=== PATIENT | female | born 1965 | race Caucasian/White ===

== ENCOUNTER 2017-12-15 11:14 | Emergency (ER) | payer OTHER ==
--- NOTE | 2017-12-15 11:56 | RAD REPORT ---
EXAM DESCRIPTION: RAD - Chest Single View - 12/15/2017 11:50 am CLINICAL HISTORY: Chest pain. COMPARISON: 06/29/2017 FINDINGS: Portable technique limits examination quality. The lungs are grossly clear. The heart is normal in size. No displaced fractures. IMPRESSION: No acute intrathoracic process suspected.
[2017-12-15] MEDS ORDERED: ONDANSETRON 4 MG/2 ML VIAL ONE (11:57)
[2017-12-15] MEDS ORDERED: MORPHINE 4 MG/ML SYR ONE (11:57)
[2017-12-15 12:09] LABS: Absolute Lymphocytes (CBC) 4.1 K/uL (0.7-4.9); Absolute Neutrophil 7.8 K/uL (1.8-8.0); Basophils % 0.8 % (0-1.3); Eosinophils % 1.1 % (0-4.4); Hematocrit 48.5 % (36.0-45.0); Lymphocytes % 31.3 % (15.3-44.8); MCH 30.3 pg (27.0-35.0); MCV 90.8 fL (80-100); MPV 10.8 fL (7.6-11.3); Monocytes % 7.9 % (3.3-12.3); RBC Red Blood Cell Count 5.34 M/uL (3.86-4.86)
[2017-12-15 12:10] LABS: Potassium 3.9 mEq/L (3.6-5.0)
[2017-12-15 12:11] LABS: Protime INR 1.02
[2017-12-15] MEDS ORDERED: MEPERIDINE HCL 50 MG/ML AMP ONE (12:15)
--- NOTE | 2017-12-15 13:13 | RAD REPORT ---
EXAM DESCRIPTION: CT - Thorax W/ Con CLINICAL HISTORY: History fall, right sided chest pain, history of trauma to right-sided chest. COMPARISON: 06/29/2017, 03/27/2017. FINDINGS: Mottled COPD is present. No focal mass or infiltrate detected. No pleural thickening or pl eural effusion. No pneumothorax. Mildly prominent hilar and mediastinal lymph nodes are present, without progression since the compara tive study. No concerning bony finding. No gross upper abdominal finding. All CT scans are performed using dose optimization technique as appropriate and may include automated exposure control or mA/KV adjustment according to patient size. IMPRESSION: No acute intrathoracic finding is seen.
--- NOTE | 2017-12-15 13:36 | ER ---
Nurse's Notes [facility] Name: Juan J Velez Age: 51 yrs Sex: Female : 1965 Arrival Date: 12/15/2017 Time: 11:18 Bed 5 Private MD: Diagnosis: Chest contusion;Rib Contusion Presentation: 12/15 11:19 Presenting complaint: EMS states: She fell 2 days ago and is c/o worsening pain in the jl7 right upper chest and right arm. Transition of care: patient was not received from another setting of care. Onset of symptoms was December 13, 2017. Initial Sepsis Screen: Does the patient meet any 2 criteria? No. Patient's initial sepsis screen is negative. Does the patient have a suspected source of infection? No. Patient's initial sepsis screen is negative. Care prior to arrival: None. 11:19 Method Of Arrival: EMS: [facility] 11:19 Acuity: KORINA 3 jl7 Triage Assessment: 11:22 General: Appears uncomfortable, obese, Behavior is anxious. Pain: Complains of pain in jl7 anterior aspect of right upper chest Pain radiates to right arm Pain currently is 10 out of 10 on a pain scale. Quality of pain is described as stabbing, numb, Pain began 2-3 days ago. Is continuous. EENT: No signs and/or symptoms were reported regarding the EENT system. Neuro: Level of Consciousness is awake, alert, obeys commands, Oriented to person, place, time, situation. Cardiovascular: Patient's skin is warm and dry. Respiratory: Airway is patent Respiratory effort is even, unlabored, Respiratory pattern is regular, symmetrical. Derm: Skin is pink, warm \\T\\ dry. 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 - Social history:: Smoking status: Patient uses tobacco products, smokes one-half pack cigarettes per day, Patient/guardian denies using alcohol, street drugs. - Family history:: not pertinent. - Hospitalizations: : No recent hospitalization is reported. Screenin:26 Abuse screen: Denies threats or abuse. Denies injuries from another. Nutritional jl7 screening: No deficits noted. Tuberculosis screening: No symptoms or risk factors identified. 11:30 Fall Risk IV access (20 points). jl7 Assessment: 11:26 General: See triage assessment. jl7 12:10 Reassessment: pt reports pain unchanged, provider notified, see [facility] for orders. jl7 12:25 Reassessment: pt reports decreased pain, states "I'm good right now but when it comes jl7 back it's a 10/10.". 13:30 Reassessment: Patient states feeling better. Patient states symptoms have improved. jl7 Vital Signs: 11:22 BP 124 / 69; Pulse 100; Resp 17 S; Temp 98.6(O); Pulse Ox 100% on R/A; Weight 113.4 kg jl7 (R); Height 5 ft. 4 in. (162.56 cm) (R); Pain 10/10; 12:31 BP 119 / 64; Pulse 94; Resp 20; Pulse Ox 100% ; jl7 13:30 BP 116 / 63; Pulse 90; Resp 16; Pulse Ox 100% ; jl7 11:22 Body Mass Index 42.91 (113.40 kg, 162.56 cm) jl7 ED Course: 11:18 Patient arrived in ED. rn 11:18 David Olson MD is Attending Physician. rn 11:19 Porfirio Hickman, JOSEFINA is Primary Nurse. jl7 11:21 Triage completed. jl7 11:22 Arm band placed on right wrist. jl7 11:26 Patient has correct armband on for positive identification. Placed in gown. Bed in low jl7 position. Call light in reach. Side rails up X2. child monitor on. Pulse ox on. NIBP on. 11:48 X-ray completed. Portable x-ray completed in exam room. Patient tolerated procedure la2 poorly. 11:49 XRAY Chest (1 view) In Process Unspecified. EDMS 11:51 Inserted saline lock: 18 gauge in left antecubital area, using aseptic technique. Blood la1 collected. 12:28 LAB Add On Sent. jl7 12:55 CT Chest W/ Con In Process Unspecified. EDMS 13:53 No provider procedures requiring assistance completed. IV discontinued, intact, jl7 bleeding controlled, No redness/swelling at site. Pressure dressing applied. Administered Medications: 12:00 Drug: Zofran 4 mg Route: IVP; Site: left antecubital; jl7 12:27 Follow up: Response: No adverse reaction jl7 12:03 Drug: morphine 4 mg Route: IVP; Site: left antecubital; jl7 12:10 Follow up: Response: No adverse reaction; Pain is unchanged, physician notified jl7 12:20 Drug: Demerol 50 mg Route: IVP; Site: left antecubital; jl7 12:27 Follow up: Response: No adverse reaction; Pain is decreased jl7 Outcome: 13:35 Discharge ordered by . rn 13:53 Discharged to home ambulatory. jl7 13:53 Condition: stable 13:53 Discharge instructions given to patient, family, Instructed on discharge instructions, follow up and referral plans. medication usage, Demonstrated understanding of instructions, follow-up care, medications, Prescriptions given X 1. 13:54 Patient left the ED. jl7 Signatures: Dispatcher [employer] EDMS David Olson MD MD rn Attema, Lee, RN RN la1 Porfirio Hickman RN RN jl7 Blank [place]2 Corrections: (The following items were deleted from the chart) 12:27 12:00 Demerol 50 mg IVP in left antecubital jl7 jl7
--- NOTE | 2017-12-15 13:36 | EDPHYS ---
Physician Documentation [facility] Name: Juan J Velez Age: 51 yrs Sex: Female : 1965 Arrival Date: 12/15/2017 Time: 11:18 Bed 5 Private MD: ED Physician David Olson HPI: 12/15 11:27 This 51 yrs old Female presents to ER via EMS with complaints of right sided rn rib pain. 11:27 The patient or guardian reports chest pain that is located primarily in the anterior rn chest wall. Onset: The symptoms/episode began/occurred 2 day(s) ago. The pain does not radiate. The chest pain is described as sharp, stabbing. Duration: The patient or guardian reports multiple episodes, that are intermittent. Severity of pain: At its worst the pain was moderate in the emergency department the pain is unchanged. The patient has experienced a previous episode. Reports traumatic chest pain, right sided, worse with palpation and inspiration, fell 2 days ago on porch, landed on stack of bricks. Pain worse today. . 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 - Social history:: Smoking status: Patient uses tobacco products, smokes one-half pack cigarettes per day, Patient/guardian denies using alcohol, street drugs. - Family history:: not pertinent. - Hospitalizations: : No recent hospitalization is reported. ROS: 11:27 Constitutional: Negative for fever, chills, and weight loss, Eyes: Negative for injury, rn pain, redness, and discharge, Neck: Negative for injury, pain, and swelling, Cardiovascular: + right sided rib pain Respiratory: Negative for wheezing Abdomen/GI: Negative for abdominal pain, nausea, vomiting, diarrhea, and constipation, Back: Negative for injury and pain, MS/Extremity: Negative for injury and deformity, Skin: Negative for injury, rash, and discoloration, Neuro: Negative for headache, weakness, numbness, tingling, and seizure. Exam: 11:27 Constitutional: This is a well developed, well nourished patient who is awake, alert, rn appears in pain, holding right side of chest wall Head/Face: Normocephalic, atraumatic. Eyes: Pupils equal round and reactive to light, extra-ocular motions intact. Lids and lashes normal. Conjunctiva and sclera are non-icteric and not injected. Cornea within normal limits. Periorbital areas with no swelling, redness, or edema. Chest/axilla: No ecchymosis/crepitus, + tender mid right chest wall, no mobile segments Cardiovascular: Regular rate and rhythm with a normal S1 and S2. No gallops, murmurs, or rubs. Normal PMI, no JVD. No pulse deficits. Respiratory: + mild tachypnea, no retractions, speaking normally Abdomen/GI: Soft, non-tender, with normal bowel sounds. No distension or tympany. No guarding or rebound. No evidence of tenderness throughout. MS/ Extremity: Pulses equal, no cyanosis. Neurovascular intact. Full, normal range of motion. Equal circumference. Neuro: Awake and alert, GCS 15, oriented to person, place, time, and situation. Cranial nerves II-XII grossly intact. Motor strength 5/5 in all extremities. Sensory grossly intact. Cerebellar exam normal. Normal gait. 12:49 ECG was reviewed by the Attending Physician. rn Vital Signs: 11:22 BP 124 / 69; Pulse 100; Resp 17 S; Temp 98.6(O); Pulse Ox 100% on R/A; Weight 113.4 kg jl7 (R); Height 5 ft. 4 in. (162.56 cm) (R); Pain 10/10; 12:31 BP 119 / 64; Pulse 94; Resp 20; Pulse Ox 100% ; jl7 13:30 BP 116 / 63; Pulse 90; Resp 16; Pulse Ox 100% ; jl7 11:22 Body Mass Index 42.91 (113.40 kg, 162.56 cm) jl7 MDM: 11:18 Patient medically screened. rn 13:33 Differential diagnosis: Blunt Chest Trauma Chest Wall Contusion Chest Wall Injury rn Pneumothorax Pulmonary Contusion Rib Fracture. Data reviewed: vital signs, nurses notes, lab test result(s), radiologic studies, CT scan, plain films, and as a result, I will discharge patient. Counseling: I had a detailed discussion with the patient and/or guardian regarding: the historical points, exam findings, and any diagnostic results supporting the discharge/admit diagnosis, lab results, radiology results, the need for outpatient follow up, to return to the emergency department if symptoms worsen or persist or if there are any questions or concerns that arise at home. Response to treatment: the patient's symptoms have mildly improved after treatment. Special discussion: I discussed with the patient/guardian in detail that at this point there is no indication for admission to the hospital. It is understood, however, that if the symptoms persist or worsen the patient needs to return immediately for re-evaluation. 12/15 11:22 Order name: CBC with Diff; Complete Time: 12:12 rn 12/15 11:22 Order name: Basic Metabolic Panel; Complete Time: 12:12 rn 12/15 11:22 Order name: Protime (+inr); Complete Time: 12:12 rn 12/15 11:22 Order name: Ptt, Activated; Complete Time: 12:12 rn 12/15 12:16 Order name: LAB Add On eb 12/15 12:18 Order name: Troponin (Emerg Dept Use Only); Complete Time: 12:49 EDMS 12/15 11:22 Order name: XRAY Chest (1 view); Complete Time: 12:12 rn 12/15 11:22 Order name: IV Start; Complete Time: 12:09 rn 12/15 11:26 Order name: CT Chest W/ Con; Complete Time: 13:33 rn 12/15 12:10 Order name: EKG - Nurse/Tech; Complete Time: 12:26 rn 12/15 12:10 Order name: EKG; Complete Time: 12:11 rn EC:49 Rate is 89 beats/min. Rhythm is regular. QRS Carey is Normal. IA interval is normal. QRS rn interval is normal. QT interval is normal. No Q waves. T waves are Normal. No ST changes noted. Clinical impression: Normal ECG. Interpreted by me. Administered Medications: 12:00 Drug: Zofran 4 mg Route: IVP; Site: left antecubital; jl7 12:27 Follow up: Response: No adverse reaction jl7 12:03 Drug: morphine 4 mg Route: IVP; Site: left antecubital; jl7 12:10 Follow up: Response: No adverse reaction; Pain is unchanged, physician notified jl7 12:20 Drug: Demerol 50 mg Route: IVP; Site: left antecubital; jl7 12:27 Follow up: Response: No adverse reaction; Pain is decreased jl7 Disposition: 12/15/17 13:35 Discharged to Home. Impression: Chest contusion, Rib Contusion. - Condition is Stable. - Discharge Instructions: Rib Contusion. - Prescriptions for Tylenol- Codeine #3 300-30 mg Oral Tablet - take 1 tablet by ORAL route every 6 hours As needed; 15 tablet. - Medication Reconciliation Form, Thank You Letter, Antibiotic Education, Prescription Opioid Use form. - Follow up: Private Physician; When: As needed; Reason: Recheck today's complaints, Re-evaluation by your physician. - Problem is new. - Symptoms have improved. Signatures: Dispatcher [employer] EDMS David Olson MD MD rn Leal, Jahala, RN RN jl7 Corrections: (The following items were deleted from the chart) 13:54 13:35 12/15/2017 13:35 Discharged to Home. Impression: Chest contusion; Rib Contusion. jl7 Condition is Stable. Forms are Medication Reconciliation Form, Thank You Letter, Antibiotic Education, Prescription Opioid Use. Follow up: Private Physician; When: As needed; Reason: Recheck today's complaints, Re-evaluation by your physician. Problem is new. Symptoms have improved. rn
[2017-12-15 13:58] VITALS: TEMP 98.6; O2SAT 100
[2017-12-15 14:00] VITALS: BP 116/63
--- NOTE | 2017-12-16 06:56 | EKG ---
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
== END 2017-12-15 13:54 | disposition home or self-care (01) ==
LOC: ER 11:14
DX: S20.219A Contusion of unspecified front wall of thorax, initial encounter (principal); W18.39XA Other fall on same level, initial encounter; Y93.9 Activity, unspecified; Y92.008 Other place in unspecified non-institutional (private) residence as the place of occurrence of the external cause; F41.9 Anxiety disorder, unspecified; F43.10 Post-traumatic stress disorder, unspecified; F17.210 Nicotine dependence, cigarettes, uncomplicated
CPT/HCPCS: 36415; 71045; 71260; 80048; 84484; 85025; 85610; 85730; 93005; J2175; J2405; Q9967; 96374; 96375; 99284

== ENCOUNTER 2018-01-22 17:43 | Observation (INO) | payer OTHER ==
[2018-01-22] MEDS ORDERED: ONDANSETRON 4 MG/2 ML VIAL ONE ×2 (20:07→23:26)
[2018-01-22] MEDS ORDERED: MORPHINE 4 MG/ML SYR ONE (20:07)
[2018-01-22 20:52] LABS: Urine Bacteria <20 /HPF (<20); Urine Culture Reflex Order NOT NEEDED
[2018-01-22 21:44] LABS: Potassium 3.7 mEq/L (3.6-5.0)
[2018-01-22 21:46] LABS: Absolute Lymphocytes (CBC) 4.8 K/uL (0.7-4.9); Absolute Monocytes 1.2 K/uL (0.1-1.3); Absolute Neutrophil 10.1 K/uL (1.8-8.0); Basophils % 0.7 % (0-1.3); Eosinophils % 1.9 % (0-4.4); Hematocrit 44.9 % (36.0-45.0); Lymphocytes % 29.1 % (15.3-44.8); MCH 30.5 pg (27.0-35.0); MPV 11.2 fL (7.6-11.3); Monocytes % 7.3 % (3.3-12.3)
[2018-01-22 21:50] LABS: Albumin 3.8 g/dL (3.2-5.5); Bilirubin Direct 0.1 mg/dL (0-0.2); Bilirubin Total 0.4 mg/dL (0.3-1.2); Protein, Total 7.1 g/dL (6.0-8.3)
[2018-01-22] MEDS ORDERED: NA CHLORIDE 0.9% 2,000 ML ONE (23:27)
[2018-01-22 23:35] LABS: Urine Blood 2+ (NEG); Urine Glucose NEGATIVE (NEG); Urine Protein NEGATIVE (NEG); Urine Specific Gravity 1.025 (1.005-1.030); Urine pH 5.5 (5.0-7.0)
--- NOTE | 2018-01-23 00:19 | ER ---
Nurse's Notes [facility] Name: Juan J Velez Age: 52 yrs Sex: Female : 1965 Arrival Date: 01/22/2018 Time: 17:45 Bed 25 Private MD: SALLIE CALDWELL Diagnosis: Lower abdominal pain, unspecified;Leukocytosis Presentation: 01/22 18:24 Presenting complaint: Patient states: Left back pain that radiates down left leg. aj Ambulated to triage with steady gait. Transition of care: patient was not received from another setting of care. Onset of symptoms was January 17, 2018. Risk Assessment: Do you want to hurt yourself or someone else? Patient reports no desire to harm self or others. Care prior to arrival: None. 18:24 Method Of Arrival: Ambulatory 18:24 Acuity: KORINA 4 21:24 Initial Sepsis Screen: Does the patient meet any 2 criteria? No. Patient's initial tl3 sepsis screen is negative. Does the patient have a suspected source of infection? No. Patient's initial sepsis screen is negative. Triage Assessment: 18:25 General: Appears in no apparent distress. comfortable, Behavior is calm, cooperative, aj appropriate for age. Pain: Complains of pain in coccyx, left lower back, left gluteus jessie and left gluteal fold. Neuro: Level of Consciousness is awake, alert, obeys commands, Oriented to person, place, time, situation, Appropriate for age. Respiratory: Airway is patent Respiratory effort is even, unlabored, Respiratory pattern is regular, symmetrical. GI: Abdomen is obese. Derm: Skin is intact, is healthy with good turgor, Skin is pink, warm \T\ dry. normal. Musculoskeletal: Circulation, motion, and sensation intact. Reports pain in lumbar area, left low back, coccyx, left lower back, left gluteus jessie and left gluteal fold. 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 - Social history:: Smoking status: Patient uses tobacco products, smokes one-half pack cigarettes per day. - Ebola Screening: : Patient negative for fever greater than or equal to 101.5 degrees Fahrenheit, and additional compatible Ebola Virus Disease symptoms Patient denies exposure to infectious person Patient denies travel to an Ebola-affected area in the 21 days before illness onset No symptoms or risks identified at this time. Screenin:45 Abuse screen: Denies threats or abuse. Nutritional screening: No deficits noted. tl3 Tuberculosis screening: No symptoms or risk factors identified. Fall Risk None identified. Assessment: 19:45 General: Appears uncomfortable, obese, well groomed, well developed, well nourished, tl3 Behavior is calm, cooperative, appropriate for age. Pain: Complains of pain in suprapubic area, right lower quadrant and left lower quadrant. Pain: Complains of pain in lower back, down right leg, lower abdomen. Neuro: Level of Consciousness is awake, alert, obeys commands, Oriented to person, place, time, situation, Appropriate for age. Cardiovascular: Heart tones S1 S2 present Patient's skin is warm and dry. Respiratory: Airway is patent Respiratory effort is even, unlabored, Respiratory pattern is regular, symmetrical, Breath sounds are clear bilaterally. GI: Bowel sounds present X 4 quads. Abd is soft. : No signs and/or symptoms were reported regarding the genitourinary system. Urine is clear. EENT: No deficits noted. No signs and/or symptoms were reported regarding the EENT system. Derm: No deficits noted. No signs and/or symptoms reported regarding the dermatologic system. Musculoskeletal: No deficits noted. No signs and/or symptoms reported regarding the musculoskeletal system. 20:50 Reassessment: Patient appears in no apparent distress at this time. No changes from tl3 previously documented assessment. Patient and/or family updated on plan of care and expected duration. Pain level reassessed. Patient is alert, oriented x 3, equal unlabored respirations, skin warm/dry/pink. pt completed contrast at 2014, Ct notified. 21:13 Reassessment: Dr Tovar at bedside for EJ placement. tl3 22:51 Reassessment: Patient appears in no apparent distress at this time. No changes from tl3 previously documented assessment. Patient and/or family updated on plan of care and expected duration. Pain level reassessed. Patient is alert, oriented x 3, equal unlabored respirations, skin warm/dry/pink. 22:56 Reassessment: CT called and informed that midline has been placed. tl3 01/23 00:57 Reassessment: Patient and/or family updated on plan of care and expected duration. Pain tl3 level reassessed. Patient is alert, oriented x 3, equal unlabored respirations, skin warm/dry/pink. pt c/o nausea and pain across lower abdomen, Provider notified and orders received. 02:00 Reassessment: Called report to receiving RN Lexy. rk2 Vital Signs: 01/22 18:27 BP 121 / 69; Pulse 109; Resp 20; Temp 97.1; Pulse Ox 97% on R/A; Weight 113.4 kg; aj Height 5 ft. 4 in. (162.56 cm); 19:45 BP 118 / 87; Pulse 80; Resp 18; Pulse Ox 99% ; tl3 20:50 BP 118 / 88; Pulse 73; Resp 18; Pulse Ox 98% ; tl3 22:51 BP 113 / 68; Pulse 85; Resp 18; Pulse Ox 97% ; tl3 01/23 00:57 BP 113 / 68; Pulse 84; Resp 16; Pulse Ox 99% ; tl3 01/22 18:27 Body Mass Index 42.91 (113.40 kg, 162.56 cm) ED Course: 01/22 17:45 Patient arrived in ED. mr 17:45 SALLIE CALDWELL is Private Physician. mr 18:25 Triage completed. aj 18:25 Arm band placed on right wrist. Patient placed in waiting room, Patient notified of wait time. 19:19 Kirill Joseph PA is PHCP. cp 19:19 Kirill Tovar MD is Attending Physician. cp 19:32 Maddie Mahoney, JOSEFINA is Primary Nurse. tl3 19:45 Patient has correct armband on for positive identification. Bed in low position. Call tl3 light in reach. Side rails up X 1. Pulse ox on. NIBP on. 19:45 No provider procedures requiring assistance completed. tl3 19:53 Oral contrast given. vr 20:51 Missed attempt(s): 20 gauge in right antecubital area. upper arm. tl3 21:18 Radiology exam delayed due to lab results not completed at this time. (BUN/Creatinine). vr 21:33 Radiology exam delayed due to lab results not completed at this time. (BUN/Creatinine). vr 22:17 Radiology exam delayed due to IV insertion attempt and/or patient not having vm2 appropriate IV at this time. 22:50 Inserted 18 gauge 10 cm midline to left upper basilic vein on first attempt. Line with fc good blood return and flushes well. 22:51 IV discontinued, intact, bleeding controlled, No redness/swelling at site. Pressure tl3 dressing applied, Right EJ. 22:[address] via wheelchair. vr 23:14 CT Abd/Pelvis - W/Contrast: may give oral contrast In Process Unspecified. EDMS 01/23 00:17 Enoch Adan MD is Hospitalizing Provider. cp 01:05 Report given to JOSEFINA Corona. tl3 Administered Medications: 01/22 21:23 Drug: morphine 2 mg {Note: Right EJ.} Route: IVP; Infused Over: 3 mins; Site: Other; tl3 23:22 Follow up: Response: No adverse reaction tl3 23:22 Follow up: Response: No adverse reaction; Pain is decreased tl3 21:23 Drug: Zofran 4 mg {Note: Right EJ.} Route: IVP; Infused Over: 3 mins; Site: Other; tl3 23:40 Follow up: Response: No adverse reaction; Nausea is decreased tl3 23:30 Drug: NS 0.9% 1000 ml Route: IV; Rate: 1 bolus; Site: left upper arm; Delivery: Primary tl3 tubing; 01/23 01:02 Follow up: IV Status: Completed infusion; IV Intake: 1000ml tl3 01/22 23:31 Drug: Zofran 4 mg Route: IVP; Infused Over: 2 mins; Site: left upper arm; tl3 23:40 Follow up: Response: No adverse reaction; Nausea is decreased tl3 01/23 00:57 Drug: morphine 4 mg Route: IVP; Site: left upper arm; tl3 01:03 Follow up: Response: No adverse reaction; Pain is decreased tl3 01:00 Drug: metroNIDAZOLE 500 mg Volume: 100 ml; Route: IVPB; Infused Over: 30 mins; Site: tl3 left upper arm; Delivery: Primary tubing; 01:01 Drug: Cipro 400 mg Volume: 200 ml; Route: IVPB; Infused Over: 60 mins; Site: left upper tl3 arm; Delivery: Primary tubing; 01:02 Drug: NS 0.9% 1000 ml Route: IV; Rate: 125 ml/hr; Site: left upper arm; Delivery: tl3 Primary tubing; 01:02 Follow up: IV Status: Infusion continued upon admission tl3 01:04 Drug: Zofran 4 mg Route: IVP; Infused Over: 2 mins; Site: left upper arm; tl3 01:05 Follow up: Response: Nausea is decreased tl3 Intake: 01:02 IV: 1000ml; Total: 1000ml. tl3 Outcome: 00:18 Decision to Hospitalize by Provider. cp 02:20 Admitted to Med/surg accompanied by tech, via wheelchair. rk2 02:20 Condition: good 02:20 Instructed on the need for admit. 02:21 Patient left the ED. rk2 Signatures: Dispatcher [employer] EDMS Edie Cheng, RN Kianna Cancino mr Beth De La Torre, RN Rupa Donovan Corey, PA PA cp McGuire, [facility] Chloe Duron RN RN rk2 Maddie Mahoney RN RN tl3
--- NOTE | 2018-01-23 00:19 | EDPHYS ---
Physician Documentation [facility] Name: Juan J Velez Age: 52 yrs Sex: Female : 1965 Arrival Date: 01/22/2018 Time: 17:45 Bed 25 Private MD: SALLIE CALDWELL ED Physician Kirill Tovar HPI: 01/22 19:45 This 52 yrs old Female presents to ER via Ambulatory with complaints of Back cp Pain. 19:45 The patient presents with abdominal pain in the lower abdomen, with left worse than cp right. Onset: The symptoms/episode began/occurred 1 week(s) ago. 19:45 The symptoms radiate to left back. Associated signs and symptoms: Pertinent positives: cp nausea, Pertinent negatives: blood in stools, chest pain, constipation, diarrhea, dysuria, fever, vomiting. The symptoms are described as waxing/waning. 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 - Social history:: Smoking status: Patient uses tobacco products, smokes one-half pack cigarettes per day. - Ebola Screening: : Patient negative for fever greater than or equal to 101.5 degrees Fahrenheit, and additional compatible Ebola Virus Disease symptoms Patient denies exposure to infectious person Patient denies travel to an Ebola-affected area in the 21 days before illness onset No symptoms or risks identified at this time. ROS: 19:50 Constitutional: Negative for body aches, chills, fever, poor PO intake. cp 19:50 Eyes: Negative for injury, pain, redness, and discharge. cp 19:50 ENT: Negative for drainage from ear(s), ear pain, sore throat, difficulty swallowing, difficulty handling secretions. 19:50 Neck: Negative for pain with movement, pain at rest, stiffness, bony tenderness. 19:50 Cardiovascular: Negative for chest pain, edema, palpitations. 19:50 Respiratory: Negative for cough, shortness of breath, wheezing. 19:50 Abdomen/GI: Positive for abdominal pain, nausea, Negative for vomiting, diarrhea, constipation, anorexia, black/tarry stool, rectal bleeding. 19:50 Back: Positive for radiated pain, of the left low back. 19:50 : Negative for urinary symptoms. 19:50 Skin: Negative for cellulitis, rash. 19:50 Neuro: Negative for altered mental status, dizziness, headache, weakness. 19:50 All other systems are negative. Exam: 20:00 Constitutional: The patient appears in no acute distress, alert, awake, cp non-diaphoretic, non-toxic, well developed, well nourished, obese, uncomfortable. 20:00 Head/Face: Normocephalic, atraumatic. Eyes: Pupils equal round and reactive to light, cp extra-ocular motions intact. Lids and lashes normal. Conjunctiva and sclera are non-icteric and not injected. Cornea within normal limits. Periorbital areas with no swelling, redness, or edema. ENT: Nares patent. No nasal discharge, no septal abnormalities noted. Tympanic membranes are normal and external auditory canals are clear. Oropharynx with no redness, swelling, or masses, exudates, or evidence of obstruction, uvula midline. Mucous membranes moist. Neck: Trachea midline, no thyromegaly or masses palpated, and no cervical lymphadenopathy. Supple, full range of motion without nuchal rigidity, or vertebral point tenderness. No Meningismus. 20:00 Chest/axilla: Inspection: normal, Palpation: is normal, no crepitus, no tenderness. 20:00 Cardiovascular: Rate: normal, Rhythm: regular, Pulses: Pulses are 2+ in right radial artery and left radial artery. 20:00 Respiratory: the patient does not display signs of respiratory distress, Respirations: normal, no use of accessory muscles, no retractions, no splinting, no tachypnea, labored breathing, is not present, Breath sounds: are clear throughout, no decreased breath sounds, no stridor, no wheezing. 20:00 Abdomen/GI: Inspection: obese Bowel sounds: active, all quadrants, Palpation: soft, in all quadrants, mild abdominal tenderness, in the right lower quadrant, moderate abdominal tenderness, in the left lower quadrant, rebound tenderness, is not appreciated, involuntary guarding, is elicited in the right lower quadrant and left lower quadrant. 20:00 Back: pain, that is moderate, of the left low back, CVA tenderness, is absent, vertebral tenderness, is not appreciated. 20:00 Skin: cellulitis, is not appreciated, no rash present. 20:00 Neuro: Orientation: to person, place \T\ time. Mentation: lucid, able to follow commands, Cerebellar function: is grossly normal, Motor: moves all fours, strength is normal, Sensation: no obvious gross deficits. Vital Signs: 18:27 BP 121 / 69; Pulse 109; Resp 20; Temp 97.1; Pulse Ox 97% on R/A; Weight 113.4 kg; aj Height 5 ft. 4 in. (162.56 cm); 19:45 BP 118 / 87; Pulse 80; Resp 18; Pulse Ox 99% ; tl3 20:50 BP 118 / 88; Pulse 73; Resp 18; Pulse Ox 98% ; tl3 22:51 BP 113 / 68; Pulse 85; Resp 18; Pulse Ox 97% ; tl3 01/23 00:57 BP 113 / 68; Pulse 84; Resp 16; Pulse Ox 99% ; tl3 01/22 18:27 Body Mass Index 42.91 (113.40 kg, 162.56 cm) MDM: 01/22 19:19 Patient medically screened. 01/23 00:00 Data reviewed: vital signs, nurses notes, lab test result(s), radiologic studies, CT cp scan, and as a result, I will admit patient. 00:00 Counseling: I had a detailed discussion with the patient and/or guardian regarding: the historical points, exam findings, and any diagnostic results supporting the discharge/admit diagnosis, lab results, radiology results. Response to treatment: the patient's symptoms have mildly improved after treatment, patient continues to have lower abdominal pain with LLQ worse. will admit for observation and give IV cipro and metronidazole. 01/22 19:42 Order name: Amylase, Serum; Complete Time: 22: 01/22 19:42 Order name: Basic Metabolic Panel; Complete Time: 22: 01/22 22:49 Interpretation: Normal except: CRE 1.19; GFR 48. 01/22 19:42 Order name: CBC with Diff; Complete Time: 22: 01/22 23:50 Interpretation: Normal except: WBC 16.6; RBC 5.00; HGB 15.2; PLT 139; NEUT A 10.1. cp 01/22 19:42 Order name: Creatinine for Radiology; Complete Time: 22:13 cp 01/22 23:50 Interpretation: Abnormal: CRE 1.11; GFR 52. cp 01/22 19:42 Order name: Hepatic Function; Complete Time: 22: cp 01/22 23:51 Interpretation: Reviewed. cp 01/22 19:42 Order name: Lipase; Complete Time: 22:13 cp 01/22 19:42 Order name: Urine Microscopic Only; Complete Time: 22:13 cp 01/22 20:40 Order name: Urine Dipstick--Ancillary (enter results); Complete Time: 23:45 rg2 01/22 23:46 Interpretation: Normal except: UKET 1+; UBLD 2+. cp 01/23 00:58 Order name: Basic Metabolic Panel EDMS 01/23 00:58 Order name: Basic Metabolic Panel EDMS 01/23 00:58 Order name: Basic Metabolic Panel EDMS 01/23 00:58 Order name: CBC with Automated Diff EDMS 01/23 00:58 Order name: CBC with Automated Diff EDMS 01/23 00:58 Order name: CBC with Automated Diff EDMS 01/22 19:42 Order name: CT Abd/Pelvis - W/Contrast: may give oral contrast cp 01/23 00:58 Order name: Lipase EDMS 01/23 00:58 Order name: Lipase EDMS 01/23 00:58 Order name: Lipase EDMS 01/23 00:58 Order name: Liver (Hepatic) Function EDMS 01/23 00:58 Order name: Liver (Hepatic) Function EDMS 01/23 00:58 Order name: Liver (Hepatic) Function EDMS 01/22 19:42 Order name: IV Saline Lock; Complete Time: 21:16 cp 01/22 19:42 Order name: Labs collected and sent; Complete Time: 21:16 cp 01/22 19:42 Order name: Urine Dipstick-Ancillary (obtain specimen); Complete Time: 21:16 cp 01/23 00:04 Order name: Diet Clear Liquid; Complete Time: 00:04 cp 01/23 00:58 Order name: Clear Liquid EDMS Administered Medications: 01/22 21:23 Drug: morphine 2 mg {Note: Right EJ.} Route: IVP; Infused Over: 3 mins; Site: Other; tl3 23:22 Follow up: Response: No adverse reaction tl3 23:22 Follow up: Response: No adverse reaction; Pain is decreased tl3 21:23 Drug: Zofran 4 mg {Note: Right EJ.} Route: IVP; Infused Over: 3 mins; Site: Other; tl3 23:40 Follow up: Response: No adverse reaction; Nausea is decreased tl3 23:30 Drug: NS 0.9% 1000 ml Route: IV; Rate: 1 bolus; Site: left upper arm; Delivery: Primary tl3 tubing; 01/23 01:02 Follow up: IV Status: Completed infusion; IV Intake: 1000ml tl3 01/22 23:31 Drug: Zofran 4 mg Route: IVP; Infused Over: 2 mins; Site: left upper arm; tl3 23:40 Follow up: Response: No adverse reaction; Nausea is decreased tl3 01/23 00:57 Drug: morphine 4 mg Route: IVP; Site: left upper arm; tl3 01:03 Follow up: Response: No adverse reaction; Pain is decreased tl3 01:00 Drug: metroNIDAZOLE 500 mg Volume: 100 ml; Route: IVPB; Infused Over: 30 mins; Site: tl3 left upper arm; Delivery: Primary tubing; 01:01 Drug: Cipro 400 mg Volume: 200 ml; Route: IVPB; Infused Over: 60 mins; Site: left upper tl3 arm; Delivery: Primary tubing; 01:02 Drug: NS 0.9% 1000 ml Route: IV; Rate: 125 ml/hr; Site: left upper arm; Delivery: tl3 Primary tubing; 01:02 Follow up: IV Status: Infusion continued upon admission tl3 01:04 Drug: Zofran 4 mg Route: IVP; Infused Over: 2 mins; Site: left upper arm; tl3 01:05 Follow up: Response: Nausea is decreased tl3 Disposition: 07:26 Co-signature as Attending Physician, Kirill Tovar MD I agree with the assessment and rose plan of care. Disposition: 01/23/18 00:18 Hospitalization ordered by Enoch Adan for Observation. Preliminary diagnosis are Lower abdominal pain, unspecified, Leukocytosis. - Bed requested for Telemetry/MedSurg (observation). - Status is Observation. rk2 - Condition is Stable. - Problem is new. - Symptoms have improved. UTI on Admission? No Signatures: Dispatcher [employer] EDMS Enedelia Anand RN RN Edie Palumbo RN Kirill Faustin MD MD cha Page, Corey, PA PA Chloe Vitale RN RN rk2 Maddie Mahoney, RN RN tl3 Corrections: (The following items were deleted from the chart) 01/22 21:24 19:42 Urine Test ordered. cp tl3 01/23 01:23 00:18 Hospitalization Ordered by Enoch Adan MD for Observation. Preliminary diagnosis kl is Lower abdominal pain, unspecified; Leukocytosis. Bed requested for Telemetry/MedSurg (observation). Status is Observation. Condition is Stable. Problem is new. Symptoms have improved. UTI on Admission? No. cp 02:21 01:23 01/23/2018 00:18 Hospitalization Ordered by Enoch Adan MD for Observation. rk2 Preliminary diagnosis is Lower abdominal pain, unspecified; Leukocytosis. Bed requested for Telemetry/MedSurg (observation). Status is Observation. Condition is Stable. Problem is new. Symptoms have improved. UTI on Admission? No. kl
[2018-01-23] MEDS ORDERED: METRONIDAZOLE 500mg IVPB 500 MG/100 ML BAG IV ONE (00:47)
[2018-01-23] MEDS ORDERED: CIPROFLOXACIN 400mg IV 400 MG/200 ML BAG IV ONE (00:47)
[2018-01-23] MEDS ORDERED: ONDANSETRON 4 MG/2 ML VIAL IV PRN (00:54)
[2018-01-23] MEDS ORDERED: MORPHINE 4 MG/ML SYR IV PRN (00:54)
[2018-01-23] MEDS ORDERED: ACETAMINOPHEN 500 MG TAB PO PRN (00:54)
[2018-01-23] MEDS ORDERED: MORPHINE 4 MG/ML SYR ONE (00:55)
[2018-01-23 02:27] VITALS: BMI 45.2
[2018-01-23] MEDS: NA CHLORIDE 0.9% 1,000 ML IV SCH ×2 (02:36→09:00)
[2018-01-23 03:03] VITALS: O2SAT 99
[2018-01-23 05:53] LABS: Absolute Lymphocytes (CBC) 3.4 K/uL (0.7-4.9); Absolute Monocytes 0.8 K/uL (0.1-1.3); Absolute Neutrophil 6.6 K/uL (1.8-8.0); Basophils % 0.8 % (0-1.3); Eosinophils % 2.4 % (0-4.4); Hematocrit 42.6 % (36.0-45.0); Lymphocytes % 30.5 % (15.3-44.8); MCH 31.1 pg (27.0-35.0); MCV 91.4 fL (80-100); MPV 10.7 fL (7.6-11.3); Monocytes % 7.5 % (3.3-12.3); RBC Red Blood Cell Count 4.67 M/uL (3.86-4.86)
[2018-01-23] MEDS: METRONIDAZOLE 500mg IVPB 500 MG/100 ML BAG IV SCH ×2 (06:11→11:20)
[2018-01-23 06:12] LABS: Albumin 3.1 g/dL (3.2-5.5); Bilirubin Direct 0.1 mg/dL (0-0.2); Bilirubin Total 0.7 mg/dL (0.3-1.2); Potassium 3.9 mEq/L (3.6-5.0); Protein, Total 5.9 g/dL (6.0-8.3)
--- NOTE | 2018-01-23 08:41 | RAD REPORT ---
EXAM DESCRIPTION: CTAbdomen Pelvis W Contrast - 01/23/2018 7:12 am CLINICAL HISTORY: Abdominal pain. lower abdomen pain with left worse than right COMPARISON: Abdomen Pelvis W Contrast dated 06/29/2017; CT ABD PELVIS W CONTRAST dated 02/22/2015 TECHNIQUE: Biphasic CT imaging of the abdomen and pelvis was performed with 100 ml non-ionic IV cont rast. All CT scans are performed using dose optimization technique as appropriate and may include automated exposure control or mA/KV adjustment according to patient size. FINDINGS: The lung bases are clear.Cholecystectomy. The liver, spleen, pancreas, left adrenal gland and kidneys are within normal limits. 16 mm right adr enal nodule, nonspecific but likely a benign adenoma and appearing unchanged. No bowel obstruction, free air, free fluid or abscess. The appendix is normal. No evidence of signi ficant lymphadenopathy. Lumbar degenerative changes are present. Tiny air bubble seen in urinary bladder. IMPRESSION: Tiny air bubble in the urinary bladder may indicate recent instrumentation or infection.
[2018-01-23] MEDS ORDERED: CIPROFLOXACIN 400mg IV 400 MG/200 ML BAG IV SCH (09:00)
--- NOTE | 2018-01-23 13:17 | P.SSS ---
Patient History Date of Service: 01/23/18 Primary Care Provider: Tiffanie Cervantes History of Present Illness: Patient is here with one week of lower abdominal pain. She had nausea. No diarrhea, no vomiting. Her son recently had rsv. [facility] Was given antibiotics for the infection. Otherwise no sick contacts. Allergies No Known Drug Allergies Allergy (Verified 01/23/18 01:50) Unknown Home Medications: Metronidazole [Flagyl] 500 mg PO TID 10 Days #30 capsule 01/23/18 - Past Medical/Surgical History Has patient received pneumonia vaccine in the past: No Diabetic: No -: Bipolar disorder -: COPD -: Obesity -: GERD -: Possible Obstructive sleep apnea -: Pulmonary nodules -: Tobacco abuse -: PTSD -: Cholecystectomy -: Bilateral tubal ligation -: section -: hernia repair -: appy Psychosocial/ Personal History: The patient is . She has 5 children. 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 - Family History Mother -: Lung disease - Social History Smoking Status: Current every day smoker Alcohol use: No CD- Drugs: No Caffeine use: Yes Place of Residence: Home Review of Systems 10-point ROS is otherwise unremarkable Gastrointestinal: Nausea, Abdominal Pain Physical Examination - Vital Signs Temperature: 97.7 F Blood Pressure: 95/49 Pulse: 70 Respirations: 18 Pulse Ox (%): 94 - Physical Exam General: Alert, In no apparent distress HEENT: Atraumatic, PERRLA, Mucous membr. moist/pink, EOMI, Sclerae nonicteric Neck: Supple, 2+ carotid pulse no bruit, No LAD, Without JVD or thyroid abnormality Respiratory: Clear to auscultation bilaterally, Normal air movement Cardiovascular: Regular rate/rhythm, Normal S1 S2 Gastrointestinal: Normal bowel sounds, No tenderness, Other (negative McBurney' s point) Musculoskeletal: No tenderness Integumentary: No rashes Neurological: Normal gait, Normal speech, Normal strength at 5/5 x4 extr, Normal tone, Normal affect Lymphatics: No axilla or inguinal lymphadenopathy - Studies Laboratory Data (last 24 hrs) 01/22/18 21:19: Creatinine 1.11 H 01/22/18 21:19: WBC 16.6 H, Hgb 15.2 H, Hct 44.9, Plt Count 139 L 01/22/18 21:19: Sodium 137, Potassium 3.7, BUN 16, Creatinine 1.19 H, Glucose 99 , Total Bilirubin 0.4, AST 18, ALT 19, Alkaline Phosphatase 102, Amylase 52, Lipase 28 - Diagnosis (Problem(s)) (1) Gastroenteritis Current Visit: Yes Status: Acute Plan: Patient is tolerating food. Will start her on oral flagyl. Check stool studies. Have the patient follow up with Inessa Stern. She was warned not to combine alcohol with the flagyl. (2) Acute kidney injury Current Visit: Yes Status: Acute Plan: Has improved her creatine from 1 to 0.77 with iv fluids. She is tolerating clear liquid diet. - Disposition Disposition: ROUTINE DISCHARGE Condition: GOOD Diet: Regular Activity: Ad patricia Physician Review: Patient Assessed, Agree with Above Assessment and Plan Critical Care: No Time Spent Managing Pts Care (In Minutes): 25
[2018-01-23 17:18] VITALS: BP 104/51; TEMP 97.8
== END 2018-01-23 17:26 | disposition home or self-care (01) ==
LOC: ER 17:43 → ERHOLD 01-23 01:00 → 2ND 01-23 01:27
PROVIDERS: ADMIT Internal Medicine; ATTEND Internal Medicine
DX: K52.9 Noninfective gastroenteritis and colitis, unspecified (principal); N17.9 Acute kidney failure, unspecified; J44.9 Chronic obstructive pulmonary disease, unspecified; F31.9 Bipolar disorder, unspecified; E66.9 Obesity, unspecified; Z68.42 Body mass index [BMI] 45.0-49.9, adult; F17.210 Nicotine dependence, cigarettes, uncomplicated
CPT/HCPCS: 36415; 74177; 80048 ×2; 80076 ×2; 82150; 83690 ×2; 85025 ×2; 99285; G0378 ×2; J0744 ×2; J2405 ×2; J7030 ×2; Q9967; 81003; 81015

== ENCOUNTER 2018-03-29 12:50 | Emergency (ER) | payer OTHER ==
[2018-03-29 14:09] LABS: Urine Blood TRACE (NEG); Urine Glucose NEGATIVE (NEG); Urine Protein NEGATIVE (NEG); Urine pH 5.5 (5.0-7.0)
[2018-03-29] MEDS ORDERED: HYDROCODONE/APAP 7.5/325 MG TAB ONE (14:14)
--- NOTE | 2018-03-29 14:45 | RAD REPORT ---
EXAM DESCRIPTION: [facility] [employer]03/29/2018 2:32 pm CLINICAL HISTORY: left leg pain . COMPARISON: None. FINDINGS: Left common femoral, superficial femoral, popliteal and posterior tibial veins are compre ssible and demonstrate augmentation. Doppler demonstrates good flow. IMPRESSION: No evidence of deep venous thrombosis involving the left lower extremity.
--- NOTE | 2018-03-29 15:28 | EDPHYS ---
Physician Documentation [facility] Name: Juan J Velez Age: 52 yrs Sex: Female : 1965 Arrival Date: 03/29/2018 Time: 12:53 Bed 5 Private MD: SALLIE CALDWELL ED Physician Sathya Hurt HPI: 03/29 14:23 This 52 yrs old Female presents to ER via Ambulatory with complaints of Leg kb Swelling. 14:23 The patient presents with pain, swelling, tenderness. The complaints affect the kb posterior aspect of left knee. Context: The problem was sustained at home, resulted from an unknown cause, the patient can fully bear weight, the patient is able to ambulate, without difficulty, Problem is a result from a previous injury: No. Onset: The symptoms/episode began/occurred yesterday. Modifying factors: The symptoms are alleviated by nothing. the symptoms are aggravated by pressure. Associated signs and symptoms: Pertinent positives: swelling, Pertinent negatives calf tenderness, fever, nausea, numbness, rash, tingling, vomiting, warmth, weakness. Treatment prior to arrival includes: no previous treatment. Severity of symptoms: At their worst the symptoms were moderate, in the emergency department the symptoms are unchanged. The patient has not experienced similar symptoms in the past. The patient has not recently seen a physician. Pt reports pain behind knee that started yesterday. Denies injury or trauma. States pain radiates down leg and her leg is swollen. . 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 - Social history:: Smoking status: Patient uses tobacco products, smokes one pack cigarettes per day. - Ebola Screening: : Patient negative for fever greater than or equal to 101.5 degrees Fahrenheit, and additional compatible Ebola Virus Disease symptoms Patient denies exposure to infectious person Patient denies travel to an Ebola-affected area in the 21 days before illness onset No symptoms or risks identified at this time. ROS: 14:21 Constitutional: Negative for fever, chills, and weight loss, Cardiovascular: Negative kb for chest pain, palpitations, and edema, Respiratory: Negative for shortness of breath, cough, wheezing, and pleuritic chest pain, Abdomen/GI: Negative for abdominal pain, nausea, vomiting, diarrhea, and constipation, Skin: Negative for injury, rash, and discoloration, Neuro: Negative for headache, weakness, numbness, tingling, and seizure. 14:21 MS/extremity: Positive for pain, swelling, tenderness, of the left leg. Exam: 14:21 Constitutional: This is a well developed, well nourished patient who is awake, alert, kb and in no acute distress. Head/Face: Normocephalic, atraumatic. Chest/axilla: Normal chest wall appearance and motion. Nontender with no deformity. No lesions are appreciated. Cardiovascular: Regular rate and rhythm with a normal S1 and S2. No gallops, murmurs, or rubs. Normal PMI, no JVD. No pulse deficits. Respiratory: Lungs have equal breath sounds bilaterally, clear to auscultation and percussion. No rales, rhonchi or wheezes noted. No increased work of breathing, no retractions or nasal flaring. Abdomen/GI: Soft, non-tender, with normal bowel sounds. No distension or tympany. No guarding or rebound. No evidence of tenderness throughout. Skin: Warm, dry with normal turgor. Normal color with no rashes, no lesions, and no evidence of cellulitis. Neuro: Awake and alert, GCS 15, oriented to person, place, time, and situation. Cranial nerves II-XII grossly intact. Motor strength 5/5 in all extremities. Sensory grossly intact. Cerebellar exam normal. Normal gait. 14:21 Musculoskeletal/extremity: Extremities: grossly normal except: noted in the posterior aspect of left knee: pain, tenderness, ROM: intact in all extremities, Circulation is intact in all extremities. Sensation intact. Weight bearing: able to fully bear weight. Vital Signs: 13:16 BP 115 / 70; Pulse 82; Resp 19; Temp 98.3; Pulse Ox 100% on R/A; Weight 113.4 kg; aj Height 5 ft. 4 in. (162.56 cm); 14:01 BP 114 / 67; Pulse 86; Resp 18; Pulse Ox 95% on R/A; Pain 7/10; jb4 15:15 BP 108 / 54; Pulse 78; Resp 18; Pulse Ox 95% on R/A; jb4 13:16 Body Mass Index 42.91 (113.40 kg, 162.56 cm) aj MDM: 13:19 Patient medically screened. kb 14:21 Data reviewed: vital signs, nurses notes. Data interpreted: Pulse oximetry: on room air kb is 95 %. Interpretation: normal. 15:23 Counseling: I had a detailed discussion with the patient and/or guardian regarding: the kb historical points, exam findings, and any diagnostic results supporting the discharge/admit diagnosis, radiology results, the need for outpatient follow up, a family practitioner, a orthopedic surgeon, to return to the emergency department if symptoms worsen or persist or if there are any questions or concerns that arise at home. 03/29 13:34 Order name: Urine Dipstick--Ancillary (enter results); Complete Time: 14:14 bd 03/29 13:44 Order name: US Extremity Venous Unilateral Ltd; Complete Time: 14:45 kb Administered Medications: 14:11 Drug: [place] (7.5 mg-325 mg) 1 tabs Route: PO; jb4 14:51 Follow up: Response: No adverse reaction; Pain is decreased oliver Disposition: 16:13 Co-signature as Attending Physician, Sathya Hurt MD. Disposition: 03/29/18 15:27 Discharged to Home. Impression: Pain in left knee. - Condition is Stable. - Discharge Instructions: Knee Pain, Fext-[id number]. - Prescriptions for Diclofenac Sodium 75 mg Oral Tablet, Delayed Release (E.C.) - take 1 tablet by ORAL route 2 times per day As needed; 30 tablet. - Medication Reconciliation Form, Thank You Letter, Antibiotic Education, Prescription Opioid Use form. - Follow up: Emergency Department; When: As needed; Reason: Worsening of condition. Follow up: SALLIE CALDWELL; When: 2 - 3 days; Reason: Recheck today's complaints, Continuance of care, Re-evaluation by your physician. Signatures: Dispatcher [employer] EDMS Aishwarya Rob, PARDEEPC KHANH-Edie Muñiz RN RN aj Bryson, James, RN RN jb4 Starr, Gregory, MD MD Perry Johnson RN Corrections: (The following items were deleted from the chart) 15:35 15:27 03/29/2018 15:27 Discharged to Home. Impression: Pain in left knee. Condition is jb4 Stable. Forms are Medication Reconciliation Form, Thank You Letter, Antibiotic Education, Prescription Opioid Use. Follow up: Emergency Department; When: As needed; Reason: Worsening of condition. Follow up: SALLIE CALDWELL; When: 2 - 3 days; Reason: Recheck today's complaints, Continuance of care, Re-evaluation by your physician. kb
--- NOTE | 2018-03-29 15:28 | ER ---
Nurse's Notes [facility] Name: Juan J Velez Age: 52 yrs Sex: Female : 1965 Arrival Date: 03/29/2018 Time: 12:53 Bed 5 Private MD: SALLIE CALDWELL Diagnosis: Pain in left knee Presentation: 03/29 13:14 Presenting complaint: Patient states: Pain to left knee that radiates down to foot. aj Patient reports pain is worse when knee is bent in sitting position. Reports swelling to left foot. Bilateral feet appear to be swollen equally. Transition of care: patient was not received from another setting of care. Onset of symptoms was March 28, 2018. Risk Assessment: Do you want to hurt yourself or someone else? Patient reports no desire to harm self or others. Initial Sepsis Screen: Does the patient meet any 2 criteria? No. Patient's initial sepsis screen is negative. Does the patient have a suspected source of infection? No. Patient's initial sepsis screen is negative. Care prior to arrival: None. 13:14 Method Of Arrival: Ambulatory 13:14 Acuity: KORINA 3 aj Triage Assessment: 13:16 General: Appears in no apparent distress. comfortable, Behavior is calm, cooperative, aj appropriate for age. Pain: Complains of pain in posterior aspect of left knee, left calf, left Achilles, left knee, left fields and anterior aspect of left ankle. Neuro: Level of Consciousness is awake, alert, obeys commands, Oriented to person, place, time, situation, Appropriate for age. Respiratory: Airway is patent Respiratory effort is even, unlabored, Respiratory pattern is regular, symmetrical, Denies shortness of breath. Derm: Skin is intact, is healthy with good turgor, Skin is pink, warm \T\ dry. normal. 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 - Social history:: Smoking status: Patient uses tobacco products, smokes one pack cigarettes per day. - Ebola Screening: : Patient negative for fever greater than or equal to 101.5 degrees Fahrenheit, and additional compatible Ebola Virus Disease symptoms Patient denies exposure to infectious person Patient denies travel to an Ebola-affected area in the 21 days before illness onset No symptoms or risks identified at this time. Screenin:15 Abuse screen: Denies threats or abuse. Nutritional screening: No deficits noted. jb4 Tuberculosis screening: No symptoms or risk factors identified. Fall Risk None identified. Assessment: 13:20 General: Appears in no apparent distress. distressed, Behavior is calm, cooperative, jb4 appropriate for age. Pain: Complains of pain in posterior aspect of left knee Pain radiates to left calf and left heel Pain currently is 7 out of 10 on a pain scale. at worst was 7 out of 10 on a pain scale. Quality of pain is described as aching, Pain began 1 day ago. Neuro: Level of Consciousness is awake, alert, obeys commands, Oriented to person, place, time, situation, Reports paresthesias in left foot since yesterday. Cardiovascular: Heart tones S1 S2 present Patient's skin is warm and dry. Respiratory: Airway is patent Respiratory effort is even, unlabored, Respiratory pattern is regular, symmetrical, Breath sounds are clear bilaterally. GI: No signs and/or symptoms were reported involving the gastrointestinal system. : No signs and/or symptoms were reported regarding the genitourinary system. EENT: No signs and/or symptoms were reported regarding the EENT system. Derm: Skin is intact, Skin is pink, warm \T\ dry. Musculoskeletal: Capillary refill < 3 seconds, in bilateral toes. 14:01 Reassessment: Patient appears in no apparent distress at this time. No changes from 4 previously documented assessment. Patient and/or family updated on plan of care and expected duration. Pain level reassessed. Patient is alert, oriented x 3, equal unlabored respirations, skin warm/dry/pink. 14:09 Reassessment: Pt reports headache at 9/10. leg pain /10. Provider notified. See [facility] jb4 for orders. 15:23 Reassessment: Patient appears in no apparent distress at this time. Patient and/or [facility] family updated on plan of care and expected duration. Pain level reassessed. Patient is alert, oriented x 3, equal unlabored respirations, skin warm/dry/pink. Vital Signs: 13:16 BP 115 / 70; Pulse 82; Resp 19; Temp 98.3; Pulse Ox 100% on R/A; Weight 113.4 kg; aj Height 5 ft. 4 in. (162.56 cm); 14:01 BP 114 / 67; Pulse 86; Resp 18; Pulse Ox 95% on R/A; Pain 7/10; jb4 15:15 BP 108 / 54; Pulse 78; Resp 18; Pulse Ox 95% on R/A; jb4 13:16 Body Mass Index 42.91 (113.40 kg, 162.56 cm) ED Course: 12:53 Patient arrived in ED. mr 12:53 WYATT CALDWELLA is Private Physician. mr 13:15 Patient has correct armband on for positive identification. Placed in gown. Bed in low jb4 position. Call light in reach. Side rails up X 1. housekeeping room attendant on. Pulse ox on. NIBP on. 13:16 Triage completed. aj 13:16 Arm band placed on left wrist. Patient placed in an exam room. aj 13:18 Aishwarya Rob FNP-C [facility] kb 13:18 Sathya Hurt MD is Attending Physician. kb 13:20 Perry Johnson, RN is Primary Nurse. hj 13:39 Landon Rasmussen, RN is Primary Nurse. jb4 14:31 Ultrasound completed. Patient tolerated well. sg3 14:32 US Extremity Venous Unilateral Ltd In Process Unspecified. EDMS 15:27 SALLIE CALDWELL is Referral Physician. kb 15:34 No provider procedures requiring assistance completed. Patient did not have IV access jb4 during this emergency room visit. Administered Medications: 14:11 Drug: [place] (7.5 mg-325 mg) 1 tabs Route: PO; jb4 14:51 Follow up: Response: No adverse reaction; Pain is decreased hj Outcome: 15:27 Discharge ordered by . kb 15:34 Discharged to home ambulatory. jb4 15:34 Condition: stable 15:34 Discharge instructions given to patient, family, Instructed on discharge instructions, follow up and referral plans. medication usage, Demonstrated understanding of instructions, follow-up care, medications, Prescriptions given X 1. 15:35 Patient left the ED. jb4 Signatures: Dispatcher [employer] EDNJ Aishwarya Rob FNP-C FNP-Ckb Myers, Edie, RN RN Kianna Garcia mr oJhnson Perry, RN Landon Perry, RN RN jb4 Alea Sandoval sg3 Corrections: (The following items were deleted from the chart) 45 13:15 General: Appears in no apparent distress. distressed, Behavior is calm, jb4 cooperative, appropriate for age, jb4 :45 13:15 Pain: Complains of pain in posterior aspect of left knee Pain radiates to left jb4 calf and left heel jb4 :45 13:15 Neuro: Level of Consciousness is awake, alert, obeys commands, Oriented to jb4 person, place, time, situation, Reports paresthesias in left foot since yesterday. jb4 :45 13:15 Cardiovascular: Heart tones S1 S2 present Patient's skin is warm and dry. jb4 jb4 :45 13:15 Respiratory: Airway is patent Respiratory effort is even, unlabored, Respiratory jb4 pattern is regular, symmetrical, Breath sounds are clear bilaterally. jb4 : 13:15 GI: No signs and/or symptoms were reported involving the gastrointestinal system. jb4 jb4 13:15 : No signs and/or symptoms were reported regarding the genitourinary system. jb4jb4 : 13:15 EENT: No signs and/or symptoms were reported regarding the EENT system. jb4 jb4 :45 13:15 Derm: Skin is intact, Skin is pink, warm \T\ dry. jb4 jb4 :45 13:15 Musculoskeletal: Capillary refill < 3 seconds, in bilateral toes. jb4 jb4 14:07 13:20 Pain: Complains of pain in posterior aspect of left knee Pain radiates to left jb4 calf and left heel jb4
[2018-03-29 15:48] VITALS: TEMP 98.3
[2018-03-29 15:49] VITALS: O2SAT 95
[2018-03-29 15:50] VITALS: BP 108/54
== END 2018-03-29 15:35 | disposition home or self-care (01) ==
LOC: ER 12:50
DX: M25.562 Pain in left knee (principal); F17.210 Nicotine dependence, cigarettes, uncomplicated; F41.9 Anxiety disorder, unspecified
CPT/HCPCS: 81003; 93971; 99284

== ENCOUNTER 2018-05-27 08:27 | Day surgery (SDC) | payer OTHER ==
[2018-05-27] MEDS ORDERED: Ringers Lactate 1,000 ML IV ONE (08:37)
--- OUTSIDE RECORDS SUMMARY | 2018-05-27 09:04 | XMS REPORT ---
:1965 Author Organization eClinicalWorks Care Team Providers Name Role Phone Tessy Sterny Provider Role Unavailable Allergies, Adverse Reactions, Alerts Substance Reaction Event Type Zoloft failed therapy Drug Allergy Prozac failed therapy Drug Allergy Paxil failed therapy Drug Allergy BusPIRone HCl failed therapy Drug Allergy Problems Problem Type Condition Code Onset Dates Condition Status Assessment Irritable bowel syndrome without K58.9 Active diarrhea Problem Post traumatic stress disorder F43.10 Active Assessment Right upper quadrant pain R10.11 Active Assessment Knee pain M25.569 Active Problem Knee pain M25.569 Active Problem Hyperlipemia E78.5 Active Problem Fatigue 780.79 Active Problem Irritable bowel syndrome without K58.9 Active diarrhea Problem Nicotine dependence F17.200 Active Problem Chronic pain syndrome G89.4 Active Problem Borderline personality disorder F60.3 Active Medications Medication Code Code Instructions Start End Status Dosage System Date Date Amoxicillin-Pot [facility] 28198661835 875-125 MG May 05, May 19, Active 1 tablet Clavulanate Orally every 12 2017 2018 hrs Ibuprofen ND 91460170593 800 MG Orally Active 1 tablet Three times a with food day or milk as needed BuSpar NDC 0 Active not defined Atorvastatin [facility] 59564085009 20 MG Orally Active 1 tablet Calcium Once a day Prilosec [facility] 46417219252 40 MG Orally Active 1 capsule Once a day Results No Known Results Summary Purpose eClinicalWorks Submission
[2018-05-27] MEDS ORDERED: LIDOCAINE 2% MPF 5 ML VIAL ONE (10:13)
[2018-05-27] MEDS ORDERED: PROPOFOL 200 MG/20 ML VIAL IV ONE ×3 (10:15→11:11)
--- NOTE | 2018-05-27 10:38 | ENDO RPT ---
[address], [address] EGD PROCEDURE REPORT EXAM DATE: 05/27/2018 PATIENT NAME: Juan J Velez MR#: [id number] BIRTHDATE: 1965 ATTENDING: Jake Galvan Dr STATUS: outpatient COMMUNITY RELATIONS REP: Anabel Schmidt RN and Justina Carpenter RN INDICATIONS: The patient is a 52 yr old Female here for an EGD due to mid epigastric abdominal pain, nausea, bloating, GERD, history of H pylori, and chronic unexplained diarrhea PROCEDURE PERFORMED: EGD with biopsy MEDICATIONS: Per Anesthesia. TOPICAL ANESTHETIC: none CONSENT: The patient understands the risks and benefits of the procedure and understands that these risks include, but are not limited to: sedation, allergic reaction, infection, perforation and/or bleeding. Alternative means of evaluation and treatment include, among others: physical exam, x-rays, and/or surgical intervention. The patient elects to proceed with this endoscopic procedure. DESCRIPTION OF PROCEDURE: During intra-op preparation period all mechanical medical equipment was checked for proper function. Hand hygiene and appropriate measures for infection prevention was taken. Procedure, possible complications, and alternatives including but not limited to the possibility of bleeding, perforation, tear, infection, sepsis, need for surgery, need for blood transfusion, and anesthesia related complications were explained to the patient. After the risks, benefits and alternatives of the procedure were thoroughly explained, Informed consent was verified, confirmed and timeout was successfully executed by the treatment team. The patient was placed in the left lateral position. The patient was anesthetized with topical anesthesia. Through the anesthetized oropharyngeal area, the scope was passed without any difficulty. The EG-[id number] ([id number]) endoscope was introduced through the mouth and advanced to the third portion of the duodenum. Retroflexed views revealed a small hiatal hernia. The gastroscope was then slowly withdrawn and removed. A small hiatal hernia was found Moderate gastritis was found in the body and the antrum of the stomach. hemorrhagic Multiple biopsies were obtained and sent to pathology. Duodenitis was found in the bulb of the duodenum. Small bowel biopsies obtained with history of chronic unexplained diarrhea. ADVERSE EVENTS: There were no complications. IMPRESSIONS: 1. A small hiatal hernia and the antrum of the stomach, s/p biopsies 3. Duodenitis in the bulb of the duodenum 4. Small bowel biopsies obtained with history of chronic unexplained diarrhea RECOMMENDATIONS: 1. await biopsy results 2. acid suppression therapy REPEAT EXAM: Jake Galvan Dr eSigned: Jake Galvan Dr 05/27/2018 10:38 AM cc: Estella Stern CPT CODES: ICD9 CODES: PATIENT NAME: Juan J Velez MR#: [id number]
--- NOTE | 2018-05-27 11:04 | ENDO RPT ---
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 ESTIMATED BLOOD LOSS: None CONSENT: The patient understands the risks and benefits of the procedure and understands that these risks include, but are not limited to: sedation, allergic reaction, infection, perforation and/or bleeding. Alternative means of evaluation and treatment include, among others: physical exam, x-rays, and/or surgical intervention. The patient elects to proceed with this endoscopic procedure. DESCRIPTION OF PROCEDURE: During intra-op preparation period all mechanical medical equipment was checked for proper function. Hand hygiene and appropriate measures for infection prevention was taken. Procedure, possible complications, alternatives including, but not limited to possibility of bleeding, perforation, tear, infection, sepsis, need for surgery, need for blood transfusion, were explained to the patient. After the risks, benefits and alternatives of the procedure were thoroughly explained, Informed consent was verified, confirmed and timeout was successfully executed by the treatment team. The patient was placed in the left lateral position. A digital rectal exam was performed and revealed no abnormalities of the rectum. After appropriate level of anesthesia, the scope was passed. The EG-2990i ([id number]) and EC-[id number] ([id number]) endoscope was introduced through the anus and advanced to the terminal ileum which was intubated for a short distance. The quality of the prep was good. The instrument was then slowly withdrawn as the colon was fully examined. Scope withdrawal time was 8 minutes. COLON FINDINGS: Two flat polyps measuring 3 mm in size were found in the rectum. A polypectomy was performed with cold forceps. Random biopsies of the terminal ileum / right colon / left colon / rectum obtained with history of chronic unexplained diarrhea. Moderate sized internal hemorrhoids were found. Retroflexed views revealed medium hemorrhoids. The scope was then completely withdrawn from the patient and the procedure terminated. ADVERSE EVENTS: There were no complications. IMPRESSIONS: 1. Two 3 mm flat polyps in the rectum; polypectomy was performed with cold forceps 2. Moderate sized internal hemorrhoids 3. Random biopsies of the terminal ileum / right colon / left colon / rectum obtained with history of chronic unexplained diarrhea 4. Intubation to terminal ileum RECOMMENDATIONS: 1. await biopsy results 2. avoid NSAIDS for 2 weeks RECALL: Return in 3 year(s) for Colonoscopy. Jake Galvan Dr eSigned: Jake Galvan Dr 05/27/2018 11:03 AM cc: Estella Stern CPT CODES: ICD9 CODES: PATIENT NAME: Juan J Velez MR#: [id number]
[2018-05-27 15:20] VITALS: BP 133/83; TEMP 97.7; O2SAT 99
== END 2018-05-27 11:36 | disposition home or self-care (01) ==
LOC: OR 08:27
PROVIDERS: ATTEND Internal Medicine Gastroenterology
PROC: 0DBF8ZX Excision of Right Large Intestine, Via Natural or Artificial Opening Endoscopic, Diagnostic (ICD-10-PCS; 2018-05-27)
PROC: 0DBG8ZX Excision of Left Large Intestine, Via Natural or Artificial Opening Endoscopic, Diagnostic (ICD-10-PCS; 2018-05-27)
PROC: 0DB68ZX Excision of Stomach, Via Natural or Artificial Opening Endoscopic, Diagnostic (ICD-10-PCS; 2018-05-27)
PROC: 0DB88ZX Excision of Small Intestine, Via Natural or Artificial Opening Endoscopic, Diagnostic (ICD-10-PCS; 2018-05-27)
PROC: 0DBB8ZX Excision of Ileum, Via Natural or Artificial Opening Endoscopic, Diagnostic (ICD-10-PCS; principal; 2018-05-27 11:00)
PROC: 0DBP8ZX Excision of Rectum, Via Natural or Artificial Opening Endoscopic, Diagnostic (ICD-10-PCS; 2018-05-27 11:00)
DX: K29.50 Unspecified chronic gastritis without bleeding (principal); K62.1 Rectal polyp; K29.80 Duodenitis without bleeding; K44.9 Diaphragmatic hernia without obstruction or gangrene; K21.9 Gastro-esophageal reflux disease without esophagitis; F17.200 Nicotine dependence, unspecified, uncomplicated; E66.01 Morbid (severe) obesity due to excess calories; Z83.71 Family history of colonic polyps
CPT/HCPCS: 88305; 88312

== ENCOUNTER 2018-07-27 13:05 | Emergency (ER) | payer OTHER ==
--- OUTSIDE RECORDS SUMMARY | 2018-07-27 13:07 | XMS REPORT ---
[...] End Status Dosage System Date Date Amoxicillin-Pot [facility] 98310748267 875-125 MG May 05, May 19, Active 1 tablet Clavulanate Orally every 12 2017 2018 hrs Ibuprofen ND 71611018616 800 MG Orally Active 1 tablet Three times a with food day or milk as needed BuSpar NDC 0 Active not defined Atorvastatin [facility] 38449682763 20 MG Orally Active 1 tablet Calcium Once a day Prilosec [facility] 06380594425 40 MG Orally Active 1 capsule Once a day Results No Known Results Summary Purpose eClinicalWorks Submission
[2018-07-27] MEDS ORDERED: IBUPROFEN 400 MG TAB ONE (14:09)
[2018-07-27] MEDS ORDERED: DEXAMETHASONE 10 MG/ML VIAL ONE (14:09)
--- NOTE | 2018-07-27 14:35 | RAD REPORT ---
EXAM DESCRIPTION: RAD - Chest Pa And Lat (2 Views) - 07/27/2018 2:19 pm CLINICAL HISTORY: Dyspnea, cough, fever COMPARISON: December 15, 2017 TECHNIQUE: PA and lateral views of the chest were obtained. FINDINGS: The lungs are clear of a focal infiltrate, mass or acute failure finding. Interstitial mar kings are prominent but not clearly different. Minimal interstitial edema or infiltrate could be mask ed by the chronic pattern. Trachea is midline. Heart size is normal and central vasculature is within normal limits. No pleural effusion or pneu mothorax seen. No acute bony finding noted. No aortic abnormality. IMPRESSION: No focal infiltrate, mass or significant failure finding. Baseline prominence of the interstitial markings noted. This could mask earliest stages of interstiti al edema or infiltrate.
--- NOTE | 2018-07-27 15:20 | ER ---
Nurse's Notes [facility] Name: Juan J Velez Age: 52 yrs Sex: Female : 1965 Arrival Date: 07/27/2018 Time: 13:12 Bed 23 Private MD: Diagnosis: Acute pharyngitis;Acute upper respiratory infection, unspecified Presentation: 07/27 13:12 Presenting complaint: Patient states: i cant breath, im congested and my thirst hurts, hj my ears hurting; reports fever; took Tylenol 12 hours ago;. Transition of care: patient was not received from another setting of care. Onset of symptoms was July 27, 2018. Risk Assessment: Do you want to hurt yourself or someone else? Patient reports no desire to harm self or others. Initial Sepsis Screen: Does the patient meet any 2 criteria? No. Patient's initial sepsis screen is negative. Does the patient have a suspected source of infection? No. Patient's initial sepsis screen is negative. Care prior to arrival: None. 13:12 Method Of Arrival: Ambulatory 13:12 Acuity: KORINA 4 hj Triage Assessment: 13:14 General: Appears in no apparent distress. uncomfortable, Behavior is calm, cooperative, hj appropriate for age. 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 - Social history:: Smoking status: Patient/guardian denies using tobacco, Patient/guardian denies using alcohol. - Ebola Screening: : Patient negative for fever greater than or equal to 101.5 degrees Fahrenheit, and additional compatible Ebola Virus Disease symptoms Patient denies exposure to infectious person Patient denies travel to an Ebola-affected area in the 21 days before illness onset. Screenin:14 Abuse screen: Denies threats or abuse. Denies injuries from another. Nutritional hj screening: No deficits noted. Tuberculosis screening: No symptoms or risk factors identified. Fall Risk None identified. Assessment: 13:36 General: Appears distressed, uncomfortable, well groomed, well developed, well tl3 nourished, Behavior is cooperative, appropriate for age, anxious. 13:53 Pain: Complains of pain in headache, sore throat Pain currently is 8 out of 10 on a tl3 pain scale. Neuro: No deficits noted. Level of Consciousness is awake, alert, obeys commands, Oriented to person, place, time, situation, Appropriate for age. Cardiovascular: Heart tones S1 S2 present Patient's skin is warm and dry. Respiratory: Airway is patent Respiratory effort is even, unlabored, Respiratory pattern is regular, symmetrical, moderate to severe upper airway congestion, bilateral nares red, copious amounts of clear nasal drainage noted Breath sounds are clear bilaterally. the patient has moderate shortness of breath Denies cough. GI: No deficits noted. No signs and/or symptoms were reported involving the gastrointestinal system. : No deficits noted. No signs and/or symptoms were reported regarding the genitourinary system. EENT: Nares are clear with drainage noted Oral mucosa is moist. Throat is reddened. Derm: No deficits noted. No signs and/or symptoms reported regarding the dermatologic system. Musculoskeletal: No deficits noted. No signs and/or symptoms reported regarding the musculoskeletal system. 15:30 Reassessment: Patient appears in no apparent distress at this time. No changes from tl3 previously documented assessment. Patient and/or family updated on plan of care and expected duration. Pain level reassessed. Patient is alert, oriented x 3, equal unlabored respirations, skin warm/dry/pink. Vital Signs: 13:15 BP 125 / 98; Pulse 117; Resp 18; Temp 99.4(TE); Pulse Ox 100% on R/A; Weight 113.4 kg; hj Height 5 ft. 4 in. (162.56 cm); Pain 7/10; 13:53 BP 127 / 80; Pulse 104; Resp 20; Pulse Ox 97% on R/A; tl3 15:30 BP 115 / 69; Pulse 96; Resp 18; Pulse Ox 98% on R/A; tl3 13:15 Body Mass Index 42.91 (113.40 kg, 162.56 cm) ED Course: 13:12 Patient arrived in ED. 13:13 Triage completed. 13:15 Arm band placed on right wrist. hj 13:15 Patient has correct armband on for positive identification. Bed in low position. Call hj light in reach. Side rails up X 1. 13:17 [facility] 13:17 Sathya Hurt MD is Attending Physician. [facility] 13:36 Maddie Mahoney, RN is Primary Nurse. tl3 13:53 Pulse ox on. NIBP on. Warm blanket given. tl3 13:53 No provider procedures requiring assistance completed. tl3 13:57 Strep Sent. tl3 13:57 Influenza Screen (a \T\ B) Sent. tl3 15:23 Chest Pa And Lat (2 Views) XRAY Sent. tl3 15:30 Patient did not have IV access during this emergency room visit. tl3 Administered Medications: 14:02 Drug: Dexamethasone 10 mg {Note: po.} Route: IM; Site: Other; tl3 15:23 Follow up: Response: No adverse reaction tl3 14:02 Drug: Motrin 400 mg Route: PO; tl3 15:23 Follow up: Response: No adverse reaction tl3 15:22 Drug: Tylenol #3 (300 mg-30 mg) 1 tablet Route: PO; tl3 15:22 Follow up: Response: Medication administered at discharge. tl3 Outcome: 15:19 Discharge ordered by . [facility] 15:30 Discharged to home ambulatory. tl3 15:30 Condition: stable 15:30 Discharge instructions given to patient, Instructed on discharge instructions, follow up and referral plans. medication usage, good handwashing, fluid intake and fever/pain control, f/u with PCP Demonstrated understanding of instructions, follow-up care, medications, Prescriptions given X 2. 15:32 Patient left the ED. tl3 Signatures: Ruben Eng PA PA Perry Vazquez RN RN Maddie Woodruff, RN RN tl3 Corrections: (The following items were deleted from the chart) 13:17 13:15 Pulse 117bpm; Resp 18bpm; Pulse Ox 100% RA; Temp 99.4F Temporal; 113.4 kg; Height hj 5 ft. 4 in.; BMI: 42.9; Pain 7/10; hj 13:55 13:36 General: Appears distressed, uncomfortable, well groomed, well developed, well tl3 nourished, Behavior is cooperative, appropriate for age, anxious, tl3 14:02 14:02 Dexamethasone 10 mg IM in Other tl3 tl3
--- NOTE | 2018-07-27 15:21 | EDPHYS ---
Physician Documentation [facility] Name: Juan J Velez Age: 52 yrs Sex: Female : 1965 Arrival Date: 07/27/2018 Time: 13:12 Bed 23 Private MD: ED Physician Sathya Hurt HPI: 07/27 13:40 This 52 yrs old Female presents to ER via Ambulatory with complaints of Flu jmm Symptoms. 13:40 The patient or guardian reports cough, described as mild. Onset: The symptoms/episode jmm began/occurred gradually, 2 day(s) ago. Associated signs and symptoms: Pertinent positives: fever, sore throat. This is a 52 year old female with a history of bipolar that presents to the ED with complaints of worsening sore throat, sinus pressure and congestion worsening last night. . 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 - Social history:: Smoking status: Patient/guardian denies using tobacco, Patient/guardian denies using alcohol. - Ebola Screening: : Patient negative for fever greater than or equal to 101.5 degrees Fahrenheit, and additional compatible Ebola Virus Disease symptoms Patient denies exposure to infectious person Patient denies travel to an Ebola-affected area in the 21 days before illness onset. ROS: 13:40 Constitutional: Positive for body aches, chills. jmm 13:40 ENT: Positive for ear pain, sinus congestion, sore throat. 13:40 Respiratory: Positive for cough. 13:40 All other systems are negative. Exam: 13:40 Constitutional: This is a well developed, well nourished patient who is awake, alert, jmm and in no acute distress. Head/Face: atraumatic. 13:40 ENT: TM's: are normal, Posterior pharynx: Tonsils: enlarged on the right, enlarged on the left, with erythema, erythema, that is moderate, peritonsillar mass, is not appreciated. 13:40 Cardiovascular: Rate: normal, Rhythm: regular. 13:40 Respiratory: the patient does not display signs of respiratory distress, Respirations: normal, Breath sounds: are clear throughout. 13:40 Abdomen/GI: Inspection: abdomen appears normal, Bowel sounds: normal, Palpation: abdomen is soft and non-tender. 13:40 Musculoskeletal/extremity: ROM: intact in all extremities. 13:40 Skin: Appearance: Color: normal in color. 13:40 Neuro: Orientation: is normal, Mentation: is normal, Memory: is normal. 13:40 Psych: Behavior/mood is pleasant, cooperative. Vital Signs: 13:15 BP 125 / 98; Pulse 117; Resp 18; Temp 99.4(TE); Pulse Ox 100% on R/A; Weight 113.4 kg; hj Height 5 ft. 4 in. (162.56 cm); Pain 7/10; 13:53 BP 127 / 80; Pulse 104; Resp 20; Pulse Ox 97% on R/A; tl3 15:30 BP 115 / 69; Pulse 96; Resp 18; Pulse Ox 98% on R/A; tl3 13:15 Body Mass Index 42.91 (113.40 kg, 162.56 cm) hj MDM: 13:24 Patient medically screened. [facility] 14:51 Data reviewed: vital signs, nurses notes. Counseling: I had a detailed discussion with [facility] the patient and/or guardian regarding: the historical points, exam findings, and any diagnostic results supporting the discharge/admit diagnosis, the need for outpatient follow up, to return to the emergency department if symptoms worsen or persist or if there are any questions or concerns that arise at home. 07/27 13:40 Order name: Influenza Screen (a \T\ B) [facility] 07/27 13:40 Order name: Strep [facility] 07/27 13:40 Order name: Chest Pa And Lat (2 Views) XRAY [facility] 07/27 14:10 Order name: Group A Streptococcus Rapid Sc; Complete Time: 14:18 EDMS 07/27 14:35 Order name: RAD; Complete Time: 14:38 EDMS Administered Medications: 14:02 Drug: Dexamethasone 10 mg {Note: po.} Route: IM; Site: Other; tl3 15:23 Follow up: Response: No adverse reaction tl3 14:02 Drug: Motrin 400 mg Route: PO; tl3 15:23 Follow up: Response: No adverse reaction tl3 15:22 Drug: Tylenol #3 (300 mg-30 mg) 1 tablet Route: PO; tl3 15:22 Follow up: Response: Medication administered at discharge. tl3 Disposition: 18:48 Co-signature as Attending Physician, Sathya Hurt MD. Disposition: 07/27/18 15:19 Discharged to Home. Impression: Acute pharyngitis, Acute upper respiratory infection, unspecified. - Condition is Stable. - Discharge Instructions: Pharyngitis, Upper Respiratory Infection, Adult. - Prescriptions for cefdinir 300 mg Oral capsule - take 1 capsule by ORAL route every 12 hours for 10 days; 20 capsule. Ultracet 37.5- 325 mg Oral Tablet - take 1 tablet by ORAL route every 6 hours - for up to 5 days; do not exceed 8 tablets per day.; 12 tablet. - Medication Reconciliation Form, Thank You Letter, Antibiotic Education, Prescription Opioid Use form. - Follow up: Private Physician; When: 2 - 3 days; Reason: Recheck today's complaints, Continuance of care, Re-evaluation by your physician. Signatures: Dispatcher [employer] EDMS Ruben Eng PA PA [facility] Perry Johnson RN RN Sathya Hurt MD MD Maddie Mahoney RN RN tl3 Corrections: (The following items were deleted from the chart) 15:32 15:19 07/27/2018 15:19 Discharged to Home. Impression: Acute pharyngitis; Acute upper tl3 respiratory infection, unspecified. Condition is Stable. Forms are Medication Reconciliation Form, Thank You Letter, Antibiotic Education, Prescription Opioid Use. Follow up: Private Physician; When: 2 - 3 days; Reason: Recheck today's complaints, Continuance of care, Re-evaluation by your physician. [email or web address]
[2018-07-27] MEDS ORDERED: CODEINE 30MG/APAP 300MG TAB ONE (15:31)
[2018-07-27 15:45] VITALS: TEMP 99.4
[2018-07-27 15:48] VITALS: BP 115/69; O2SAT 98
== END 2018-07-27 15:32 | disposition home or self-care (01) ==
LOC: ER 13:05
DX: J06.9 Acute upper respiratory infection, unspecified (principal); F31.9 Bipolar disorder, unspecified
CPT/HCPCS: 71046; 87070; 87081; 87804 ×2; 96372; 99284; J1100

== ENCOUNTER 2018-09-06 14:19 | Emergency (ER) | payer OTHER ==
--- OUTSIDE RECORDS SUMMARY | 2018-09-06 14:21 | XMS REPORT ---
[...] End Status Dosage System Date Date Amoxicillin-Pot [facility] 58656050069 875-125 MG May 05, May 19, Active 1 tablet Clavulanate Orally every 12 2017 2018 hrs Ibuprofen ND 40277376028 800 MG Orally Active 1 tablet Three times a with food day or milk as needed BuSpar NDC 0 Active not defined Atorvastatin [facility] 66969296911 20 MG Orally Active 1 tablet Calcium Once a day Prilosec [facility] 77931308311 40 MG Orally Active 1 capsule Once a day Results No Known Results Summary Purpose eClinicalWorks Submission
--- NOTE | 2018-09-06 15:28 | ER ---
Nurse's Notes [facility] Name: Juan J Velez Age: 52 yrs Sex: Female : 1965 Arrival Date: 09/06/2018 Time: 14:21 Bed 24 Private MD: Diagnosis: Pain in right knee Presentation: 09/06 14:29 Presenting complaint: Patient states: C/O right knee pain for several days now, denies sg any new trauma or injury at this time. Transition of care: patient was not received from another setting of care. Onset of symptoms was September 06, 2018. Risk Assessment: Do you want to hurt yourself or someone else? Patient reports no desire to harm self or others. Initial Sepsis Screen: Does the patient meet any 2 criteria? No. Patient's initial sepsis screen is negative. Does the patient have a suspected source of infection? No. Patient's initial sepsis screen is negative. Care prior to arrival: None. 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 - Social history:: Smoking status: Patient/guardian denies using tobacco. - Ebola Screening: : Patient negative for fever greater than or equal to 101.5 degrees Fahrenheit, and additional compatible Ebola Virus Disease symptoms Patient denies exposure to infectious person Patient denies travel to an Ebola-affected area in the 21 days before illness onset No symptoms or risks identified at this time. - Family history:: not pertinent. - Hospitalizations: : No recent hospitalization is reported. Screenin:35 Abuse screen: Denies threats or abuse. Nutritional screening: No deficits noted. la1 Tuberculosis screening: No symptoms or risk factors identified. Fall Risk None identified. Assessment: 15:36 General: Appears in no apparent distress. Behavior is calm, cooperative. Pain: la1 Complains of pain in right knee. Neuro: Level of Consciousness is awake, alert, obeys commands, Oriented to person, place, time, situation. Cardiovascular: Capillary refill < 3 seconds Patient's skin is warm and dry. Respiratory: Airway is patent Trachea midline Respiratory effort is even, unlabored. Musculoskeletal: Range of motion: limited in right knee Swelling present in right knee. Vital Signs: 14:31 BP 155 / 70; Pulse 77; Resp 16; Temp 98.7; Pulse Ox 99% on R/A; Weight 115.67 kg; sg Height 5 ft. 2 in. (157.48 cm); Pain 10/10; 14:31 Body Mass Index 46.64 (115.67 kg, 157.48 cm) sg ED Course: 14:21 Patient arrived in ED. as 14:30 Triage completed. sg 14:30 Arm band placed on. sg 15:10 Rambo Meade RN is Primary Nurse. la1 15:16 David Olson MD is Attending Physician. rn 15:27 Gonzalez Srinivasan MD is Referral Physician. rn 15:37 Call light in reach. la1 15:53 No provider procedures requiring assistance completed. Patient did not have IV access la1 during this emergency room visit. Administered Medications: No medications were administered Outcome: 15:28 Discharge ordered by . rn 15:54 Discharged to home ambulatory. la1 15:54 Condition: good 15:54 Discharge instructions given to patient, Instructed on follow up and referral plans. Demonstrated understanding of follow-up care. 15:54 Patient left the ED. la1 Signatures: Carmine Bergeron RN Yani Crespo Roman, MD MD rn Attema, Lee, RN RN laLeoncio
--- NOTE | 2018-09-06 15:28 | EDPHYS ---
Physician Documentation [facility] Name: Juan J Velez Age: 52 yrs Sex: Female : 1965 Arrival Date: 09/06/2018 Time: 14:21 Bed 24 Private MD: ED Physician David Olson HPI: 09/06 15:23 This 52 yrs old Female presents to ER via Ambulatory with complaints of Knee rn Pain. 15:23 The patient presents with pain, swelling. The complaints affect the right knee. Onset: rn The symptoms/episode began/occurred at an unknown time. Severity of symptoms: At their worst the symptoms were mild, in the emergency department the symptoms are unchanged. The patient has experienced similar episodes in the past. Reports surgery years ago on right knee, told was temporary, has been having mild swelling and aches for weeks, no new trauma other than mild twisting injury. No fever. NO drug use. 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 - Social history:: Smoking status: Patient/guardian denies using tobacco. - Ebola Screening: : Patient negative for fever greater than or equal to 101.5 degrees Fahrenheit, and additional compatible Ebola Virus Disease symptoms Patient denies exposure to infectious person Patient denies travel to an Ebola-affected area in the 21 days before illness onset No symptoms or risks identified at this time. - Family history:: not pertinent. - Hospitalizations: : No recent hospitalization is reported. ROS: 15:23 Constitutional: Negative for fever, chills, and weight loss, MS/Extremity: Negative for rn injury and deformity, Skin: Negative for injury, rash, and discoloration, Neuro: Negative for headache, weakness, numbness, tingling, and seizure. Exam: 15:23 Constitutional: This is a well developed, well nourished patient who is awake, alert, rn and in no acute distress. Skin: Warm, dry with normal turgor. Normal color with no rashes, no lesions, and no evidence of cellulitis. MS/ Extremity: Pulses equal, no cyanosis. Neurovascular intact. Ambulatory, no bony tenderness, no deformity Neuro: Awake and alert, GCS 15, oriented to person, place, time, and situation. Motor strength 5/5 in all extremities. Sensory grossly intact. Cerebellar exam normal. Vital Signs: 14:31 BP 155 / 70; Pulse 77; Resp 16; Temp 98.7; Pulse Ox 99% on R/A; Weight 115.67 kg; sg Height 5 ft. 2 in. (157.48 cm); Pain 10/10; 14:31 Body Mass Index 46.64 (115.67 kg, 157.48 cm) sg MDM: 15:16 Patient medically screened. rn 15:23 Differential diagnosis: tendonitis, arthritis, ligamentous injury, strain, sprain. Data rn reviewed: vital signs, nurses notes, and as a result, I will discharge patient. Counseling: I had a detailed discussion with the patient and/or guardian regarding: the historical points, exam findings, and any diagnostic results supporting the discharge/admit diagnosis, the need for outpatient follow up, to return to the emergency department if symptoms worsen or persist or if there are any questions or concerns that arise at home. ED course: After discussion with patient, she declines xray, plans to f/u with Dr. Srinivasan who did last surgery, walked out of ER. . Administered Medications: No medications were administered Disposition: 09/06/18 15:28 Discharged to Home. Impression: Pain in right knee. - Condition is Stable. - Discharge Instructions: Knee Pain. - Medication Reconciliation Form, Thank You Letter, Antibiotic Education, Prescription Opioid Use form. - Follow up: Gonzalez Srinivasan MD; When: As needed; Reason: Recheck today's complaints, Re-evaluation by your physician. - Problem is new. - Symptoms have improved. Signatures: Dispatcher [employer] EDDC Carmine Bergeron RN RN David Olson MD MD rn Attema, Lee, RN RN la1 Corrections: (The following items were deleted from the chart) 15:29 14:31 Knee Right 3 View+RAD.RAD.BRZ ordered. EDDC EDDC 15:54 15:28 09/06/2018 15:28 Discharged to Home. Impression: Pain in right knee. Condition is la1 Stable. Forms are Medication Reconciliation Form, Thank You Letter, Antibiotic Education, Prescription Opioid Use. Follow up: Gonzalez Srinivasan; When: As needed; Reason: Recheck today's complaints, Re-evaluation by your physician. Problem is new. Symptoms have improved. rn
[2018-09-06 16:51] VITALS: BP 155/70; TEMP 98.7; O2SAT 99
== END 2018-09-06 15:54 | disposition home or self-care (01) ==
LOC: ER 14:19
DX: M25.561 Pain in right knee (principal)
CPT/HCPCS: 99281

== ENCOUNTER 2018-09-16 09:25 | Emergency (ER) | payer OTHER ==
--- OUTSIDE RECORDS SUMMARY | 2018-09-16 09:30 | XMS REPORT ---
[...] End Status Dosage System Date Date Amoxicillin-Pot [facility] 76853809319 875-125 MG May 05, May 19, Active 1 tablet Clavulanate Orally every 12 2017 2018 hrs Ibuprofen ND 11756249432 800 MG Orally Active 1 tablet Three times a with food day or milk as needed BuSpar NDC 0 Active not defined Atorvastatin [facility] 64231012005 20 MG Orally Active 1 tablet Calcium Once a day Prilosec [facility] 24380542965 40 MG Orally Active 1 capsule Once a day Results No Known Results Summary Purpose eClinicalWorks Submission
[2018-09-16 10:21] LABS: Absolute Lymphocytes (CBC) 3.2 K/uL (0.7-4.9); Absolute Monocytes 0.7 K/uL (0.1-1.3); Basophils % 0.9 % (0-1.3); Eosinophils % 1.7 % (0-4.4); Hematocrit 48.2 % (36.0-45.0); Lymphocytes % 35.1 % (15.3-44.8); MPV 11.2 fL (7.6-11.3); Monocytes % 7.3 % (3.3-12.3); RBC Red Blood Cell Count 5.27 M/uL (3.86-4.86)
[2018-09-16] MEDS ORDERED: HYDROCODONE/APAP 10/325 TAB ONE (10:37)
[2018-09-16 10:42] LABS: BUN Blood Urea Nitrogen 9 mg/dL (7-18); Bicarbonate 25 mmol/L (21-32); Glucose Level 87 mg/dL (74-106); Potassium 5.3 mmol/L (3.5-5.1); Sodium Level 141 mmol/L (136-145); Troponin (Emerg Dept Use Only) < 0.02 ng/mL (0.0-0.045)
[2018-09-16 10:50] LABS: Blood Morphology Comment NOT SEEN (NOT SEEN); Platelet Estimate ADEQ; Urine White Blood Cell Casts OK
--- NOTE | 2018-09-16 11:16 | RAD REPORT ---
EXAM DESCRIPTION: RAD - Chest Single View - 09/16/2018 10:28 am CLINICAL HISTORY: CHEST PAIN Chest pain. COMPARISON: Chest Pa And Lat (2 Views) dated 07/27/2018; Chest Single View dated 12/15/2017; Chest Sin gle View dated 06/29/2017; Chest Single View dated 03/27/2017 FINDINGS: Portable technique limits examination quality. The lungs are grossly clear. The heart is normal in size. No displaced fractures. IMPRESSION: No acute intrathoracic process suspected.
--- NOTE | 2018-09-16 11:24 | ER ---
Nurse's Notes [facility] Name: Juan J Velez Age: 52 yrs Sex: Female : 1965 Arrival Date: 09/16/2018 Time: 09:26 Bed 13 Private MD: SALLEI CALDWELL Diagnosis: Chest pain, unspecified Presentation: 09/16 09:30 Presenting complaint: Patient states: Chest pain started yesterday, midsternal that rb1 radiates to the left chest. Pt. stated, "I have anxiety and sometimes it makes me feel like I'm having a heart attack.". Transition of care: patient was not received from another setting of care. Onset of symptoms was September 15, 2018. Risk Assessment: Do you want to hurt yourself or someone else? Patient reports no desire to harm self or others. Initial Sepsis Screen: Does the patient meet any 2 criteria? No. Patient's initial sepsis screen is negative. Does the patient have a suspected source of infection? No. Patient's initial sepsis screen is negative. Care prior to arrival: Medication(s) given: Buspar. :30 Method Of Arrival: Ambulatory rb1 09:30 Acuity: KORINA 3 rb1 Triage Assessment: :30 General: Appears in no apparent distress. comfortable, Behavior is calm, cooperative, rb1 Reports fatigue for 12-24 hours. Pain: Complains of pain in mid-sternal area Pain radiates to anterior aspect of left upper chest. Neuro: Level of Consciousness is awake, alert, obeys commands, Oriented to person, place, time, situation, Appropriate for age. Neuro: Reports weakness Feeling shaky. Cardiovascular: Capillary refill < 3 seconds is brisk in bilateral fingers. Respiratory: Airway is patent Respiratory effort is even, unlabored, Respiratory pattern is regular, symmetrical. GI: No signs and/or symptoms were reported involving the gastrointestinal system. : No signs and/or symptoms were reported regarding the genitourinary system. Derm: Skin is pink, warm \\T\\ dry. 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 - Social history:: Smoking status: Patient uses tobacco products, smokes one-half pack cigarettes per day. - Ebola Screening: : Patient negative for fever greater than or equal to 101.5 degrees Fahrenheit, and additional compatible Ebola Virus Disease symptoms. - Family history:: not pertinent. - Hospitalizations: : No recent hospitalization is reported. Screenin:30 Abuse screen: Denies threats or abuse. Nutritional screening: No deficits noted. rb1 Tuberculosis screening: No symptoms or risk factors identified. Fall Risk None identified. Assessment: 09:30 General: See triage assessment. rb1 09:30 Pain: Pain began 1 day ago. rb1 10:30 Reassessment: Patient appears in no apparent distress at this time. No changes from rb1 previously documented assessment. 11:10 Reassessment: Alyssia, Nurse outpatient case manager informed me that the pt. was complaining of sharp rb1 pain in the middle of her chest. Provider notified, received order to repeat the EKG. 11:14 Reassessment: Patient appears in no apparent distress at this time. Patient and/or rb1 family updated on plan of care and expected duration. Pain level reassessed. Patient is alert, oriented x 3, equal unlabored respirations, skin warm/dry/pink. Pain is a 10/10. Pt. stated, "I don't understand it comes and goes, then it hits me out of nowhere.". 12:00 Reassessment: Patient appears in no apparent distress at this time. No changes from rb1 previously documented assessment. Vital Signs: 09:30 BP 98 / 73; Pulse 71; Resp 16; Temp 98.6(O); Pulse Ox 97% on R/A; Weight 113.4 kg (R); rb1 Height 5 ft. 4 in. (162.56 cm) (R); 11:10 BP 113 / 68; Pulse 72; Resp 15; Pulse Ox 98% on R/A; Pain 10/10; rb1 12:00 BP 110 / 66; Pulse 64; Resp 19; Pulse Ox 99% on R/A; rb1 09:30 Body Mass Index 42.91 (113.40 kg, 162.56 cm) rb1 ED Course: 09:26 Patient arrived in ED. sb2 09:27 SALLIE CALDWELL is Private Physician. sb2 09:30 Patient maintains SpO2 saturation greater than 95% on room air. rb1 09:30 Patient has correct armband on for positive identification. Placed in gown. Bed in low rb1 position. Call light in reach. Side rails up X 1. laboratory monitor on. Pulse ox on. NIBP on. 09:30 Arm band placed on right wrist. rb1 09:37 Janell Gil RN is Primary Nurse. rb1 09:39 Triage completed. rb1 09:50 David Olson MD is Attending Physician. rn 09:54 Missed attempt(s): 22 gauge in right antecubital area. Bleeding controlled, band aid ms applied, catheter tip intact. Missed attempt(s): 22 gauge in left forearm. antecubital area. Bleeding controlled, band aid applied, catheter tip intact. 10:06 EKG done, by technical support specialist. reviewed by David Olson MD. at1 10:10 Initial lab(s) drawn, by pr, sent to lab. Inserted saline lock: 22 gauge in right sv forearm, using aseptic technique. ,using aseptic technique. diffusics Blood collected. Flushed right forearm with 5 ml normal saline. 10:18 X-ray completed. Portable x-ray completed in exam room. Patient tolerated procedure sw well. 10:28 XRAY Chest (1 view) In Process Unspecified. EDMS 15:09 No provider procedures requiring assistance completed. IV discontinued, intact, rb1 bleeding controlled, No redness/swelling at site. Pressure dressing applied. Administered Medications: 10:29 Drug: [place] 10 mg-325 mg 1 tabs Route: PO; rb1 11:00 Follow up: Response: No adverse reaction; Pain is decreased rb1 Outcome: 11:23 Discharge ordered by . rn 12:06 Patient left the ED. rb1 12:06 Discharged to home ambulatory. rb1 12:06 Condition: stable 12:06 Discharge instructions given to patient, Instructed on discharge instructions, follow rb1 up and referral plans. Demonstrated understanding of instructions, follow-up care, Prescriptions given X none Signatures: Dispatcher [employer] EDMS Katia Dumont RN Kianna Luna ms, Roman, MD MD rn Gonzales, Amanda, human machine interface engineer EKG Tat1 Marbella Kramer Janell Gil, RN RN rb1 Maria Fernanda Mata sb2 Corrections: (The following items were deleted from the chart) 15: 15: Discharged to home ambulatory, rb1 rb1 15: Condition: stable rb1 rb1 15: Discharge instructions given to patient, Instructed on discharge instructions, rb1 follow up and referral plans. Demonstrated understanding of instructions, follow-up care, Prescriptions given X none rb1
--- NOTE | 2018-09-16 11:25 | EDPHYS ---
Physician Documentation [facility] Name: Juan J Velez Age: 52 yrs Sex: Female : 1965 Arrival Date: 09/16/2018 Time: 09:26 Bed 13 Private MD: SALLIE CALDWELL ED Physician David Olson HPI: 09/16 10:08 This 52 yrs old Female presents to ER via Ambulatory with complaints of Chest rn Pain, Back Pain, Dizziness. 10:08 The patient or guardian reports chest pain that is located primarily in the anterior rn chest wall. 10:09 Onset: yesterday. The pain does not radiate. Associated signs and symptoms: Pertinent rn positives: dizziness, shortness of breath, Pertinent negatives: abdominal pain, cough, diaphoresis, near syncope, recent travel, syncope, vomiting. The chest pain is described as a heaviness. Duration: The patient or guardian reports multiple episodes, that are intermittent. Severity of pain: At its worst the pain was mild in the emergency department the pain has improved. The patient has experienced similar episodes in the past. Reports chest pain, pressure/heavy, began yesterday, similar to previous episodes of anxiety but today has been constant, so came in for eval. Denies fever/cough/sob/abd pain. Reports under a lot of stress lately. . 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 - Social history:: Smoking status: Patient uses tobacco products, smokes one-half pack cigarettes per day. - Ebola Screening: : Patient negative for fever greater than or equal to 101.5 degrees Fahrenheit, and additional compatible Ebola Virus Disease symptoms. - Family history:: not pertinent. - Hospitalizations: : No recent hospitalization is reported. ROS: 10:09 Constitutional: Negative for fever, chills, and weight loss, Eyes: Negative for injury, rn pain, redness, and discharge, Neck: Negative for injury, pain, and swelling, Cardiovascular: Negative for palpitations, and edema, Respiratory: Negative for wheezing, and pleuritic chest pain, Abdomen/GI: Negative for abdominal pain, nausea, vomiting, diarrhea, and constipation, MS/Extremity: Negative for injury and deformity, Skin: Negative for injury, rash, and discoloration, Neuro: Negative for headache, weakness, numbness, tingling, and seizure. Exam: 10:09 Constitutional: This is a well developed, well nourished patient who is awake, alert, rn and in no acute distress. Head/Face: Normocephalic, atraumatic. Eyes: Pupils equal round and reactive to light, extra-ocular motions intact. Lids and lashes normal. Conjunctiva and sclera are non-icteric and not injected. Cornea within normal limits. Periorbital areas with no swelling, redness, or edema. Cardiovascular: Regular rate and rhythm, No pulse deficits. Respiratory: Lungs have equal breath sounds bilaterally, clear to auscultation. No increased work of breathing, no retractions or nasal flaring. Abdomen/GI: soft, non-tender Skin: Warm, dry with normal turgor. Normal color with no rashes, no lesions, and no evidence of cellulitis. MS/ Extremity: Pulses equal, no cyanosis. Neurovascular intact. Full, normal range of motion. Equal circumference. Neuro: Awake and alert, GCS 15, oriented to person, place, time, and situation. Cranial nerves II-XII grossly intact. Motor strength 5/5 in all extremities. Sensory grossly intact. Vital Signs: 09:30 BP 98 / 73; Pulse 71; Resp 16; Temp 98.6(O); Pulse Ox 97% on R/A; Weight 113.4 kg (R); rb1 Height 5 ft. 4 in. (162.56 cm) (R); 11:10 BP 113 / 68; Pulse 72; Resp 15; Pulse Ox 98% on R/A; Pain 10/10; rb1 12:00 BP 110 / 66; Pulse 64; Resp 19; Pulse Ox 99% on R/A; rb1 09:30 Body Mass Index 42.91 (113.40 kg, 162.56 cm) rb1 MDM: 09:50 Patient medically screened. rn 11:23 Differential diagnosis: acute myocardial infarction, acute pericarditis, anxiety, rn coronary artery disease chest wall pain, costochondritis, esophagitis, gastritis, gastroesophageal reflux disease (GERD), pleurisy, pneumonia, pneumothorax. Data reviewed: vital signs, nurses notes, lab test result(s), EKG, radiologic studies, plain films, and as a result, I will discharge patient. Counseling: I had a detailed discussion with the patient and/or guardian regarding: the historical points, exam findings, and any diagnostic results supporting the discharge/admit diagnosis, lab results, radiology results, the need for outpatient follow up, to return to the emergency department if symptoms worsen or persist or if there are any questions or concerns that arise at home. Special discussion: I discussed with the patient/guardian in detail that at this point there is no indication for admission to the hospital. It is understood, however, that if the symptoms persist or worsen the patient needs to return immediately for re-evaluation. 11:24 Counseling: I had a detailed discussion with the patient and/or guardian regarding: rn smoking cessation. 09/16 09:58 Order name: CBC with Diff; Complete Time: 10:59 rn 09/16 09:58 Order name: Basic Metabolic Panel; Complete Time: 10:59 rn 09/16 09:58 Order name: Troponin (emerg Dept Use Only); Complete Time: 10:59 rn 09/16 09:58 Order name: XRAY Chest (1 view); Complete Time: 11:28 rn 09/16 10:24 Order name: CBC Smear Scan; Complete Time: 10:59 EDMS 09/16 09:58 Order name: IV Start; Complete Time: 10:13 rn 09/16 09:58 Order name: EKG; Complete Time: 10:00 rn 09/16 09:58 Order name: EKG - Nurse/Tech; Complete Time: 10:13 rn Administered Medications: 10:29 Drug: [place] 10 mg-325 mg 1 tabs Route: PO; rb1 11:00 Follow up: Response: No adverse reaction; Pain is decreased rb1 Disposition: 09/16/18 11:23 Discharged to Home. Impression: Chest pain, unspecified. - Condition is Stable. - Discharge Instructions: Nonspecific Chest Pain, Steps to Quit Smoking. - Medication Reconciliation Form, Thank You Letter, Antibiotic Education, Prescription Opioid Use form. - Follow up: Private Physician; When: As needed; Reason: Recheck today's complaints, Re-evaluation by your physician. - Problem is new. - Symptoms have improved. Signatures: Dispatcher [employer] EDDavid Mcmillan MD MD rn Barber, Rebecca, RN RN rb1 Corrections: (The following items were deleted from the chart) 12:06 11:23 09/16/2018 11:23 Discharged to Home. Impression: Chest pain, unspecified. rb1 Condition is Stable. Forms are Medication Reconciliation Form, Thank You Letter, Antibiotic Education, Prescription Opioid Use. Follow up: Private Physician; When: As needed; Reason: Recheck today's complaints, Re-evaluation by your physician. Problem is new. Symptoms have improved. rn
[2018-09-16 12:14] VITALS: TEMP 98.6
[2018-09-16 12:16] VITALS: BP 113/68; O2SAT 98
--- NOTE | 2018-09-16 16:57 | EKG ---
Test Date: 2018-08-16 Test Time: 10:03:34 Full Time Paramedic: CECILIA MEASUREMENT RESULTS: Intervals: Rate: 66 TX: 150 QRSD: 88 QT: 422 QTc: 442 [place]: P: 42 TX: 150 QRS: 10 T: 47 INTERPRETIVE STATEMENTS: Normal sinus rhythm Normal ECG Compared to ECG 12/15/2017 12:15:35 no significant change from previous ECG Electronically Signed On 09-16-18 16:56:25 BANKRUPTCY JUDGE by Jeremy Corral
== END 2018-09-16 12:06 | disposition home or self-care (01) ==
LOC: ER 09:25
DX: R07.9 Chest pain, unspecified (principal); R42 Dizziness and giddiness
CPT/HCPCS: 36415; 71045; 80048; 84484; 85025; 93005; 99285

== ENCOUNTER 2019-04-29 10:42 | Emergency (ER) | payer OTHER ==
--- OUTSIDE RECORDS SUMMARY | 2019-04-29 10:44 | XMS REPORT ---
[...] System Date Date Amoxicillin-Pot [facility] 44589049011 875-125 MG May 05, May 19, Active 1 tablet Clavulanate Orally every 12 2017 2018 hrs Ibuprofen ND 64277223878 800 MG Orally Active 1 tablet Three times a with food day or milk as needed BuSpar NDC 0 Active not defined Atorvastatin [facility] 73099298525 20 MG Orally Active 1 tablet Calcium Once a day Prilosec [facility] 59838657471 40 MG Orally Active 1 capsule Once a day Results No Known Results Summary Purpose eClinicalWorks Submission
--- OUTSIDE RECORDS SUMMARY | 2019-04-29 10:44 | XMS REPORT ---
:1965 Author Organization eClinicalWorks Care Team Providers Name Role Phone Gonzalez Srinivasan Provider Role Unavailable Allergies, Adverse Reactions, Alerts Substance Reaction Event Type Zoloft failed therapy Drug Allergy Prozac failed therapy Drug Allergy Paxil failed therapy Drug Allergy BusPIRone HCl failed therapy Drug Allergy Problems Problem Type Condition Code Onset Dates Condition Status Assessment Pain, joint, knee, right M25.561 Active Problem Post traumatic stress disorder F43.10 Active Assessment Sprain of unspecified site of S83.91XA Active right knee, initial encounter Problem Knee pain M25.569 Active Problem Hyperlipemia E78.5 Active Problem Fatigue 780.79 Active Problem Irritable bowel syndrome without K58.9 Active diarrhea Problem Nicotine dependence F17.200 Active Problem Chronic pain syndrome G89.4 Active Problem Borderline personality disorder F60.3 Active Medications Medication Code Code Instructions Start End Status Dosage System Date Date BuSpar NDC 0 Active not defined Prilosec ND 64814106869 40 MG Orally Active 1 capsule Once a day Ibuprofen ND 55315899467 800 MG Orally Active 1 tablet Three times a with food day or milk as needed Atorvastatin ND 25725812868 20 MG Orally Active 1 tablet Calcium Once a day Results No Known Results Summary Purpose eClinicalWorks Submission
--- OUTSIDE RECORDS SUMMARY | 2019-04-29 10:44 | XMS REPORT ---
:1965 Author Organization eClinicalWorks Care Team Providers Name Role Phone Rafaela Stern Provider Role Unavailable Allergies No Known Allergies Problems Problem Type Condition Code Onset Dates Condition Status Problem Post traumatic stress disorder F43.10 Active Problem Knee pain M25.569 Active Problem Hyperlipemia E78.5 Active Problem Fatigue 780.79 Active Problem Irritable bowel syndrome without K58.9 Active diarrhea Problem Nicotine dependence F17.200 Active Problem Chronic pain syndrome G89.4 Active Problem Borderline personality disorder F60.3 Active Medications No Known Medications Results No Known Results Summary Purpose eClinicalWorks Submission
--- OUTSIDE RECORDS SUMMARY | 2019-04-29 10:45 | XMS REPORT ---
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 18680764784 40 MG Orally Active 1 capsule Once a day Ibuprofen ND 65077624030 800 MG Orally Active 1 tablet Three times a with food day or milk as needed Atorvastatin ND 72370610232 20 MG Orally Active 1 tablet Calcium Once a day BuSpar ND 0 Active not defined Results No Known Results Summary Purpose eClinicalWorks Submission
[2019-04-29] MEDS ORDERED: IPRATROPIUM BROM 0.5MG/2.5ML ONE (11:24)
[2019-04-29] MEDS ORDERED: ALBUTEROL 2.5 MG/3 ML NEB SOL ONE (11:24)
[2019-04-29] MEDS ORDERED: ASPIRIN 81 MG CHEWABLE TABLET ONE (11:24)
[2019-04-29 11:34] LABS: Absolute Lymphocytes (CBC) 3.7 K/uL (0.7-4.9); Basophils % 0.6 % (0-1.3); Hematocrit 45.1 % (36.0-45.0); Lymphocytes % 27.7 % (15.3-44.8); MPV 10.8 fL (7.6-11.3); RBC Red Blood Cell Count 4.93 M/uL (3.86-4.86)
--- NOTE | 2019-04-29 11:34 | RAD REPORT ---
EXAM DESCRIPTION: RAD - Chest Single View - 04/29/2019 11:25 am CLINICAL HISTORY: Chest pain, shortness of breath COMPARISON: September 2018 TECHNIQUE: AP portable chest image was obtained 1117 hours . FINDINGS: No focal lung parenchymal process. Lung volumes are reduced compared to the prior study wh ich accentuates the interstitial pattern. This could potentially mask an early interstitial edema or infiltrate. Heart and vasculature are normal. No measurable pleural effusion and no pneumothorax. No acute bony abnormality seen. No acute aortic findings suspected. IMPRESSION: No mass or focal consolidation. No significant failure or volume overload. Patient has a baseline interstitial pattern that is accentuated by a slightly shallow inspiration. Th is could mask early interstitial edema or infiltrate.
[2019-04-29 11:35] LABS: Protime INR 1.01
[2019-04-29 11:48] LABS: ALT/SGPT 32 U/L (12-78); AST/SGOT 18 U/L (15-37); Albumin 3.9 g/dL (3.4-5.0); Alkaline Phosphatase 147 U/L (45-117); BUN Blood Urea Nitrogen 13 mg/dL (7-18); Bicarbonate 26 mmol/L (21-32); Bilirubin Direct 0.1 mg/dL (0-0.2); Bilirubin Total 0.4 mg/dL (0.2-1.0); Glucose Level 88 mg/dL (74-106); Lipase 113 U/L (73-393); NT PRO-BNP 40 pg/mL (<125); Potassium 3.8 mmol/L (3.5-5.1); Protein, Total 7.9 g/dL (6.4-8.2); Sodium Level 141 mmol/L (136-145); Troponin (Emerg Dept Use Only) < 0.02 ng/mL (0.0-0.045)
[2019-04-29] MEDS ORDERED: KETOROLAC 30 MG/ML INJ ONE (12:02)
[2019-04-29 12:43] LABS: Urine Bacteria <20 /HPF (<20); Urine Culture Reflex Order NOT NEEDED; Urine RBC <5 /HPF (NONE SEEN)
--- NOTE | 2019-04-29 13:15 | RAD REPORT ---
EXAM DESCRIPTION: CT - Abdomen Pelvis W Contrast - 04/29/2019 12:51 pm CLINICAL HISTORY: Abdominal pain COMPARISON: 2015 TECHNIQUE: Computed axial tomography of the abdomen pelvis was obtained. 100 cc Isovue-300 was admin istered intravenously. Oral contrast was not requested which limits evaluation of bowel. All CT scans are performed using dose optimization technique as appropriate and may include automated exposure control or mA/KV adjustment according to patient size. FINDINGS: A subcentimeter nodular opacity right lower lobe unchanged likely benign Cholecystectomy. The liver, spleen, pancreas, left adrenal and kidneys appear unremarkable 20 millimeter right adrenal lesion unchanged from 2015 likely adenoma And kidneys appear unremarkable. There is no evidence of diverticulitis. IMPRESSION: No acute abnormality is displayed.
--- NOTE | 2019-04-29 13:24 | ER ---
Nurse's Notes [facility] Name: Juan J Velez Age: 53 yrs Sex: Female : 1965 Arrival Date: 04/29/2019 Time: 10:46 Bed 5 Private MD: SALLIE CALDWELL Diagnosis: Chest pain, unspecified;Lower abdominal pain, unspecified;Shortness of breath Presentation: 04/29 10:59 Presenting complaint: Patient states: Chest pain that radiates to the upper back and aj1 shortness of breath for the past 3 days. Reports she has a history of anxiety, but usually her anxiety attacks don't last this long. Patient also reports that she has been having pelvic pain for the past 2 weeks. 10:59 Method Of Arrival: Ambulatory aj1 10:59 Transition of care: patient was not received from another setting of care. Onset of aj1 symptoms was 2019. Risk Assessment: Do you want to hurt yourself or someone else? Patient reports no desire to harm self or others. Initial Sepsis Screen: Does the patient meet any 2 criteria? No. Patient's initial sepsis screen is negative. Does the patient have a suspected source of infection? No. Patient's initial sepsis screen is negative. Care prior to arrival: None. 10:59 Acuity: KORINA 3 aj1 Triage Assessment: 10:59 General: Appears in no apparent distress. comfortable, Behavior is calm, cooperative, aj1 appropriate for age. Pain: Complains of pain in thoracic area, mid-sternal area, suprapubic area, right inguinal area and left inguinal area. Cardiovascular: Reports chest pain. 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 - Social history:: Smoking status: Patient uses tobacco products, smokes one pack cigarettes per day. - Ebola Screening: : Patient denies travel to an Ebola-affected area in the 21 days before illness onset. Screenin:59 Abuse screen: Denies threats or abuse. Denies injuries from another. Nutritional aj1 screening: No deficits noted. Tuberculosis screening: No symptoms or risk factors identified. 13:43 Fall Risk IV access (20 points). Total Good Fall Scale indicates No Risk (0-24 pts). jl7 Assessment: 10:59 General: Appears in no apparent distress. comfortable, Behavior is calm, cooperative, aj1 appropriate for age. Pain: Complains of pain in left inguinal area and right inguinal area and suprapubic area and mid-sternal area and thoracic area Pain currently is 8 out of 10 on a pain scale. Pain began 2-3 days ago. Pain: Quality of pain is described as aching, Pain began Is continuous. Neuro: Level of Consciousness is awake, alert, obeys commands, Oriented to person, place, time, situation. Cardiovascular: Reports chest pain, shortness of breath, Heart tones S1 S2 present Patient's skin is warm and dry. Rhythm is sinus rhythm. Respiratory: Reports shortness of breath Airway is patent Respiratory effort is even, unlabored, Respiratory pattern is regular, symmetrical, Breath sounds are clear bilaterally. Denies cough. GI: No signs and/or symptoms were reported involving the gastrointestinal system. : Reports discharge, clear and "mucus-like" that the patient states is not typical for her pelvic pain. EENT: No signs and/or symptoms were reported regarding the EENT system. Derm: No signs and/or symptoms reported regarding the dermatologic system. Skin is pink, warm \\T\\ dry. normal. Musculoskeletal: No signs and/or symptoms reported regarding the musculoskeletal system. Circulation, motion, and sensation intact. 12:05 Reassessment: Patient appears in no apparent distress at this time. Patient and/or aj1 family updated on plan of care and expected duration. Pain level reassessed. Patient is alert, oriented x 3, equal unlabored respirations, skin warm/dry/pink. Patient reports that she is still having pain and would like some pain medication. Notified SHARRI Garcia. Order received. Vital Signs: 10:59 BP 107 / 60; Pulse 72; Resp 14; Temp 98.2; Pulse Ox 97% on R/A; Weight 90.72 kg (R); aj1 Height 5 ft. 4 in. (162.56 cm) (R); Pain 8/10; 12:06 BP 120 / 60; Pulse 80; Resp 18; Pulse Ox 98% on R/A; aj1 13:40 BP 116 / 62; Pulse 74; Resp 16 S; Pulse Ox 99% on R/A; jl7 10:59 Body Mass Index 34.33 (90.72 kg, 162.56 cm) aj1 ED Course: 10:46 Patient arrived in ED. mr 10:46 SALLIE CALDWELL is Private Physician. mr 10:53 Kirill Joseph PA is PHCP. cp 10:53 Alonzo Sales MD is Attending Physician. cp 10:58 Loretta Clayton, JOSEFINA is Primary Nurse. aj1 10:59 No provider procedures requiring assistance completed. Patient maintains SpO2 aj1 saturation greater than 95% on room air. 10:59 Arm band placed on. aj1 10:59 Patient has correct armband on for positive identification. fiberglass finisher on. Pulse aj1 ox on. NIBP on. 11:00 EKG done, by community development technician. reviewed by Kirill HARRELL. at1 11:12 Initial lab(s) drawn, by mn, sent to lab. Inserted saline lock: 22 gauge in left dh3 antecubital area, using aseptic technique. Blood collected. 11:26 XRAY Chest (1 view) In Process Unspecified. EDMS 11:32 Triage completed. aj1 12:21 Urine collected: clean catch specimen, clear. dh3 12:50 CT completed. Patient tolerated procedure well. Patient moved to CT via wheelchair. jg6 Patient moved back from CT. 12:57 CT Abd/Pelvis - IV Contrast Only In Process Unspecified. EDMS 13:21 SALLIE CALDWELL is Referral Physician. cp 13:43 IV discontinued, intact, bleeding controlled, No redness/swelling at site. Pressure jl7 dressing applied. Administered Medications: 11:26 Drug: Albuterol 2.5 mg Route: Inhalation; jl7 12:15 Follow up: Response: No adverse reaction aj1 11:26 Drug: AtroVENT Aerosol 0.5 mg Route: Inhalation; jl7 12:15 Follow up: Response: No adverse reaction aj1 11:26 Drug: Aspirin Chewable Tablet 324 mg Route: PO; jl7 12:15 Follow up: Response: No adverse reaction aj1 12:14 Drug: TORadol 30 mg Route: IVP; Site: left antecubital; aj1 Outcome: 13:22 Discharge ordered by . cp 13:43 Discharged to home ambulatory. jl7 13:43 Condition: stable 13:43 Discharge instructions given to patient, Instructed on discharge instructions, follow up and referral plans. medication usage, Demonstrated understanding of instructions, follow-up care, medications, Prescriptions given X 2. 13:43 Patient left the ED. jl7 Signatures: Dispatcher [employer] EDMS Loretta Clayton, RN RN aj1 Parra, Sonya mr John, Edie, transition program manager EKG Tat1 Kirill Joseph PA PA cp Leal, Jahala, RN RN jl7 Fariha Tamez [facility] Giuliana John j6
--- NOTE | 2019-04-29 13:25 | EDPHYS ---
Physician Documentation [facility] Name: Juan J Velez Age: 53 yrs Sex: Female : 1965 Arrival Date: 04/29/2019 Time: 10:46 Bed 5 Private MD: SALLIE CALDWELL ED Physician Alonzo Sales HPI: 04/29 11:01 This 53 yrs old Female presents to ER via Unassigned with complaints of Chest cp Pain, Shortness Of Breath, Abdominal Pain. 11:01 The patient or guardian reports chest pain that is located primarily in the anterior cp chest wall. Onset: 3 day(s) ago. 11:01 The pain radiates to Associated signs and symptoms: Pertinent positives: shortness of cp breath, Pertinent negatives: fever, cough. 11:01 The symptoms are described as achy. cp 11:03 The patient presents with abdominal pain in the lower abdomen. cp 11:03 Onset: The symptoms/episode began/occurred 2 week(s) ago. Associated signs and cp symptoms: Pertinent positives: vaginal discharge, Pertinent negatives: vaginal bleeding, diarrhea, vomiting. 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 - Social history:: Smoking status: Patient uses tobacco products, smokes one pack cigarettes per day. - Ebola Screening: : Patient denies travel to an Ebola-affected area in the 21 days before illness onset. ROS: 11:07 Constitutional: Negative for body aches, chills, fever, poor PO intake. cp 11:07 Eyes: Negative for injury, pain, redness, and discharge. cp 11:07 ENT: Negative for drainage from ear(s), ear pain, sore throat, difficulty swallowing, difficulty handling secretions. 11:07 Cardiovascular: Positive for chest pain, Negative for edema, palpitations. 11:07 Respiratory: Positive for shortness of breath, Negative for cough, wheezing. 11:07 Abdomen/GI: Positive for abdominal pain, Negative for nausea, vomiting, and diarrhea, anorexia, black/tarry stool, rectal bleeding. 11:07 Back: Negative for radiated pain. 11:07 : Positive for vaginal discharge, Negative for urinary symptoms, vaginal bleeding. 11:07 Skin: Negative for rash. 11:07 Neuro: Negative for altered mental status, headache, syncope, weakness. 11:07 All other systems are negative. Exam: 11:05 ECG was reviewed by the Attending Physician. cp 11:10 Constitutional: The patient appears in no acute distress, alert, awake, cp non-diaphoretic, non-toxic, well developed, well nourished. 11:10 Head/Face: Normocephalic, atraumatic. cp 11:10 Eyes: Periorbital structures: appear normal, Conjunctiva: normal, no exudate, no injection, Sclera: no appreciated abnormality, Lids and lashes: appear normal, bilaterally. 11:10 ENT: External ear(s): are unremarkable, Nose: is normal, Mouth: Lips: moist, Oral mucosa: pink and intact, moist, Posterior pharynx: is normal, airway is patent, no erythema, no exudate. 11:10 Neck: ROM/movement: is normal, is supple, without pain, no range of motions limitations, no nuchal rigidity. 11:10 Chest/axilla: Inspection: normal, Palpation: is normal, no crepitus, no tenderness. 11:10 Cardiovascular: Rate: normal, Rhythm: regular, Edema: is not appreciated, JVD: is not appreciated. 11:10 Respiratory: the patient does not display signs of respiratory distress, Respirations: normal, no use of accessory muscles, no retractions, no splinting, no tachypnea, labored breathing, is not present, Breath sounds: are clear throughout, no decreased breath sounds, no stridor, no wheezing. 11:10 Abdomen/GI: Inspection: abdomen appears normal, Bowel sounds: active, all quadrants, Palpation: soft, in all quadrants, mild abdominal tenderness, in the right lower quadrant and left lower quadrant, rebound tenderness, is not appreciated, involuntary guarding, is not appreciated. 11:10 Back: pain, is absent, ROM is normal. 11:10 Skin: no rash present. 11:10 Neuro: Orientation: to person, place \T\ time. Mentation: is normal, Cerebellar function: is grossly normal, Motor: moves all fours, strength is normal, Sensation: no obvious gross deficits. 13:21 : Pelvic Exam: The exam is refused by the patient/guardian. The risks and cp consequences are understood by the patient. Vital Signs: 10:59 BP 107 / 60; Pulse 72; Resp 14; Temp 98.2; Pulse Ox 97% on R/A; Weight 90.72 kg (R); aj1 Height 5 ft. 4 in. (162.56 cm) (R); Pain 8/10; 12:06 BP 120 / 60; Pulse 80; Resp 18; Pulse Ox 98% on R/A; aj1 13:40 BP 116 / 62; Pulse 74; Resp 16 S; Pulse Ox 99% on R/A; jl7 10:59 Body Mass Index 34.33 (90.72 kg, 162.56 cm) aj1 MDM: 10:57 Patient medically screened. cp 13:21 The patient was given aspirin in the Emergency Department. cp 13:21 Differential diagnosis: abnormal EKG, acute myocardial infarction, acute pericarditis, cp chest wall pain, cholecystitis, Cholelithiasis gastritis, pneumonia, stable angina, unstable angina. Data reviewed: vital signs, nurses notes, lab test result(s), EKG, radiologic studies, CT scan, plain films. Test interpretation: by ED physician or midlevel provider: ECG, plain radiologic studies. Counseling: I had a detailed discussion with the patient and/or guardian regarding: the historical points, exam findings, and any diagnostic results supporting the discharge/admit diagnosis, lab results, radiology results, to return to the emergency department if symptoms worsen or persist or if there are any questions or concerns that arise at home. Response to treatment: the patient's symptoms have markedly improved after treatment, and as a result, I will discharge patient. ED course: VSS. EKG and troponin negative. CT abdomen/pelvis negative for acute findings. Pain improved. Will discharge to home for continued monitoring. 04/29 10:59 Order name: Basic Metabolic Panel; Complete Time: 12:06 cp 04/29 12:06 Interpretation: Normal except: CL 108; GFR 82. cp 04/29 10:59 Order name: CBC with Diff; Complete Time: 11:40 cp 04/29 11:40 Interpretation: Normal except: WBC 13.3; RBC 4.93; HGB 15.6; HCT 45.1; NEUT A 8.6. cp 10:59 Order name: LFT's; Complete Time: 12:06 cp 18 12:06 Interpretation: Normal except: ALK 147; GLOB 4.0; A/G 1.0. cp /18 10:59 Order name: Magnesium; Complete Time: 12:06 cp 04/29 10:59 Order name: NT PRO-BNP; Complete Time: 12:06 cp 04/29 10:59 Order name: PT-INR; Complete Time: 11:40 cp 04/29 10:59 Order name: Troponin (emerg Dept Use Only); Complete Time: 12:06 cp 04/29 10:59 Order name: XRAY Chest (1 view); Complete Time: 12:06 cp 04/29 10:59 Order name: Urine Microscopic Only; Complete Time: 12:57 cp 04/29 12:57 Interpretation: Normal except: SQEPI 5-10. cp 04/29 10:59 Order name: Lipase; Complete Time: 12:06 cp 04/29 11:14 Order name: D-Dimer; Complete Time: 12:40 cp 04/29 12:40 Interpretation: Reviewed. cp 04/29 12:26 Order name: Urine Dipstick--Ancillary (enter results) bd 04/29 12:40 Order name: CT Abd/Pelvis - IV Contrast Only; Complete Time: 13:19 cp 04/29 10:59 Order name: EKG; Complete Time: 11:01 cp 04/29 10:59 Order name: Cardiac monitoring; Complete Time: 11:18 cp 04/29 10:59 Order name: EKG - Nurse/Tech; Complete Time: 11:18 cp 04/29 10:59 Order name: IV Saline Lock; Complete Time: 11:18 cp 04/29 10:59 Order name: Labs collected and sent; Complete Time: 11:18 cp 04/29 10:59 Order name: O2 Per Protocol; Complete Time: 11:18 cp 04/29 10:59 Order name: O2 Sat Monitoring; Complete Time: 11:19 cp 04/29 10:59 Order name: Urine Dipstick-Ancillary (obtain specimen); Complete Time: 12:22 cp EC:05 Rate is 74 beats/min. Rhythm is regular. AK interval is normal. QRS interval is normal. cp QT interval is normal. T waves are Flattened in lead aVL. Interpreted by me. Reviewed by me. Administered Medications: 11:26 Drug: Albuterol 2.5 mg Route: Inhalation; jl7 12:15 Follow up: Response: No adverse reaction aj1 11:26 Drug: AtroVENT Aerosol 0.5 mg Route: Inhalation; jl7 12:15 Follow up: Response: No adverse reaction aj1 11:26 Drug: Aspirin Chewable Tablet 324 mg Route: PO; jl7 12:15 Follow up: Response: No adverse reaction aj1 12:14 Drug: TORadol 30 mg Route: IVP; Site: left antecubital; aj1 Disposition: 04/30 06:58 Co-signature as Attending Physician, Alonzo Sales MD I agree with the assessment and kdr plan of care. Disposition: 04/29/19 13:22 Discharged to Home. Impression: Chest pain, unspecified, Lower abdominal pain, unspecified, Shortness of breath. - Condition is Stable. - Discharge Instructions: Abdominal Pain, Adult, Nonspecific Chest Pain, Shortness of Breath, Aspirin and Your Heart. - Prescriptions for Ibuprofen 800 mg Oral Tablet - take 1 tablet by ORAL route every 8 hours As needed take with food; 30 tablet. Albuterol Sulfate 90 mcg/actuation - inhale 1-2 puff by INHALATION route every 4-6 hours; 1 Inhaler. - Medication Reconciliation Form, Thank You Letter, Antibiotic Education, Prescription Opioid Use form. - Follow up: SALLIE CALDWELL; When: 1 - 2 days; Reason: Recheck today's complaints. - Problem is new. - Symptoms have improved. Signatures: Dispatcher [employer] EDRI Loretta Clayton RN RN aj1 Alonzo Sales MD MD kdr Kirill Joseph PA PA cp Porfirio Hickman RN RN jl7 Corrections: (The following items were deleted from the chart) 04/29 13:43 13:22 04/29/2019 13:22 Discharged to Home. Impression: Chest pain, unspecified; Lower jl7 abdominal pain, unspecified; Shortness of breath. Condition is Stable. Forms are Medication Reconciliation Form, Thank You Letter, Antibiotic Education, Prescription Opioid Use. Follow up: SALLIE CALDWELL; When: 1 - 2 days; Reason: Recheck today's complaints. Problem is new. Symptoms have improved. cp
[2019-04-29 13:49] VITALS: TEMP 98.2
[2019-04-29 13:51] VITALS: BP 120/60; O2SAT 98
[2019-04-29 14:52] LABS: Urine Blood TRACE (NEG); Urine Glucose NEGATIVE (NEG); Urine Protein NEGATIVE (NEG)
--- NOTE | 2019-04-29 16:57 | EKG ---
Test Date: 2019-04-29 Test Time: 10:58:09 Information And Data Architect Analyst: CECILIA MEASUREMENT RESULTS: Intervals: Rate: 74 WI: 140 QRSD: 88 QT: 400 QTc: 444 [place]: P: 60 WI: 140 QRS: 56 T: 59 INTERPRETIVE STATEMENTS: Normal sinus rhythm with sinus arrhythmia Normal ECG Compared to ECG 09/16/2018 10:03:34 No significant changes Electronically Signed On 04-29-19 16:56:43 CDT by Glen Mejia
== END 2019-04-29 13:43 | disposition home or self-care (01) ==
LOC: ER 10:42
DX: R07.9 Chest pain, unspecified (principal); R10.30 Lower abdominal pain, unspecified; F17.210 Nicotine dependence, cigarettes, uncomplicated
CPT/HCPCS: 93005; 85025; 80048; 36415; 83735; 85610; 85379; 80076; 84484; 83690; 83880; 74177; 71045; Q9967; 81003; 81015; 96374; 99285

== ENCOUNTER 2019-05-07 19:20 | Emergency (ER) | payer OTHER ==
[2019-05-07 22:08] LABS: Urine Glucose NEGATIVE (NEG)
[2019-05-07 22:09] LABS: Urine Blood TRACE (NEG); Urine Protein NEGATIVE (NEG); Urine pH 5.5 (5.0-7.0)
--- NOTE | 2019-05-07 23:19 | ER ---
Nurse's Notes [facility] Name: Juan J Velez Age: 53 yrs Sex: Female : 1965 Arrival Date: 05/07/2019 Time: 19:23 Bed 18 Private MD: Diagnosis: Abdominal tenderness;Pelvic and perineal pain;Bipolar disorder Presentation: 05/07 19:50 Presenting complaint: Patient states: "I came in here last week cause my stomach down aj1 in my ovaries, I didn't have them do the examination here because I have a primary care doctor, so they did a PAP smear at my doctor and said my bladder was falling out and I don't know if that's what the problem is but my left side is really hurting, like a constant stabbing pain" Denies fever. Reports nausea, headache. Denies V/D. Patient reports burning with urination that started today. Transition of care: patient was not received from another setting of care. Onset of symptoms was April 2019. Risk Assessment: Do you want to hurt yourself or someone else? Patient reports desire/thoughts of hurting themselves or someone else. Provider notified. Initial Sepsis Screen: Does the patient meet any 2 criteria? No. Patient's initial sepsis screen is negative. Does the patient have a suspected source of infection? Yes: Acute abdominal pain. Care prior to arrival: None. 19:50 Method Of Arrival: Ambulatory [facility] 19:50 Acuity: KORINA 3 aj1 Triage Assessment: 19:53 General: Appears in no apparent distress. uncomfortable, Behavior is calm, cooperative, aj1 appropriate for age. Pain: Complains of pain in left inguinal area and left iliac crest Pain does not radiate. Pain currently is 8 out of 10 on a pain scale. Neuro: Level of Consciousness is awake, alert, obeys commands, Oriented to person, place, time, situation. Cardiovascular: Patient's skin is warm and dry. Respiratory: Airway is patent Respiratory effort is even, unlabored, Respiratory pattern is regular, symmetrical. : Reports burning with urination. 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 - Social history:: Smoking status: Patient uses tobacco products, smokes one pack cigarettes per day. - Ebola Screening: : Patient denies travel to an Ebola-affected area in the 21 days before illness onset. - Family history:: not pertinent. Screenin:09 Abuse screen: Denies threats or abuse. Nutritional screening: No deficits noted. ea Tuberculosis screening: No symptoms or risk factors identified. Fall Risk None identified. Assessment: 21:30 General: Appears in no apparent distress. Behavior is calm, cooperative, appropriate ea for age. Pain: Complains of pain in left lower quadrant. Neuro: Level of Consciousness is awake, alert, obeys commands, Oriented to person, place, time. Cardiovascular: Patient's skin is warm and dry. Respiratory: Airway is patent Respiratory effort is even, unlabored, Respiratory pattern is regular, symmetrical. GI: Abdomen is non-distended. Derm: Skin is pink, warm \\T\\ dry. 23:30 Reassessment: Patient and/or family updated on plan of care and expected duration. Pain ea level reassessed. Patient is alert, oriented x 3, equal unlabored respirations, skin warm/dry/pink. Discharge instruction given to patient, verbalized the understanding of instruction. Pt left ED ambulatory tolerating well. Vital Signs: 19:53 BP 115 / 86; Pulse 75; Resp 18; Temp 97.6; Pulse Ox 97% on R/A; Weight 90.72 kg (R); aj1 Height 5 ft. 4 in. (162.56 cm) (R); Pain 8/10; 22:00 BP 102 / 70; Pulse 61; Resp 18; Pulse Ox 98% ; Pain 9/10; ea 23:15 BP 113 / 76; Pulse 60; Resp 18; Temp 97.8; Pulse Ox 98% on R/A; ea 19:53 Body Mass Index 34.33 (90.72 kg, 162.56 cm) aj1 ED Course: 19:23 Patient arrived in ED. cl3 19:52 Triage completed. aj1 19:53 Arm band placed on Patient placed in waiting room, Patient notified of wait time. aj1 21:14 Posada, Angela, RN is Primary Nurse. ea 22:18 Kirill Tovar MD is Attending Physician. rose 23:09 Patient has correct armband on for positive identification. Bed in low position. Call ea light in reach. Side rails up X2. 23:17 Carlos Eduardo Agudelo MD is Referral Physician. rose 23:31 No provider procedures requiring assistance completed. Patient did not have IV access ea during this emergency room visit. Administered Medications: 23:24 Drug: Motrin 600 mg Route: PO; ea 23:24 Drug: Bentyl 20 mg Route: PO; ea Outcome: 23:17 Discharge ordered by . rose 23:31 Discharged to home ambulatory. ea 23:31 Condition: stable 23:31 Discharge instructions given to patient, Instructed on discharge instructions, follow up and referral plans. medication usage, Demonstrated understanding of instructions, follow-up care, medications, Prescriptions given X 2. 23:33 Patient left the ED. ea Signatures: Loretta Clayton RN RN aj1 Kirill Tvoar MD MD cha Antunez, Elena, RN RN ea Lewis, Charde cl3
--- NOTE | 2019-05-07 23:19 | EDPHYS ---
Physician Documentation [facility] Name: Juan J Velez Age: 53 yrs Sex: Female : 1965 Arrival Date: 05/07/2019 Time: 19:23 Bed 18 Private MD: ED Physician Kirill Tovar HPI: 05/07 23:13 This 53 yrs old Female presents to ER via Ambulatory with complaints of pain rose in ovaries. 23:13 The patient presents with abdominal pain in the left lower quadrant, abdominal rose distention in the upper abdomen, in the lower abdomen. Onset: The symptoms/episode began/occurred 3 day(s) ago. The symptoms do not radiate. Associated signs and symptoms: none. The symptoms are described as crampy. Modifying factors: The symptoms are alleviated by. Severity of pain: At its worst the pain was mild in the emergency department the pain is unchanged. The patient has not experienced similar symptoms in the past. 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 - Social history:: Smoking status: Patient uses tobacco products, smokes one pack cigarettes per day. - Ebola Screening: : Patient denies travel to an Ebola-affected area in the 21 days before illness onset. - Family history:: not pertinent. ROS: 23:13 Constitutional: Negative for fever, chills, and weight loss, Eyes: Negative for injury, rose pain, redness, and discharge, ENT: Negative for injury, pain, and discharge, Neck: Negative for injury, pain, and swelling, Cardiovascular: Negative for chest pain, palpitations, and edema, Respiratory: Negative for shortness of breath, cough, wheezing, and pleuritic chest pain, Back: Negative for injury and pain, : Negative for injury, bleeding, discharge, and swelling, MS/Extremity: Negative for injury and deformity, Skin: Negative for injury, rash, and discoloration, Neuro: Negative for headache, weakness, numbness, tingling, and seizure, Psych: Negative for depression, anxiety, suicide ideation, homicidal ideation, and hallucinations, Allergy/Immunology: Negative for hives, rash, and allergies, Endocrine: Negative for neck swelling, polydipsia, polyuria, polyphagia, and marked weight changes, Hematologic/Lymphatic: Negative for swollen nodes, abnormal bleeding, and unusual bruising. 23:13 Abdomen/GI: Positive for abdominal pain, of the left lower quadrant. Exam: 23:13 Constitutional: This is a well developed, well nourished patient who is awake, alert, rose and in no acute distress. Head/Face: Normocephalic, atraumatic. Eyes: Pupils equal round and reactive to light, extra-ocular motions intact. Lids and lashes normal. Conjunctiva and sclera are non-icteric and not injected. Cornea within normal limits. Periorbital areas with no swelling, redness, or edema. ENT: Nares patent. No nasal discharge, no septal abnormalities noted. Tympanic membranes are normal and external auditory canals are clear. Oropharynx with no redness, swelling, or masses, exudates, or evidence of obstruction, uvula midline. Mucous membranes moist. Neck: Trachea midline, no thyromegaly or masses palpated, and no cervical lymphadenopathy. Supple, full range of motion without nuchal rigidity, or vertebral point tenderness. No Meningismus. Chest/axilla: Normal chest wall appearance and motion. Nontender with no deformity. No lesions are appreciated. Cardiovascular: Regular rate and rhythm with a normal S1 and S2. No gallops, murmurs, or rubs. Normal PMI, no JVD. No pulse deficits. Respiratory: Lungs have equal breath sounds bilaterally, clear to auscultation and percussion. No rales, rhonchi or wheezes noted. No increased work of breathing, no retractions or nasal flaring. Back: No spinal tenderness. No costovertebral tenderness. Full range of motion. Skin: Warm, dry with normal turgor. Normal color with no rashes, no lesions, and no evidence of cellulitis. MS/ Extremity: Pulses equal, no cyanosis. Neurovascular intact. Full, normal range of motion. Neuro: Awake and alert, GCS 15, oriented to person, place, time, and situation. Cranial nerves II-XII grossly intact. Motor strength 5/5 in all extremities. Sensory grossly intact. Cerebellar exam normal. Normal gait. Psych: Awake, alert, with orientation to person, place and time. Behavior, mood, and affect are within normal limits. 23:13 Abdomen/GI: Inspection: distension, Bowel sounds: normal, Palpation: mild abdominal tenderness, in the left lower quadrant, Liver: no appreciated palpable abnormalities, Hernia: not appreciated. Vital Signs: 19:53 BP 115 / 86; Pulse 75; Resp 18; Temp 97.6; Pulse Ox 97% on R/A; Weight 90.72 kg (R); aj1 Height 5 ft. 4 in. (162.56 cm) (R); Pain 8/10; 22:00 BP 102 / 70; Pulse 61; Resp 18; Pulse Ox 98% ; Pain 9/10; ea 23:15 BP 113 / 76; Pulse 60; Resp 18; Temp 97.8; Pulse Ox 98% on R/A; ea 19:53 Body Mass Index 34.33 (90.72 kg, 162.56 cm) aj1 MDM: 22:18 Patient medically screened. [facility] 23:16 Data reviewed: vital signs, nurses notes, lab test result(s), radiologic studies, CT rose scan, plain films. 05/07 21:53 Order name: Urine Dipstick--Ancillary (enter results); Complete Time: 23:13 ar5 Administered Medications: 23:24 Drug: Motrin 600 mg Route: PO; ea 23:24 Drug: Bentyl 20 mg Route: PO; ea Disposition: 05/07/19 23:17 Discharged to Home. Impression: Abdominal tenderness, Pelvic and perineal pain, Bipolar disorder. - Condition is Stable. - Discharge Instructions: Abdominal Pain, Adult, Bipolar Disorder, Abdominal Pain, Adult, [id number]. - Prescriptions for Bentyl 20 mg Oral Tablet - take 1 tablet by ORAL route every 6 hours As needed; 20 tablet. Cipro 500 mg Oral Tablet - take 1 tablet by ORAL route every 12 hours for 7 days; 14 tablet. - Medication Reconciliation Form, Thank You Letter, Antibiotic Education, Prescription Opioid Use form. - Follow up: Private Physician; When: 2 - 3 days; Reason: Recheck today's complaints, Continuance of care, Re-evaluation by your physician. Follow up: Carlos Eduardo Agudelo MD; When: 2 - 3 days; Reason: Recheck today's complaints, Continuance of care, Re-evaluation by your physician. - Problem is new. - Symptoms have improved. Signatures: Dispatcher [employer] EDLoretta Bell RN RN aj1 Kirill Tovar MD MD cha Antunez, Elena, RN RN ea Corrections: (The following items were deleted from the chart) 23:19 23:17 05/07/2019 23:17 Discharged to Home. Impression: Abdominal tenderness; Pelvic and rose perineal pain. Condition is Stable. Forms are Medication Reconciliation Form, Thank You Letter, Antibiotic Education, Prescription Opioid Use. Follow up: Private Physician; When: 2 - 3 days; Reason: Recheck today's complaints, Continuance of care, Re-evaluation by your physician. Follow up: Carlos Eduardo Agudelo; When: 2 - 3 days; Reason: Recheck today's complaints, Continuance of care, Re-evaluation by your physician. Problem is new. Symptoms have improved. [facility] 23:33 23:19 05/07/2019 23:17 Discharged to Home. Impression: Abdominal tenderness; Pelvic and ea perineal pain; Bipolar disorder. Condition is Stable. Discharge Instructions: Abdominal Pain, Adult, Abdominal Pain, Adult, [id number]. Prescriptions for Bentyl 20 mg Oral Tablet - take 1 tablet by ORAL route every 6 hours As needed; 20 tablet, Cipro 500 mg Oral Tablet - take 1 tablet by ORAL route every 12 hours for 7 days; 14 tablet. and Forms are Medication Reconciliation Form, Thank You Letter, Antibiotic Education, Prescription Opioid Use. Follow up: Private Physician; When: 2 - 3 days; Reason: Recheck today's complaints, Continuance of care, Re-evaluation by your physician. Follow up: Carlos Eduardo Agudelo; When: 2 - 3 days; Reason: Recheck today's complaints, Continuance of care, Re-evaluation by your physician. Problem is new. Symptoms have improved. rose
[2019-05-07] MEDS ORDERED: DICYCLOMINE HCL 10 MG CAP ONE (23:20)
[2019-05-07] MEDS ORDERED: IBUPROFEN 200 MG TAB PO ONE (23:20)
[2019-05-07] MEDS ORDERED: IBUPROFEN 400 MG TAB ONE (23:20)
[2019-05-08 01:44] VITALS: O2SAT 98
[2019-05-08 01:45] VITALS: BP 113/76; TEMP 97.8
== END 2019-05-07 23:33 | disposition home or self-care (01) ==
LOC: ER 19:20
DX: R10.2 Pelvic and perineal pain (principal); R10.819 Abdominal tenderness, unspecified site; F31.9 Bipolar disorder, unspecified; F17.210 Nicotine dependence, cigarettes, uncomplicated
CPT/HCPCS: 81003; 99283

== ENCOUNTER 2019-05-24 09:59 | Emergency (ER) | payer OTHER ==
[2019-05-24] MEDS ORDERED: FENTANYL CITR 100 MCG/2 ML ONE (10:23)
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
--- NOTE | 2019-05-24 10:54 | ER ---
Nurse's Notes [facility] Name: Juan J Velez Age: 53 yrs Sex: Female : 1965 Arrival Date: 05/24/2019 Time: 10:01 Bed 5 Private MD: SALLIE CALDWELL Diagnosis: Contusion of left front wall of thorax;Other chest pain Presentation: 05/24 10:08 Presenting complaint: Patient states: LEFT RIB PAIN x3 DAYS. Transition of care: bp patient was not received from another setting of care. Onset of symptoms is unknown. Risk Assessment: Do you want to hurt yourself or someone else? Patient reports no desire to harm self or others. Initial Sepsis Screen: Does the patient meet any 2 criteria? No. Patient's initial sepsis screen is negative. Does the patient have a suspected source of infection? No. Patient's initial sepsis screen is negative. Care prior to arrival: None. 10:08 Method Of Arrival: Ambulatory bp 10:08 Acuity: KORINA 4 bp Triage Assessment: 10:09 General: Appears in no apparent distress. comfortable, obese, Behavior is cooperative, bp appropriate for age, anxious. Pain: Complains of pain in left lateral anterior chest. EENT: No deficits noted. Neuro: No deficits noted. Cardiovascular: No deficits noted. Respiratory: No deficits noted. GI: No signs and/or symptoms were reported involving the gastrointestinal system. : No signs and/or symptoms were reported regarding the genitourinary system. Derm: No deficits noted. Musculoskeletal: No deficits noted. 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 - Social history:: Smoking status: Patient uses tobacco products, smokes one pack cigarettes per day. - Ebola Screening: : No symptoms or risks identified at this time. Screenin:11 Abuse screen: Denies threats or abuse. Denies injuries from another. Nutritional bp screening: No deficits noted. Tuberculosis screening: No symptoms or risk factors identified. Fall Risk None identified. Assessment: 10:11 General: SEE TRIAGE NOTE. bp 11:04 Reassessment: PT D/C HOME AMBULATORY, DX WITH RIB PAIN. bp Vital Signs: 10:09 BP 102 / 46; Pulse 80; Resp 18; Temp 97.5; Pulse Ox 97% ; Weight 90.72 kg; Height 5 ft. bp 4 in. (162.56 cm); 11:05 BP 112 / 83; Pulse 66; Resp 17; Pulse Ox 97% ; bp 10:09 Body Mass Index 34.33 (90.72 kg, 162.56 cm) bp ED Course: 10:01 Patient arrived in ED. mr 10:01 SALLIE CALDWELL is Private Physician. mr 10:04 Moncho Rogel, RN is Primary Nurse. bp 10:04 Marib[facility] Arau[facility]-C [facility]. snw 10:04 Alonzo Sales MD is Attending Physician. snw 10:09 Triage completed. bp 10:09 Arm band placed on. bp 10:11 Patient has correct armband on for positive identification. Bed in low position. Call bp light in reach. Side rails up X2. 10:29 EKG done, by ED staff, reviewed by Maribeth PANDYA. kj1 10:51 Chest Single View XRAY In Process Unspecified. EDMS 10:51 Ribs Left XRAY In Process Unspecified. EDMS 10:53 SALLIE CALDWELL is Referral Physician. snw 11:05 No provider procedures requiring assistance completed. Patient did not have IV access bp during this emergency room visit. Administered Medications: 10:30 Drug: fentaNYL (PF) 75 mcg Route: IM; Site: right deltoid; ph 11:06 Follow up: Response: Pain is decreased bp Outcome: 10:53 Discharge ordered by . snw 11:05 Discharged to home ambulatory. bp 11:05 Condition: stable 11:05 Discharge instructions given to patient, Instructed on discharge instructions, follow up and referral plans. medication usage, Demonstrated understanding of instructions, follow-up care, medications, Prescriptions given X 1. 11:06 Patient left the ED. bp Signatures: Dispatcher [employer] EDMS Maribeth Araujo FNP-C FNP-Brockw Sonya Parra mr Mali Camacho RN RN ph Moncho Rogel, JOSEFINA RN bp Yumiko Rob kj1
[2019-05-24 11:20] VITALS: TEMP 97.5; O2SAT 97
[2019-05-24 11:22] VITALS: BP 112/83
--- NOTE | 2019-05-24 11:53 | RAD REPORT ---
EXAM DESCRIPTION: RAD - Chest Single View - 05/24/2019 10:52 am CLINICAL HISTORY: Left-sided chest pain, left-sided rib pain COMPARISON: April 29 TECHNIQUE: AP portable chest image was obtained 1045 hours . FINDINGS: No focal mass or consolidation. Interstitial pattern is not clearly different from compari son. Heart and vasculature are normal. No measurable pleural effusion and no pneumothorax. No acute b beto abnormality seen. No acute aortic findings suspected. IMPRESSION: No acute cardiopulmonary process.
--- NOTE | 2019-05-24 11:56 | RAD REPORT ---
EXAM DESCRIPTION: RAD - Ribs Left - 05/24/2019 10:52 am CLINICAL HISTORY: Left-sided chest pain, left-sided rib pain COMPARISON: None. FINDINGS: No displaced rib fracture is seen and no non-displaced rib fractures suspected. No aggress dick rib lesion. No underlying pneumothorax, effusion, infiltrate or pulmonary contusion. IMPRESSION: Negative left rib series. If the patient has continued, unexplained left rib pain, bone scan imaging could be performed to eval uate for any abnormal activity. CT imaging of the chest is alternative means to evaluate the ribcage and chest wall.
--- NOTE | 2019-05-25 10:04 | EKG ---
Test Date: 2019-05-24 Test Time: 10:24:03 Receiving Coordinator: MIKAYLA MEASUREMENT RESULTS: Intervals: Rate: 67 DC: 146 QRSD: 88 QT: 408 QTc: 431 [place]: P: 68 DC: 146 QRS: 67 T: 69 INTERPRETIVE STATEMENTS: Normal sinus rhythm Normal ECG Compared to ECG 04/29/2019 10:58:09 Sinus arrhythmia no longer present Electronically Signed On 05-25-19 10:02:48 CDT by Jeremy Corral
== END 2019-05-24 11:06 | disposition home or self-care (01) ==
LOC: ER 09:59
DX: S20.212A Contusion of left front wall of thorax, initial encounter (principal); X58.XXXA Exposure to other specified factors, initial encounter; Y93.9 Activity, unspecified; Y92.9 Unspecified place or not applicable; F17.210 Nicotine dependence, cigarettes, uncomplicated
CPT/HCPCS: 93005; 71045; 71100; 96372; 99284; J3010

== ENCOUNTER 2019-06-15 10:45 | Emergency (ER) | payer OTHER ==
--- NOTE | 2019-06-15 13:07 | RAD REPORT ---
EXAM DESCRIPTION: RAD - Chest Pa And Lat (2 Views) - 06/15/2019 1:02 pm CLINICAL HISTORY: COUGH Chest pain. COMPARISON: Chest Single View dated 05/24/2019; Chest Single View dated 04/29/2019; Chest Single View dated 09/16/2018; Chest Pa And Lat (2 Views) dated 07/27/2018 FINDINGS: The lungs are clear. The heart is normal in size. No displaced fractures. IMPRESSION: No acute or concerning finding suspected.
--- NOTE | 2019-06-15 13:09 | ER ---
Nurse's Notes [facility] Name: Juan J Velez Age: 53 yrs Sex: Female : 1965 Arrival Date: 06/15/2019 Time: 10:51 Bed 30 Private MD: SALLIE CALDWELL Diagnosis: Acute pharyngitis Presentation: 06/15 11:14 Presenting complaint: Patient states: sore throat, runny nose, headache and ss intermittent fever x 3 days. Transition of care: patient was not received from another setting of care. Onset of symptoms was June 12, 2019. Risk Assessment: Do you want to hurt yourself or someone else? Patient reports no desire to harm self or others. Initial Sepsis Screen: Does the patient meet any 2 criteria? No. Patient's initial sepsis screen is negative. Does the patient have a suspected source of infection? No. Patient's initial sepsis screen is negative. Care prior to arrival: None. 11:14 Method Of Arrival: Ambulatory ss 11:14 Acuity: KORINA 4 ss Historical: - Allergies: 11:15 NKDA; ss - PMHx: 11:15 Anxiety; Bipolar disorder; Depression; PTSD; ss - Immunization history:: Adult Immunizations up to date. - Social history:: Smoking status: Patient uses tobacco products, smokes one pack cigarettes per day. - Ebola Screening: : Patient denies exposure to infectious person Patient denies travel to an Ebola-affected area in the 21 days before illness onset. Screenin:22 Abuse screen: Denies threats or abuse. Nutritional screening: No deficits noted. tr5 Tuberculosis screening: No symptoms or risk factors identified. Fall Risk None identified. Assessment: 12:22 General: Appears in no apparent distress. Behavior is calm, cooperative, appropriate tr5 for age. Pain: Complains of pain in Head and throat. Neuro: Level of Consciousness is awake, alert, obeys commands, Oriented to person, place, time, Rf Engineer are equal bilaterally Moves all extremities. Gait is steady. Cardiovascular: Heart tones present Capillary refill < 3 seconds. Respiratory: Airway is patent Respiratory effort is even, unlabored, Respiratory pattern is regular, symmetrical, Breath sounds are clear bilaterally. GI: No signs and/or symptoms were reported involving the gastrointestinal system. : No signs and/or symptoms were reported regarding the genitourinary system. EENT: Throat is reddened Reports difficulty swallowing since 2-3 days nasal congestion. Derm: No signs and/or symptoms reported regarding the dermatologic system. Musculoskeletal: No signs and/or symptoms reported regarding the musculoskeletal system. Vital Signs: 11:15 BP 116 / 98; Pulse 94; Resp 17; Temp 98.2(O); Pulse Ox 97% on R/A; Weight 90.72 kg; ss Height 5 ft. 4 in. (162.56 cm); Pain 6/10; 11:15 Body Mass Index 34.33 (90.72 kg, 162.56 cm) ED Course: 10:51 Patient arrived in ED. mr 10:51 SALLIE CALDWELL is Private Physician. mr 11:15 Triage completed. ss 11:15 Arm band placed on right wrist. ss 11:26 Vitaliy Buckner NP is PHCP. pm1 11:26 Kirill Tovar MD is Attending Physician. pm1 12:00 Flu and/or RSV swab sent to lab. Strep swab sent to lab. lt1 12:00 Strep Sent. lt1 12:00 Flu Sent. lt1 12:01 Wes Pat, JOSEFINA is Primary Nurse. tr5 12:22 Bed in low position. Call light in reach. Side rails up X 1. tr5 13:06 Chest Pa And Lat (2 Views) XRAY In Process Unspecified. EDMS 13:37 No provider procedures requiring assistance completed. Patient did not have IV access tr5 during this emergency room visit. Administered Medications: No medications were administered Outcome: 13:09 Discharge ordered by . pm1 13:37 Discharged to home ambulatory. tr5 13:37 Condition: stable 13:37 Discharge instructions given to patient, family, Instructed on discharge instructions, follow up and referral plans. medication usage, Demonstrated understanding of instructions, follow-up care, medications, Prescriptions given X 1. 13:39 Patient left the ED. tr5 Signatures: Dispatcher [employer] ELVININ Sonya Parra Shelby, RN RN Vitaliy Buckner, JESSIE SIDE SAWYER pm1 Radha Alejandre lt1 Wes Pat RN RN tr5
--- NOTE | 2019-06-15 13:09 | EDPHYS ---
Physician Documentation [facility] Name: Juan J Velez Age: 53 yrs Sex: Female : 1965 Arrival Date: 06/15/2019 Time: 10:51 Bed 30 Private MD: SALLIE CALDWELL ED Physician Kirill Tovar HPI: 06/15 11:42 This 53 yrs old Female presents to ER via Ambulatory with complaints of Sore pm1 Throat, Fever, Cough, Back Pain. 11:42 The patient or guardian reports cough, with no sputum. pm1 11:42 Onset: The symptoms/episode began/occurred 3 day(s) ago. Severity of symptoms: in the pm1 emergency department the symptoms are actually worse. Modifying factors: The symptoms are alleviated by nothing, the symptoms are aggravated by coughing. Associated signs and symptoms: Pertinent positives: sore throat, subjective fever, Pertinent negatives: chest pain, diarrhea, ear ache, vomiting. Patient presenting to the ER with grandsons and who have the same complaints of sore throat and fever. Historical: - Allergies: 11:15 NKDA; ss - PMHx: 11:15 Anxiety; Bipolar disorder; Depression; PTSD; ss - Immunization history:: Adult Immunizations up to date. - Social history:: Smoking status: Patient uses tobacco products, smokes one pack cigarettes per day. - Ebola Screening: : Patient denies exposure to infectious person Patient denies travel to an Ebola-affected area in the 21 days before illness onset. ROS: 11:42 Eyes: Negative for injury, pain, redness, and discharge. pm1 11:42 Neck: Negative for injury, pain, and swelling, Cardiovascular: Negative for chest pain, palpitations, and edema. 11:42 Abdomen/GI: Negative for abdominal pain, nausea, vomiting, diarrhea, and constipation. 11:42 : Negative for injury, bleeding, discharge, and swelling, MS/Extremity: Negative for injury and deformity, Skin: Negative for injury, rash, and discoloration, Neuro: Negative for headache, weakness, numbness, tingling, and seizure. 11:42 Constitutional: Positive for fever, Negative for poor PO intake. 11:42 ENT: Positive for sore throat, Negative for ear pain, difficulty swallowing, difficulty handling secretions, hoarseness. 11:42 Respiratory: Positive for cough, Negative for sputum production, wheezing. 11:42 Back: Positive for pain. Exam: 11:42 Constitutional: This is a well developed, well nourished patient who is awake, alert, pm1 and in no acute distress. Head/Face: Normocephalic, atraumatic. Eyes: Pupils equal round and reactive to light, extra-ocular motions intact. Lids and lashes normal. Conjunctiva and sclera are non-icteric and not injected. Cornea within normal limits. Periorbital areas with no swelling, redness, or edema. ENT: Nares patent. No nasal discharge, no septal abnormalities noted. Tympanic membranes are normal and external auditory canals are clear. Oropharynx with no redness, swelling, or masses, exudates, or evidence of obstruction, uvula midline. Mucous membranes moist. Neck: Trachea midline, no thyromegaly or masses palpated, and no cervical lymphadenopathy. Supple, full range of motion without nuchal rigidity, or vertebral point tenderness. No Meningismus. Chest/axilla: Normal chest wall appearance and motion. Nontender with no deformity. No lesions are appreciated. Cardiovascular: Regular rate and rhythm with a normal S1 and S2. No gallops, murmurs, or rubs. Normal PMI, no JVD. No pulse deficits. Respiratory: Lungs have equal breath sounds bilaterally, clear to auscultation and percussion. No rales, rhonchi or wheezes noted. No increased work of breathing, no retractions or nasal flaring. Abdomen/GI: Soft, non-tender, with normal bowel sounds. No distension or tympany. No guarding or rebound. No evidence of tenderness throughout. Back: No spinal tenderness. No costovertebral tenderness. Full range of motion. Skin: Warm, dry with normal turgor. Normal color with no rashes, no lesions, and no evidence of cellulitis. MS/ Extremity: Pulses equal, no cyanosis. Neurovascular intact. Full, normal range of motion. 11:42 Neuro: Orientation: is normal, Motor: is normal, moves all fours. Vital Signs: 11:15 BP 116 / 98; Pulse 94; Resp 17; Temp 98.2(O); Pulse Ox 97% on R/A; Weight 90.72 kg; ss Height 5 ft. 4 in. (162.56 cm); Pain 6/10; 11:15 Body Mass Index 34.33 (90.72 kg, 162.56 cm) MDM: 11:26 Patient medically screened. pm1 13:04 Data reviewed: vital signs. Data interpreted: Pulse oximetry: on room air is 97 %. pm1 Interpretation: normal. Counseling: I had a detailed discussion with the patient and/or guardian regarding: the historical points, exam findings, and any diagnostic results supporting the discharge/admit diagnosis, lab results, radiology results, the need for outpatient follow up, to return to the emergency department if symptoms worsen or persist or if there are any questions or concerns that arise at home. 13:15 ED course: both grandsons present in the ER diagnosed with strep throat, will cover pm1 with antibiotics. 06/15 11:41 Order name: Flu; Complete Time: 13:01 pm1 06/15 11:41 Order name: Strep; Complete Time: 13:01 pm1 06/15 11:41 Order name: Chest Pa And Lat (2 Views) XRAY; Complete Time: 13:15 pm1 06/15 12:49 Order name: Throat Culture EDMS Administered Medications: No medications were administered Disposition: 16:51 Co-signature as Attending Physician, Kirill Tovar MD I agree with the assessment and rose plan of care. Disposition: 06/15/19 13:09 Discharged to Home. Impression: Acute pharyngitis. - Condition is Stable. - Discharge Instructions: Pharyngitis. - Prescriptions for Zithromax Z- Ernie 250 mg Oral Tablet - take 1 tablet by ORAL route as directed for 5 days Day 1 - take two (2) tablets one time. Day 2, 3, 4 , 5 take one (1) tablet once daily.; 6 tablet. - Medication Reconciliation Form, Thank You Letter, Antibiotic Education, Prescription Opioid Use form. - Follow up: Emergency Department; When: As needed; Reason: Worsening of condition. Follow up: Private Physician; When: 2 - 3 days; Reason: Recheck today's complaints, Continuance of care, Re-evaluation by your physician. - Problem is new. - Symptoms have improved. Signatures: Dispatcher [employer] EDMS Kirill Tovar MD MD cha Smirch, Shelby, RN RN ss Vitaliy Buckner, MATERIALS BUYER MATERIALS BUYER pm1 Bi, Wes, RN RN tr5 Corrections: (The following items were deleted from the chart) 13:39 13:09 06/15/2019 13:09 Discharged to Home. Impression: Acute pharyngitis. Condition is tr5 Stable. Forms are Medication Reconciliation Form, Thank You Letter, Antibiotic Education, Prescription Opioid Use. Follow up: Emergency Department; When: As needed; Reason: Worsening of condition. Follow up: Private Physician; When: 2 - 3 days; Reason: Recheck today's complaints, Continuance of care, Re-evaluation by your physician. Problem is new. Symptoms have improved. pm1
[2019-06-15 13:58] VITALS: BP 116/98; TEMP 98.2; O2SAT 97
--- OUTSIDE RECORDS SUMMARY | 2019-06-21 21:17 | XMS REPORT ---
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
--- OUTSIDE RECORDS SUMMARY | 2019-06-21 21:17 | XMS REPORT ---
:1965 [facility] Address [address] [place] [address] Dr. Hansen [address] [place] [id number] Care Team Providers Name Role Phone Unavailable Unavailable Unavailable Problems This patient has no known problems. Allergies, Adverse Reactions, Alerts This patient has no known allergies or adverse reactions. Medications This patient has no known medications.
== END 2019-06-15 13:39 | disposition home or self-care (01) ==
LOC: ER 10:45
DX: J02.9 Acute pharyngitis, unspecified (principal); F17.210 Nicotine dependence, cigarettes, uncomplicated
CPT/HCPCS: 71046; 87070; 87081; 87804; 99283

== ENCOUNTER 2019-07-11 09:26 | Emergency (ER) | payer OTHER ==
--- OUTSIDE RECORDS SUMMARY | 2019-07-11 09:27 | XMS REPORT ---
:1965 [facility] Address [address] [place] [address] Dr. Hansen [address] [place] [id number] Care Team Providers Name Role Phone Unavailable Unavailable Unavailable Problems This patient has no known problems. Allergies, Adverse Reactions, Alerts This patient has no known allergies or adverse reactions. Medications This patient has no known medications.
--- OUTSIDE RECORDS SUMMARY | 2019-07-11 09:28 | XMS REPORT ---
[...] Medications Results No Known Results Summary Purpose [employer] Submission
--- NOTE | 2019-07-11 10:41 | RAD REPORT ---
EXAM DESCRIPTION: CT - Head Brain Wo Cont - 07/11/2019 10:32 am CLINICAL HISTORY: Headache COMPARISON: 2016 TECHNIQUE: Computed axial tomography of the head was obtained. IV contrast was not requested. All CT scans are performed using dose optimization technique as appropriate and may include automated exposure control or mA/KV adjustment according to patient size. FINDINGS: An intracranial bleed is not seen . The ventricles are normal in caliber. No extra-axial fluid collection is noted. The left mastoids are hazy IMPRESSION: No acute intracranial abnormality is seen. If patient's symptoms persist MRI of the bra in would be recommended. Left mastoids are hazy which may indicate mastoiditis
[2019-07-11 11:30] LABS: Absolute Lymphocytes (CBC) 2.9 K/uL (0.7-4.9); Basophils % 0.6 % (0-1.3); Hematocrit 46.2 % (36.0-45.0); Lymphocytes % 29.1 % (15.3-44.8); RBC Red Blood Cell Count 5.06 M/uL (3.86-4.86)
[2019-07-11 11:45] LABS: Potassium 3.9 mmol/L (3.5-5.1)
--- NOTE | 2019-07-11 12:06 | EDPHYS ---
Physician Documentation [facility] Name: Juan J Velez Age: 53 yrs Sex: Female : 1965 Arrival Date: 07/11/2019 Time: 09:27 Bed 15 Private MD: ED Physician David Olson HPI: 07/11 10:34 This 53 yrs old Female presents to ER via Ambulatory with complaints of pm1 Numbness Of Face, Weakness. 10:34 The patient presents to the emergency department with Tingling to her whole face for pm1 the past 2 days and generalized weakness. Onset: The symptoms/episode began/occurred 2 day(s) ago. Associated signs and symptoms: Pertinent positives: Cough, headache, sinus pressure, Pertinent negatives: fever, chest pain, shortness of breath. Severity of symptoms:. Current symptoms: headache, No paralysis, visual disturbances, dysphasia, confusion. 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 - Social history:: Smoking status: Patient uses tobacco products, denies chronic smoking, but will smoke occasionally. - Ebola Screening: : Patient negative for fever greater than or equal to 101.5 degrees Fahrenheit, and additional compatible Ebola Virus Disease symptoms Patient denies exposure to infectious person. ROS: 10:34 Constitutional: Negative for fever, chills, and weight loss, Eyes: Negative for injury, pm1 pain, redness, and discharge. 10:34 Neck: Negative for injury, pain, and swelling, Cardiovascular: Negative for chest pain, palpitations, and edema. 10:34 Abdomen/GI: Negative for abdominal pain, nausea, vomiting, diarrhea, and constipation, Back: Negative for injury and pain, : Negative for injury, bleeding, discharge, and swelling, MS/Extremity: Negative for injury and deformity, Skin: Negative for injury, rash, and discoloration. 10:34 ENT: Positive for sinus congestion, sinus pain, Negative for ear pain, sore throat, difficulty swallowing, difficulty handling secretions, hoarseness. 10:34 Respiratory: Positive for cough, Negative for shortness of breath, wheezing. 10:34 Neuro: Positive for numbness, of the whole face, headache, Negative for altered mental status, hearing loss. Exam: 10:34 Constitutional: This is a well developed, well nourished patient who is awake, alert, pm1 and in no acute distress. 10:34 Eyes: Pupils equal round and reactive to light, extra-ocular motions intact. Lids and lashes normal. Conjunctiva and sclera are non-icteric and not injected. Cornea within normal limits. Periorbital areas with no swelling, redness, or edema. ENT: Nares patent. No nasal discharge, no septal abnormalities noted. Tympanic membranes are normal and external auditory canals are clear. Oropharynx with no redness, swelling, or masses, exudates, or evidence of obstruction, uvula midline. Mucous membranes moist. Neck: Trachea midline, no thyromegaly or masses palpated, and no cervical lymphadenopathy. Supple, full range of motion without nuchal rigidity, or vertebral point tenderness. No Meningismus. Chest/axilla: Normal chest wall appearance and motion. Nontender with no deformity. No lesions are appreciated. Cardiovascular: Regular rate and rhythm with a normal S1 and S2. No gallops, murmurs, or rubs. Normal PMI, no JVD. No pulse deficits. Respiratory: Lungs have equal breath sounds bilaterally, clear to auscultation and percussion. No rales, rhonchi or wheezes noted. No increased work of breathing, no retractions or nasal flaring. Abdomen/GI: Soft, non-tender, with normal bowel sounds. No distension or tympany. No guarding or rebound. No evidence of tenderness throughout. Back: No spinal tenderness. No costovertebral tenderness. Full range of motion. Skin: Warm, dry with normal turgor. Normal color with no rashes, no lesions, and no evidence of cellulitis. MS/ Extremity: Pulses equal, no cyanosis. Neurovascular intact. Full, normal range of motion. 10:34 Head/face: Sinus tenderness, that is mild, is located over the right frontal sinus and left frontal sinus. 10:34 Neuro: Orientation: is normal, Mentation: is normal, Motor: is normal, moves all fours, Sensation: is normal, no obvious gross deficits. Vital Signs: 10:19 BP 112 / 98; Pulse 71; Resp 18; Temp 98.1; Pulse Ox 98% on R/A; Weight 90.72 kg; Height wh 5 ft. 4 in. (162.56 cm); 12:01 BP 103 / 55; Pulse 67; Resp 18; Pulse Ox 98% on R/A; wh 10:19 Body Mass Index 34.33 (90.72 kg, 162.56 cm) NIH Stroke Scale Scores: 10:20 NIHSS Score: 0 MDM: 10:08 Patient medically screened. pm1 12:04 Data reviewed: vital signs. Data interpreted: Pulse oximetry: on room air is 98 %. pm1 Interpretation: normal. Counseling: I had a detailed discussion with the patient and/or guardian regarding: the historical points, exam findings, and any diagnostic results supporting the discharge/admit diagnosis, lab results, radiology results, the need for outpatient follow up, to return to the emergency department if symptoms worsen or persist or if there are any questions or concerns that arise at home. 12:04 ED course: Patient reported that she is under significant amount of stress taking care pm1 of her grandchildren because her children are not fit parents. She has custody of her grandchildren due to CPS . 07/11 10:16 Order name: CBC with Diff; Complete Time: 11:52 pm1 07/11 10:16 Order name: BMP; Complete Time: 11:52 pm1 07/11 10:15 Order name: CT Head Brain wo Cont; Complete Time: 10:44 pm1 07/11 10:16 Order name: EKG - Nurse/Tech; Complete Time: 11:18 pm1 07/11 12:02 Order name: Urine Dipstick--Ancillary (enter results) eb 07/11 10:16 Order name: Urine Dipstick-Ancillary (obtain specimen); Complete Time: 12:00 pm1 07/11 10:16 Order name: Urine Test (obtain specimen); Complete Time: 12:00 pm1 07/11 10:16 Order name: IV Saline Lock; Complete Time: 11:18 pm1 Administered Medications: No medications were administered Disposition: 13:35 Co-signature as Attending Physician, David Olson MD. rn Disposition: 07/11/19 12:06 Discharged to Home. Impression: Headache, Paresthesia of skin, Acute stress reaction. - Condition is Stable. - Discharge Instructions: General Headache Without Cause, Paresthesia, Sinus Headache, Stress and Stress Management. - Prescriptions for Augmentin 875- 125 mg Oral Tablet - take 1 tablet by ORAL route every 12 hours for 10 days; 20 tablet. - Medication Reconciliation Form, Thank You Letter, Antibiotic Education, Prescription Opioid Use form. - Follow up: Emergency Department; When: As needed; Reason: Worsening of condition. Follow up: Private Physician; When: 2 - 3 days; Reason: Recheck today's complaints, Continuance of care, Re-evaluation by your physician. - Problem is new. - Symptoms have improved. NIH Stroke Scale - NIH Stroke Score Date: 07/11/2019 Time: 10:20 Total Score = 0 1a. Level of Consciousness (LOC) - 0(Alert) 1b. Level of Consciousness (LOC) (Year \T\ Age) - 0(Both) 1c. LOC Commands (Open \T\ Closes Eyes/Athlete Marketing Agent) - 0(Both) 2. Best Gaze (Lateral Gaze Paresis) - 0(Normal) 3. Visual Field Loss - 0(No visual loss) 4. Facial Palsy - 0(Normal) 5a. Left Arm: Motor (10-second hold) - 0(No drift) 5b. Right Arm: Motor (10-second hold) - 0(No drift) 6a. Left Leg: Motor (5-second hold - always test supine) - 0(No drift) 6b. Right Leg: Motor (5-second hold - always test supine) - 0(No drift) 7. Limb Ataxia (finger/nose \T\ heel/fields - test with eyes open) - 0(Absent) 8. Sensory Loss (pinprick arms/legs/face) - 0(Normal) 9. Best Language: Aphasia (description/naming/reading) - 0(No aphasia) 10. Dysarthria (speech clarity - read or repeat words) - 0(Normal) 11. Extinction and Inattention (visual/tactile/auditory/spatial/personal) - 0(No abnormality) Initials: joseph Signatures: Dispatcher [employer] EDDavid Mcmillan MD MD rn Marinas, Patrick, JESSIE MASTER RIGGER pm1 Jenni Jay Corrections: (The following items were deleted from the chart) 12:29 12:06 07/11/2019 12:06 Discharged to Home. Impression: Headache; Paresthesia of pm1 skin. Condition is Stable. Forms are Medication Reconciliation Form, Thank You Letter, Antibiotic Education, Prescription Opioid Use. Follow up: Emergency Department; When: As needed; Reason: Worsening of condition. Follow up: Private Physician; When: 2 - 3 days; Reason: Recheck today's complaints, Continuance of care, Re-evaluation by your physician. Problem is new. Symptoms have improved. pm1 12:38 12:29 07/11/2019 12:06 Discharged to Home. Impression: Headache; Paresthesia of wh skin; Acute stress reaction. Condition is Stable. Discharge Instructions: General Headache Without Cause, Paresthesia, Sinus Headache. Prescriptions for Augmentin 875-125 mg Oral Tablet - take 1 tablet by ORAL route every 12 hours for 10 days; 20 tablet. and Forms are Medication Reconciliation Form, Thank You Letter, Antibiotic Education, Prescription Opioid Use. Follow up: Emergency Department; When: As needed; Reason: Worsening of condition. Follow up: Private Physician; When: 2 - 3 days; Reason: Recheck today's complaints, Continuance of care, Re-evaluation by your physician. Problem is new. Symptoms have improved. pm1
--- NOTE | 2019-07-11 12:06 | ER ---
Nurse's Notes [facility] Name: Juan J Velez Age: 53 yrs Sex: Female : 1965 Arrival Date: 07/11/2019 Time: 09:27 Bed 15 Private MD: Diagnosis: Headache;Paresthesia of skin;Acute stress reaction Presentation: 07/11 10:17 Presenting complaint: Patient states: Face and tingling sensation on face for 2 days. wh Pt also C/O feels like her tongue is swelling. Transition of care: patient was not received from another setting of care. No acute neurological deficit is noted. Onset of symptoms was July 09, 2019. Risk Assessment: Do you want to hurt yourself or someone else? Patient reports no desire to harm self or others. Initial Sepsis Screen: Does the patient meet any 2 criteria? No. Patient's initial sepsis screen is negative. Does the patient have a suspected source of infection? No. Patient's initial sepsis screen is negative. Care prior to arrival: None. 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 - Social history:: Smoking status: Patient uses tobacco products, denies chronic smoking, but will smoke occasionally. - Ebola Screening: : Patient negative for fever greater than or equal to 101.5 degrees Fahrenheit, and additional compatible Ebola Virus Disease symptoms Patient denies exposure to infectious person. Screenin:20 Abuse screen: Denies threats or abuse. Denies injuries from another. Nutritional screening: No deficits noted. Tuberculosis screening: No symptoms or risk factors identified. Fall Risk None identified. Assessment: 10:20 VAN Scoring: Arm Drift: Patients demonstrates NO arm weakness. Patient is VAN Negative. Visual Disturbance: No visual disturbance noted. Aphasia: No aphasia noted. Neglect: No neglect noted. The patient has not been NPO before screening. The patient is alert, and able to follow commands. The patient does not exhibit slurred or garbled speech. The patient is not exhibiting difficulty speaking. The patient does not exhibit difficulty understanding words. The patient is able to swallow own secretions with no drooling or need for suction. Pain: Denies pain. Neuro: Level of Consciousness is awake, alert, obeys commands, Oriented to person, place, time, situation, Appropriate for age. 10:22 General: Appears in no apparent distress. Behavior is calm, cooperative, appropriate wh for age. Cardiovascular: Heart tones S1 S2. Respiratory: Airway is patent Respiratory effort is even, unlabored, Respiratory pattern is regular, symmetrical, Breath sounds are clear bilaterally. GI: Abdomen is flat, non-distended. : No signs and/or symptoms were reported regarding the genitourinary system. EENT: No signs and/or symptoms were reported regarding the EENT system. Derm: Skin is intact, is healthy with good turgor, Skin is pink, warm \T\ dry. normal. Musculoskeletal: Circulation, motion, and sensation intact. 12:01 Reassessment: Patient appears in no apparent distress at this time. No changes from previously documented assessment. Patient and/or family updated on plan of care and expected duration. Pain level reassessed. Patient is alert, oriented x 3, equal unlabored respirations, skin warm/dry/pink. Vital Signs: 10:19 BP 112 / 98; Pulse 71; Resp 18; Temp 98.1; Pulse Ox 98% on R/A; Weight 90.72 kg; Height wh 5 ft. 4 in. (162.56 cm); 12:01 BP 103 / 55; Pulse 67; Resp 18; Pulse Ox 98% on R/A; wh 10:19 Body Mass Index 34.33 (90.72 kg, 162.56 cm) NIH Stroke Scale Scores: 10:20 NIHSS Score: 0 ED Course: 09:27 Patient arrived in ED. as 10:06 Vitaliy Buckner NP is PHCP. pm1 10:06 David Olson MD is Attending Physician. pm1 10:16 Jenni Jay is Primary Nurse. wh 10:19 Triage completed. wh 10:26 Arm band placed on right wrist. wh 10:26 Patient has correct armband on for positive identification. Placed in gown. Bed in low wh position. Call light in reach. Side rails up X 1. Pulse ox on. NIBP on. 10:35 CT Head Brain wo Cont In Process Unspecified. EDMS 11:00 Inserted saline lock: 22 gauge in left antecubital area, using aseptic technique. Blood wh collected. 12:37 No provider procedures requiring assistance completed. IV discontinued, intact, wh bleeding controlled, No redness/swelling at site. Administered Medications: No medications were administered Outcome: 12:06 Discharge ordered by . pm1 12:37 Discharged to home ambulatory. 12:37 Condition: stable 12:37 Discharge instructions given to patient, Instructed on discharge instructions, follow up and referral plans. medication usage, POC Sinusitis, Paresthesia, Headache and Stress Demonstrated understanding of instructions, follow-up care, medications, POC Prescriptions given X 1. 12:38 Patient left the ED. NIH Stroke Scale - NIH Stroke Score Date: 07/11/2019 Time: 10:20 Total Score = 0 1a. Level of Consciousness (LOC) - 0(Alert) 1b. Level of Consciousness (LOC) (Year \T\ Age) - 0(Both) 1c. LOC Commands (Open \T\ Closes Eyes/Well Service Floorperson) - 0(Both) 2. Best Gaze (Lateral Gaze Paresis) - 0(Normal) 3. Visual Field Loss - 0(No visual loss) 4. Facial Palsy - 0(Normal) 5a. Left Arm: Motor (10-second hold) - 0(No drift) 5b. Right Arm: Motor (10-second hold) - 0(No drift) 6a. Left Leg: Motor (5-second hold - always test supine) - 0(No drift) 6b. Right Leg: Motor (5-second hold - always test supine) - 0(No drift) 7. Limb Ataxia (finger/nose \T\ heel/fields - test with eyes open) - 0(Absent) 8. Sensory Loss (pinprick arms/legs/face) - 0(Normal) 9. Best Language: Aphasia (description/naming/reading) - 0(No aphasia) 10. Dysarthria (speech clarity - read or repeat words) - 0(Normal) 11. Extinction and Inattention (visual/tactile/auditory/spatial/personal) - 0(No abnormality) Initials: Signatures: Dispatcher [employer] Yani Wolf Patrick, GROUNDSKEEPING MAINTENANCE WORKER GROUNDSKEEPING MAINTENANCE WORKER pm1 Habalo, Winsy wh
[2019-07-11 13:31] LABS: Urine Blood NEGATIVE (NEG); Urine Glucose NEGATIVE (NEG); Urine Protein NEGATIVE (NEG); Urine Specific Gravity 1.005 (1.005-1.030)
[2019-07-11 14:49] VITALS: TEMP 98.1; O2SAT 98
[2019-07-11 14:50] VITALS: BP 103/55
== END 2019-07-11 12:38 | disposition home or self-care (01) ==
LOC: ER 09:26
DX: F43.0 Acute stress reaction (principal); R51 Headache; Z72.0 Tobacco use
CPT/HCPCS: 36415; 70450; 80048; 81003; 85025; 99284

== ENCOUNTER 2020-02-25 12:51 | Emergency (ER) | payer OTHER ==
--- OUTSIDE RECORDS SUMMARY | 2020-02-25 13:29 | XMS REPORT | Continuity of Care Document ---
:1965 Author Organization [facility] t Address [address] [place] [address] Dr. Hansen [address] [place] [address] Care Team Providers Name Role Phone Unavailable Unavailable Unavailable Problems Condition Condition Condition Status Onset Resolution Last Treating Co mments Source Name Details Category Date Date Treatment Clinician Date Irritable Irritable Problem Active [facility] bowel bowel [facility] - syndrome syndrome Memori a without without l diarrhea diarrhea Outpat i ent Clinics Post Post Problem Active [facility] traumatic traumatic Luke s - stress stress Memoria disorder disorder l Outpati ent Clinics Knee pain Knee pain Problem Active [facility] Hyperlipem Hyperlipem Problem Active [facility] Fatigue Fatigue Problem Active [facility] Nicotine Nicotine Problem [facility] dependence Kaylene kes - [facility] Chronic Chronic Problem Active [facility] pain pain [facility] - syndrome syndrome Memori a l Outpati ent Clinics Borderline Borderline Problem Active [facility] personalit personalit Kaylene kes - y disorder y disorder Me moria l Outpati ent Clinics Chondromal Chondromal Problem Active [facility] [place] of [facility] - right right Memoria patellofem patellofem l oral joint oral joint Ou tpati ent Clinics Right Right Problem Active [facility] sided sided [facility] - sciatica sciatica Memori a l Outpati ent Clinics Screening Screening Problem Active [facility] for colon for colon Luke s - cancer cancer Memoria l Outpati ent Clinics Cystocele Cystocele Problem Active [facility] and and [facility] - rectocele rectocele Moe nata with with l incomplete incomplete Ou tpati uterovagin uterovagin en t al al Clinics prolapse prolapse Encounter Encounter Problem Active [facility] for for [facility] - general general Memoria adult adult l medical medical Outpati examinatio examinatio en t n without n without Clin ics abnormal abnormal findings findings Screening Screening Problem Active [facility] breast breast [facility] - examinatio examinatio Me moria n n l [facility] Encounter Encounter Problem Active [facility] for for [facility] - gynecologi gynecologi Me moria juan juan l examinatio examinatio Ou tpati n without n without ent abnormal abnormal Clinic s finding finding Allergies, Adverse Reactions, Alerts Allergy Allergy Status Severity Reaction(s) Onset Inactive Treating Comm ents Source Name Type Date Date Clinician João Adverse Active failed [facility] Reaction therapy [facility]ics Prozac Adverse Active failed [facility] Reaction therapy [facility] Paxil Adverse Active failed [facility] Reaction therapy [facility] BusPIRon Adverse Active failed [facility] e HCl Reaction therapy [facility] Medications Ordered Filled Start Stop Current Ordering Indication Dosage Frequency Signature Comments Components Source Medication Medication Date Date Medication? Clinician (SIG) Name Name Ibuprofen Ibuprofen Yes Inessa [address] [facility] [place] with food Lukes - or milk as Memoria needed l [facility] ent Clinics BuSpar BuSpar Yes Inessa [address] [facility] [place] [facility] Atorvastati Atorvastati Yes Inessa [address] [facility] n Calcium n Calcium [place] Luke s - Memoria l [facility] Clinics Prilosec Prilosec Yes Inessa [address] [place] [facility] Clin[facility] Procedures This patient has no known procedures. Encounters Start End Encounter Admission Attending Care Care Encounter Source Date/Time Date/Time Type Type Clinicians Facility Department ID 2020-02-03 2020-02-03 Outpatient Virginia Mcgraw [id number] [facility] 13:45:00 13:45:00 [facility] Medicine [facility] 2019-05-07 2019-05-07 Outpatient Virginia Colemant [id number] [facility] 16:52:00 16:52:00 [facility] 2019-05-07 2019-05-07 Outpatient Virginia Mcgraw [id number] [facility] 13:20:00 13:20:00 [facility] ent Clinics 2018-10-27 2018-10-27 Outpatient Virginia Mcgraw [id number] [facility] 14:00:00 14:00:00 [facility] - [facility] 2018-09-24 2018-09-24 Outpatient Virginia Mcgraw [id number] [facility] 08:30:00 08:30:00 [facility] ent Clinics 2018-09-08 2018-09-08 Outpatient Virginia Mcgraw [id number] [facility] 09:32:00 09:32:00 [facility] ent [facility] 2018-05-05 2018-05-05 Outpatient Virginia Mcgraw [id number] 09:45:00 09:45:00 [facility] ent Clinics Results This patient has no known results.
--- OUTSIDE RECORDS SUMMARY | 2020-02-25 13:29 | XMS REPORT ---
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
[2020-02-25 13:45] LABS: Urine Blood TRACE (NEG); Urine Glucose NEGATIVE (NEG); Urine Protein NEGATIVE (NEG); Urine Specific Gravity 1.005 (1.005-1.030); Urine pH 5.5 (5.0-7.0)
[2020-02-25 14:26] LABS: Absolute Lymphocytes (CBC) 3.4 K/uL (0.7-4.9); Basophils % 0.8 % (0-1.3); Hematocrit 45.2 % (36.0-45.0); Lymphocytes % 30.8 % (15.3-44.8); MPV 11.2 fL (7.6-11.3); RBC Red Blood Cell Count 4.87 M/uL (3.86-4.86)
[2020-02-25 14:27] LABS: Protime INR 0.99
[2020-02-25 14:38] LABS: ALT/SGPT 19 U/L (12-78); AST/SGOT 13 U/L (15-37); Albumin 3.6 g/dL (3.4-5.0); Alkaline Phosphatase 118 U/L (45-117); BUN Blood Urea Nitrogen 8 mg/dL (7-18); Bicarbonate 26 mmol/L (21-32); Bilirubin Direct < 0.1 mg/dL (0-0.2); Bilirubin Total 0.3 mg/dL (0.2-1.0); Glucose Level 85 mg/dL (74-106); Lipase 444 U/L (73-393); Magnesium 2.2 mg/dL (1.8-2.4); NT PRO-BNP 48 pg/mL (<125); Potassium 3.7 mmol/L (3.5-5.1); Protein, Total 7.2 g/dL (6.4-8.2); Sodium Level 143 mmol/L (136-145); Troponin (Emerg Dept Use Only) < 0.02 ng/mL (0.0-0.045)
--- NOTE | 2020-02-25 15:05 | RAD REPORT ---
EXAM DESCRIPTION: Rosy Single View02/25/2020 2:36 pm CLINICAL HISTORY: Chest pain COMPARISON: 2018 FINDINGS: The lungs appear clear of acute infiltrate. The heart is normal size IMPRESSION: No acute abnormalities displayed
[2020-02-25] MEDS ORDERED: MORPHINE 4 MG/ML SYR ONE (15:16)
[2020-02-25] MEDS ORDERED: ONDANSETRON 4 MG/2 ML VIAL ONE (15:16)
--- NOTE | 2020-02-25 15:21 | RAD REPORT ---
EXAM DESCRIPTION: CT - Chest Abdomen Pelvis W Cont - 02/25/2020 3:00 pm CLINICAL HISTORY: Chest and abdominal COMPARISON: [address] abdomen TECHNIQUE: Computed axial tomography of the chest, abdomen and pelvis was obtained. Oral oral contra st not requested. 100 cc Isovue-[address] scans are performed using dose optimization technique as appropriate and may include automated exposure control or mA/KV adjustment according to patient size. FINDINGS: The evaluation of bowel is limited secondary to the lack of IV contrast administration Small bilateral pulmonary nodules unchanged likely benign. Mild chronic appearing interstitial opacit ies are unchanged. Mild mediastinal and hilar lymphadenopathy unchanged likely benign A pleural effusion is not present. A pericardial effusion is not seen. A lung consolidation is not present. The lungs are essentially clear. The liver, spleen, pancreas, left adrenal and kidneys appear unremarkable Small right adrenal adenoma unchanged. Loop of small bowel is mildly dilated. Several loops of small bowel have a mildly thickened wall There is no evidence of diverticulitis. Cholecystectomy A small ventral hernia IMPRESSION: Loop of small bowel is mildly dilated. Several loops of small bowel have a mildly thicke abner wall . This may indicate an enteritis
--- NOTE | 2020-02-25 15:32 | EDPHYS ---
Physician Documentation [facility] Name: Juan J Velez Age: 54 yrs Sex: Female : 1965 Arrival Date: 02/25/2020 Time: 12:54 Bed 19 Private MD: ED Physician David Olson HPI: 02/24 13:34 This 54 yrs old Female presents to ER via Ambulatory with complaints of Chest jmm Pain, Abdominal Pain, Headache. 13:34 The patient presents with abdominal pain. Onset: The symptoms/episode began/occurred jmm gradually, 1 day(s) ago. The symptoms radiate to The symptoms are described as achy, intermittent. Modifying factors: The symptoms are alleviated by nothing, the symptoms are aggravated by nothing. The patient has experienced similar episodes in the past, but today's symptoms are worse. This is a 54 year old female with a history of anxiety, depression, that presents to the ED with complaints of epigastric abdominal pain radiating into her back. Denies vomiting, diarrhea. Patient has a headache as well. Denies fever. . 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 - Social history:: Smoking status: Patient reports the use of cigarette tobacco products, smokes one-half pack cigarettes per day, Patient uses. ROS: 13:34 Constitutional: Negative for fever, chills, and weight loss. jmm 13:34 Respiratory: Negative for shortness of breath, cough, wheezing, and pleuritic chest pain. 13:34 Cardiovascular: Positive for chest pain. 13:34 Abdomen/GI: Positive for abdominal pain. 13:34 Back: Positive for radiated pain. 13:34 All other systems are negative. Exam: 13:34 Constitutional: This is a well developed, well nourished patient who is awake, alert, jmm and in no acute distress. Head/Face: atraumatic. Eyes: EOMI, no conjunctival erythema appreciated ENT: Moist Mucus Membranes Neck: Trachea midline, Supple Chest/axilla: Normal chest wall appearance and motion. Cardiovascular: Regular rate and rhythm. No edema appreciated Respiratory: Normal respirations, no respiratory distress appreciated Abdomen/GI: Non distended, soft Back: Normal ROM Skin: General appearance color normal MS/ Extremity: Moves all extremities, no obvious deformities appreciated, no edema noted to the lower extremities Neuro: Awake and alert, normal gait Psych: Behavior is normal, Mood is normal, Patient is cooperative and pleasant Vital Signs: 12:59 BP 101 / 71; Pulse 84; Resp 18 S; Temp 97.6(TE); Pulse Ox 100% ; Weight 90.72 kg (R); ca1 Height 5 ft. 4 in. (162.56 cm) (R); Pain 8/10; 15:00 BP 94 / 59; Pulse 66; Resp 16; Pulse Ox 99% on R/A; Pain 8/10; em 15:45 BP 155 / 67; Pulse 61; Resp 18; Pulse Ox 99% on R/A; em 12:59 Body Mass Index 34.33 (90.72 kg, 162.56 cm) ca1 MDM: 13:40 Patient medically screened. [facility] 15:30 Data reviewed: vital signs, nurses notes. Counseling: I had a detailed discussion with matthew the patient and/or guardian regarding: the historical points, exam findings, and any diagnostic results supporting the discharge/admit diagnosis, lab results, the need for outpatient follow up, to return to the emergency department if symptoms worsen or persist or if there are any questions or concerns that arise at home. ED course: Patient is alert and non toxic in appearance. Patient is advised to follow up with gi for reevaluation. patient understood and agrees with the plan of care. Patient understood and agrees with the plan of care. . 02/24 13:33 Order name: Urine Dipstick--Ancillary (enter results); Complete Time: 13:59 eb 02/24 13:41 Order name: Basic Metabolic Panel; Complete Time: 14:40 [facility] 02/24 13:41 Order name: CBC with Diff; Complete Time: 14:40 [facility] 02/24 13:41 Order name: LFT's; Complete Time: 14:40 [facility] 02/24 13:41 Order name: Magnesium; Complete Time: 14:40 [facility] 02/24 13:41 Order name: NT PRO-BNP; Complete Time: 14:40 [facility] 02/24 13:41 Order name: PT-INR; Complete Time: 14:40 [facility] 02/24 13:41 Order name: Troponin (emerg Dept Use Only); Complete Time: 14:40 02/24 13:41 Order name: XRAY Chest (1 view); Complete Time: 15:09 02/24 13:41 Order name: EKG; Complete Time: 13:42 02/24 13:41 Order name: Lipase; Complete Time: 14:40 [facility] 02/24 14:41 Order name: CT Chest, Abdomen, Pelvis - W/Contrast; Complete Time: 15:23 02/24 13:34 Order name: Urine Dipstick-Ancillary (obtain specimen); Complete Time: 13:59 02/24 13:41 Order name: Cardiac monitoring; Complete Time: 13:53 [facility] 02/24 13:41 Order name: EKG - Nurse/Tech; Complete Time: 13:53 [facility] 02/24 13:41 Order name: IV Saline Lock; Complete Time: 15:43 [facility] 02/24 13:41 Order name: Labs collected and sent; Complete Time: 15:43 [facility] 02/24 13:41 Order name: O2 Per Protocol; Complete Time: 13:53 [facility] 02/24 13:41 Order name: O2 Sat Monitoring; Complete Time: 13:53 jmm Administered Medications: 11:52 Drug: fentaNYL (PF) 25 mcg Route: IVP; Site: left antecubital; em 15:58 Follow up: Response: Medication administered at discharge. em 15:50 Drug: Zofran (Ondansetron) 4 mg Route: IVP; Site: left antecubital; em 15:58 Follow up: Response: Medication administered at discharge. em Disposition: 17:16 Co-signature as Attending Physician, David Olson MD. rn Disposition: 02/25/20 15:32 Discharged to Home. Impression: Generalized abdominal pain. - Condition is Stable. - Discharge Instructions: Abdominal Pain, Adult. - Prescriptions for Bentyl 20 mg Oral Tablet - take 1 tablet by ORAL route every 6 hours As needed; 20 tablet. Pepcid 20 mg Oral Tablet - take 1 tablet by ORAL route once daily; 20 tablet. - Medication Reconciliation Form, Thank You Letter, Antibiotic Education, Prescription Opioid Use form. - Follow up: Private Physician; When: 2 - 3 days; Reason: Recheck today's complaints, Continuance of care, Re-evaluation by your physician. Signatures: Dispatcher [employer] Ruben Solomon PA PA jmm Munoz, Edgar, RN RN David Gaytan MD MD rn Acob, JOSEFINA Parker RN ca1 Corrections: (The following items were deleted from the chart) 15:59 15:32 02/25/2020 15:32 Discharged to Home. Impression: Generalized abdominal pain. em Condition is Stable. Forms are Medication Reconciliation Form, Thank You Letter, Antibiotic Education, Prescription Opioid Use. Follow up: Private Physician; When: 2 - 3 days; Reason: Recheck today's complaints, Continuance of care, Re-evaluation by your physician. matthew
--- NOTE | 2020-02-25 15:32 | ER ---
Nurse's Notes [facility] Name: Juan J Velez Age: 54 yrs Sex: Female : 1965 Arrival Date: 02/25/2020 Time: 12:54 Bed 19 Private MD: Diagnosis: Generalized abdominal pain Presentation: 02/24 12:59 Chief complaint: Patient states: Epigastric, chest and back pain. Back is the worst. ca1 Chest feels tight. All started lasted. Reports nausea, sweats and lightheadedness with CP. Coronavirus screen: Proceed with normal triage. Patient denies a cough. Patient denies shortness of breath or difficulty breathing. Patient denies measured and/or subjective temperature greater than 100.4F prior to today's visit. Patient denies travel on a cruise ship or to a country the [facility] currently lists as an affected area. Patient denies contact with known and/or suspected case of COVID-19. Ebola Screen: Patient negative for fever greater than or equal to 101.5 degrees Fahrenheit, and additional compatible Ebola Virus Disease symptoms Patient denies exposure to infectious person. Patient denies travel to an Ebola-affected area in the 21 days before illness onset. No symptoms or risks identified at this time. Initial Sepsis Screen: Does the patient meet any 2 criteria? No. Patient's initial sepsis screen is negative. Does the patient have a suspected source of infection? No. Patient's initial sepsis screen is negative. Risk Assessment: Do you want to hurt yourself or someone else? Patient reports no desire to harm self or others. Onset of symptoms was February 25, 2020. 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 - Social history:: Smoking status: Patient reports the use of cigarette tobacco products, smokes one-half pack cigarettes per day, Patient uses. Screenin:16 Abuse screen: Denies threats or abuse. Nutritional screening: No deficits noted. em Tuberculosis screening: No symptoms or risk factors identified. Fall Risk None identified. Assessment: 14:00 General: Appears in no apparent distress. uncomfortable, Behavior is calm, cooperative, em appropriate for age. Pain: Complains of pain in chest Pain does not radiate. Pain began 1 day ago. Neuro: Level of Consciousness is awake, alert, obeys commands, Oriented to person, place, time, situation, Appropriate for age. Cardiovascular: Capillary refill < 3 seconds Patient's skin is warm and dry. Respiratory: Airway is patent Respiratory effort is even, unlabored, Respiratory pattern is regular, symmetrical. GI: Abdomen is flat, Reports nausea, vomiting. Derm: Skin is intact, is healthy with good turgor, Skin is pink, warm \T\ dry. Musculoskeletal: Capillary refill < 3 seconds, Range of motion: intact in all extremities. 15:04 Reassessment: request something for pain, rates pain 8/10, provider notified, received em verbal order for 4 mg morphine and 4 mg Zofran IV x 1, BP 94/59, HR 66 will hold medication. 15:45 Reassessment: Patient appears in no apparent distress at this time. Patient and/or em family updated on plan of care and expected duration. Pain level reassessed. Patient is alert, oriented x 3, equal unlabored respirations, skin warm/dry/pink. Vital Signs: 12:59 BP 101 / 71; Pulse 84; Resp 18 S; Temp 97.6(TE); Pulse Ox 100% ; Weight 90.72 kg (R); ca1 Height 5 ft. 4 in. (162.56 cm) (R); Pain 8/10; 15:00 BP 94 / 59; Pulse 66; Resp 16; Pulse Ox 99% on R/A; Pain 8/10; em 15:45 BP 155 / 67; Pulse 61; Resp 18; Pulse Ox 99% on R/A; em 12:59 Body Mass Index 34.33 (90.72 kg, 162.56 cm) ca1 ED Course: 12:54 Patient arrived in ED. bp1 13:02 Triage completed. ca1 13:02 Arm band placed on right wrist. EKG completed in triage. Results shown to MD. ca1 13:09 Ruben Eng PA is PHCP. [facility] 13:09 David Olson MD is Attending Physician. [facility] 13:13 Chadwick Hardin, RN is Primary Nurse. em 13:54 Patient has correct armband on for positive identification. manager monitoring on. Pulse em ox on. NIBP on. 14:00 Patient maintains SpO2 saturation greater than 95% on room air. em 14:09 Inserted saline lock: 20 gauge in left antecubital area, using aseptic technique. [facility] 14:36 XRAY Chest (1 view) In Process Unspecified. EDMS 15:00 CT Chest, Abdomen, Pelvis - W/Contrast In Process Unspecified. EDMS 15:57 No provider procedures requiring assistance completed. IV discontinued, intact, em bleeding controlled, No redness/swelling at site. Pressure dressing applied. Administered Medications: 11:52 Drug: fentaNYL (PF) 25 mcg Route: IVP; Site: left antecubital; em 15:58 Follow up: Response: Medication administered at discharge. em 15:50 Drug: Zofran (Ondansetron) 4 mg Route: IVP; Site: left antecubital; em 15:58 Follow up: Response: Medication administered at discharge. em Outcome: 15:32 Discharge ordered by . [facility] 15:57 Discharged to home ambulatory. em 15:57 Condition: good 15:57 Discharge instructions given to patient, Instructed on discharge instructions, follow up and referral plans. medication usage, Demonstrated understanding of instructions, follow-up care, medications, Prescriptions given X 2. 15:59 Patient left the ED. em Signatures: Dispatcher [employer] EDUT Ruben Eng PA PA jmm Munoz, Edgar, JOSEFINA RN Elena West RN RN [facility] Vinny Bermudez [facility] Natalie Courtney [facility]
[2020-02-25] MEDS ORDERED: FENTANYL CITR 100 MCG/2 ML ONE (15:58)
[2020-02-25 18:25] VITALS: TEMP 97.6
[2020-02-25 18:27] VITALS: O2SAT 99
[2020-02-25 18:28] VITALS: BP 155/67
--- NOTE | 2020-02-26 15:04 | EKG ---
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
== END 2020-02-25 15:59 | disposition home or self-care (01) ==
LOC: ER 12:51
DX: R10.84 Generalized abdominal pain (principal); F17.210 Nicotine dependence, cigarettes, uncomplicated
CPT/HCPCS: 93005; 85025; 80048; 36415; 83735; 85610; 80076; 81003; 84484; 83690; 83880; 71260; 74177; 71045; 96375; 96374; 99285; Q9967; J3010; J2405

== ENCOUNTER 2021-01-19 08:31 | Emergency (ER) | payer OTHER ==
--- OUTSIDE RECORDS SUMMARY | 2021-01-19 08:34 | XMS REPORT | Continuity of Care Document ---
:1965 Author Organization [facility] t Address [facility] [place] [address] Care Team Providers Name Role Phone Unavailable [...] examinatio examinatio Me moria n n l [facility] Encounter Encounter Problem Active [facility] gy[facility]ologi gynecologi Me moria juan juan l examinatio examinatio Ou tpati n without n without ent abnormal abnormal Clinic s finding finding Allergies, Adverse Reactions, Alerts Allergy Allergy Status Severity Reaction(s) Onset Inactive Treating Comm ents Source Name Type Date Date Clinician Prozac Adverse Active failed [facility] Clin[facility] Paxil Adverse Active failed [facility] Reaction therapy [facility] Clinics BusPIRon Adverse Active failed [facility] HCl Reaction therapy [facility]ics Zoloft Adverse Active failed [facility] Reaction [facility] Clinics Medications Ordered Filled Start Stop Current Ordering Indication Dosage Frequency Signature Comments Components Source Medication Medication Date Date Medication? Clinician (SIG) Name Name Ibuprofen Ibuprofen Yes Inessa [address] [facility] [place] with food [facility] - or milk as Memoria needed l [facility] ent Clinics BuSpar BuSpar Yes Inessa [address] [facility] [place] [facility]ics Atorvastati Atorvastati Yes Inessa [address] [facility] Calcium n Calcium [place] [facility] Clinics Prilosec Prilosec Yes Inessa [address] [place] [facility] Clinics Procedures This patient has no known procedures. Encounters Start End Encounter Admission Attending Care Care Encounter Source Date/Time Date/Time Type Type Clinicians Facility Department ID 2020-02-03 2020-02-03 Outpatient Virginia Colemant [id number] [facility] 13:45[facility]00 13:45[facility]00 [facility] 2019-05-07 2019-05-07 Outpatient Virginia Colemant [id number] [facility] 16:52[facility]00 16:52:00 [facility] 2019-05-07 2019-05-07 Outpatient Virginia Colemant [id number] [facility] 13:20:00 13:20:00 [facility] 2018-10-27 2018-10-27 Outpatient Virginia Mcgraw [id number] [facility] 14:00[facility] 14[facility] 2018-09-24 2018-09-24 Outpatient Virginia Mcgraw [id number] [facility] 08:30:00 08:30:00 [facility] ent Clinics 2018-09-08 2018-09-08 Outpatient Virginia Mcgraw [id number] [facility] [address] 09:32:00 09:32:[address] [facility] ent [facility] 2018-05-05 2018-05-05 Outpatient Virginia Mcgraw [id number] [facility] 09:45:00 09:45:[address] [facility] ent Clinics Results This patient has no known results.
[2021-01-19 08:58] LABS: Urine Blood Trace-intact (Negative); Urine Glucose Negative (Negative); Urine Protein Negative (Negative); Urine Specific Gravity <=1.005 (1.005-1.030); Urine pH 5.5 (5.0-7.0)
[2021-01-19 09:26] LABS: Absolute Lymphocytes (CBC) 3.1 K/uL (0.7-4.9); Basophils % 0.8 % (0-1.3); Hematocrit 45.4 % (36.0-45.0); Lymphocytes % 28.3 % (15.3-44.8); MPV 10.8 fL (7.6-11.3); RBC Red Blood Cell Count 4.94 M/uL (3.86-4.86)
[2021-01-19 09:30] LABS: ALT/SGPT 22 U/L (12-78); AST/SGOT 10 U/L (15-37); Albumin 3.7 g/dL (3.4-5.0); Alkaline Phosphatase 105 U/L (45-117); BUN Blood Urea Nitrogen 10 mg/dL (7-18); Bicarbonate 26 mmol/L (21-32); Bilirubin Direct < 0.1 mg/dL (0-0.2); Bilirubin Total 0.4 mg/dL (0.2-1.0); Glucose Level 92 mg/dL (74-106); Lipase 377 U/L (73-393); Potassium 3.9 mmol/L (3.5-5.1); Protein, Total 7.4 g/dL (6.4-8.2); Sodium Level 143 mmol/L (136-145)
[2021-01-19] MEDS ORDERED: ONDANSETRON 4 MG/2 ML VIAL ONE (09:35)
[2021-01-19] MEDS ORDERED: NA CHLORIDE 0.9% 500 ML ONE (09:35)
[2021-01-19] MEDS ORDERED: MORPHINE 4 MG/ML SYR ONE (09:35)
--- NOTE | 2021-01-19 10:28 | RAD REPORT ---
EXAM DESCRIPTION: CTAbdomen Pelvis W Contrast - 01/19/2021 10:15 am CLINICAL HISTORY: Abdominal pain. ABD PAIN COMPARISON: Abdomen Pelvis W Contrast dated 04/29/2019; Abdomen Pelvis W Contrast dated 01/22/2018 ; Abdomen Pelvis W Contrast dated 06/29/2017; CT ABD PELVIS W CONTRAST dated 02/22/2015; Chest Abdom en Pelvis W Cont dated 02/25/2020 TECHNIQUE: Biphasic CT imaging of the abdomen and pelvis was performed with 100 ml non-ionic IV cont rast. All CT scans are performed using dose optimization technique as appropriate and may include automated exposure control or mA/KV adjustment according to patient size. FINDINGS: Small 8 mm nodule is seen in the posterior right lower lobe. This nodule has been present or the prior exams and is likely benign. The liver, spleen, pancreas, left adrenal gland and kidneys are within normal limits. 22 mm right adr enal mass is present, demonstrating long-term stability likely benign adenoma. No bowel obstruction, free air, free fluid or abscess. Several mildly prominent fluid-filled small daniel wel loops are present in the mid and right abdomen. Appendectomy. Sigmoid diverticulosis coli is pres ent without diverticulitis. No evidence of significant lymphadenopathy. Mild lumbosacral degenerative changes. IMPRESSION: Multiple mildly prominent fluid filled small bowel loops are present which may indicate enteritis.
--- NOTE | 2021-01-19 11:05 | EDPHYS ---
Physician Documentation [facility] Name: Juan J Velez Age: 55 yrs Sex: Female : 1965 Arrival Date: 01/19/2021 Time: 08:37 Bed 13 Private MD: SALLIE CALDWELL ED Physician Alonzo Sales HPI: 01/19 11:13 This 55 yrs old Female presents to ER via Ambulatory with complaints of kdr Abdominal Pain. 11:13 The patient presents with abdominal pain in the lower abdomen. kdr 11:13 Onset: The symptoms/episode began/occurred gradually, 3 day(s) ago. The symptoms do not kdr radiate. Associated signs and symptoms: Pertinent positives: nausea, Pertinent negatives: chest pain, constipation, vaginal discharge, vomiting, vomiting blood. The symptoms are described as achy, crampy, dull, steady, vague, waxing/waning. Modifying factors: The symptoms are alleviated by nothing, the symptoms are aggravated by breathing deeply, movement, pressure, touching the area. Severity of pain: At its worst the pain was moderate severe just prior to arrival, in the emergency department the pain has improved mildly. The patient has not experienced similar symptoms in the past. The patient has not recently seen a physician. Historical: - Allergies: 08:47 NKDA; tw2 - Home Meds: 08:47 None [Active]; tw2 - PMHx: 08:47 Depression; Bipolar disorder; Anxiety; PTSD; tw2 - PSHx: 08:47 Appendectomy; Cholecystectomy; tw2 08:47 ; tw2 - Immunization history:: Client reports receiving the 2nd dose of the Covid vaccine. - Social history:: Smoking status: Patient reports the use of cigarette tobacco products, smokes one-half pack cigarettes per day, Patient uses "former addict" . ROS: 11:13 Constitutional: Negative for fever, chills, and weight loss, Eyes: Negative for injury, kdr pain, redness, and discharge, ENT: Negative for injury, pain, and discharge, Neck: Negative for injury, pain, and swelling, Cardiovascular: Negative for chest pain, palpitations, and edema, Respiratory: Negative for shortness of breath, cough, wheezing, and pleuritic chest pain, Back: Negative for injury and pain, : Negative for injury, bleeding, discharge, and swelling, MS/Extremity: Negative for injury and deformity, Skin: Negative for injury, rash, and discoloration, Neuro: Negative for headache, weakness, numbness, tingling, and seizure activity. Psych: Negative for depression, anxiety, suicide ideation, homicidal ideation, and hallucinations, Allergy/Immunology: Negative for hives, rash, and allergies, Endocrine: Negative for neck swelling, polydipsia, polyuria, polyphagia, and marked weight changes, Hematologic/Lymphatic: Negative for swollen nodes, abnormal bleeding, and unusual bruising. 11:13 Abdomen/GI: Positive for abdominal pain, nausea, Negative for vomiting, diarrhea, constipation, abdominal cramps, abdominal distension, anorexia, dysphagia, black/tarry stool, rectal pain, rectal bleeding, bowel incontinence. Exam: 11:13 Constitutional: This is a well developed, well nourished patient who is awake, alert, kdr and in no acute distress. Head/Face: Normocephalic, atraumatic. Eyes: Pupils equal round and reactive to light, extra-ocular motions intact. Lids and lashes normal. Conjunctiva and sclera are non-icteric and not injected. Cornea within normal limits. Periorbital areas with no swelling, redness, or edema. Neck: Trachea midline, no thyromegaly or masses palpated, and no cervical lymphadenopathy. Supple, full range of motion without nuchal rigidity, or vertebral point tenderness. No Meningismus. Chest/axilla: Normal chest wall appearance and motion. Nontender with no deformity. No lesions are appreciated. Cardiovascular: Regular rate and rhythm with a normal S1 and S2. No gallops, murmurs, or rubs. Normal PMI, no JVD. No pulse deficits. Respiratory: Lungs have equal breath sounds bilaterally, clear to auscultation and percussion. No rales, rhonchi or wheezes noted. No increased work of breathing, no retractions or nasal flaring. Back: No spinal tenderness. No costovertebral tenderness. Full range of motion. Skin: Warm, dry with normal turgor. Normal color with no rashes, no lesions, and no evidence of cellulitis. MS/ Extremity: Pulses equal, no cyanosis. Neurovascular intact. Full, normal range of motion. Neuro: Awake and alert, GCS 15, oriented to person, place, time, and situation. Cranial nerves II-XII grossly intact. Motor strength 5/5 in all extremities. Sensory grossly intact. Cerebellar exam normal. Normal gait. Psych: Awake, alert, with orientation to person, place and time. Behavior, mood, and affect are within normal limits. 11:13 Abdomen/GI: Inspection: obese Bowel sounds: diminished, in all quadrants, Palpation: soft, mild abdominal tenderness, in the suprapubic area, right lower quadrant and left lower quadrant. Vital Signs: 08:44 BP 119 / 69; Pulse 77; Resp 18; Temp 98.1(O); Pulse Ox 99% on R/A; Weight 90.72 kg; tw2 Height 5 ft. 4 in. (162.56 cm); Pain 7/10; 09:15 BP 97 / 65; Pulse 67; Resp 18; Pulse Ox 96% on R/A; tr6 08:44 Body Mass Index 34.33 (90.72 kg, 162.56 cm) tw2 MDM: 11:04 Patient medically screened. kdr 11:16 Data reviewed: vital signs, nurses notes, lab test result(s), radiologic studies. kdr Counseling: I had a detailed discussion with the patient and/or guardian regarding: the historical points, exam findings, and any diagnostic results supporting the discharge/admit diagnosis, lab results, radiology results, the need for outpatient follow up. Response to treatment: the patient's symptoms have mildly improved after treatment, patient is well hydrated. Special discussion: Based on the patient's Hx, exam, and Dx evaluation, there is no indication for emergent surgery or inpatient Tx. It is understood by the patient/guardian that if the Sx's persist or worsen they need to return immediately for re-evaluation. 01/19 08:52 Order name: Basic Metabolic Panel; Complete Time: 10:33 kdr 01/19 08:52 Order name: CBC with Diff; Complete Time: 10:33 kdr 01/19 08:52 Order name: Hepatic Function; Complete Time: 10:33 kdr 01/19 08:52 Order name: Lipase; Complete Time: 10:33 kdr 01/19 08:58 Order name: Urine Dipstick-Ancillary; Complete Time: 10:33 EDMS 01/19 09:19 Order name: Beta hcg; Complete Time: 10:33 tr6 01/19 08:52 Order name: IV Saline Lock; Complete Time: 09:08 kdr 01/19 09:03 Order name: CT Abd/Pelvis - IV Contrast Only; Complete Time: 10:33 kdr 01/19 08:52 Order name: Labs collected and sent; Complete Time: 09:08 kdr Administered Medications: 09:17 Drug: NS 0.9% 500 ml Route: IV; Rate: bolus; Site: left antecubital; tr6 11:09 Follow up: Response: No adverse reaction; IV Intake: 500ml tr6 10:02 Drug: morphine 4 mg Route: IVP; Site: left antecubital; tr6 11:08 Follow up: Response: No adverse reaction tr6 10:02 Drug: Zofran (Ondansetron) 4 mg Route: IVP; Site: left antecubital; tr6 11:08 Follow up: Response: No adverse reaction tr6 11:08 Drug: Flagyl (metroNIDAZOLE) 500 mg Route: PO; tr6 11:09 Follow up: Response: No adverse reaction tr6 11:08 Drug: Cipro (ciprofloxacin) 500 mg Route: PO; tr6 11:09 Follow up: Response: No adverse reaction tr6 11:46 Drug: Demerol (meperidine) 25 mg Route: IVP; Site: left antecubital; tr6 Disposition: 01/19/21 11:04 Discharged to Home. Impression: Enteritis, Abdominal and pelvic pain. - Condition is Stable. - Discharge Instructions: Abdominal Pain, Adult, [id number]. - Prescriptions for Bentyl 20 mg Oral Tablet - take 1 tablet by ORAL route every 6 hours As needed; 20 tablet. Cipro 500 mg Oral Tablet - take 1 tablet by ORAL route every 12 hours for 10 days; 20 tablet. Flagyl 500 mg Oral Tablet - take 1 tablet by ORAL route every 6 hours for 10 days; 40 tablet. Tramadol 50 mg Oral Tablet - take 1 tablet by ORAL route every 8 hours as needed; 12 tablet. - Medication Reconciliation Form, Thank You Letter, Antibiotic Education, Prescription Opioid Use form. - Follow up: SALLIE CALDWELL; When: 2 - 3 days; Reason: If symptoms return, Further diagnostic work-up, Recheck today's complaints, Continuance of care, Re-evaluation by your physician. - Problem is new. - Symptoms have improved. Signatures: Dispatcher [employer] EDMS Alozno Sales MD MD kdr Annie Teran RN RN tw2 Mela Dupont, JOSEFINA RN tr6 Corrections: (The following items were deleted from the chart) 11:49 11:04 01/19/2021 11:04 Discharged to Home. Impression: Enteritis; Abdominal and pelvic tr6 pain. Condition is Stable. Forms are Medication Reconciliation Form, Thank You Letter, Antibiotic Education, Prescription Opioid Use. Follow up: SALLIE CALDWELL; When: 2 - 3 days; Reason: If symptoms return, Further diagnostic work-up, Recheck today's complaints, Continuance of care, Re-evaluation by your physician. Problem is new. Symptoms have improved. kdr
--- NOTE | 2021-01-19 11:05 | ER ---
Nurse's Notes [facility] Name: Juan J Velez Age: 55 yrs Sex: Female : 1965 Arrival Date: 01/19/2021 Time: 08:37 Bed 13 Private MD: SALLIE CALDWELL Diagnosis: Enteritis;Abdominal and pelvic pain Presentation: 01/19 08:44 Chief complaint: Patient states: the only way i can explain it is that i am having a 20 tw2 pound baby, it all hurts down there, i feel like everything is trying to come out. it looked like a mucous plug yesterday that came out. then this morning i had some jelly like discharge with a long thin stream that was black. my ovaries have been hurting and i have been having cramping as well. Coronavirus screen: At this time, the client does not indicate any symptoms associated with coronavirus-19. Ebola Screen: Patient denies travel to an Ebola-affected area in the 21 days before illness onset. Initial Sepsis Screen: Does the patient meet any 2 criteria? No. Patient's initial sepsis screen is negative. Does the patient have a suspected source of infection? No. Patient's initial sepsis screen is negative. Risk Assessment: Do you want to hurt yourself or someone else? Patient reports no desire to harm self or others. Onset of symptoms was January 19, 2021. 08:44 Method Of Arrival: Ambulatory tw2 08:44 Acuity: KORINA 3 tw2 Triage Assessment: 08:47 General: Appears in no apparent distress. Behavior is calm, cooperative, appropriate tw2 for age. Pain: Complains of pain in buttocks and pelvis. GI: Reports lower abdominal pain, cramping. Historical: - Allergies: 08:47 NKDA; tw2 - Home Meds: 08:47 None [Active]; tw2 - PMHx: 08:47 Depression; Bipolar disorder; Anxiety; PTSD; tw2 - PSHx: 08:47 Appendectomy; Cholecystectomy; tw2 08:47 ; tw2 - Immunization history:: Client reports receiving the 2nd dose of the Covid vaccine. - Social history:: Smoking status: Patient reports the use of cigarette tobacco products, smokes one-half pack cigarettes per day, Patient uses "former addict" . Screenin:20 Abuse screen: Denies threats or abuse. Denies injuries from another. Nutritional tr6 screening: No deficits noted. Tuberculosis screening: No symptoms or risk factors identified. Fall Risk None identified. Assessment: 09:00 General: Appears in no apparent distress. Behavior is calm, cooperative, appropriate tr6 for age. Pain: Complains of pain in lower abdomen and rectum. Neuro: No deficits noted. Cardiovascular: No deficits noted. Respiratory: No deficits noted. GI: Bowel sounds present X 4 quads. Abd is soft and non tender Reports lower abdominal pain. : No deficits noted. EENT: No deficits noted. Derm: No deficits noted. Musculoskeletal: No deficits noted. 10:05 Reassessment: pt transferred to CT via stretcher. tr6 Vital Signs: 08:44 BP 119 / 69; Pulse 77; Resp 18; Temp 98.1(O); Pulse Ox 99% on R/A; Weight 90.72 kg; tw2 Height 5 ft. 4 in. (162.56 cm); Pain 7/10; 09:15 BP 97 / 65; Pulse 67; Resp 18; Pulse Ox 96% on R/A; tr6 08:44 Body Mass Index 34.33 (90.72 kg, 162.56 cm) tw2 ED Course: 08:37 Patient arrived in ED. mr 08:37 SALLIE CALDWELL is Private Physician. mr 08:46 Triage completed. tw2 08:47 Arm band placed on. tw2 08:51 Alonzo Sales MD is Attending Physician. kdr 08:53 Mela Dupont RN is Primary Nurse. tr6 08:58 Urine collected: clean catch specimen, clear. mh5 08:59 Patient has correct armband on for positive identification. Bed in low position. Call mh5 light in reach. Side rails up X 1. Warm blanket given. Pulse ox on. NIBP on. 09:20 Resting quietly. tr6 09:20 Pulse ox on. NIBP on. Door closed. Noise minimized. Visitors limited. Lights dimmed. tr6 Warm blanket given. 09:20 No provider procedures requiring assistance completed. Inserted saline lock: 20 gauge tr6 in left antecubital area, using aseptic technique. Blood collected. 10:15 CT Abd/Pelvis - IV Contrast Only In Process Unspecified. EDMS 11:03 SALLIE CALDWELL is Referral Physician. kdr 11:49 IV discontinued, intact, bleeding controlled, No redness/swelling at site. Pressure tr6 dressing applied. Administered Medications: 09:17 Drug: NS 0.9% 500 ml Route: IV; Rate: bolus; Site: left antecubital; tr6 11:09 Follow up: Response: No adverse reaction; IV Intake: 500ml tr6 10:02 Drug: morphine 4 mg Route: IVP; Site: left antecubital; tr6 11:08 Follow up: Response: No adverse reaction tr6 10:02 Drug: Zofran (Ondansetron) 4 mg Route: IVP; Site: left antecubital; tr6 11:08 Follow up: Response: No adverse reaction tr6 11:08 Drug: Flagyl (metroNIDAZOLE) 500 mg Route: PO; tr6 11:09 Follow up: Response: No adverse reaction tr6 11:08 Drug: Cipro (ciprofloxacin) 500 mg Route: PO; tr6 11:09 Follow up: Response: No adverse reaction tr6 11:46 Drug: Demerol (meperidine) 25 mg Route: IVP; Site: left antecubital; tr6 Intake: 11:09 IV: 500ml; Total: 500ml. tr6 Outcome: 11:04 Discharge ordered by . kdr 11:48 Discharged to home ambulatory, with family, daughter outside to drive pt home tr6 11:48 Condition: good 11:48 Discharge instructions given to patient, Instructed on discharge instructions, follow up and referral plans. no drinking with medication, medication usage, safety practices, Demonstrated understanding of instructions, follow-up care, medications, Prescriptions given X 4. 11:49 Patient left the ED. tr6 Signatures: Dispatcher [employer] EDMS Alonzo Sales MD MD kdr Rivera, Sonya mr Annie Teran RN RN 2 Kianna Gutierres [facility] Mela Dupont RN RN tr6
[2021-01-19] MEDS ORDERED: metroNIDAZOLE 500 MG TABLET ONE (11:22)
[2021-01-19] MEDS ORDERED: CIPROFLOXACIN HCL 500 MG TAB ONE (11:22)
[2021-01-19] MEDS ORDERED: MEPERIDINE HCL 25 MG/ML SYR ONE (11:56)
[2021-01-19 12:02] VITALS: TEMP 98.1
[2021-01-19 12:04] VITALS: BP 97/65; O2SAT 96
== END 2021-01-19 11:49 | disposition home or self-care (01) ==
LOC: ER 08:31
DX: K52.9 Noninfective gastroenteritis and colitis, unspecified (principal); F17.210 Nicotine dependence, cigarettes, uncomplicated
CPT/HCPCS: 85025; 80048; 36415; 80076; 84702; 81003; 83690; 74177; 96375; 96374; 99284; Q9967; J2175; J7040; J2405

== ENCOUNTER 2021-02-01 09:03 | Emergency (ER) | payer OTHER ==
--- OUTSIDE RECORDS SUMMARY | 2021-02-01 09:07 | XMS REPORT | Continuity of Care Document ---
:1965 Author Organization [facility] t Address [address] [place] [address] [address] [place] [address] Care Team Providers Name Role Phone Unavailable [...] examinatio examinatio [facility] Encounter Encounter Problem Active [...] St Reaction therapy [facility] Paxil Adverse Active failed [facility] Reaction [facility] BusPIRon Adverse Active failed [facility] HCl Reaction [facility] Zoloft Adverse Active failed [facility] Reaction [facility] Medications Ordered Filled Start Stop Current Ordering Indication Dosage Frequency Signature Comments Components Source Medication Medication Date Date Medication? Clinician (SIG) Name Name Ibuprofen Ibuprofen Yes Inessa [address] [facility] with food [facility] - or milk as [facility] needed l [facility] BuSpar BuSpar Yes Inessa [address] [facility] Atorvastati Atorvastati Yes Inessa [address] [facility] n Calcium n Calcium [place] Prilosec Prilosec Yes Inessa [address] [facility] Procedures This patient has no known procedures. Encounters Start End Encounter Admission Attending Care Care Encounter Source Date/Time Date/Time Type Type Clinicians Facility Department ID 2020-02-03 2020-02-03 Outpatient Virginia Mcgraw [id number] [facility] 13:45:00 13:45:00 [facility] 2019-05-07 2019-05-07 Outpatient Virginia Colemant [id number] [facility] 16[facility]52:00 16:52:00 [facility] 2019-05-07 2019-05-07 Outpatient Virginia Mcgraw [id number] [facility] 13:20:00 13:20:00 [facility] ent Clinics 2018-10-27 2018-10-27 Outpatient Virginia Mcgraw [id number] [facility] 14:00:00 14:00:00 [facility] ent [facility] 2018-09-24 2018-09-24 Outpatient Virginia Mcgraw [id number] [facility] 08:30:00 08:30:00 [facility] ent Clinics 2018-09-08 2018-09-08 Outpatient Virginia Mcgraw [id number] [facility] 09:32:00 09:32:00 [facility] ent [facility] 2018-05-05 2018-05-05 Outpatient Virginia Mcgraw [id number] [facility] 09:45:00 09:45:00 [facility] ent Clinics Results This patient has no known results.
[2021-02-01] MEDS ORDERED: HYDROCODONE/APAP 7.5/325 MG TAB ONE (09:58)
--- NOTE | 2021-02-01 10:48 | RAD REPORT ---
EXAM DESCRIPTION: RAD - Ribs Left - 02/01/2021 10:40 am CLINICAL HISTORY: PAIN Left-sided rib pain COMPARISON: Chest Single View dated 02/25/2020 FINDINGS: Left lateral seventh and eighth ribs demonstrate minimally displaced fractures. No pneumot horax is evident.
--- NOTE | 2021-02-01 10:59 | ER ---
Nurse's Notes [facility] Name: Juan J Velez Age: 55 yrs Sex: Female : 1965 Arrival Date: 02/01/2021 Time: 09:07 Bed 8 Private MD: Diagnosis: Multiple fractures of ribs, left side-nondisplaced fractures of 7th and 8th ribs Presentation: 02/01 09:10 Chief complaint: Patient states: my dog jumped on me \T\ he was about 80 pounds, i heard tw2 a pop Saturday when i went up against a dock, but then my dog jumped on me on the LEFT side and it hurts. Coronavirus screen: At this time, the client does not indicate any symptoms associated with coronavirus-19. Ebola Screen: Patient denies travel to an Ebola-affected area in the 21 days before illness onset. Initial Sepsis Screen: Does the patient meet any 2 criteria? No. Patient's initial sepsis screen is negative. Does the patient have a suspected source of infection? No. Patient's initial sepsis screen is negative. Risk Assessment: Do you want to hurt yourself or someone else? Patient reports no desire to harm self or others. Onset of symptoms was February 01, 2021. 09:10 Method Of Arrival: Ambulatory tw2 09:10 Acuity: KORINA 3 tw2 Triage Assessment: 09:12 General: Appears in no apparent distress. uncomfortable, Behavior is calm, cooperative, tw2 appropriate for age. Pain: Complains of pain in LEFT ribcage. Historical: - Allergies: 09:11 NKDA; tw2 - Home Meds: 09:11 None [Active]; tw2 - PMHx: 09:11 PTSD; Depression; Bipolar disorder; Anxiety; tw2 - PSHx: 09:11 Appendectomy; Cholecystectomy; ; tw2 - Immunization history:: Adult Immunizations. - Social history:: Smoking status: Smoking status: Patient reports the use of cigarette tobacco products, smokes one pack cigarettes per day. Screenin:35 Abuse screen: Denies threats or abuse. Denies injuries from another. Nutritional hb screening: No deficits noted. Tuberculosis screening: No symptoms or risk factors identified. Fall Risk None identified. Assessment: 09:35 General: Appears in no apparent distress. uncomfortable, Behavior is calm, cooperative. hb Pain: Pain currently is 8 out of 10 on a pain scale. Neuro: Level of Consciousness is awake, alert, obeys commands, Oriented to person, place, time, situation. Cardiovascular: Patient's skin is warm and dry. Respiratory: Respiratory effort is even, unlabored, Respiratory pattern is regular, symmetrical. GI: No signs and/or symptoms were reported involving the gastrointestinal system. : No signs and/or symptoms were reported regarding the genitourinary system. EENT: No signs and/or symptoms were reported regarding the EENT system. Derm: Skin is pink, warm \T\ dry. Musculoskeletal: Reports left sided chest wall. Vital Signs: 09:10 BP 103 / 89; Pulse 89; Resp 18; Temp 97.9; Pulse Ox 100% on R/A; Weight 90.72 kg (R); tw2 Height 5 ft. 4 in. (162.56 cm); Pain 8/10; 09:10 Body Mass Index 34.33 (90.72 kg, 162.56 cm) tw2 ED Course: 09:07 Patient arrived in ED. mr 09:11 Triage completed. tw2 09:12 Arm band placed on. tw2 09:14 Luna Ibrahim RN is Primary Nurse. hb 09:15 Kirill Joseph PA is PHCP. cp 09:15 David Olson MD is Attending Physician. cp 09:35 Patient has correct armband on for positive identification. Bed in low position. Call hb light in reach. 11:11 No provider procedures requiring assistance completed. Patient did not have IV access sv during this emergency room visit. Administered Medications: 09:41 Drug: Hydrocodone-Acetaminophen (7.5 mg-325 mg) 1 tabs Route: PO; hb Outcome: 10:58 Discharge ordered by . cp 11:11 Discharged to home ambulatory. sv 11:11 Condition: stable 11:11 Discharge instructions given to patient, Instructed on discharge instructions, follow up and referral plans. no drinking with medication, no driving heavy equipment, medication usage, Demonstrated understanding of instructions, follow-up care, medications, Prescriptions given X 2. 11:11 Patient left the ED. sv Signatures: Katia Dumont RN RN ParraSonya dean mr Kirill Joseph PA PA cp Luna Ibrahim RN RN hb Teran, Annie, RN RN tw2
--- NOTE | 2021-02-01 10:59 | EDPHYS ---
Physician Documentation [facility] Name: Juan J Velez Age: 55 yrs Sex: Female : 1965 Arrival Date: 02/01/2021 Time: 09:07 Bed 8 Private MD: ED Physician David Olson HPI: 02/01 09:35 This 55 yrs old Female presents to ER via Ambulatory with complaints of Rib cp Pain. 09:35 The patient or guardian reports chest pain that is located primarily in the anterior cp chest wall, left chest area lateral and below left breast. 09:35 Onset: 4 day(s) ago. cp 09:35 The pain does not radiate. Associated signs and symptoms: Pertinent negatives: cp abdominal pain, cough, diaphoresis, lower extremity pain, lower extremity swelling, shortness of breath. Pain started after striking area against dock and became worse when dog jumped on top of her. Historical: - Allergies: 09:11 NKDA; tw2 - Home Meds: 09:11 None [Active]; tw2 - PMHx: 09:11 PTSD; Depression; Bipolar disorder; Anxiety; tw2 - PSHx: 09:11 Appendectomy; Cholecystectomy; ; tw2 - Immunization history:: Adult Immunizations. - Social history:: Smoking status: Smoking status: Patient reports the use of cigarette tobacco products, smokes one pack cigarettes per day. ROS: 09:40 MS/extremity: Positive for left side rib pain. cp 09:40 Eyes: Negative for injury, pain, redness, and discharge. cp 09:40 Constitutional: Negative for body aches, chills, fever, poor PO intake. 09:40 ENT: Negative for ear pain, sore throat, difficulty swallowing, difficulty handling secretions. 09:40 Neck: Negative for pain with movement, pain at rest, stiffness. 09:40 Respiratory: Negative for cough, shortness of breath, wheezing. 09:40 Abdomen/GI: Negative for abdominal pain, nausea, vomiting, and diarrhea. 09:40 Back: Negative for pain at rest, pain with movement. 09:40 Neuro: Negative for altered mental status, headache, weakness. 09:40 All other systems are negative. Exam: 09:45 Constitutional: The patient appears in no acute distress, alert, awake, cp non-diaphoretic, non-toxic, well developed, well nourished. 09:45 Head/Face: Normocephalic, atraumatic. cp 09:45 Neck: C-spine: vertebral tenderness, is not appreciated, crepitus, is not appreciated, ROM/movement: is normal, is supple, without pain, no range of motions limitations. 09:45 Chest/axilla: Inspection: normal, Palpation: crepitus, is not appreciated, tenderness, that is moderate, of the left chest wall lateral and below breast. 09:45 Cardiovascular: Rate: normal, Rhythm: regular, Edema: is not appreciated, JVD: is not appreciated. 09:45 Respiratory: the patient does not display signs of respiratory distress, Respirations: normal, no use of accessory muscles, no retractions, labored breathing, is not present, Breath sounds: are clear throughout, no decreased breath sounds, no stridor, no wheezing. 09:45 Abdomen/GI: Inspection: abdomen appears normal, Palpation: abdomen is soft and non-tender, in all quadrants. 09:45 Back: vertebral tenderness, is not appreciated. 09:45 Skin: cellulitis, is not appreciated, no rash present. 10:52 ECG was reviewed by the Attending Physician. cp Vital Signs: 09:10 BP 103 / 89; Pulse 89; Resp 18; Temp 97.9; Pulse Ox 100% on R/A; Weight 90.72 kg (R); tw2 Height 5 ft. 4 in. (162.56 cm); Pain 8/10; 09:10 Body Mass Index 34.33 (90.72 kg, 162.56 cm) tw2 MDM: 09:24 Patient medically screened. cp 09:40 Differential diagnosis: pleurisy, pneumonia, pneumothorax, rib fracture, intercostal cp strain, chest wall contusion. 10:55 Data reviewed: vital signs, nurses notes, radiologic studies, plain films. cp 10:55 Counseling: I had a detailed discussion with the patient and/or guardian regarding: the cp historical points, exam findings, and any diagnostic results supporting the discharge/admit diagnosis, radiology results, to return to the emergency department if symptoms worsen or persist or if there are any questions or concerns that arise at home. ED course: VSS. Pain improved with meds. Patient does not display signs of respiratory distress. Will discharge to home for continued monitoring. 02/01 09:31 Order name: XRAY Ribs LEFT cp 02/01 10:49 Order name: RAD; Complete Time: 10:51 EDMS 02/01 10:51 Order name: INCENTIVE SPIROMETRY cp EC:52 Rate is 59 beats/min. Rhythm is regular. SC interval is normal. QRS interval is normal. cp QT interval is normal. T waves are Inverted in lead aVR. Interpreted by me. Reviewed by me. Administered Medications: 09:41 Drug: Hydrocodone-Acetaminophen (7.5 mg-325 mg) 1 tabs Route: PO; hb Disposition: 15:21 Co-signature as Attending Physician, David Olson MD. rn Disposition: 02/01/21 10:58 Discharged to Home. Impression: Multiple fractures of ribs, left side - nondisplaced fractures of 7th and 8th ribs. - Condition is Stable. - Discharge Instructions: Rib Fracture. - Prescriptions for Ibuprofen 800 mg Oral Tablet - take 1 tablet by ORAL route every 8 hours As needed take with food; 30 tablet. Tylenol- Codeine #3 300-30 mg Oral Tablet - take 2 tablets by ORAL route every 8-10 hours As needed; 20 tablet. - Medication Reconciliation Form, Thank You Letter, Antibiotic Education, Prescription Opioid Use, Work release form form. - Follow up: Private Physician; When: 2 - 3 days; Reason: Recheck today's complaints. - Problem is new. - Symptoms have improved. Signatures: Dispatcher [employer] [facility] Katia Dumont RN RN sv Nieto, Roman, MD MD rn Page, Corey, PA PA Luna Ibrahim RN RN Annie Teran RN RN tw2 Corrections: (The following items were deleted from the chart) 11:11 10:58 02/01/2021 10:58 Discharged to Home. Impression: Multiple fractures of ribs, left sv side - nondisplaced fractures of 7th and 8th ribs. Condition is Stable. Forms are Medication Reconciliation Form, Thank You Letter, Antibiotic Education, Prescription Opioid Use. Follow up: Private Physician; When: 2 - 3 days; Reason: Recheck today's complaints. Problem is new. Symptoms have improved. cp
[2021-02-01 11:18] VITALS: BP 103/89; TEMP 97.9; O2SAT 100
== END 2021-02-01 11:11 | disposition home or self-care (01) ==
LOC: ER 09:03
DX: S22.42XA Multiple fractures of ribs, left side, initial encounter for closed fracture (principal); W22.8XXA Striking against or struck by other objects, initial encounter; F17.210 Nicotine dependence, cigarettes, uncomplicated
CPT/HCPCS: 99283

== ENCOUNTER 2023-06-06 06:15 | Emergency (ER) | payer OTHER ==
--- OUTSIDE RECORDS SUMMARY | 2023-06-06 06:19 | XMS REPORT | Continuity of Care Document ---
:1965 Author Organization [facility] t Address [address] [place] [address] Care Team Providers Name Role Phone Emanuel Nash Attending Clinician Unavailable Inessa Stern Attending Clinician Unavailable WYATT ABDALLA Attending Clinician Unavailable Payers Payer Name Policy Type Policy Number Effective Date Expiration Date S paulo HUMANA MEDICARE C1 [id number] Common Sp palak [facility] [id number] Common Spirit [facility] HUMANA MEDICARE C1 [id number] Common Sp palak [facility] [id number] [facility] MEDICARE PART A [id number] 2006 \T\ B 00:00:00 MEDICAID [id number] 2017 [place] 00:00:00 Problems Condition Condition Condition Status Onset Resolution Last Treating Co mments Source Name Details Category Date Date Treatment Clinician Date 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 - [facility] 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 - [facility] without [facility] Chronic Chronic Problem Common pain pain Spirit syndrome syndrome - [facility] Nicotine Nicotine Problem Commo n dependence dependence Sp palak [facility] Knee pain Knee pain Problem Com mon Spirit - [facility] Hyperlipid Hyperlipem Problem C ommon aemia ia Spirit [facility] [id number] 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 - [facility] patellofem oral [facility] [id number] Right Problem Common sided Spirit sciatica - [facility] Screening Screening Problem Com mon for colon for colon Spir it cancer cancer - [facility] [id number] Bipolar Problem Commo n affective Spirit disorder, - [facility] current [facility] depressed, Medica l current Center episode severity unspecifie d Fatigue Chronic Problem Common fatigue [facility] [id number] Depression Problem Co mmon with Spirit anxiety - [facility] Posttrauma Post Problem Commo n tic stress traumatic Spi rit disorder stress - [facility] disorder [facility] Examinatio Screening Problem Co mmon n of breast Spirit breast examinatio - [facility] (procedure n [facility] [id number] Encounter Problem Com mon for Spirit [facility]necologi [facility] finding [id number] Cystocele Problem Com mon and Spirit rectocele - [facility] with [facility] uterovagin [facility] prolapse Peripheral PAD Problem Commo n vascular (periphera Spir it disease l artery - CHI disease) [facility] [id number] Body mass Problem Com mon index [facility] [BMI] - [facility] 31.0-31.9, [facility] [id number] Other Problem Common obesity Spirit due to - [facility] excess [facility] Allergies, Adverse Reactions, Alerts Allergy Allergy Status Severity Reaction(s) Onset Inactive Treating Comm ents Source Name Type Date Date Clinician NO KNOWN Drug Active Univers ALLERGIE Class ity of S [facility] buspiron buspiron Active failed Common e e therapy [facility] sertrali sertrali Active failed Common ne ne therapy [facility] fluoxeti fluoxeti Active failed Common ne ne therapy [facility] paroxeti paroxeti Active failed Common ne ne therapy [facility] Social History Social Habit Start Date Stop Date Quantity Comments Source History of Tobacco Current Smoker Co mmon Spirit - [facility] Use [facility] Sex Assigned At Com mon Spirit - [facility] Smoking Status Start Date Stop Date Source Current Smoker 2023-03-12 00:00:00 Common Spiri t - [facility] Medications Ordered Filled Start Stop Current Ordering Indication Dosage Frequency Signature Comments Components Source Medication Medication Date Date Medication? Clinician (SIG) Name Name Varenicline Varenicline 2021- No BID Vareniclin Tartrate Tartrate 04-09 e Tartrate 0.5 MG X 11 0.5 MG X 11 00:00: 00:00 0.5 MG X & 1 MG X 42 & 1 MG X 42 00 :00 11 & 1 MG X 42 Nicotine 21 Nicotine 21 2021- No 1{patch QD Nicotine MG/24HR MG/24HR 03-12 _to_ski 21 MG/24HR 00:00: 00:00 n} 00 :00 Nicotine 21 Nicotine 21 2021- No 1{patch QD Nicotine MG/24HR MG/24HR 03-12 _to_ski 21 MG/24HR 00:00: 00:00 n} 00 :00 Nicotine 21 Nicotine 21 2021- No 1{patch QD Nicotine MG/24HR MG/24HR 03-12 _to_ski 21 MG/24HR 00:00: 00:00 n} 00 :00 Bupivicaine Bupivicaine 2018-0 No 2.5mg Common [place]- Spirit 00:00: - [facility] Depo Medrol Depo Medrol 2019-0 No 40mg Common (40mg) (40mg) 09-24 Spirit 00:00: - [facility] Bupivicaine Bupivicaine 2019-0 No 2.5mg Common [place]- Spirit 00:00: - [facility] Depo Medrol Depo Medrol 2019-0 No 40mg Common (40mg) (40mg) 09-24 Spirit 00:00: - [facility] Bupivicaine Bupivicaine 2019-0 No 2.5mg Common [place] 2-13 Spirit 00:00: - [facility] Depo Medrol Depo Medrol 2019-0 No 40mg Common (40mg) (40mg) 2 Spirit 00:00: - [facility] Bupivicaine Bupivicaine 2019-0 No 2.5mg Common [place] 2-13 Spirit 00:00: - [facility] 00 [facility] Depo Medrol Depo Medrol 0 No 40mg Common (40mg) (40mg) 09-24 Spirit 00:00: - [facility] Bupivicaine Bupivicaine 2018-0 No 2.5mg Common [place] 2 Spirit 00:00: - [facility] Depo Medrol Depo Medrol 0 No 40mg Common (40mg) (40mg) 09-24 Spirit 00:00: - [facility] Bupivicaine Bupivicaine 2018-0 No 2.5mg Common [place] 09-24 Spirit 00:00: - [facility] Depo Medrol Depo Medrol No 40mg Common (40mg) (40mg) 09-24 Spirit 00:00: - [facility] Bupivicaine Bupivicaine 0 No 2.5mg Common [place] 2 Spirit 00:00: - [facility] Depo Medrol Depo Medrol No 40mg Common (40mg) (40mg) 09-24 Spirit 00:00: - [facility] Ibuprofen Ibuprofen Yes Inessa 1 tablet Common [place] with food Spirit or milk as - [facility]I needed [facility] BuSpar BuSpar Yes Inessa 1 tablet Common [place] [facility] Atorvastati Atorvastati Yes Inessa 1 tablet Common n Calcium n Calcium [place] Spir it - [facility] Prilosec Prilosec Yes Inessa 1 capsule C ommon [place] [facility] busPIRone busPIRone No 1{table BID busPIRone HCl 10 MG HCl 10 MG t} HCl 10 MG Ibuprofen Ibuprofen No TID Ibuprofen 800 MG 800 MG 800 MG busPIRone busPIRone No 1{table BID busPIRone HCl 10 MG HCl 10 MG t} HCl 10 MG Ibuprofen Ibuprofen No TID Ibuprofen 800 MG 800 MG 800 MG busPIRone busPIRone No 1{table BID busPIRone HCl 10 MG HCl 10 MG t} HCl 10 MG Ibuprofen Ibuprofen No TID Ibuprofen 800 MG 800 MG 800 MG busPIRone busPIRone No 1{table BID busPIRone HCl 10 MG HCl 10 MG t} HCl 10 MG Ibuprofen Ibuprofen No TID Ibuprofen 800 MG 800 MG 800 MG Wellbutrin Wellbutrin No Wellbutrin busPIRone busPIRone No 1{table BID busPIRone HCl 10 MG HCl 10 MG t} HCl 10 MG Ibuprofen Ibuprofen No TID Ibuprofen 800 MG 800 MG 800 MG Wellbutrin Wellbutrin No Wellbutrin Wellbutrin Wellbutrin No Wellbutrin Ibuprofen Ibuprofen No TID Ibuprofen 800 MG 800 MG 800 MG busPIRone busPIRone No 1{table BID busPIRone HCl 10 MG HCl 10 MG t} HCl 10 MG Atorvastati Atorvastati No 1{table QD Atorvastat n Calcium n Calcium t} in Calcium 20 MG 20 MG 20 MG busPIRone busPIRone No 1{table BID busPIRone HCl 10 MG HCl 10 MG t} HCl 10 MG buPROPion buPROPion No 1{table QD buPROPion HCl ER (SR) HCl ER (SR) t_in_th HCl ER 150 MG 150 MG e_morni (SR) 150 ng} MG PriLOSEC 40 PriLOSEC 40 No 1{capsu QD PriLOSEC MG MG le} 40 MG BuSpar 5 MG BuSpar 5 MG No 1{table BID BuSpar 5 t} MG Ibuprofen Ibuprofen No TID Ibuprofen 800 MG 800 MG 800 MG Atorvastati Atorvastati No 1{table QD Atorvastat n Calcium n Calcium t} in Calcium 20 MG 20 MG 20 MG busPIRone busPIRone No 1{table BID busPIRone HCl 10 MG HCl 10 MG t} HCl 10 MG buPROPion buPROPion No 1{table QD buPROPion HCl ER (SR) HCl ER (SR) t_in_th HCl ER 150 MG 150 MG e_morni (SR) 150 ng} MG PriLOSEC 40 PriLOSEC 40 No 1{capsu QD PriLOSEC MG MG le} 40 MG BuSpar 5 MG BuSpar 5 MG No 1{table BID BuSpar 5 t} MG Ibuprofen Ibuprofen No TID Ibuprofen 800 MG 800 MG 800 MG busPIRone busPIRone No 1{table BID busPIRone HCl 10 MG HCl 10 MG t} HCl 10 MG Ibuprofen Ibuprofen No TID Ibuprofen 800 MG 800 MG 800 MG Vital Signs Vital Name Observation Time Observation Value Comments Source height 2022-09-05 10:50:00 64.5 [in_i] [facility] 2022-09-05 10:50:00 187.9 [lb_av] [facility] temperature 2022-09-05 10:50:00 97.3 [degF] Common S [facility] bmi 2022-09-05 10:50:00 31.75 kg/m2 Common S pirit [facility] oximetry 2022-09-05 10:50:00 98 % Common S [facility] respiratory rate 2022-09-05 10:50:00 18 /min Comm on [facility] blood pressure 2022-09-05 10:50:00 123 mm[Hg] Common [facility] - systolic [facility] blood pressure 2022-09-05 10:50:00 71 mm[Hg] Common [facility] - diastolic [facility] height 2022-04-09 09:40:00 64.5 [in_i] Common S [facility] weight 2022-04-09 09:40:00 188.4 [lb_av] [facility] temperature 2022-04-09 09:40:00 97.6 [degF] Common S [facility] bmi 2022-04-09 09:40:00 31.84 kg/m2 [facility] S [facility] oximetry 2022-04-09 09:40:00 97 % Common S [facility] respiratory rate 2022-04-09 09:40:00 17 /min Comm on [facility] blood pressure 2022-04-09 09:40:00 121 mm[Hg] Common Spirit - systolic [facility] blood pressure 2022-04-09 09:40:00 79 mm[Hg] Common Spirit - diastolic [facility] blood pressure 2022-03-12 09:00:00 109 mm[Hg] Common Spirit - systolic [facility] blood pressure 2022-03-12 09:00:00 59 mm[Hg] Common Spirit - diastolic [facility] height 2022-03-12 09:00:00 64.5 [in_i] Common [facility] weight 2022-03-12 09:00:00 186 [lb_av] Common [facility] temperature 2022-03-12 09:00:00 97.6 [degF] Common S [facility] bmi 2022-03-12 09:00:00 31.43 kg/m2 Common S [facility] oximetry 2022-03-12 09:00:00 96 % [facility] respiratory rate 2022-03-12 09:00:00 16 /min Comm on [facility] height 2022-03-12 09:20:00 64.5 [in_i] Common [facility] weight 2022-03-12 09:20:00 186 [lb_av] [facility] temperature 2022-03-12 09:20:00 97.6 [degF] [facility] bmi 2022-03-12 09:20:00 31.43 kg/m2 [facility] oximetry 2022-03-12 09:20:00 96 % [facility] respiratory rate 2022-03-12 09:20:00 16 /min Comm on [facility] blood pressure 2022-03-12 09:20:00 109 mm[Hg] Common [facility] - systolic [facility] blood pressure 2022-03-12 09:20:00 59 mm[Hg] Common [facility] diastolic [facility] height 2021-04-11 13:00:00 64.5 [in_i] Common [facility] weight 2021-04-11 13:00:00 198 [lb_av] [facility] temperature 2021-04-11 13:00:00 98 [degF] Common [facility] bmi 2021-04-11 13:00:00 33.46 kg/m2 [facility] pressure 2021-04-11 13:00:00 121 mm[Hg] Common Spirit - systolic [facility] blood pressure 2021-04-11 13:00:00 76 mm[Hg] Common [facility] - diastolic [facility] height 2021-02-06 10:40:00 64.5 [in_i] Common S [facility] weight 2021-02-06 10:40:00 214.7 [lb_av] [facility] temperature 2021-02-06 10:40:00 97.4 [degF] [facility] bmi 2021-02-06 10:40:00 36.28 kg/m2 [facility] oximetry 2021-02-06 10:40:00 95 % [facility] respiratory rate 2021-02-06 10:40:00 18 /min Comm on [facility] blood pressure 2021-02-06 10:40:00 105 mm[Hg] Common [facility] - systolic [facility] blood pressure 2021-02-06 10:40:00 59 mm[Hg] [facility] diastolic [facility] Procedures This patient has no known procedures. Encounters Start End Encounter Admission Attending Care Care Encounter Source Date/Time Date/Time Type Type Clinicians Facility Department ID 2022-12-04 Outpatient Nash, STLMLC STLC [id number] Common 08:25:00 Emanuel [id number] [facility] 2021-09-06 Outpatient Nash, STLMLC STLMLC [id number] Common 14:16:46 Emanuel 20300 [facility] 2021-09-06 Outpatient Nash, STLMLC STLMLC [id number] Common 13:44:28 Emanule [id number] [facility] 2021-09-06 Outpatient Nash, STLMLC STLMLC [id number] Common 13:27:59 Emanuel 14039 [facility] 2021-09-06 Outpatient Nash, STLMLC STLMLC [id number] Common 13:19:36 Emanuel [id number] [facility] 2021-09-06 Outpatient STLMLC STLMLC [id number] Common 13:19:19 [id number] [facility] 2021-09-06 Outpatient STLMLC STLMLC [id number] Common 13:17:47 [id number] [facility] 2021-09-06 Outpatient [place], STLMLC STLMLC [id number] Common 13:14:04 Inessa [id number] [facility] 2022-10-09 2022-10-09 (TEL) STLMLC STLMLC [id number] Co mmon 00:00:00 00:00:00 [facility] 2022-09-05 2022-09-05 OFFICE STLMLC STLMLC [id number] Co mmon 00:00:00 00:00:00 VISIT EST Spir it PT LEVEL 3 - [facility] 2022-04-09 2022-04-09 OFFICE STLMLC STLMLC [id number] Co mmon 00:00:00 00:00:00 VISIT Spirit ESTAB PT - CHI LEVEL 4 [facility] 2022-03-12 2022-03-12 OFFICE STLMLC STLMLC [id number] Co mmon 00:00:00 00:00:00 VISIT Spirit ESTAB PT - CHI LEVEL 4 [facility] 2022-03-12 2022-03-12 SUB ANNUAL STLMLC STLMLC [id number] Common 00:00:00 00:00:00 MCR [facility] WELLNESS - CHI VISIT [facility] 2022-03-12 2022-03-12 (TEL) STLMLC STLMLC [id number] Co mmon 00:00:00 00:00:00 [facility] 2021-06-30 2021-06-30 (TEL) STLMLC STLMLC [id number] Co mmon 00:00:00 00:00:00 [facility] 2021-04-11 2021-04-11 OFFICE STLMLC STLMLC [id number] Co mmon 00:00:00 00:00:00 VISIT Spirit ESTAB PT - CHI LEVEL 4 [facility] 2021-03-08 2021-03-08 Outpatient STLMLC STLMLC [id number] Common 00:00:00 00:00:00 Spirit - [facility] 2021-02-06 2021-02-06 OFFICE STLMLC STLMLC [id number] Co mmon 00:00:00 00:00:00 VISIT Spirit ESTAB PT - CHI LEVEL 4 [facility] 2020-11-26 2020-11-26 Outpatient Medina ABDALLA [facility] [id number] [facility] 10:05:00 10:05:00 WYATT ity [facility] 2020-02-03 2020-02-03 [facility] [id number] Common 13:45:00 13:45:00 [facility] [address] Road [facility] 2019-05-07 2019-05-07 Out[facility] [id number] Common 16:52:00 16:52:00 [facility] Spir it Road [facility] 2019-05-07 2019-05-07 [facility] [id number] Common 13:20:00 13:20:00 t [facility] Spir it Road [facility] 2018-10-27 2018-10-27 Outpatient [facility] [id number] Common 14:00:00 14:00:00 [facility] 2018-09-24 2018-09-24 [facility] [id number] Common 08:30:00 08:30:00 t [facility] Joint - [facility] 2018-09-08 2018-09-08 [facility] [id number] Common 09:32:00 09:32:00 t [facility] Spir it Road [facility] 2018-05-05 2018-05-05 [facility] [id number] Common 09:45:00 09:45:00 t [facility] Spir it Road [facility] Results This patient has no known results.
[2023-06-06 06:49] LABS: Absolute Lymphocytes (CBC) 0.3 K/uL (0.7-4.9); Hematocrit 44.8 % (36.0-45.0); Lymphocytes % 5.3 % (15.3-44.8); MCV 94.1 fL (80-100); MPV 9.9 fL (7.6-11.3); Platelets 171 thou/uL (152-406); RBC Red Blood Cell Count 4.76 M/uL (3.86-4.86)
[2023-06-06] MEDS ORDERED: HYDROCODONE/APAP 10/325 TAB ONE (06:50)
[2023-06-06] MEDS ORDERED: CYCLOBENZAPRINE 10 MG TAB ONE (06:50)
[2023-06-06] MEDS ORDERED: KETOROLAC 30 MG/ML INJ ONE (06:51)
[2023-06-06] MEDS ORDERED: ONDANSETRON 4 MG/2 ML VIAL ONE (06:51)
[2023-06-06 06:52] LABS: Specific Gravity 1.014 (1.005-1.030); Urine Bacteria None Seen /HPF (<20); Urine Bilirubin NEGATIVE (Negative); Urine Blood 2+ (Negative); Urine Clarity Clear (Clear); Urine Color Light-Yellow (Yellow); Urine Glucose NEGATIVE (Negative); Urine Mucus Slight /HPF (None Seen); Urine Protein NEGATIVE (Negative); Urine RBC <5 /HPF (None Seen); Urine Urobilinogen Normal (Normal); Urine pH 5.5 (5.0-7.0)
[2023-06-06 07:08] LABS: Albumin 3.6 g/dL (3.4-5.0); Bilirubin Total 0.5 mg/dL (0.2-1.0); Potassium 3.7 mEq/L (3.5-5.1); Protein, Total 7.2 g/dL (6.4-8.2)
--- NOTE | 2023-06-06 08:10 | RAD REPORT ---
EXAM DESCRIPTION: CT - Stone Protocol - 06/06/2023 6:54 am CLINICAL HISTORY: Flank pain. acute back pain COMPARISON: Abdomen Pelvis W Contrast dated 01/19/2021; Lung Cancer Screening CT W/O dated 3 TECHNIQUE: Axial images were obtained without oral or IV contrast. Lack of contrast limits solid org an and vascular assessment. The [id number] spans the entirety of the system partially obscuring uppermost abdomen and lung bases. Coronal reformatted images were obtained and reviewed. All CT scans are performed using dose optimization technique as appropriate and may include automated exposure control or mA/KV adjustment according to patient size. FINDINGS: Small pulmonary nodules seen in lung bases. Cholecystectomy clips. Imaged portions of the liver and spleen show no suspicious findings on non-contrast imaging. The panc reas and adrenal glands are normal. No pathologic lymphadenopathy in the abdomen or pelvis. No urinary tract stones or obstructive uropathy. No bowel obstruction, free air, free fluid or abscess. Normal appendix noted.Mild sigmoid diverticulo sis coli without diverticulitis. Moderate L5-S1 degenerative spondylosis IMPRESSION: No urinary tract stones or obstructive uropathy.
--- NOTE | 2023-06-06 08:39 | EDPHYS ---
Physician Documentation [facility] Name: Juan J Velez Age: 57 yrs Sex: Female : 1965 Arrival Date: 06/06/2023 Time: 06:15 Bed 6 Private MD: ED Physician Tanmay Nash HPI: 06/06 06:21 This 57 yrs old Female presents to ER via Unassigned with complaints of Low sp4 Back Pain, Urinary Incontinence, Headache. 06:21 PMH - Allergies: NKDA; Home Meds: None; PMHx: PTSD; Depression; Bipolar disorder; sp4 Anxiety PSHx: Appendectomy; Cholecystectomy; ;. 06:54 56-year-old female presents with lower back pain starting 2 weeks ago associated with sp4 some urinary incontinence . Patient states her urine is simply gushes out periodically she denied any pain or burning with urination denies cloudy or bloody urine. Denied fever. Patient also reports concurrent headache. Historical: - Allergies: 06:46 NKDA; jw7 - Home Meds: 06:46 None [Active]; jw7 - PMHx: 06:46 Anxiety; Bipolar disorder; Depression; PTSD; jw7 - PSHx: 06:46 None; jw7 - Immunization history:: Adult Immunizations up to date, Client reports receiving the 2nd dose of the Covid vaccine, Flu vaccine is not up to date. It has been more than one year since last vaccine. - Social history:: Smoking status: Patient reports the use of cigarette tobacco products, smokes one-half pack cigarettes per day. - Family history:: not pertinent. ROS: 06:54 Constitutional: Negative for fever, chills, and weight loss, positive lower back pain, sp4 positive urinary incontinence, positive headache 06:54 All other systems are negative, Exam: 06:54 Constitutional: This is a well developed, well nourished patient who is awake, alert, sp4 and in no acute distress. Head/Face: Normocephalic, atraumatic. Eyes: Pupils equal round and reactive to light, extra-ocular motions intact. Lids and lashes normal. Conjunctiva and sclera are not injected. Cornea within normal limits. Periorbital areas with no swelling, redness, or edema. ENT: Nares patent. No nasal discharge, no septal abnormalities noted. Tympanic membranes are normal and external auditory canals are clear. Oropharynx with no redness, swelling, or masses, exudates, or evidence of obstruction, uvula midline. Mucous membranes moist. Neck: Trachea midline, no thyromegaly or masses palpated, and no cervical lymphadenopathy. Supple, full range of motion without nuchal rigidity, or vertebral point tenderness. Chest/axilla: Normal chest wall appearance and motion. Nontender with no deformity. No lesions are appreciated. Cardiovascular: Regular rate and rhythm with a normal S1 and S2. No gallops, murmurs, or rubs. Normal PMI, no JVD. No pulse deficits. Respiratory: Lungs have equal breath sounds bilaterally, clear to auscultation and percussion. No rales, rhonchi or wheezes noted. No increased work of breathing, no retractions or nasal flaring. Abdomen/GI: Soft, non-tender, with normal bowel sounds. No distension or tympany. No guarding or rebound. No evidence of tenderness throughout. Back: No spinal tenderness. No costovertebral tenderness. Skin: Warm, dry with normal turgor. Normal color with no rashes, no lesions, and no evidence of cellulitis. MS/ Extremity: Pulses equal, no cyanosis. Neurovascular intact. Full, normal range of motion. Neuro: Awake and alert, GCS 15, oriented to person, place, time, and situation. Cranial nerves II-XII grossly intact. Motor strength 5/5 in all extremities. Sensory grossly intact. Psych: Awake, alert, with orientation to person, place and time. Behavior, mood, and affect are within normal limits Vital Signs: 06:39 BP 109 / 68; Pulse 110 MON; Resp 20 S; Temp 99.7(O); Pulse Ox 96% on R/A; Weight 86.18 jw7 kg; Height 5 ft. 4 in. ; Pain 7/10; 08:32 BP 96 / 50; Pulse 93; Resp 16 S; Pulse Ox 100% on R/A; kc6 06:39 Body Mass Index 32.61 (86.18 kg, 162.56 cm) [facility] 06:39 Pain Scale: Adult 7 MDM: 06:40 Patient medically screened. sp4 06:55 Differential diagnosis: strain, fracture, contusion, Herniated disc UTI. Data reviewed: sp4 vital signs, nurses notes, old medical records, lab test result(s), radiologic studies, CT scan. Consideration of Admission/Observation Escalation of care including admission/observation considered. 06:55 Transition of care: After a detail discussion of the patient's case, care is sp4 transferred to Tanmay Nash MD. 08:38 ED course: CT demonstrates no significant abnormality. We will safely discharge her sp3 home at this time.. 06/06 06:27 Order name: CBC with Diff; Complete Time: 06:56 sp4 06/06 06:27 Order name: CMP; Complete Time: 07:34 sp4 06/06 06:27 Order name: Lipase; Complete Time: 07:34 sp4 06/06 06:27 Order name: Urinalysis w/ reflexes; Complete Time: 06:56 sp4 06/06 06:33 Order name: Stone Protocol; Complete Time: 08:26 EDMS 06/06 06:27 Order name: IV Saline Lock; Complete Time: 06:43 sp4 06/06 06:27 Order name: Labs collected and sent; Complete Time: 06:43 sp4 Administered Medications: 06:40 Drug: Ondansetron IVP 4 mg IVP once; over 2 minutes Route: IVP; Site: left antecubital; ha1 08:35 Follow up: Response: No adverse reaction; Nausea is decreased kc6 06:42 Drug: Beebe PO 10 mg-325 mg 1 tabs PO once Route: PO; ha1 08:35 Follow up: Response: No adverse reaction; Pain is decreased; RASS: Alert and Calm (0) kc6 06:43 Drug: TORadol - Ketorolac IVP 30 mg IVP once Route: IVP; Site: left antecubital; ha1 08:35 Follow up: Response: No adverse reaction; Pain is decreased kc6 06:43 Drug: Cyclobenzaprine PO 10 mg PO once Route: PO; ha1 08:35 Follow up: Response: No adverse reaction; Pain is decreased kc6 Disposition Summary: 06/06/23 08:39 Discharge Ordered Notes: Location: Home sp3 Condition: Stable sp3 Diagnosis - Abdominal pain, Generalized sp3 Followup: sp3 - With: Private Physician - When: Upon discharge from the Emergency Department - Reason: Continuance of care Discharge Instructions: - Discharge Summary Sheet sp3 - Abdominal Pain, Adult sp3 Forms: - Medication Reconciliation Form sp3 - Thank You Letter sp3 - Antibiotic Education sp3 - Prescription Opioid Use sp3 - Patient Portal Instructions sp3 - Leadership Thank You Letter sp3 Signatures: Dispatcher [employer] EDMS Tanmay Nash MD MD sp3 Kathryn Boggs RN RN jw7 Deepa Powers RN RN ha1 Ankur Kim MD MD sp4 Mari Lee RN kc6 Corrections: (The following items were deleted from the chart) 06:33 06:28 Abdomen Pelvis Wo Con+CT.RAD.BRZ ordered. EDMS EDMS
--- NOTE | 2023-06-06 08:39 | ER ---
Nurse's Notes [facility] Name: Juan J Velez Age: 57 yrs Sex: Female : 1965 Arrival Date: 06/06/2023 Time: 06:15 Bed 6 Private MD: Diagnosis: Abdominal pain, Generalized Presentation: 06/06 06:39 Chief complaint: Patient states: I've had lower back pain for a couple weeks, just jw7 started getting real severe last night, with urinary incontinence, and a headache that started this morning. Coronavirus screen: At this time, the client does not indicate any symptoms associated with coronavirus-19. Ebola Screen: No symptoms or risks identified at this time. Initial Sepsis Screen: Does the patient meet any 2 criteria? No. Patient's initial sepsis screen is negative. Does the patient have a suspected source of infection? No. Patient's initial sepsis screen is negative. Risk Assessment: Do you want to hurt yourself or someone else? Patient reports no desire to harm self or others. Onset of symptoms was June 05, 2023. 06:39 Acuity: KORINA 3 jw7 06:39 Method Of Arrival: Ambulatory [facility] Triage Assessment: 06:41 Headache History: The patient has had previous headaches and this one is different than [facility] previous episodes. General: Appears in no apparent distress. uncomfortable, Behavior is calm, cooperative. Pain: Complains of pain in head Pain does not radiate. Pain currently is 7 out of 10 on a pain scale. Quality of pain is described as sharp, piercing, Pain began 1 day ago. Is intermittent, Also complains of nausea. EENT: No deficits noted. No signs and/or symptoms were reported regarding the EENT system. Neuro: Power Agitation-Sedation Scale (RASS): 0 - Alert and Calm Level of Consciousness is awake, alert, Oriented to person, time. Cardiovascular: No deficits noted. Respiratory: No deficits noted. GI: No deficits noted. : Reports incontinence, since last night, started with the severe pain to lower back. Derm: No signs and/or symptoms reported regarding the dermatologic system. Skin is intact, is healthy with good turgor, Skin is dry, Skin is normal, Skin temperature is warm. Musculoskeletal: No deficits noted. No signs and/or symptoms reported regarding the musculoskeletal system. Historical: - Allergies: 06:46 NKDA; jw7 - Home Meds: 06:46 None [Active]; jw7 - PMHx: 06:46 Anxiety; Bipolar disorder; Depression; PTSD; jw7 - PSHx: 06:46 None; jw7 - Immunization history:: Adult Immunizations up to date, Client reports receiving the 2nd dose of the Covid vaccine, Flu vaccine is not up to date. It has been more than one year since last vaccine. - Social history:: Smoking status: Patient reports the use of cigarette tobacco products, smokes one-half pack cigarettes per day. - Family history:: not pertinent. Screenin:38 [facility] ED Fall Risk Assessment (Adult) History of falling in the last 3 months, jw7 including since admission No falls in past 3 months (0 pts) Score/Fall Risk Level 0 - 2 = Low Risk Oriented to surroundings, Maintained a safe environment. Abuse screen: Denies threats or abuse. Denies injuries from another. Nutritional screening: No deficits noted. Tuberculosis screening: No symptoms or risk factors identified. Assessment: 06:47 General: see triage assessment. jw7 07:00 Reassessment: Patient appears in no apparent distress at this time. No changes from [facility] previously documented assessment. Patient and/or family updated on plan of care and expected duration. Pain level reassessed. Patient is alert, oriented x 3, equal unlabored respirations, skin warm/dry/pink. 08:00 Reassessment: Patient appears in no apparent distress at this time. No changes from 6 previously documented assessment. Patient and/or family updated on plan of care and expected duration. Pain level reassessed. Patient is alert, oriented x 3, equal unlabored respirations, skin warm/dry/pink. Vital Signs: 06:39 BP 109 / 68; Pulse 110 MON; Resp 20 S; Temp 99.7(O); Pulse Ox 96% on R/A; Weight 86.18 jw7 kg; Height 5 ft. 4 in. ; Pain 7/10; 08:32 BP 96 / 50; Pulse 93; Resp 16 S; Pulse Ox 100% on R/A; kc6 06:39 Body Mass Index 32.61 (86.18 kg, 162.56 cm) 7 06:39 Pain Scale: Adult [facility] ED Course: 06:18 Patient arrived in ED. jj6 06:21 Ankur Kim MD is Attending Physician. sp4 06:38 Patient has correct armband on for positive identification. Bed in low position. Call jw7 light in reach. Side rails up X2. 06:38 Urine collected: clean catch specimen, clear. jw7 06:41 Triage completed. jw7 06:41 Arm band placed on. jw7 06:56 Stone Protocol In Process Unspecified. EDMS 07:00 Report received from JOSEFINA Valles \T\ Deepa Powers RN. kc6 07:08 Attending Physician role handed off by Ankur Kim MD sp3 07:08 Tanmay Nash MD is Attending Physician. sp3 07:35 Mali Camacho RN is Primary Nurse. ph 08:50 No provider procedures requiring assistance completed. IV discontinued, intact, kc6 bleeding controlled, No redness/swelling at site. Pressure dressing applied. Administered Medications: 06:40 Drug: Ondansetron IVP 4 mg IVP once; over 2 minutes Route: IVP; Site: left antecubital; ha1 08:35 Follow up: Response: No adverse reaction; Nausea is decreased kc6 06:42 Drug: [place] PO 10 mg-325 mg 1 tabs PO once Route: PO; ha1 08:35 Follow up: Response: No adverse reaction; Pain is decreased; RASS: Alert and Calm (0) kc6 06:43 Drug: TORadol - Ketorolac IVP 30 mg IVP once Route: IVP; Site: left antecubital; ha1 08:35 Follow up: Response: No adverse reaction; Pain is decreased kc6 06:43 Drug: Cyclobenzaprine PO 10 mg PO once Route: PO; ha1 08:35 Follow up: Response: No adverse reaction; Pain is decreased kc6 Medication: 08:50 VIS not applicable for this client. kc6 Outcome: 08:39 Discharge ordered by . sp3 08:50 Discharged to home ambulatory, kc6 08:50 Condition: improved 08:50 Discharge instructions given to patient, Instructed on discharge instructions, follow up and referral plans. Demonstrated understanding of instructions, follow-up care, 08:50 Patient left the ED. kc6 Signatures: Dispatcher [employer] EDOR Mali Camacho RN RN ph Tanmay Nash MD MD sp3 Marcia Bradleyj6 Kathryn Boggs RN RN jw7 Deepa Powers RN RN ha1 Mari Lee RN RN kc6 Ankur Kim MD MD sp4
[2023-06-06 16:26] VITALS: BP 96/50; TEMP 99.7; O2SAT 100
== END 2023-06-06 08:50 | disposition home or self-care (01) ==
LOC: ER 06:15
DX: R10.84 Generalized abdominal pain (principal); R32 Unspecified urinary incontinence; F17.210 Nicotine dependence, cigarettes, uncomplicated; F41.9 Anxiety disorder, unspecified; F43.10 Post-traumatic stress disorder, unspecified
CPT/HCPCS: 85025; 81001; 36415; 83690; 80053; 76377; 74176; J2405

== ENCOUNTER 2023-07-14 09:37 | Emergency (ER) | payer OTHER ==
--- OUTSIDE RECORDS SUMMARY | 2023-07-14 09:41 | XMS REPORT | Continuity of Care Document ---
:1965 Author Organization [facility] t Address [address] [facility] [address] [place] [address] Care Team Providers Name Role Phone Emanuel Nash Attending Clinician Unavailable Inessa Stern Attending Clinician Unavailable WYATT ABDALLA Attending Clinician Unavailable Payers Payer Name Policy Type Policy Number Effective Date Expiration Date S paulo HUMANA MEDICARE C1 [id number] Common Sp palak [facility] [id number] Common Spirit [facility] HUMANA MEDICARE C1 [id number] Common Sp palak [facility] [id number] [facility] MEDICARE PART A [id number] 2006 \T\ B 00:00:00 MEDICAID [id number] 2017 [place] 00:00:00 Problems Condition Condition Condition Status Onset Resolution Last Treating Co mments Source Name Details Category Date Date Treatment Clinician Date 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 - [facility] 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 - [facility] without [facility] Chronic Chronic Problem Common pain pain Spirit syndrome syndrome - [facility] Nicotine Nicotine Problem Commo n dependence dependence Sp palak [facility] Knee pain Knee pain Problem Com mon Spirit - [facility] Hyperlipid Hyperlipem Problem C ommon aemia ia Spirit [facility] [id number] 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 Medical abnormal Center finding [id number] Cystocele Problem Com mon and Spirit rectocele - [facility] with [facility] uterovagin [facility] prolapse Peripheral PAD Problem Commo n vascular (periphera Spir it disease l artery - CHI disease) [facility] [id number] Body mass Problem Com mon index [facility] [BMI] - [facility] 31.0-31.9, [facility] [id number] Other Problem Common obesity Spirit due to - CHI excess [facility] Allergies, Adverse Reactions, Alerts Allergy Allergy Status Severity Reaction(s) Onset Inactive Treating Comm ents Source Name Type Date Date Clinician NO KNOWN Drug Active Univers ALLERGIE Class ity of S [facility] buspiron buspiron Active failed Common e e therapy [facility] sertrali sertrali Active failed Common ne ne therapy [facility] fluoxeti fluoxeti Active failed Common ne ne therapy [facility] paroxeti paroxeti Active failed Common ne ne therapy [facility] Social History Social Habit Start Date Stop Date Quantity Comments Source History of Tobacco Current Smoker Co mmon Spirit - CHI Use [facility] Sex Assigned At Com mon Spirit - [facility] Smoking Status Start Date Stop Date Source Current Smoker 2023-03-12 00:00:00 Common Spiri t - [facility] Medications Ordered Filled Start Stop Current Ordering [...] :00 Bupivicaine Bupivicaine 2018-0 No 2.5mg Common [place] Lincoln 2- Spirit 00:00: - [facility] Depo Medrol Depo Medrol 2019-0 No 40mg Common (40mg) (40mg) 09-24 Spirit 00:00: - [facility] Bupivicaine Bupivicaine 2019-0 No 2.5mg Common [place] Lincoln 2- Spirit 00:00: - [facility] Depo Medrol Depo Medrol 2019-0 No 40mg Common (40mg) (40mg) 09-24 Spirit 00:00: - [facility] Bupivicaine Bupivicaine 2019-0 No 2.5mg Common [place] Lincoln 2-13 Spirit 00:00: - [facility] Depo Medrol Depo Medrol 2019-0 No 40mg Common (40mg) (40mg) 2 Spirit 00:00: - [facility] Bupivicaine Bupivicaine 2019-0 No 2.5mg Common [place] Lincoln 2-13 Spirit 00:00: - CHI 00 [facility] Depo Medrol Depo Medrol 0 No 40mg Common (40mg) (40mg) 2 Spirit 00:00: - [facility] Bupivicaine Bupivicaine 2019-0 No 2.5mg Common [place] Lincoln 2- Spirit 00:00: - [facility] Depo Medrol Depo Medrol 0 No 40mg Common (40mg) (40mg) 09-24 Spirit 00:00: - [facility] Bupivicaine Bupivicaine 2018-0 No 2.5mg Common [place] Lincoln 2- Spirit 00:00: - [facility] Depo Medrol Depo Medrol 0 No 40mg Common (40mg) (40mg) 09-24 Spirit 00:00: - [facility] Bupivicaine Bupivicaine 2018-0 No 2.5mg Common [place] 2 Spirit 00:00: - [facility] Depo Medrol Depo Medrol 0 No 40mg Common (40mg) (40mg) 09-24 Spirit 00:00: - [facility] Bupivicaine Bupivicaine 2018-0 No 2.5mg Common [place] 2 Spirit 00:00: - [facility] Depo Medrol Depo Medrol 0 No 40mg Common (40mg) (40mg) 09-24 Spirit 00:00: - [facility] Ibuprofen Ibuprofen Yes Inessa 1 tablet Common [place] with food Spirit or milk as - CHI needed [facility] BuSpar BuSpar Yes Inessa 1 tablet Common [place] Spirit [facility] Atorvastati Atorvastati Yes Inessa 1 tablet Common n Calcium n Calcium [place] Spir it - [facility] Prilosec Prilosec Yes Inessa 1 capsule C ommon [place] [facility] busPIRone busPIRone No 1{table BID busPIRone HCl [...] HCl 10 MG t} HCl 10 MG Wellbutrin Wellbutrin No Wellbutrin Ibuprofen Ibuprofen No [...] Observation Time Observation Value Comments Source height 2022-12-06 10:20:00 64.5 [in_i] [facility] weight 2022-12-06 10:20:00 195.0 [lb_av] [facility] temperature 2022-12-06 10:20:00 96.8 [degF] [facility] bmi 2022-12-06 10:20:00 32.95 kg/m2 [facility] oximetry 2022-12-06 10:20:00 98 % [facility] respiratory rate 2022-12-06 10:20:00 16 /min Comm on [facility] blood pressure 2022-12-06 10:20:00 102 mm[Hg] [facility] - systolic [facility] blood pressure 2022-12-06 10:20:00 56 mm[Hg] [facility] - diastolic [facility] height 2022-09-05 10:50:00 64.5 [in_i] [facility] weight 2022-09-05 10:50:00 187.9 [lb_av] [facility] temperature 2022-09-05 10:50:00 97.3 [degF] [facility] bmi 2022-09-05 10:50:00 31.75 kg/m2 [facility] oximetry 2022-09-05 10:50:00 98 % [facility] respiratory rate 2022-09-05 10:50:00 18 /min Comm on [facility] blood pressure 2022-09-05 10:50:00 123 mm[Hg] Common [facility] - systolic [facility] blood pressure 2022-09-05 10:50:00 71 mm[Hg] Common Spirit - diastolic [facility] height 2022-04-09 09:40:00 64.5 [in_i] [facility] weight 2022-04-09 09:40:00 188.4 [lb_av] Common [facility] temperature 2022-04-09 09:40:00 97.6 [degF] Common [facility] bmi 2022-04-09 09:40:00 31.84 kg/m2 Common [facility] oximetry 2022-04-09 09:40:00 97 % [facility] respiratory rate 2022-04-09 09:40:00 17 /min Comm on [facility] blood pressure 2022-04-09 09:40:00 121 mm[Hg] Common Spirit - systolic [facility] blood pressure 2022-04-09 09:40:00 79 mm[Hg] Common Spirit - diastolic [facility] blood pressure 2022-03-12 09:00:00 109 mm[Hg] Common [facility] - systolic [facility] blood pressure 2022-03-12 09:00:00 59 mm[Hg] Common Spirit - diastolic [facility] height 2022-03-12 09:00:00 64.5 [in_i] Common S pirit [facility] weight 2022-03-12 09:00:00 186 [lb_av] [facility] temperature 2022-03-12 09:00:00 97.6 [degF] Common [facility] bmi 2022-03-12 09:00:00 31.43 kg/m2 Common [facility] oximetry 2022-03-12 09:00:00 96 % Common [facility] respiratory rate 2022-03-12 09:00:00 16 /min Comm on [facility] height 2022-03-12 09:20:00 64.5 [in_i] Common [facility] weight 2022-03-12 09:20:00 186 [lb_av] Common [facility] temperature 2022-03-12 09:20:00 97.6 [degF] Common [facility] bmi 2022-03-12 09:20:00 31.43 kg/m2 Common [facility] oximetry 2022-03-12 09:20:00 96 % Common [facility] respiratory rate 2022-03-12 09:20:00 16 /min Comm on [facility] blood pressure 2022-03-12 09:20:00 109 mm[Hg] Common [facility] - systolic [facility] blood pressure 2022-03-12 09:20:00 59 mm[Hg] Common Spirit - diastolic [facility] height 2021-04-11 13:00:00 64.5 [in_i] Common [facility] weight 2021-04-11 13:00:00 198 [lb_av] Common [facility] temperature 2021-04-11 13:00:00 98 [degF] Common [facility] bmi 2021-04-11 13:00:00 33.46 kg/m2 Common [facility] blood pressure 2021-04-11 13:00:00 121 mm[Hg] Common Spirit - systolic [facility] blood pressure 2021-04-11 13:00:00 76 mm[Hg] Common Spirit - diastolic [facility] height 2021-02-06 10:40:00 64.5 [in_i] Common [facility] weight 2021-02-06 10:40:00 214.7 [lb_av] Common [facility] temperature 2021-02-06 10:40:00 97.4 [degF] Common S [facility] bmi 2021-02-06 10:40:00 36.28 kg/m2 Common S [facility] oximetry 2021-02-06 10:40:00 95 % Common S [facility] respiratory rate 2021-02-06 10:40:00 18 /min Comm on [facility] blood pressure 2021-02-06 10:40:00 105 mm[Hg] Common [facility] - systolic [facility] blood pressure 2021-02-06 10:40:00 59 mm[Hg] Common [facility] - diastolic [facility] Procedures This patient has no known procedures. Encounters Start End Encounter Admission Attending Care Care Encounter Source Date/Time Date/Time Type Type Clinicians Facility Department ID 2023-07-12 Outpatient Nash, STLMLC STLMLC [id number] Common 10:08:[id number] [facility] 2022-12-04 Outpatient Nash, STLMLC STLMLC [id number] Common 08:25:[id number] [facility] 2021-09-06 Outpatient Nash, STLMLC STLMLC [id number] Common 14:16:[address] [facility] 2021-09-06 Outpatient Nash, STLMLC STLMLC [id number] Common 13:44:[address] [facility] 2021-09-06 Outpatient Nash, STLMLC STLMLC [id number] Common 13:27:[address] [facility] 2021-09-06 Outpatient Nash, STLMLC STLMLC [id number] Common 13:19:[id number] [facility] 2021-09-06 Outpatient STLMLC STLMLC [id number] Common 13:19:[id number] [facility] 2021-09-06 Outpatient STLMLC STLMLC [id number] Common 13:17:[id number] [facility] 2021-09-06 Outpatient [place], STLMLC STLMLC [id number] Common 13:14:04 Inessa [id number] Spirit - [facility] 2022-12-06 2022-12-06 OFFICE STLMLC STLMLC [id number] Co mmon 00:00:00 00:00:00 VISIT Spirit ESTAB PT - CHI LEVEL 4 [facility] 2022-10-09 2022-10-09 (TEL) STLMLC STLMLC [id number] Co mmon 00:00:00 00:00:00 Spirit - [facility] 2022-09-05 2022-09-05 OFFICE STLMLC STLMLC [id number] Co mmon 00:00:00 00:00:00 VISIT EST Spir it PT LEVEL 3 - [facility] 2022-04-09 2022-04-09 OFFICE STLMLC STLMLC [id number] Co mmon 00:00:00 00:00:00 VISIT [facility] ESTAB PT - CHI LEVEL 4 [facility] 2022-03-12 2022-03-12 OFFICE STLMLC STLMLC [id number] Co mmon 00:00:00 00:00:00 VISIT [facility] ESTAB PT - CHI LEVEL 4 [facility] 2022-03-12 2022-03-12 SUB ANNUAL STLMLC STLMLC [id number] Common 00:00:00 00:00:00 MCR [facility] WELLNESS - CHI VISIT [facility] 2022-03-12 2022-03-12 (TEL) STLMLC STLMLC [id number] Co mmon 00:00:00 00:00:00 Spirit - [facility] 2021-06-30 2021-06-30 (TEL) STLMLC STLMLC [id number] Co mmon 00:00:00 00:00:00 Spirit - [facility] 2021-04-11 2021-04-11 OFFICE STLMLC STLMLC [id number] Co mmon 00:00:00 00:00:00 VISIT Spirit ESTAB PT - CHI LEVEL 4 [facility] 2021-03-08 2021-03-08 Outpatient STLMLC STLMLC [id number] Common 00:00:00 00:00:00 Spirit - [facility] 2021-02-06 2021-02-06 OFFICE [facility] [id number] Co mmon 00:00:00 00:00:00 VISIT Spirit ESTAB PT - CHI LEVEL 4 [facility] 2020-11-26 2020-11-26 Outpatient [place] ABDALLA [facility] [id number] Univers 10:05:00 10:05:00 WYATT ity [facility] 2020-02-03 2020-02-03 [facility] [id number] Common 13:45:00 13:45:00 t [facility] Sp[address] [facility] 2019-05-07 2019-05-07 Out[facility] [id number] Common 16:52:00 16:52:00 t [facility] [address] [facility] 2019-05-07 2019-05-07 Out[facility] [id number] Common 13:20:00 13:20:00 [facility] [address] [facility] 2018-10-27 2018-10-27 Outpatient [facility] [id number] Common 14:00:00 14:00:00 [facility] 2018-09-24 2018-09-24 Out[facility] [id number] Common 08:30:00 08:30:00 t [facility] - [facility] 2018-09-08 2018-09-08 Out[facility] [id number] Common 09:32:00 09:32:00 t [facility] Sp[address] [facility] 2018-05-05 2018-05-05 Out[facility] [id number] Common 09:45:00 09:45:00 t [facility] [address] [facility] Results Test Description Test Time Test Comments Results Result Comments Source CBC W/AUTO DIFF 2023-03-06 00:00:00 Test Item Value Reference Range Interpretation Comme nts NUCLEATED RBCS (test code 0.0 /100 WBC'S See_Comment [Automated message] The = 84342-3) system which ge nerated this result transmit kelton reference range: 0.0 /100 WBC'S. The reference range was not used to interpret th is result as normal/abnormal . ABSOLUTE EOSINOPHILS (test 0.14 K/UL See_Comment [Automated message] The code = 50815-2) system which generated this result transmit [place] reference range: 0.00-0.5 0 K/UL. The reference range was not used to interpret th is result as normal/abnormal . ABSOLUTE LYMPHOCYTES (test 3.12 K/UL See_Comment [Automated message] The code = 92897-1) system which generated this result transmit [place]ton reference range: 1.00-4.0 0 K/UL. The reference range was not used to interpret th is result as normal/abnormal . ABSOLUTE MONOCYTES (test 0.60 K/UL See_Comment [A utomated message] The code = 19430-9) system which generated this result transmit [place] reference range: 0.20-1.0 0 K/UL. The reference range was not used to interpret th is result as normal/abnormal . ABSOLUTE NEUTROPHILS (test 6.63 K/UL See_Comment [Automated message] The code = 54588-7) system which generated this result transmit [place]ton reference range: 1.50-7.5 0 K/UL. The reference range was not used to interpret th is result as normal/abnormal . BASOPHILS (test code = 0.6 % 84832-3) EOSINOPHILS (test code = 1.3 % 93236-8) HEMATOCRIT (test code = 48.9 % See_Comment H [Au tomated message] The 76472-9) system which [employer] nerated this result transmit kelton reference range: 34.0-45. 0 %. The reference range was not used to interpret th is result as normal/abnormal . HEMOGLOBIN (test code = 16.8 G/DL See_Comment H [Au tomated message] The 738-7) system which [employer] nerated this result transmit [place] reference range: 11.5-15. 5 G/DL. The reference range was not used to interpret th is result as normal/abnormal . LYMPHOCYTES (test code = 29.5 % 30080-5) MCH (test code = 61441-3) 32.7 PG See_Comment [ Automated message] The system which [employer] nerated this result transmit [place] reference range: 25.0-33. 0 PG. The reference range was not used to interpret th is result as normal/abnormal . MCHC (test code = 74086-1) 34.4 G/DL See_Comment [Automated message] The system which [employer] nerated this result transmit [place] reference range: 31.0-36. 0 G/DL. The reference range was not used to interpret th is result as normal/abnormal . MCV (test code = 71343-5) 95.3 fL See_Comment [ Automated message] The system which [employer] nerated this result transmit [place] reference range: 80.0-99. 0 fL. The reference range was not used to interpret th is result as normal/abnormal . MONOCYTES (test code = 5.7 % 12302-5) NEUTROPHILS (test code = 62.5 % 47136-8) PLATELET COUNT (test code 222 K/UL See_Comment [ Automated message] The = 55762-7) system which [employer] nerated this result transmit [place] reference range: 130-400 K/UL. The reference range was not used to interpret th is result as normal/abnormal . RBC (test code = 54691-4) 5.13 M/UL See_Comment [ Automated message] The system which [employer] nerated this result transmit [place] reference range: 3.80-5.4 0 M/UL. The reference range was not used to interpret th is result as normal/abnormal . RDW (test code = 80357-1) 12.8 % See_Comment [ Automated message] The system which [employer] nerated this result transmit eklton reference range: 11.5-15. 0 %. The reference range was not used to interpret th is result as normal/abnormal . WBC (test code = 91175-4) 10.6 K/UL See_Comment [ Automated message] The system which [employer] nerated this result transmit [place] reference range: 3.5-11.0 K/UL. The reference range was not used to interpret th is result as normal/abnormal . LIPID PANEL WITH REFLEX DIRECT [id number] 00:00:00 Test Item Value Reference Range Interpretation Comments CALC LDL CHOL (test 153 MG/DL See_Comment H [Automa kelton message] code = 65185-8) The system [facility] generated this result transmit k[place] reference range : <100 MG/DL. The reference range was not used to interpret this result as normal/abnormal . CHOLESTEROL (test code 228 MG/DL See_Comment H [Aut omated message] = 2092-3) The system [employer] generated this result transmit [place] reference range : <200 MG/DL. The reference range was not used to interpret this result as normal/abnormal . HDL CHOLESTEROL (test 54 MG/DL See_Comment [Auto mated message] code = 2084-9) The system [employer] generated this result transmit [place] reference range : >39 MG/DL. The refe rence range was not u sed to interpret th is result as normal/abnormal . RISK RATIO LDL/HDL 2.83 RATIO See_Comment [Automat ed message] (test code = 41346-3) The sy stem which generated this result transmit [place] reference range : <3.22 RATIO. Th e reference range was not used to interpret this result as normal/abnormal . TRIGLYCERIDES (test 99 MG/DL See_Comment [Automa kelton message] code = 2571-8) The system [facility] generated this result transmit kelton reference range : <150 MG/DL. The reference range was not used to interpret this result as normal/abnormal . COMPREHENSIVE METABOLIC [id number] 00:00:00 Test Item Value Reference Range Interpretation Comments ALBUMIN (test code = 4.7 G/DL See_Comment [Autom ated message] 5475-7) The system [employer] generated this result transmit [place] reference range : 3.5-5.2 G/DL. T he reference range was not used to interpret this result as normal/abnormal . ALKALINE PHOSPHATASE 93 U/L See_Comment [Autom ated message] (test code = 6768-6) The sys tem which generated this result transmit [place] reference range : 40-136 U/L. The reference range was not used to interpret this result as normal/abnormal . BILIRUBIN, TOTAL 0.8 MG/DL See_Comment [Automated message] (test code = 1975-2) The sys tem which generated this result transmit [place] reference range : <=1.2 MG/DL. Th e reference range was not used to interpret this result as normal/abnormal . BUN (test code = 10 MG/DL See_Comment [Automated message] 3094-0) The system [employer] generated this result transmit [place] reference range : 6-20 MG/DL. The reference range was not used to interpret this result as normal/abnormal . CALCIUM (test code = 10.4 MG/DL See_Comment [Autom ated message] 14299-5) The system [facility] generated this result transmit [place] reference range : 8.5-10.5 MG/DL. The reference range was not used to interpret this result as normal/abnormal . CALC A/G RATIO (test 1.9 RATIO See_Comment [Autom ated message] code = 1759-0) The system [facility] generated this result transmit [place] reference range : 1.0-2.6 RATIO. The reference range was not used to interpret this result as normal/abnormal . CALC BUN/CREAT (test 13 RATIO See_Comment [Autom ated message] code = 3097-3) The system [facility] generated this result transmit [place] reference range : 6-28 RATIO. The reference range was not used to interpret this result as normal/abnormal . CALC GLOBULIN (test 2.5 G/DL See_Comment [Automa kelton message] code = 65065-0) The system [facility] generated this result transmit k[place]ton reference range : 1.9-3.7 G/DL. T he reference range was not used to interpret this result as normal/abnormal . CARBON DIOXIDE (test 24 MEQ/L See_Comment [Autom ated message] code = 1963-8) The system [facility] generated this result transmit [place] reference range : 19-31 MEQ/L. Th e reference range was not used to interpret this result as normal/abnormal . CHLORIDE (test code 104 MEQ/L See_Comment [Automa kelton message] = 6545-0) The system [facility] generated this result transmit [place] reference range : 95-107 MEQ/L. T he reference range was not used to interpret this result as normal/abnormal . CREATININE (test 0.75 MG/DL See_Comment [Automated message] code = 2160-0) The system [facility] generated this result transmit k[place]ton reference range : 0.60-1.30 MG/DL . The reference range was not used to interpret this result as normal/abnormal . eGFR (2020 CKD-EPI) 93 ML/MIN/1.73 See_Comment [Auto mated message] (test code = The system [facility] [employer] 85241-5) generated this result transmit k[place] reference range : >60 ML/MIN/1.73. Th e reference range was not used to interpret this result as normal/abnormal . GLUCOSE (test code = 91 MG/DL See_Comment [Autom ated message] 1558-6) The system [employer] generated this result transmit kelton reference range : 70-99 MG/DL. Th e reference range was not used to interpret this result as normal/abnormal . POTASSIUM (test code 4.1 MEQ/L See_Comment [Autom ated message] = 2823-3) The system [employer] generated this result transmit [place] reference range : 3.5-5.4 MEQ/L. The reference range was not used to interpret this result as normal/abnormal . PROTEIN, TOTAL (test 7.2 G/DL See_Comment [Autom ated message] code = 2885-2) The system [employer] [facility] generated this result transmit kelotn reference range : 6.1-8.3 G/DL. T he reference range was not used to interpret this result as normal/abnormal . AST (test code = 24 U/L See_Comment [Automated message] 1920-8) The system [employer] generated this result transmit [place] reference range : 9-40 U/L. The reference range was not used to interpret this result as normal/abnormal . ALT (test code = 19 U/L See_Comment [Automated message] 1742-6) The system [employer] generated this result transmit [place] reference range : 5-40 U/L. The reference range was not used to interpret this result as normal/abnormal . SODIUM (test code = 141 MEQ/L See_Comment [Automa kelton message] 2411-2) The system [employer] generated this result transmit [place]el[place] reference range : 133-146 MEQ/L. The reference range was not used to interpret this result as normal/abnormal .
[2023-07-14] MEDS ORDERED: KETOROLAC 30 MG/ML INJ ONE (10:24)
[2023-07-14 10:25] LABS: Absolute Lymphocytes (CBC) 2.9 K/uL (0.7-4.9); Hematocrit 43.1 % (36.0-45.0); Lymphocytes % 31.2 % (15.3-44.8); MCV 93.9 fL (80-100); Platelets 179 thou/uL (152-406); RBC Red Blood Cell Count 4.59 M/uL (3.86-4.86)
[2023-07-14 10:41] LABS: Potassium 3.9 mEq/L (3.5-5.1); Troponin High Sensitivity 4.6 pg/mL (<58.9)
--- NOTE | 2023-07-14 10:41 | RAD REPORT ---
EXAM DESCRIPTION: Rosy Single View07/14/2023 10:23 am CLINICAL HISTORY: Chest pain COMPARISON: May 2023 FINDINGS: The lungs appear clear of acute infiltrate. The heart is normal size IMPRESSION: No acute abnormalities displayed
--- NOTE | 2023-07-14 10:45 | EDPHYS ---
Physician Documentation [facility] Name: Juan J Velez Age: 57 yrs Sex: Female : 1965 Arrival Date: 07/14/2023 Time: 09:37 Bed 20 Private MD: ELVIN Physician Kirill Tovar HPI: 07/14 09:40 This 57 yrs old Female presents to ER via Unassigned with complaints of Chest Pain, jh7 back pain . 09:40 Onset: The symptoms/episode began/occurred 2 week(s) ago. Associated signs and jh7 symptoms: Pertinent negatives: abdominal pain, fever, shortness of breath, vomiting, wheezing. 57-year-old female with a history of anxiety presents to the ER complaining of chest pain and upper back pain for the past 2 weeks. She reports that she has been going to the gym, and initially thought that the pain was muscular, but states that it is not gone away. She reports that she knows that it could be her anxiety, but wants to be sure there is nothing else going on. Also reports intermittent cough for the past 6 weeks.. Historical: - Allergies: 09:54 NKDA; iw - PMHx: 09:54 Anxiety; Bipolar disorder; Depression; PTSD; iw - Immunization history:: Adult Immunizations not up to date. - Social history:: Smoking status: Patient reports the use of cigarette tobacco products. ROS: 09:40 Constitutional: Negative for fever, chills, and weight loss, Eyes: Negative for injury, jh7 pain, redness, and discharge, Neck: Negative for injury, pain, and swelling, Respiratory: Negative for shortness of breath, cough, wheezing, and pleuritic chest pain, Abdomen/GI: Negative for abdominal pain, nausea, vomiting, diarrhea, and constipation, MS/Extremity: Negative for injury and deformity, Skin: Negative for injury, rash, and discoloration, Neuro: Negative for headache, weakness, numbness, tingling, and seizure, 09:40 Cardiovascular: Positive for chest pain, 09:40 Back: Positive for pain at rest, pain with movement, 09:40 All other systems are negative, Exam: 09:40 Constitutional: This is a well developed, well nourished patient who is awake, alert, jh7 and in no acute distress. Head/Face: Normocephalic, atraumatic. Neck: Trachea midline, no thyromegaly or masses palpated, and no cervical lymphadenopathy. Supple, full range of motion without nuchal rigidity, or vertebral point tenderness. No Meningismus. Cardiovascular: Regular rate and rhythm with a normal S1 and S2. No gallops, murmurs, or rubs. Normal PMI, no JVD. No pulse deficits. Respiratory: Lungs have equal breath sounds bilaterally, clear to auscultation and percussion. No rales, rhonchi or wheezes noted. No increased work of breathing, no retractions or nasal flaring. Abdomen/GI: Soft, non-tender, with normal bowel sounds. No distension or tympany. No guarding or rebound. No evidence of tenderness throughout. Back: No spinal tenderness. No costovertebral tenderness. Full range of motion. Skin: Warm, dry with normal turgor. Normal color with no rashes, no lesions, and no evidence of cellulitis. MS/ Extremity: Pulses equal, no cyanosis. Neurovascular intact. Full, normal range of motion. Neuro: Awake and alert, GCS 15, oriented to person, place, time, and situation. Motor strength 5/5 in all extremities. Sensory grossly intact. Normal gait. Vital Signs: 09:52 BP 100 / 57; Pulse 67; Resp 16; Temp 97.9; Pulse Ox 96% on R/A; Weight 88 kg; Height 5 iw ft. 4 in. ; Pain 8/10; 10:30 BP 97 / 62; Pulse 72; Resp 14; Pulse Ox 96% on R/A; me1 10:30 BP 100 / 48; Pulse 70; Resp 16; Pulse Ox 97% on R/A; me1 09:52 Body Mass Index 33.30 (88.00 kg, 162.56 cm) iw 09:52 Pain Scale: Adult iw MDM: 09:40 Patient medically screened. [facility] 10:48 Differential diagnosis: pneumonia Muscle spasm, costochondritis, acute NV, cardiac jh7 arrhythmia, upper back strain. Data reviewed: vital signs, nurses notes, lab test result(s), EKG, radiologic studies, plain films. I considered the following discharge prescriptions or medication management in the emergency department Medications were administered in the Emergency Department. See MAR. Independent interpretation of the following test(s) in the Emergency Department EKG: See my EKG interpretation above. Scoring Tools HEART Score: Age: Total Score = 1. Counseling: I had a detailed discussion with the patient and/or guardian regarding the historical points, exam findings, and any diagnostic results supporting the discharge/admit diagnosis, to return to the emergency department if symptoms worsen or persist or if there are any questions or concerns that arise at home. Response to treatment: the patient's symptoms have markedly improved after treatment. 07/14 09:48 Order name: Basic Metabolic Panel; Complete Time: 10:44 [facility] 07/14 09:48 Order name: CBC with Diff; Complete Time: 10:44 [facility] 07/14 09:48 Order name: NT PRO-BNP; Complete Time: 10:44 [facility] 07/14 09:48 Order name: Troponin HS; Complete Time: 10:44 [facility] 07/14 09:48 Order name: XRAY Chest (1 view); Complete Time: 10:44 [facility] 07/14 09:48 Order name: EKG; Complete Time: 09:48 [facility] 07/14 09:48 Order name: Cardiac monitoring; Complete Time: 10:20 [facility] 07/14 09:48 Order name: EKG - Nurse/Tech; Complete Time: 10:21 [facility] 07/14 09:48 Order name: IV Saline Lock; Complete Time: 10:09 [facility] 07/14 09:48 Order name: Labs collected and sent; Complete Time: 10:09 [facility] 07/14 09:48 Order name: O2 Per Protocol; Complete Time: 10:09 [facility] 07/14 09:48 Order name: O2 Sat Monitoring; Complete Time: 10:09 [facility] EC:17 Rate is 58 beats/min. Rhythm is regular. QRS [place] is Normal. [place] interval is normal at [facility] 152 msec. QRS interval is normal at 88 msec. QT interval is normal at 420 msec. No Q waves. T waves are Normal. No ST changes noted. Clinical impression: Sinus bradycardia. Administered Medications: 10:11 Drug: Ketorolac IVP 30 mg IVP once Route: IVP; Site: left antecubital; me1 11:19 Follow up: Response: No adverse reaction; Pain is decreased ia1 Disposition Summary: 07/14/23 10:45 Discharge Ordered Notes: Location: Home [facility] Problem: new [facility] Symptoms: have improved [facility] Condition: Stable [facility] Diagnosis - Muscle spasm of back [facility] - Chest pain, unspecified [facility] Followup: [facility] - With: Private Physician - When: 2 - 3 days - Reason: Recheck today's complaints Discharge Instructions: - Discharge Summary Sheet [facility] - Nonspecific Chest Pain, Adult [facility] - Chest Wall Pain [facility] - Muscle Strain [facility] Forms: - Medication Reconciliation Form [facility] - Thank You Letter [facility] - Patient Portal Instructions [facility] - Leadership Thank You Letter [facility] Prescriptions: - Naprosyn 500 mg Oral Tablet - take 1 tablet ORAL route 2 times per day take with food; 30 tablet; Refills: 0, [facility] Product Selection Permitted - Zanaflex 4 mg Oral Tablet - take 1 tablet ORAL route every 8 hours As needed; 20 tablet; Refills: 0, [facility] Product Selection Permitted Signatures: Dispatcher [employer] Ly Jaimes, RN RN Marcia Wright, HOME CARE ASSOCIATE HOME CARE ASSOCIATE [facility] Glenda Magallon RN RN me1
--- NOTE | 2023-07-14 10:45 | ER ---
Nurse's Notes [facility] Name: Juan J Velez Age: 57 yrs Sex: Female : 1965 Arrival Date: 07/14/2023 Time: 09:37 Bed 20 Private MD: Diagnosis: Muscle spasm of back;Chest pain, unspecified Presentation: 07/14 09:52 Chief complaint: Patient states: pain between her shoulders radiating into her chest X iw 2.5 weeks, today pain shooting throughout entire back and into hips , states she started going back to the gym a couple weeks ago. Coronavirus screen: At this time, the client does not indicate any symptoms associated with coronavirus-19. Ebola Screen: Patient negative for fever greater than or equal to 101.5 degrees Fahrenheit, and additional compatible Ebola Virus Disease symptoms Patient denies exposure to infectious person. Patient denies travel to an Ebola-affected area in the 21 days before illness onset. No symptoms or risks identified at this time. Initial Sepsis Screen: Does the patient meet any 2 criteria? No. Patient's initial sepsis screen is negative. Does the patient have a suspected source of infection? No. Patient's initial sepsis screen is negative. Risk Assessment: Do you want to hurt yourself or someone else? Patient reports no desire to harm self or others. Onset of symptoms was July 01, 2023. 09:52 Method Of Arrival: Ambulatory iw 09:52 Acuity: KORINA 3 iw Historical: - Allergies: 09:54 NKDA; iw - PMHx: 09:54 Anxiety; Bipolar disorder; Depression; PTSD; iw - Immunization history:: Adult Immunizations not up to date. - Social history:: Smoking status: Patient reports the use of cigarette tobacco products. Screenin:15 [facility] ED Fall Risk Assessment (Adult) History of falling in the last 3 months, me1 including since admission No falls in past 3 months (0 pts) Confusion or Disorientation No (0 pts) Intoxicated or Sedated No (0 pts) Impaired Gait No (0 pts) Mobility Assist Device Used No (0 pt) Altered Elimination No (0 pt) Score/Fall Risk Level 0 - 2 = Low Risk Oriented to surroundings, Provided non-skid footwear, Hourly rounding (assess needs \T\ fall precautionary measures) done. Abuse screen: Denies threats or abuse. Nutritional screening: No deficits noted. Tuberculosis screening: No symptoms or risk factors identified. Assessment: 10:15 General: Appears uncomfortable, well groomed, well developed, well nourished, Behavior me1 is calm, cooperative, appropriate for age, Reports pain between her shoulders radiating into her chest X 2.5 weeks, today pain shooting throughout entire back and into hips , states she started going back to the gym a couple weeks ago. Pain: Complains of pain in back Pain radiates to chest Pain currently is 7 out of 10 on a pain scale. Quality of pain is described as shooting, Pain began suddenly, Is continuous. Neuro: Level of Consciousness is awake, alert, obeys commands, Oriented to person, place, time, situation, Appropriate for age. Cardiovascular: Capillary refill < 3 seconds Patient's skin is warm and dry. Respiratory: Airway is patent Respiratory effort is even, unlabored, Respiratory pattern is regular, symmetrical. Musculoskeletal: Reports. 11:16 Reassessment: No changes from previously documented assessment. az1 Vital Signs: 09:52 BP 100 / 57; Pulse 67; Resp 16; Temp 97.9; Pulse Ox 96% on R/A; Weight 88 kg; Height 5 iw ft. 4 in. ; Pain 8/10; 10:30 BP 97 / 62; Pulse 72; Resp 14; Pulse Ox 96% on R/A; me1 10:30 BP 100 / 48; Pulse 70; Resp 16; Pulse Ox 97% on R/A; me1 09:52 Body Mass Index 33.30 (88.00 kg, 162.56 cm) iw 09:52 Pain Scale: Adult iw ED Course: 09:39 Patient arrived in ED. rg4 09:40 Marcia Wright FNP is [facility]. jh7 09:40 Kirill Tovar MD is Attending Physician. jh7 09:54 Glenda Magallon, JOSEFINA is Primary Nurse. me1 09:54 Triage completed. iw 09:54 Arm band placed on. iw 10:08 Inserted saline lock: 20 gauge in right antecubital area, using aseptic technique. me1 10:08 Basic Metabolic Panel Sent. me1 10:08 CBC with Diff Sent. me1 10:08 NT PRO-BNP Sent. me1 10:08 Troponin HS Sent. me1 10:15 Patient has correct armband on for positive identification. Bed in low position. Call me1 light in reach. Side rails up X 1. Provided Education on: POC. Verbalized understanding. Client placed on continuous cardiac and pulse oximetry monitoring. NIBP monitoring applied. patient experience coordinator on. 10:15 No provider procedures requiring assistance completed. Patient maintains SpO2 me1 saturation greater than 95% on room air. 10:24 XRAY Chest (1 view) In Process Unspecified. EDMS Administered Medications: 10:11 Drug: Ketorolac IVP 30 mg IVP once Route: IVP; Site: left antecubital; me1 11:19 Follow up: Response: No adverse reaction; Pain is decreased me1 Medication: 10:15 VIS not applicable for this client. me1 Outcome: 10:45 Discharge ordered by MD. fairchild 11:21 Patient left the ED. me1 Signatures: Dispatcher [employer] EDLy Woods, RN RN Keli James 4 Marcia Wright, ENVIRONMENTAL STUDIES DEPARTMENT CHAIR ENVIRONMENTAL STUDIES DEPARTMENT CHAIR Glenda Bonds RN RN me1 Corrections: (The following items were deleted from the chart) 11:15 09:52 Chief complaint: Patient states: pain between her shoulders radiating into her me1 chest X 2.5 weeks, today pain shooting throughout entire back and into hips , states she started going back to the gym a couple weeks ago jessica
[2023-07-14 11:44] VITALS: TEMP 97.9
[2023-07-14 11:47] VITALS: BP 100/48; O2SAT 97
--- NOTE | 2023-07-16 13:36 | EKG ---
Test Date: 2023-07-14 Test Time: 10:17:43 Solution Design Engineer: MEASUREMENT RESULTS: Intervals: Rate: 58 ID: [id number] QRSD: 88 QT: 420 QTc: 412 [place]: P: 69 ID: [id number] QRS: 72 T: 71 INTERPRETIVE STATEMENTS: Sinus bradycardia Otherwise normal ECG Compared to ECG 02/25/2020 13:07:42 Sinus rhythm no longer present Electronically Signed On 07-16-23 13:29:10 SCIENTIST by Tuan Diaz
== END 2023-07-14 11:21 | disposition home or self-care (01) ==
LOC: ER 09:37
DX: M62.830 Muscle spasm of back (principal); R07.9 Chest pain, unspecified; F17.210 Nicotine dependence, cigarettes, uncomplicated
CPT/HCPCS: 36415; 71045; 80048; 83880; 84484; 85025; 93005; 96374; 99285

== ENCOUNTER 2024-04-12 10:42 | Emergency (ER) | payer OTHER ==
--- OUTSIDE RECORDS SUMMARY | 2024-04-12 10:45 | XMS REPORT | Continuity of Care Document ---
Author Name Unknown Address [address] [place] [address] [facility] thconnect Address [address] [place] [address] Care Team Providers Care Screen Tender Name Role Phone Emanuel Nash Attending Clinician Unavailable Inessa Stern Attending Clinician Unavailable WYATT ABDALLA Attending Clinician Unavailable Payers Payer Name Policy Type Policy Number Effective Date Expirati on Date Source [employer] Advantage 1 [id number] 2023 00:00:00 [facility] [employer] MEDICARE C1 [id number] Comm on [facility] [id number] [facility] MEDICARE C1 [id number] Comm on [facility] [id number] [facility] MEDICARE PART A \T\ B [id number] 2006 00:00:00 MEDICAID OF [place] [id number] 2017 00:00:00 Problems Condition Name Condition Details Condition Category Status Onset Date Resolution Date Last Treatment Date Treating Clinician Comments Source Borderline personalit y disorder Borderline personalit y disorder Problem [facility] Irritable bowel syndrome Irritable bowel syndrome without diarrhea Problem [facility] Chronic pain syndrome Chronic pain syndrome Problem Common [facility] Nicotine dependence Nicotine dependence Problem [facility] Knee pain Knee pain Problem Comm on [facility] Hyperlipid aemia Hyperlipem ia Problem [facility] [id number] 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 Problem [facility] [id number] Right sided sciatica Problem [facility] Screening for colon cancer Screening for colon cancer Problem [facility] [id number] Bipolar affective disorder, current episode depressed, current episode severity unspecifie d Problem [facility] Fatigue Chronic fatigue Problem [facility] [id number] Depression with anxiety Problem [facility] Posttrauma tic stress disorder Post traumatic stress disorder Problem [facility] Examinatio n of breast (procedure ) Screening breast examinatio n Problem [facility] [id number] Encounter for gynecologi juan examinatio n without abnormal finding Problem [facility] [id number] 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 Problem [facility] Peripheral vascular disease PAD (periphera l artery disease) Problem [facility] [id number] Body mass index [BMI] 31.0-31.9, adult Problem [facility] [id number] Other obesity due to excess calories Problem [facility] Allergies, Adverse Reactions, Alerts Allergy Name Allergy Type Status Severity Reaction(s) Onset Date Inactive Date Treating Clinician Comments Source NO KNOWN ALLERGIE S Drug Class Active [facility] buspiron e buspiron e Active failed therapy [facility] sertrali ne sertrali ne Active failed therapy [facility] fluoxeti ne fluoxeti ne Active failed therapy [facility] paroxeti ne paroxeti ne Active failed therapy [facility] Social History Social Habit Start Date Stop Date Quantity Comments Source History of Tobacco Use Current Smoker [facility] Sex Assigned At [facility] Smoking Status Start Date Stop Date Source Current Smoker 2024-03-24 00:00:00 [facility] Medications Ordered Medication Name Filled Medication Name Start Date Stop Date Current Medication? Ordering Clinician Indication Dosage Frequency Signature (SIG) Comments Components Source Multivitami n Multivitami n 12-23 00:00: 00 No 1{table t_in_th e_morni ng} QD Multivitam in Albuterol Sulfate HFA 108 (90 Base) MCG/ACT Albuterol Sulfate HFA 108 (90 Base) MCG/ACT 12-23 00:00: 00 No 2{puff_ as_need ed} 6xD Albuterol Sulfate HFA 108 (90 Base) MCG/ACT Atorvastati n Calcium 20 MG Atorvastati n Calcium 20 MG 03-12 00:00: 00 No 1{table t} QD Atorvastat in Calcium 20 MG Bupivicaine [place] Bupivicaine [place] 09-24 00:00: 00 No 2.5mg [facility] Depo Medrol (40mg) Depo Medrol (40mg) 09-24 00:00: 00 No 40mg [facility] busPIRone HCl 10 MG busPIRone HCl 10 MG No 1{table t} BID busPIRone HCl 10 MG Vital Signs Vital Name Observation Time Observation Value Comments S ource height 2024-03-24 09:40:00 64.5 [in_i] Comm on [facility] weight 2024-03-24 09:40:00 206.0 [lb_av] Co mmon [facility] temperature 2024-03-24 09:40:00 97.3 [degF] Com mon [facility] bmi 2024-03-24 09:40:00 34.81 kg/m2 Comm on [facility] oximetry 2024-03-24 09:40:00 98 % Commo n [facility] respiratory rate 2024-03-24 09:40:00 16 /min [facility] blood pressure systolic 2024-03-24 09:40:00 124 mm[Hg] [facility] blood pressure diastolic 2024-03-24 09:40:00 72 mm[Hg] [facility] height 2024-03-24 09:40:00 64.5 [in_i] Comm on [facility] weight 2024-03-24 09:40:00 206.0 [lb_av] Co mmon [facility] temperature 2024-03-24 09:40:00 97.3 [degF] Com mon [facility] bmi 2024-03-24 09:40:00 34.81 kg/m2 Comm on [facility] oximetry 2024-03-24 09:40:00 98 % Commo n [facility] respiratory rate 2024-03-24 09:40:00 16 /min [facility] blood pressure systolic 2024-03-24 09:40:00 124 mm[Hg] [facility] blood pressure diastolic 2024-03-24 09:40:00 72 mm[Hg] [facility] height 2023 11:20:00 64.5 [in_i] Comm on [facility] weight 2023 11:20:00 203.8 [lb_av] Co mmon [facility] temperature 2023 11:20:00 97.3 [degF] Com [facility] bmi 2023 11:20:00 34.44 kg/m2 Comm on [facility] oximetry 2023 11:20:00 97 % Commo n [facility] respiratory rate 2023 11:20:00 18 /min [facility] blood pressure systolic 2023 11:20:00 104 mm[Hg] [facility] blood pressure diastolic 2023 11:20:00 59 mm[Hg] [facility] height 2023-11-21 14:10:00 64.5 [in_i] Comm on [facility] weight 2023-11-21 14:10:00 196.4 [lb_av] Co mmon [facility] temperature 2023-11-21 14:10:00 97.2 [degF] Com [facility] bmi 2023-11-21 14:10:00 33.19 kg/m2 Comm on [facility] oximetry 2023-11-21 14:10:00 97 % Commo n [facility] blood pressure systolic 2023-11-21 14:10:00 100 mm[Hg] [facility] blood pressure diastolic 2023-11-21 14:10:00 60 mm[Hg] [facility] height 2023-07-22 13:20:00 64.5 [in_i] Comm on [facility] weight 2023-07-22 13:20:00 195 [lb_av] Comm on [facility] temperature 2023-07-22 13:20:00 98.2 [degF] Com [facility] bmi 2023-07-22 13:20:00 32.95 kg/m2 Comm on [facility] oximetry 2023-07-22 13:20:00 97 % Commo n [facility] blood pressure systolic 2023-07-22 13:20:00 102 mm[Hg] [facility] blood pressure diastolic 2023-07-22 13:20:00 62 mm[Hg] [facility] height 2023-03-12 09:50:00 64.5 [in_i] Comm on [facility] weight 2023-03-12 09:50:00 195.7 [lb_av] Co mmon [facility] temperature 2023-03-12 09:50:00 96.2 [degF] Com [facility] bmi 2023-03-12 09:50:00 33.07 kg/m2 Comm on [facility] oximetry 2023-03-12 09:50:00 97 % Commo n [facility] respiratory rate 2023-03-12 09:50:00 18 /min [facility] blood pressure systolic 2023-03-12 09:50:00 124 mm[Hg] [facility] blood pressure diastolic 2023-03-12 09:50:00 68 mm[Hg] [facility] height 2023-03-12 09:50:00 64.5 [in_i] Comm on [facility] weight 2023-03-12 09:50:00 195.7 [lb_av] Co mmon [facility] temperature 2023-03-12 09:50:00 96.2 [degF] Com mon [facility] bmi 2023-03-12 09:50:00 33.07 kg/m2 Comm on [facility] oximetry 2023-03-12 09:50:00 97 % Commo n [facility] respiratory rate 2023-03-12 09:50:00 18 /min [facility] blood pressure systolic 2023-03-12 09:50:00 124 mm[Hg] [facility] blood pressure diastolic 2023-03-12 09:50:00 68 mm[Hg] [facility] height 2022-12-06 10:20:00 64.5 [in_i] Comm on [facility] weight 2022-12-06 10:20:00 195.0 [lb_av] Co mmon [facility] temperature 2022-12-06 10:20:00 96.8 [degF] Com mon [facility] bmi 2022-12-06 10:20:00 32.95 kg/m2 Comm on [facility] oximetry 2022-12-06 10:20:00 98 % Commo n [facility] respiratory rate 2022-12-06 10:20:00 16 /min [facility] blood pressure systolic 2022-12-06 10:20:00 102 mm[Hg] [facility] blood pressure diastolic 2022-12-06 10:20:00 56 mm[Hg] [facility] height 2022-09-05 10:50:00 64.5 [in_i] Comm on [facility] weight 2022-09-05 10:50:00 187.9 [lb_av] Co mmon [facility] temperature 2022-09-05 10:50:00 97.3 [degF] Com mon [facility] bmi 2022-09-05 10:50:00 31.75 kg/m2 Comm on [facility] oximetry 2022-09-05 10:50:00 98 % Commo n [facility] respiratory rate 2022-09-05 10:50:00 18 /min [facility] blood pressure systolic 2022-09-05 10:50:00 123 mm[Hg] [facility] blood pressure diastolic 2022-09-05 10:50:00 71 mm[Hg] [facility] height 2022-04-09 09:40:00 64.5 [in_i] Comm on [facility] weight 2022-04-09 09:40:00 188.4 [lb_av] Co mmon [facility] temperature 2022-04-09 09:40:00 97.6 [degF] Com mon [facility] bmi 2022-04-09 09:40:00 31.84 kg/m2 Comm on [facility] oximetry 2022-04-09 09:40:00 97 % Commo n [facility] respiratory rate 2022-04-09 09:40:00 17 /min [facility] blood pressure systolic 2022-04-09 09:40:00 121 mm[Hg] [facility] blood pressure diastolic 2022-04-09 09:40:00 79 mm[Hg] [facility] blood pressure systolic 2022-03-12 09:00:00 109 mm[Hg] [facility] blood pressure diastolic 2022-03-12 09:00:00 59 mm[Hg] [facility] height 2022-03-12 09:00:00 64.5 [in_i] Comm on [facility] weight 2022-03-12 09:00:00 186 [lb_av] Comm on [facility] temperature 2022-03-12 09:00:00 97.6 [degF] Com [facility] bmi 2022-03-12 09:00:00 31.43 kg/m2 Comm on [facility] oximetry 2022-03-12 09:00:00 96 % Commo n [facility] respiratory rate 2022-03-12 09:00:00 16 /min [facility] height 2022-03-12 09:20:00 64.5 [in_i] Comm on [facility] weight 2022-03-12 09:20:00 186 [lb_av] Comm on [facility] temperature 2022-03-12 09:20:00 97.6 [degF] Com [facility] bmi 2022-03-12 09:20:00 31.43 kg/m2 Comm on [facility] oximetry 2022-03-12 09:20:00 96 % Commo n [facility] respiratory rate 2022-03-12 09:20:00 16 /min [facility] blood pressure systolic 2022-03-12 09:20:00 109 mm[Hg] [facility] blood pressure diastolic 2022-03-12 09:20:00 59 mm[Hg] [facility] height 2021-04-11 13:00:00 64.5 [in_i] Comm on [facility] weight 2021-04-11 13:00:00 198 [lb_av] Comm on [facility] temperature 2021-04-11 13:00:00 98 [degF] Comm on [facility] bmi 2021-04-11 13:00:00 33.46 kg/m2 Comm on [facility] blood pressure systolic 2021-04-11 13:00:00 121 mm[Hg] [facility] blood pressure diastolic 2021-04-11 13:00:00 76 mm[Hg] [facility] height 2021-02-06 10:40:00 64.5 [in_i] Comm on [facility] weight 2021-02-06 10:40:00 214.7 [lb_av] Co mmon [facility] temperature 2021-02-06 10:40:00 97.4 [degF] Com mon [facility] bmi 2021-02-06 10:40:00 36.28 kg/m2 Comm on [facility] oximetry 2021-02-06 10:40:00 95 % Commo n [facility] respiratory rate 2021-02-06 10:40:00 18 /min [facility] blood pressure systolic 2021-02-06 10:40:00 105 mm[Hg] [facility] blood pressure diastolic 2021-02-06 10:40:00 59 mm[Hg] [facility] Encounters Start Date/Time End Date/Time Encounter Type Admission Type Attending Clinicians Care Facility Care Department Encounter ID Source 2024-04-07 09:34[facility] [id number] [facility] 2024-03-20 15:22:00 [facility] [id number] [facility] 2024-01-10 11:16:00 [facility] [id number] [facility] 2023-12-23 16:06:00 Outpatient Nash, Emanuel [facility] [id number] [facility] 2023-07-16 15:17:00 Outpatient Nash, Emanuel [facility] [id number] [facility] 2023-07-12 10:08:00 Outpatient Nash, Emanuel ST[facility]MLC ST[facility] [id number] [facility] 2022-12-04 08:25:00 Outpatient Nash, Emanuel [facility] [id number] [facility] 2021-09-06 14:16:46 Outpatient Nash, Emanuel [facility] [id number] [facility] 2021-09-06 13:44:28 Outpatient Nash, Emanuel [facility] [id number] [facility] 2021-09-06 13:27:59 Outpatient Nash, Emanuel [facility] [id number] [facility] 2021-09-06 13:19:36 Outpatient Nash, Emanuel [facility] [id number] [facility] 2021-09-06 13:19:19 Outpatient [facility]C ST[facility] [id number] [facility] 2021-09-06 13:17:47 Outpatient [facility] [id number] [facility] 2021-09-06 13:14:04 Outpatient [place] [facility] [id number] [facility] 2024-04-09 00:00:00 2024-04-09 00:00:00 (TEL) STLMLC ST[facility]C [id number] [facility] 2024-04-08 00:00:00 2024-04-08 00:00:00 (TEL) [facility]LMLC ST[facility] [id number] [facility] 2024-04-07 00:00:00 2024-04-07 00:00:00 (TEL) ST[facility]MLC ST[facility]C [id number] [facility] 2024-03-25 00:00:00 2024-03-25 00:00:00 (TEL) STLMLC ST[facility] [id number] [facility] 2024-03-24 00:00:00 2024-03-24 00:00:00 OFFICE VISIT ESTAB PT LEVEL 4 [facility]C ST[facility] [id number] [facility] 2024-03-24 00:00:00 2024-03-24 00:00:00 (TEL) STLMLC ST[facility] [id number] [facility] 2024-03-24 00:00:00 2024-03-24 00:00:00 SUB ANNUAL [employer] WELLNESS VISIT STLMLC STL[facility]C [id number] [facility] 2024-03-24 00:00:00 2024-03-24 00:00:00 (TEL) STLMLC STL[facility]C [id number] [facility] 2024-02-18 00:00:00 2024-02-18 00:00:00 (TEL) STLMLC STL[facility]C [id number] [facility] 2023 00:00:00 2023 00:00:00 OFFICE VISIT ESTAB PT LEVEL 4 [facility] ST[facility]C [id number] [facility] 2023 00:00:00 2023 00:00:00 (TEL) STLMLC STL[facility]C [id number] [facility] 2023-12-20 00:00:00 2023-12-20 00:00:00 (TEL) STLMLC ST[facility]C [id number] [facility] 2023-11-21 00:00:00 2023-11-21 00:00:00 OFFICE VISIT ESTAB PT LEVEL 4 [facility] [id number] [facility] 2023-07-22 00:00:00 2023-07-22 00:00:00 OFFICE VISIT ESTAB PT LEVEL 4 [facility] [id number] [facility] 2023-05-22 00:00:00 2023-05-22 00:00:00 (TEL) STLMLC ST[facility]C [id number] [facility] 2023-05-17 00:00:00 2023-05-17 00:00:00 (TEL) STLMLC STLMLC [id number] [facility] 2023-04-08 00:00:00 2023-04-08 00:00:00 (TEL) STLMLC STL[facility]C [id number] [facility] 2023-03-12 00:00:00 2023-03-12 00:00:00 OFFICE VISIT ESTAB PT LEVEL 4 [facility] [id number] [facility] 2023-03-12 00:00:00 2023-03-12 00:00:00 SUB ANNUAL [employer] WELLNESS VISIT [facility]C ST[facility]C [id number] [facility] 2022-12-06 00:00:00 2022-12-06 00:00:00 OFFICE VISIT ESTAB PT LEVEL 4 [facility] ST[facility] [id number] [facility] 2022-10-09 00:00:00 2022-10-09 00:00:00 (TEL) STLMLC ST[facility]C [id number] [facility] 2022-09-05 00:00:00 2022-09-05 00:00:00 OFFICE VISIT EST PT LEVEL 3 [facility] [id number] [facility] 2022-04-09 00:00:00 2022-04-09 00:00:00 OFFICE VISIT ESTAB PT LEVEL 4 [facility] ST[facility] [id number] [facility] 2022-03-12 00:00:00 2022-03-12 00:00:00 OFFICE VISIT ESTAB PT LEVEL 4 [facility] [id number] [facility] 2022-03-12 00:00:00 2022-03-12 00:00:00 SUB ANNUAL [employer] WELLNESS VISIT [facility]C ST[facility]C [id number] [facility] 2022-03-12 00:00:00 2022-03-12 00:00:00 (TEL) STLMLC STL[facility]C [id number] [facility] 2021-06-30 00:00:00 2021-06-30 00:00:00 (TEL) STLMLC ST[facility]C [id number] [facility] 2021-04-11 00:00:00 2021-04-11 00:00:00 OFFICE VISIT ESTAB PT LEVEL 4 [facility] [id number] [facility] 2021-03-08 00:00:00 2021-03-08 00:00:00 Outpatient [facility] [id number] [facility] 2021-02-06 00:00:00 2021-02-06 00:00:00 OFFICE VISIT ESTAB PT LEVEL 4 [facility] [id number] [facility] 2020-11-26 10:05:00 2020-11-26 10:05:00 Outpatient [facility] [id number] [facility] 2020-02-03 13:45:00 2020-02-03 13:45:00 [facility] [id number] [facility] 2019-05-07 16:52:00 2019-05-07 16:52:00 [facility] [id number] [facility] 2019-05-07 13:20:00 2019-05-07 13:20:00 [facility] [id number] [facility] 2018-10-27 14:00:00 2018-10-27 14:00:00 [facility] [id number] [facility] 2018-09-24 08:30:00 2018-09-24 08:30:00 [facility]patient [facility] [id number] [facility] 2018-09-08 09:32:00 2018-09-08 09:32:00 Outpatient [facility] [id number] [facility] 2018-05-05 09:45:00 2018-05-05 09:45:00 Outpatient [facility] [id number] [facility] Results Test Description Test Time Test Comments Results Result Co mments Source LIPID PANEL WITH REFLEX DIRECT [id number] 00:00:00* Test Item Value Reference Range Interpretation Comme nts CALC LDL CHOL (test code = 17339-6) 89 MG/DL See_Comment [Automated [employer] ge] The system which generated this result transmitted reference range: <100 MG/DL. The reference range was not used to interpret this result as normal/abnormal. CHOLESTEROL (test code = 2093-3) 154 MG/DL See_Comment [Automated [employer] ge] The system which generated this result transmitted reference range: <200 MG/DL. The reference range was not used to interpret this result as normal/abnormal. HDL CHOLESTEROL (test code = 2085-9) 46 MG/DL See_Comment [Automated [employer] ge] The system which generated this result transmitted reference range: >39 MG/DL. The reference range was not used to interpret this result as normal/abnormal. RISK RATIO LDL/HDL (test code = 09417-8) 1.93 RATIO See_Comment [Automated message] The system which generated this result transmitted reference range: <3.22 RATIO. The reference range was not used to interpret this result as normal/abnormal. TRIGLYCERIDES (test code = 2571-8) 95 MG/DL See_Comment [Automated [employer] ge] The system which generated this result transmitted reference range: <150 MG/DL. The reference range was not used to interpret this result as normal/abnormal. COMPREHENSIVE METABOLIC [id number] 00:00:00* Test Item Value Reference Range Interpretation Comme nts ALBUMIN (test code = 1751-7) 4.3 G/DL See_Comment [Automated messa ge] The system which generated this result transmitted reference range: 3.5-5.2 G/DL. The reference range was not used to interpret this result as normal/abnormal. ALKALINE PHOSPHATASE (test code = 6768-6) 94 U/L See_Comment [Automated message] The system which generated this result transmitted reference range: 40-136 U/L. The reference range was not used to interpret this result as normal/abnormal. BILIRUBIN, TOTAL (test code = 1975-2) 0.5 MG/DL See_Comment [Automated message] The system which generated this result transmitted reference range: <=1.2 MG/DL. The reference range was not used to interpret this result as normal/abnormal. BUN (test code = 3094-0) 15 MG/DL See_Comment [Automated messa ge] The system which generated this result transmitted reference range: 6-20 MG/DL. The reference range was not used to interpret this result as normal/abnormal. CALCIUM (test code = 11358-0) 9.8 MG/DL See_Comment [Automated messa ge] The system which generated this result transmitted reference range: 8.5-10.5 MG/DL. The reference range was not used to interpret this result as normal/abnormal. CALC A/G RATIO (test code = 1759-0) 1.9 RATIO See_Comment [Automated messa ge] The system which generated this result transmitted reference range: 1.0-2.6 RATIO. The reference range was not used to interpret this result as normal/abnormal. CALC BUN/CREAT (test code = 3097-3) 21 RATIO See_Comment [Automated messa ge] The system which generated this result transmitted reference range: 6-28 RATIO. The reference range was not used to interpret this result as normal/abnormal. CALC GLOBULIN (test code = 26401-6) 2.3 G/DL See_Comment [Automated messa ge] The system which generated this result transmitted reference range: 1.9-3.7 G/DL. The reference range was not used to interpret this result as normal/abnormal. CARBON DIOXIDE (test code = 1963-8) 23 MEQ/L See_Comment [Automated messa ge] The system which generated this result transmitted reference range: 19-31 MEQ/L. The reference range was not used to interpret this result as normal/abnormal. CHLORIDE (test code = 2075-0) 105 MEQ/L See_Comment [Automated messa ge] The system which generated this result transmitted reference range: 95-107 MEQ/L. The reference range was not used to interpret this result as normal/abnormal. CREATININE (test code = 2160-0) 0.72 MG/DL See_Comment [Automated messa ge] The system which generated this result transmitted reference range: 0.60-1.30 MG/DL. The reference range was not used to interpret this result as normal/abnormal. eGFR (2020 CKD-EPI) (test code = 18451-8) 97 ML/MIN/1.73 See_Comment [Automated messa ge] The system which generated this result transmitted reference range: >60 ML/MIN/1.73. The reference range was not used to interpret this result as normal/abnormal. GLUCOSE (test code = 1558-6) 81 MG/DL See_Comment [Automated messa ge] The system which generated this result transmitted reference range: 70-99 MG/DL. The reference range was not used to interpret this result as normal/abnormal. POTASSIUM (test code = 2823-3) 4.2 MEQ/L See_Comment [Automated messa ge] The system which generated this result transmitted reference range: 3.5-5.4 MEQ/L. The reference range was not used to interpret this result as normal/abnormal. PROTEIN, TOTAL (test code = 2885-2) 6.6 G/DL See_Comment [Automated messa ge] The system which generated this result transmitted reference range: 6.1-8.3 G/DL. The reference range was not used to interpret this result as normal/abnormal. AST (test code = 1920-8) 17 U/L See_Comment [Automated messa ge] The system which generated this result transmitted reference range: 9-40 U/L. The reference range was not used to interpret this result as normal/abnormal. ALT (test code = 1742-6) 15 U/L See_Comment [Automated messa ge] The system which generated this result transmitted reference range: 5-40 U/L. The reference range was not used to interpret this result as normal/abnormal. SODIUM (test code = 2951-2) 141 MEQ/L See_Comment [Automated messa ge] The system which generated this result transmitted reference range: 133-146 MEQ/L. The reference range was not used to interpret this result as normal/abnormal. HEMOGLOBIN [id number] 00:00:00* Test Item Value Reference Range Interpretation Comme nts HEMOGLOBIN A1c (test code = 4548-4) 5.5 % See_Comment [Automated [employer]] The system which generated this result transmitted reference range: 4.2-5.6 %. The reference range was not used to interpret this result as normal/abnormal. TSH REFLEX TO FREE [id number] 00:00:00* Test Item Value Reference Range Interpretation Comme nts TSH REFLEX TO FREE T4 (test code = 86550-5) 1.600 UIU/ML See_Comment [Automated [employer]] The system which generated this result transmitted reference range: 0.400-4.100 UIU/ML. The reference range was not used to interpret this result as normal/abnormal. URINALYSIS (CULTURE IF INDICATED)2024-03-17 00:00:00* Test Item Value Reference Range Interpretation Comme nts APPEARANCE (test code = 5767-9) CLEAR CLEAR BACTERIA (test code = 93441-1) NONE SEEN NONE SEEN BILIRUBIN (test code = 5770-3) NEGATIVE NEGATIVE CASTS, HYALINE (test code = 05096-1) NONE SEEN NONE-TRACE COLOR (test code = 5778-6) YELLOW YELLOW-STRAW EPITHELIAL CELLS (test code = 96980-5) 0-5 /HPF See_Comment [Automated [employer]] The system which generated this result transmitted reference range: 0-10 /HPF. The reference range was not used to interpret this result as normal/abnormal. GLUCOSE (test code = 5792-7) NEGATIVE NEGATIVE KETONES (test code = 5797-6) NEGATIVE NEGATIVE LEUKOCYTE ESTERASE (test code = 5799-2) NEGATIVE NEGATIVE NITRITE (test code = 5802-4) NEGATIVE NEGATIVE OCCULT BLOOD (test code = 97731-3) NEGATIVE NEGATIVE pH (test code = 5803-2) 5.5 5.0-9.0 PROTEIN (test code = 04466-4) NEGATIVE NEGATIVE RED BLOOD CELLS (test code = 47961-8) 0-2 /HPF See_Comment [Automated [employer]] The system which generated this result transmitted reference range: 0-2 /HPF. The reference range was not used to interpret this result as normal/abnormal. SPECIFIC GRAVITY (test code = 5811-5) 1.005 1.005-1.035 UROBILINOGEN (test code = 21948-5) 0.2 MG/DL See_Comment [Automated messa ge] The system which generated this result transmitted reference range: <=2.0 MG/DL. The reference range was not used to interpret this result as normal/abnormal. WHITE BLOOD CELLS (test code = 96565-7) 0-5 /HPF See_Comment [Automated messa ge] The system which generated this result transmitted reference range: 0-5 /HPF. The reference range was not used to interpret this result as normal/abnormal. CBC W/AUTO [id number] 00:00:00* Test Item Value Reference Range Interpretation Comme nts NUCLEATED RBCS (test code = 06424-6) 0.0 /100 WBC'S See_Comment [Automated messa ge] The system which generated this result transmitted reference range: 0.0 /100 WBC'S. The reference range was not used to interpret this result as normal/abnormal. ABSOLUTE EOSINOPHILS (test code = 87997-0) 0.18 K/UL See_Comment [Automated messa ge] The system which generated this result transmitted reference range: 0.00-0.50 K/UL. The reference range was not used to interpret this result as normal/abnormal. ABSOLUTE LYMPHOCYTES (test code = 35053-4) 3.02 K/UL See_Comment [Automated messa ge] The system which generated this result transmitted reference range: 1.00-4.00 K/UL. The reference range was not used to interpret this result as normal/abnormal. ABSOLUTE MONOCYTES (test code = 71839-1) 0.69 K/UL See_Comment [Automated messa ge] The system which generated this result transmitted reference range: 0.20-1.00 K/UL. The reference range was not used to interpret this result as normal/abnormal. ABSOLUTE NEUTROPHILS (test code = 67301-7) 4.46 K/UL See_Comment [Automated messa ge] The system which generated this result transmitted reference range: 1.50-7.50 K/UL. The reference range was not used to interpret this result as normal/abnormal. BASOPHILS (test code = 05001-2) 1.1 % EOSINOPHILS (test code = 79555-7) 2.1 % HEMATOCRIT (test code = 63309-2) 47.5 % See_Comment H [Automated messa ge] The system which generated this result transmitted reference range: 34.0-45.0 %. The reference range was not used to interpret this result as normal/abnormal. HEMOGLOBIN (test code = 718-7) 15.5 G/DL See_Comment [Automated messa ge] The system which generated this result transmitted reference range: 11.5-15.5 G/DL. The reference range was not used to interpret this result as normal/abnormal. LYMPHOCYTES (test code = 09948-4) 35.2 % MCH (test code = 52691-6) 31.1 PG See_Comment [Automated messa ge] The system which generated this result transmitted reference range: 25.0-33.0 PG. The reference range was not used to interpret this result as normal/abnormal. MCHC (test code = 93325-9) 32.6 G/DL See_Comment [Automated messa ge] The system which generated this result transmitted reference range: 31.0-36.0 G/DL. The reference range was not used to interpret this result as normal/abnormal. MCV (test code = 75260-8) 95.4 fL See_Comment [Automated messa ge] The system which generated this result transmitted reference range: 80.0-99.0 fL. The reference range was not used to interpret this result as normal/abnormal. MONOCYTES (test code = 43280-4) 8.1 % NEUTROPHILS (test code = 50864-3) 52.0 % PLATELET COUNT (test code = 92006-4) 191 K/UL See_Comment [Automated messa ge] The system which generated this result transmitted reference range: 130-400 K/UL. The reference range was not used to interpret this result as normal/abnormal. RBC (test code = 06194-7) 4.98 M/UL See_Comment [Automated messa ge] The system which generated this result transmitted reference range: 3.80-5.40 M/UL. The reference range was not used to interpret this result as normal/abnormal. RDW (test code = 49178-2) 12.7 % See_Comment [Automated messa ge] The system which generated this result transmitted reference range: 11.5-15.0 %. The reference range was not used to interpret this result as normal/abnormal. WBC (test code = 19334-3) 8.6 K/UL See_Comment [Automated [employer]] The system which generated this result transmitted reference range: 3.5-11.0 K/UL. The reference range was not used to interpret this result as normal/abnormal. [id number] 00:00:00* Test Item Value Reference Range Interpretation Comme [facility] ESTRADIOL (test code = 2243-4) <17.0 PG/ML SEE BELOW PG/ML HEMOGLOBIN [id number] 00:00:00* Test Item Value Reference Range Interpretation Comme [facility] HEMOGLOBIN A1c (test code = 4548-4) 5.4 % See_Comment [Automated [employer]] The system which generated this result transmitted reference range: 4.2-5.6 %. The reference range was not used to interpret this result as normal/abnormal. [id number] 00:00:00* Test Item Value Reference Range Interpretation Comme [facility] PROGESTERONE (test code = 2839-9) <0.20 NG/ML SEE BELOW NG /ML TSH REFLEX TO FREE [id number] 00:00:00* Test Item Value Reference Range Interpretation Comme [facility] TSH REFLEX TO FREE T4 (test code = 26787-3) 1.240 UIU/ML See_Comment [Automated [employer]] The system which generated this result transmitted reference range: 0.400-4.100 UIU/ML. The reference range was not used to interpret this result as normal/abnormal. HEPATITIS C [id number] 00:00:00* Test Item Value Reference Range Interpretation Comme [facility] HEPATITIS C ANTIBODY (test c ode = 48695-6) NON-REACTIVE NON-REACTIVE LIPID PANEL WITH REFLEX DIRECT [id number] 00:00:00* Test Item Value Reference Range Interpretation Comme [facility] CALC LDL CHOL (test code = 44640-9) 161 MG/DL See_Comment H [Automated [employer]] The system which generated this result transmitted reference range: <100 MG/DL. The reference range was not used to interpret this result as normal/abnormal. CHOLESTEROL (test code = 2093-3) 229 MG/DL See_Comment H [Automated [employer]] The system which generated this result transmitted reference range: <200 MG/DL. The reference range was not used to interpret this result as normal/abnormal. HDL CHOLESTEROL (test code = 2085-9) 49 MG/DL See_Comment [Automated [employer]] The system which generated this result transmitted reference range: >39 MG/DL. The reference range was not used to interpret this result as normal/abnormal. RISK RATIO LDL/HDL (test code = 12900-7) 3.29 RATIO See_Comment H [Automated message] The system which generated this result transmitted reference range: <3.22 RATIO. The reference range was not used to interpret this result as normal/abnormal. TRIGLYCERIDES (test code = 2571-8) 84 MG/DL See_Comment [Automated [employer]] The system which generated this result transmitted reference range: <150 MG/DL. The reference range was not used to interpret this result as normal/abnormal. FSH + LH [id number] 00:00:00* Test Item Value Reference Range Interpretation Comme nts FOLLICLE STIM HORMONE (test code = 80269-0) 44.3 IU/L SEE BELOW IU/L LUTEINIZING HORMONE (test co de = 02583-1) 29.0 IU/L SEE BELOW IU/L ROSA (ANTI-NUCLEAR AB) WITH REFLEX [id number] 00:00:00* Test Item Value Reference Range Interpretation Comme nts ANTI-NUCLEAR ANTIBODIES (dio t code = 23844-1) NEGATIVE NEGATIVE TESTOSTERONE, FREE AND TOTAL, FEMALES AND CHILDREN, [id number] 00:00:00* Test Item Value Reference Range Interpretation Comme nts ALBUMIN (test code = 1751-7) 4.8 g/dL See_Comment [Automated [employer]] The system which generated this result transmitted reference range: 3.6-5.1 g/dL. The reference range was not used to interpret this result as normal/abnormal. SEX HORMONE BINDING GLOBULIN (test code = 65760-1) 78.6 nmol/L See_Comment [Automated [employer]] The system which generated this result transmitted reference range: 17.3-125.0 nmol/L. The reference range was not used to interpret this result as normal/abnormal. TESTOSTERONE, FREE, CALC (test code = 2991-8) 3.3 pg/mL See_Comment [Automated messa ge] The system which generated this result transmitted reference range: 0.6-3.8 pg/mL. The reference range was not used to interpret this result as normal/abnormal. TESTOSTERONE, TOTAL (test code = 2986-8) 34 ng/dL See_Comment [Automated message] The system which generated this result transmitted reference range: 9-55 ng/dL. The reference range was not used to interpret this result as normal/abnormal. COMPREHENSIVE METABOLIC [id number] 00:00:00* Test Item Value Reference Range Interpretation Comme nts ALBUMIN (test code = 1751-7) 4.6 G/DL See_Comment [Automated messa ge] The system which generated this result transmitted reference range: 3.5-5.2 G/DL. The reference range was not used to interpret this result as normal/abnormal. ALKALINE PHOSPHATASE (test code = 6768-6) 85 U/L See_Comment [Automated message] The system which generated this result transmitted reference range: 40-136 U/L. The reference range was not used to interpret this result as normal/abnormal. BILIRUBIN, TOTAL (test code = 1975-2) 0.5 MG/DL See_Comment [Automated message] The system which generated this result transmitted reference range: <=1.2 MG/DL. The reference range was not used to interpret this result as normal/abnormal. BUN (test code = 3094-0) 12 MG/DL See_Comment [Automated messa ge] The system which generated this result transmitted reference range: 6-20 MG/DL. The reference range was not used to interpret this result as normal/abnormal. CALCIUM (test code = 43715-9) 10.3 MG/DL See_Comment [Automated messa ge] The system which generated this result transmitted reference range: 8.5-10.5 MG/DL. The reference range was not used to interpret this result as normal/abnormal. CALC A/G RATIO (test code = 1759-0) 1.7 RATIO See_Comment [Automated messa ge] The system which generated this result transmitted reference range: 1.0-2.6 RATIO. The reference range was not used to interpret this result as normal/abnormal. CALC BUN/CREAT (test code = 3097-3) 17 RATIO See_Comment [Automated messa ge] The system which generated this result transmitted reference range: 6-28 RATIO. The reference range was not used to interpret this result as normal/abnormal. CALC GLOBULIN (test code = 04108-3) 2.7 G/DL See_Comment [Automated messa ge] The system which generated this result transmitted reference range: 1.9-3.7 G/DL. The reference range was not used to interpret this result as normal/abnormal. CARBON DIOXIDE (test code = 1963-8) 27 MEQ/L See_Comment [Automated messa ge] The system which generated this result transmitted reference range: 19-31 MEQ/L. The reference range was not used to interpret this result as normal/abnormal. CHLORIDE (test code = 2075-0) 103 MEQ/L See_Comment [Automated messa ge] The system which generated this result transmitted reference range: 95-107 MEQ/L. The reference range was not used to interpret this result as normal/abnormal. CREATININE (test code = 2160-0) 0.72 MG/DL See_Comment [Automated messa ge] The system which generated this result transmitted reference range: 0.60-1.30 MG/DL. The reference range was not used to interpret this result as normal/abnormal. eGFR (2020 CKD-EPI) (test code = 77917-9) 98 ML/MIN/1.73 See_Comment [Automated messa ge] The system which generated this result transmitted reference range: >60 ML/MIN/1.73. The reference range was not used to interpret this result as normal/abnormal. GLUCOSE (test code = 1558-6) 84 MG/DL See_Comment [Automated messa ge] The system which generated this result transmitted reference range: 70-99 MG/DL. The reference range was not used to interpret this result as normal/abnormal. POTASSIUM (test code = 2823-3) 4.0 MEQ/L See_Comment [Automated messa ge] The system which generated this result transmitted reference range: 3.5-5.4 MEQ/L. The reference range was not used to interpret this result as normal/abnormal. PROTEIN, TOTAL (test code = 2885-2) 7.3 G/DL See_Comment [Automated messa ge] The system which generated this result transmitted reference range: 6.1-8.3 G/DL. The reference range was not used to interpret this result as normal/abnormal. AST (test code = 1920-8) 18 U/L See_Comment [Automated messa ge] The system which generated this result transmitted reference range: 9-40 U/L. The reference range was not used to interpret this result as normal/abnormal. ALT (test code = 1742-6) 12 U/L See_Comment [Automated messa ge] The system which generated this result transmitted reference range: 5-40 U/L. The reference range was not used to interpret this result as normal/abnormal. SODIUM (test code = 2951-2) 141 MEQ/L See_Comment [Automated messa ge] The system which generated this result transmitted reference range: 133-146 MEQ/L. The reference range was not used to interpret this result as normal/abnormal. CBC W/AUTO [id number] 00:00:00* Test Item Value Reference Range Interpretation Comme nts NUCLEATED RBCS (test code = 86939-0) 0.0 /100 WBC'S See_Comment [Automated messa ge] The system which generated this result transmitted reference range: 0.0 /100 WBC'S. The reference range was not used to interpret this result as normal/abnormal. ABSOLUTE EOSINOPHILS (test code = 15651-5) 0.14 K/UL See_Comment [Automated messa ge] The system which generated this result transmitted reference range: 0.00-0.50 K/UL. The reference range was not used to interpret this result as normal/abnormal. ABSOLUTE LYMPHOCYTES (test code = 35388-3) 3.12 K/UL See_Comment [Automated messa ge] The system which generated this result transmitted reference range: 1.00-4.00 K/UL. The reference range was not used to interpret this result as normal/abnormal. ABSOLUTE MONOCYTES (test code = 58788-8) 0.60 K/UL See_Comment [Automated messa ge] The system which generated this result transmitted reference range: 0.20-1.00 K/UL. The reference range was not used to interpret this result as normal/abnormal. ABSOLUTE NEUTROPHILS (test code = 05968-3) 6.63 K/UL See_Comment [Automated messa ge] The system which generated this result transmitted reference range: 1.50-7.50 K/UL. The reference range was not used to interpret this result as normal/abnormal. BASOPHILS (test code = 67130-8) 0.6 % EOSINOPHILS (test code = 04466-6) 1.3 % HEMATOCRIT (test code = 10234-0) 48.9 % See_Comment H [Automated messa ge] The system which generated this result transmitted reference range: 34.0-45.0 %. The reference range was not used to interpret this result as normal/abnormal. HEMOGLOBIN (test code = 718-7) 16.8 G/DL See_Comment H [Automated messa ge] The system which generated this result transmitted reference range: 11.5-15.5 G/DL. The reference range was not used to interpret this result as normal/abnormal. LYMPHOCYTES (test code = 24807-5) 29.5 % MCH (test code = 87947-2) 32.7 PG See_Comment [Automated messa ge] The system which generated this result transmitted reference range: 25.0-33.0 PG. The reference range was not used to interpret this result as normal/abnormal. MCHC (test code = 65340-8) 34.4 G/DL See_Comment [Automated messa ge] The system which generated this result transmitted reference range: 31.0-36.0 G/DL. The reference range was not used to interpret this result as normal/abnormal. MCV (test code = 27051-5) 95.3 fL See_Comment [Automated messa ge] The system which generated this result transmitted reference range: 80.0-99.0 fL. The reference range was not used to interpret this result as normal/abnormal. MONOCYTES (test code = 92693-4) 5.7 % NEUTROPHILS (test code = 65713-2) 62.5 % PLATELET COUNT (test code = 93750-4) 222 K/UL See_Comment [Automated messa ge] The system which generated this result transmitted reference range: 130-400 K/UL. The reference range was not used to interpret this result as normal/abnormal. RBC (test code = 62712-4) 5.13 M/UL See_Comment [Automated messa ge] The system which generated this result transmitted reference range: 3.80-5.40 M/UL. The reference range was not used to interpret this result as normal/abnormal. RDW (test code = 37358-2) 12.8 % See_Comment [Automated messa ge] The system which generated this result transmitted reference range: 11.5-15.0 %. The reference range was not used to interpret this result as normal/abnormal. WBC (test code = 74612-4) 10.6 K/UL See_Comment [Automated messa ge] The system which generated this result transmitted reference range: 3.5-11.0 K/UL. The reference range was not used to interpret this result as normal/abnormal. LIPID PANEL WITH REFLEX DIRECT [id number] 00:00:00* Test Item Value Reference Range Interpretation Comme nts CALC LDL CHOL (test code = 05603-5) 153 MG/DL See_Comment H [Automated messa ge] The system which generated this result transmitted reference range: <100 MG/DL. The reference range was not used to interpret this result as normal/abnormal. CHOLESTEROL (test code = 2093-3) 228 MG/DL See_Comment H [Automated messa ge] The system which generated this result transmitted reference range: <200 MG/DL. The reference range was not used to interpret this result as normal/abnormal. HDL CHOLESTEROL (test code = 2085-9) 54 MG/DL See_Comment [Automated messa ge] The system which generated this result transmitted reference range: >39 MG/DL. The reference range was not used to interpret this result as normal/abnormal. RISK RATIO LDL/HDL (test code = 36440-4) 2.83 RATIO See_Comment [Automated message] The system which generated this result transmitted reference range: <3.22 RATIO. The reference range was not used to interpret this result as normal/abnormal. TRIGLYCERIDES (test code = 2571-8) 99 MG/DL See_Comment [Automated messa ge] The system which generated this result transmitted reference range: <150 MG/DL. The reference range was not used to interpret this result as normal/abnormal. COMPREHENSIVE METABOLIC [id number] 00:00:00* Test Item Value Reference Range Interpretation Comme nts ALBUMIN (test code = 1751-7) 4.7 G/DL See_Comment [Automated messa ge] The system which generated this result transmitted reference range: 3.5-5.2 G/DL. The reference range was not used to interpret this result as normal/abnormal. ALKALINE PHOSPHATASE (test code = 6768-6) 93 U/L See_Comment [Automated message] The system which generated this result transmitted reference range: 40-136 U/L. The reference range was not used to interpret this result as normal/abnormal. BILIRUBIN, TOTAL (test code = 1975-2) 0.8 MG/DL See_Comment [Automated message] The system which generated this result transmitted reference range: <=1.2 MG/DL. The reference range was not used to interpret this result as normal/abnormal. BUN (test code = 3094-0) 10 MG/DL See_Comment [Automated messa ge] The system which generated this result transmitted reference range: 6-20 MG/DL. The reference range was not used to interpret this result as normal/abnormal. CALCIUM (test code = 16020-1) 10.4 MG/DL See_Comment [Automated messa ge] The system which generated this result transmitted reference range: 8.5-10.5 MG/DL. The reference range was not used to interpret this result as normal/abnormal. CALC A/G RATIO (test code = 1759-0) 1.9 RATIO See_Comment [Automated messa ge] The system which generated this result transmitted reference range: 1.0-2.6 RATIO. The reference range was not used to interpret this result as normal/abnormal. CALC BUN/CREAT (test code = 3097-3) 13 RATIO See_Comment [Automated messa ge] The system which generated this result transmitted reference range: 6-28 RATIO. The reference range was not used to interpret this result as normal/abnormal. CALC GLOBULIN (test code = 20986-2) 2.5 G/DL See_Comment [Automated messa ge] The system which generated this result transmitted reference range: 1.9-3.7 G/DL. The reference range was not used to interpret this result as normal/abnormal. CARBON DIOXIDE (test code = 1963-8) 24 MEQ/L See_Comment [Automated messa ge] The system which generated this result transmitted reference range: 19-31 MEQ/L. The reference range was not used to interpret this result as normal/abnormal. CHLORIDE (test code = 2075-0) 104 MEQ/L See_Comment [Automated messa ge] The system which generated this result transmitted reference range: 95-107 MEQ/L. The reference range was not used to interpret this result as normal/abnormal. CREATININE (test code = 2160-0) 0.75 MG/DL See_Comment [Automated messa ge] The system which generated this result transmitted reference range: 0.60-1.30 MG/DL. The reference range was not used to interpret this result as normal/abnormal. eGFR (2020 CKD-EPI) (test code = 50484-3) 93 ML/MIN/1.73 See_Comment [Automated messa ge] The system which generated this result transmitted reference range: >60 ML/MIN/1.73. The reference range was not used to interpret this result as normal/abnormal. GLUCOSE (test code = 1558-6) 91 MG/DL See_Comment [Automated messa ge] The system which generated this result transmitted reference range: 70-99 MG/DL. The reference range was not used to interpret this result as normal/abnormal. POTASSIUM (test code = 2823-3) 4.1 MEQ/L See_Comment [Automated messa ge] The system which generated this result transmitted reference range: 3.5-5.4 MEQ/L. The reference range was not used to interpret this result as normal/abnormal. PROTEIN, TOTAL (test code = 2885-2) 7.2 G/DL See_Comment [Automated messa ge] The system which generated this result transmitted reference range: 6.1-8.3 G/DL. The reference range was not used to interpret this result as normal/abnormal. AST (test code = 1920-8) 24 U/L See_Comment [Automated messa ge] The system which generated this result transmitted reference range: 9-40 U/L. The reference range was not used to interpret this result as normal/abnormal. ALT (test code = 1742-6) 19 U/L See_Comment [Automated messa ge] The system which generated this result transmitted reference range: 5-40 U/L. The reference range was not used to interpret this result as normal/abnormal. SODIUM (test code = 2951-2) 141 MEQ/L See_Comment [Automated messa ge] The system which generated this result transmitted reference range: 133-146 MEQ/L. The reference range was not used to interpret this result as normal/abnormal. DEXA, BONE DENSITY AXIAL SKELEDEXA, BONE DENSITY AXIAL SKELE
[2024-04-12] MEDS ORDERED: NA CHLORIDE 0.9% 1,000 ML ONE (11:26)
[2024-04-12] MEDS ORDERED: ONDANSETRON 4 MG/2 ML VIAL ONE (11:26)
[2024-04-12] MEDS ORDERED: MORPHINE 4 MG/ML SYR ONE (11:27)
[2024-04-12 11:40] LABS: Absolute Basophils 0.1 K/uL (0-0.5); Absolute Eosinophils 0.3 K/uL (0-0.5); Absolute Lymphocytes (CBC) 3.1 K/uL (0.7-4.9); Absolute Monocytes 0.7 K/uL (0.1-1.3); Absolute Neutrophil 5.5 K/uL (1.8-8.0); Basophils % 0.7 % (0-1.3); Eosinophils % 3.6 % (0-4.4); Hematocrit 48.8 % (36.0-45.0); Hemoglobin 16.1 g/dL (12.0-15.0); Lymphocytes % 31.6 % (15.3-44.8); MCV 97.1 fL (80-100); Monocytes % 7.5 % (3.3-12.3); Neutrophils % 56.6 % (41.7-73.7); Platelets 201 thou/uL (152-406); RBC Red Blood Cell Count 5.03 M/uL (3.86-4.86); Red Cell Distribution Width 14.1 % (12.1-15.2)
[2024-04-12 11:52] LABS: Sqamous Epithelial <5 /HPF (None Seen); Urine Bacteria <20 /HPF (<20); Urine Bilirubin NEGATIVE (Negative); Urine Blood Trace (Negative); Urine Clarity Extremely Turbid (Clear); Urine Color Light-Yellow (Yellow); Urine Culture Reflex Order NOT NEEDED; Urine Glucose NEGATIVE (Negative); Urine Ketones NEGATIVE (Negative); Urine Microscopic Reflex YN ORDER UMIC; Urine Mucus Slight /HPF (None Seen); Urine Nitrite NEGATIVE (Negative); Urine Protein NEGATIVE (Negative); Urine RBC <5 /HPF (None Seen); Urine Urobilinogen Normal (Normal); Urine WBC <5 /HPF (<5); Urine pH 5.5 (5.0-7.0)
[2024-04-12 11:52] LABS: Albumin 3.8 g/dL (3.4-5.0); Albumin/Globulin Ratio 1.1 (1.1-1.8); Anion Gap 5.9 mEq/L (5.0-15.0); Bilirubin Total 0.6 mg/dL (0.2-1.0); Globulin 3.6 g/dL (2.3-3.5); Potassium 3.9 mEq/L (3.5-5.1); Protein, Total 7.4 g/dL (6.4-8.2)
--- NOTE | 2024-04-12 12:41 | RAD REPORT ---
EXAM DESCRIPTION: CTAbdomen Pelvis W Contrast - 04/12/2024 12:31 pm CLINICAL HISTORY: Abdominal pain. ABD PAIN COMPARISON: Abdomen Pelvis W Contrast dated 01/19/2021; Abdomen Pelvis W Contrast dated 04/29/2019 ; Abdomen Pelvis W Contrast dated 01/22/2018; Abdomen Pelvis W Contrast dated 06/29/2017 TECHNIQUE: Biphasic CT imaging of the abdomen and pelvis was performed with 100 ml non-ionic IV cont rast. All CT scans are performed using dose optimization technique as appropriate and may include automated exposure control or mA/KV adjustment according to patient size. FINDINGS: The lung bases are clear. The liver demonstrates mild fatty infiltration. Cholecystectomy clips. Spleen, pancreas, adrenal glan ds and kidneys are within normal limits. No bowel obstruction, free air, free fluid or abscess. The appendix is normal. No evidence of signi ficant lymphadenopathy. 3 cm mild infrarenal abdominal aortic aneurysm. Mild lumbar degenerative changes. IMPRESSION: No acute intra-abdominal or pelvic finding.
[2024-04-12] MEDS ORDERED: KETOROLAC 30 MG/ML INJ ONE (13:18)
[2024-04-12] MEDS ORDERED: FAMOTIDINE 20 MG/2 ML VIAL IV ONE (13:18)
--- NOTE | 2024-04-12 13:41 | ER ---
Nurse's Notes [facility] Name: Juan J Velez Age: 58 yrs Sex: Female : 1965 Arrival Date: 04/12/2024 Time: 10:42 Bed 7 Private MD: Diagnosis: Fatty (change of) liver, not elsewhere classified;Abdominal pain, Generalized Presentation: 04/12 11:08 Chief complaint: Patient states: she has been having right sided abdominal pain that ap3 also goes along the bottom of her abdomen intermittently "for a while". patient currently rates her pain as a 7/10 on the pain scale. patient also complains of constipation. Coronavirus screen: At this time, the client does not indicate any symptoms associated with coronavirus-19. Ebola Screen: No symptoms or risks identified at this time. Initial Sepsis Screen: Does the patient meet any 2 criteria? No. Patient's initial sepsis screen is negative. Does the patient have a suspected source of infection? No. Patient's initial sepsis screen is negative. Risk Assessment: Do you want to hurt yourself or someone else? Patient reports no desire to harm self or others. Onset of symptoms is unknown. 11:08 Method Of Arrival: Ambulatory ap3 11:08 Acuity: KORINA 3 ap3 Triage Assessment: 11:10 General: Appears in no apparent distress. Behavior is calm, cooperative, appropriate ap3 for age. Pain: Complains of pain in abdomen. Neuro: Level of Consciousness is awake, alert, obeys commands, Oriented to person, place, time, situation. Cardiovascular: Patient's skin is warm and dry. Respiratory: Airway is patent Respiratory effort is even, unlabored, Respiratory pattern is regular, symmetrical. GI: Reports constipation. Historical: - Allergies: 11:09 NKDA; ap3 - PMHx: 11:09 Anxiety; Bipolar disorder; Depression; PTSD; ap3 - Immunization history:: Adult Immunizations up to date. - Infectious Disease History:: Denies. - Social history:: Smoking status: Patient reports the use of cigarette tobacco products, smokes one pack cigarettes per day. Patient uses alcohol. Screenin:11 [facility] ED Fall Risk Assessment (Adult) History of falling in the last 3 months, ap3 including since admission No falls in past 3 months (0 pts) Confusion or Disorientation No (0 pts) Intoxicated or Sedated No (0 pts) Impaired Gait No (0 pts) Mobility Assist Device Used No (0 pt) Altered Elimination No (0 pt) Score/Fall Risk Level 0 - 2 = Low Risk Oriented to surroundings, Maintained a safe environment, Educated pt \\T\\ family on fall prevention, incl call for assistance when getting out of bed, Assessed \\T\\ reinforced patient's understanding of fall precautions, Hourly rounding (assess needs \\T\\ fall precautionary measures) done, Used ambulatory aids as needed (educated on \\T\\ assisted with), Used gait belt as appropriate. Abuse screen: Denies threats or abuse. Nutritional screening: No deficits noted. Tuberculosis screening: No symptoms or risk factors identified. Assessment: 11:35 General: Appears in no apparent distress. Behavior is calm, cooperative. Pain: mb9 Complains of pain in abdomen Pain radiates to right upper quadrant Pain currently is 8 out of 10 on a pain scale. Quality of pain is described as throbbing, Pain began suddenly, Is intermittent, Aggravated by increased activity. Neuro: Power Agitation-Sedation Scale (RASS): 0 - Alert and Calm Level of Consciousness is awake, alert, obeys commands, Oriented to person, place, time, situation, Appropriate for age. Cardiovascular: Heart tones S1 S2 present Patient's skin is warm and dry. Respiratory: Airway is patent Respiratory effort is even, unlabored, Respiratory pattern is regular, symmetrical. GI: Abdomen is round non-distended, Bowel sounds present X 4 quads. Abd is soft Abdomen is tender to palpation in right upper quadrant. : No signs and/or symptoms were reported regarding the genitourinary system. EENT: No signs and/or symptoms were reported regarding the EENT system. Derm: Skin is pink, warm \\T\\ dry. Musculoskeletal: Range of motion: intact in all extremities. 12:30 Reassessment: No changes from previously documented assessment. Patient and/or family mb9 updated on plan of care and expected duration. Pain level reassessed. Patient is alert, oriented x 3, equal unlabored respirations, skin warm/dry/pink. 14:01 Reassessment: Patient appears in no apparent distress at this time. No changes from ld1 previously documented assessment. Patient and/or family updated on plan of care and expected duration. Pain level reassessed. Patient is alert, oriented x 3, equal unlabored respirations, skin warm/dry/pink. Vital Signs: 11:08 BP 133 / 77; Pulse 69; Resp 17; Temp 98.1; Pulse Ox 100% ; Pain 7/10; mb9 12:31 BP 106 / 60; Pulse 64; Resp 18; Pulse Ox 100% on R/A; mb9 14:01 BP 113 / 64; Pulse 70; Resp 18; Pulse Ox 100% on R/A; ld1 11:08 Pain Scale: Adult mb9 ED Course: 10:46 Patient arrived in ED. mg5 10:46 Tessy Berry PA-C is PHCP. sb4 10:46 Tanmay Nash MD is Attending Physician. sb4 11:01 Sonya Alanis RN is Primary Nurse. mb9 11:09 Triage completed. ap3 11:11 Arm band placed on right wrist. ap3 11:33 CBC with Diff Sent. mb9 11:33 CMP Sent. mb9 11:33 Lipase Sent. mb9 11:33 Urinalysis w/ reflexes Sent. mb9 11:34 Accessed peripheral vein via ultrasound, utilizing dynamic ultrasound technique using mb9 ,sterile technique, per hospital protocol. Clean \\T\\ dry. Dressing intact. Good blood return. Flushes easily. 20 g left upper arm. 11:37 Placed in gown. Bed in low position. Call light in reach. Side rails up X 1. Provided mb9 Education on: press call light if needing anything . Client placed on continuous cardiac and pulse oximetry monitoring. NIBP monitoring applied. 12:33 CT Abd/Pelvis - IV Contrast Only In Process Unspecified. EDMS 14:01 No provider procedures requiring assistance completed. IV discontinued, intact, ld1 bleeding controlled, No redness/swelling at site. Administered Medications: 11:30 Drug: Ondansetron IVP 4 mg IVP once; over 2 minutes Route: IVP; Site: left upper arm; mb9 12:31 Follow up: Response: No adverse reaction mb9 11:33 Drug: NS 0.9% IV 1000 ml IV at 1 bolus Per protocol; 1000 mL bolus Route: IV; Rate: 1 mb9 bolus; Site: left upper arm; 12:51 Follow up: Response: No adverse reaction; IV Status: Completed infusion mb9 11:34 Drug: morphine IVP or IV 4 mg IVP once over 4 mins Route: IVP; Infused Over: 4 mins; mb9 Site: left upper arm; 12:31 Follow up: Response: No adverse reaction mb9 13:20 Drug: Famotidine IVP 20 mg IVP once; dilute with 10 mL 0.9% NaCl; give over 2 minutes mb9 Route: IVP; Site: left upper arm; 14:01 Follow up: Response: No adverse reaction ld1 13:22 Drug: Ketorolac IVP 15 mg IVP once Route: IVP; Site: left upper arm; mb9 14:01 Follow up: Response: No adverse reaction ld1 Medication: 11:37 VIS not applicable for this client. mb9 Outcome: 13:40 Discharge ordered by . sb4 14:02 Discharged to home ambulatory, ld1 14:02 Condition: stable 14:02 Discharge instructions given to patient, Instructed on discharge instructions, follow up and referral plans. Demonstrated understanding of instructions, follow-up care, 14:02 Patient left the ED. ld1 Signatures: Dispatcher [employer] EDEdie Abdi RN RN ap3 Robyn Sparks RN RN ld1 Tessy Berry, PA-C PA-C sb4 Sonya Alanis RN RN mb9 Alisia Coronel mg5 Corrections: (The following items were deleted from the chart) 11:34 11:08 BP 133 / 77; Pulse 69bpm; Resp 17bpm; Pulse Ox 100%; Pain 7/10, Adult; ap3 mb9
--- NOTE | 2024-04-12 13:41 | EDPHYS ---
Physician Documentation [facility] Name: Juan J Velez Age: 58 yrs Sex: Female : 1965 Arrival Date: 04/12/2024 Time: 10:42 Bed 7 Private MD: ED Physician Tanmay Nash HPI: 04/12 11:08 This 58 yrs old Female presents to ER via Unassigned with complaints of abdomial pain. sb4 11:09 The patient presents with abdominal pain in the right upper quadrant, right lower sb4 quadrant. Onset: The symptoms/episode began/occurred at an unknown time, and became worse yesterday. The symptoms do not radiate. Associated signs and symptoms: Pertinent positives: constipation. Modifying factors: The symptoms are alleviated by nothing, the symptoms are aggravated by drinking, food. Severity of pain: in the emergency department the pain is a 7 / 10. 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 Historical: - Allergies: 11:09 NKDA; ap3 - PMHx: 11:09 Anxiety; Bipolar disorder; Depression; PTSD; ap3 - Immunization history:: Adult Immunizations up to date. - Infectious Disease History:: Denies. - Social history:: Smoking status: Patient reports the use of cigarette tobacco products, smokes one pack cigarettes per day. Patient uses alcohol. ROS: 11:09 Constitutional: Negative for fever, chills, and weight loss, sb4 11:09 Abdomen/GI: Positive for abdominal pain, constipation, abdominal distension, 11:09 All other systems are negative, Exam: 11:09 Constitutional: This is a well developed, well nourished patient who is awake, alert, sb4 and in no acute distress. Head/Face: Normocephalic, atraumatic. Eyes: Extra-ocular motions intact. Periorbital areas with no swelling, redness, or edema. ENT: Mucous membranes moist. Cardiovascular: Regular rate and rhythm with a normal S1 and S2. Respiratory: Lungs have equal breath sounds bilaterally, clear to auscultation and percussion. No rales, rhonchi or wheezes noted. No increased work of breathing, no retractions or nasal flaring. Skin: Warm, dry with normal turgor. Normal color with no rashes, no lesions, and no evidence of cellulitis. 11:09 Abdomen/GI: Inspection: abdomen appears normal, obese Bowel sounds: normal, Palpation: soft, mild abdominal tenderness, in the right upper quadrant, Vital Signs: 11:08 BP 133 / 77; Pulse 69; Resp 17; Temp 98.1; Pulse Ox 100% ; Pain 7/10; mb9 12:31 BP 106 / 60; Pulse 64; Resp 18; Pulse Ox 100% on R/A; mb9 14:01 BP 113 / 64; Pulse 70; Resp 18; Pulse Ox 100% on R/A; ld1 11:08 Pain Scale: Adult mb9 MDM: 10:46 Patient medically screened. sb4 13:20 Data reviewed: vital signs, nurses notes, lab test result(s), radiologic studies, and sb4 as a result, I will discharge patient. Counseling: I had a detailed discussion with the patient and/or guardian regarding the historical points, exam findings, and any diagnostic results supporting the discharge/admit diagnosis, lab results, radiology results, the need for outpatient follow up, a register repairer, to return to the emergency department if symptoms worsen or persist or if there are any questions or concerns that arise at home. 04/12 11:08 Order name: CBC with Diff; Complete Time: 11:42 sb4 04/12 11:08 Order name: CMP; Complete Time: 11:53 sb4 04/12 11:08 Order name: Lipase; Complete Time: 11:53 sb4 04/12 11:08 Order name: Urinalysis w/ reflexes; Complete Time: 11:53 sb4 04/12 11:08 Order name: CT Abd/Pelvis - IV Contrast Only; Complete Time: 12:45 sb4 04/12 11:08 Order name: IV Saline Lock; Complete Time: 11:33 sb4 04/12 11:08 Order name: Labs collected and sent; Complete Time: 11:33 sb4 Administered Medications: 11:30 Drug: Ondansetron IVP 4 mg IVP once; over 2 minutes Route: IVP; Site: left upper arm; mb9 12:31 Follow up: Response: No adverse reaction mb9 11:33 Drug: NS 0.9% IV 1000 ml IV at 1 bolus Per protocol; 1000 mL bolus Route: IV; Rate: 1 mb9 bolus; Site: left upper arm; 12:51 Follow up: Response: No adverse reaction; IV Status: Completed infusion mb9 11:34 Drug: morphine IVP or IV 4 mg IVP once over 4 mins Route: IVP; Infused Over: 4 mins; mb9 Site: left upper arm; 12:31 Follow up: Response: No adverse reaction mb9 13:20 Drug: Famotidine IVP 20 mg IVP once; dilute with 10 mL 0.9% NaCl; give over 2 minutes mb9 Route: IVP; Site: left upper arm; 14:01 Follow up: Response: No adverse reaction ld1 13:22 Drug: Ketorolac IVP 15 mg IVP once Route: IVP; Site: left upper arm; mb9 14:01 Follow up: Response: No adverse reaction ld1 Disposition Summary: 04/12/24 13:40 Discharge Ordered Notes: Location: Home sb4 Problem: an ongoing problem sb4 Symptoms: have improved sb4 Condition: Stable sb4 Diagnosis - Fatty (change of) liver, not elsewhere classified sb4 - Abdominal pain, Generalized sb4 Followup: sb4 - With: Private Physician - When: 1 week - Reason: Further diagnostic work-up Discharge Instructions: - Discharge Summary Sheet sb4 - Fatty Liver Disease sb4 - Nonalcoholic Fatty Liver Disease Diet, Adult sb4 Forms: - Patient Portal Instructions sb4 - Leadership Thank You Letter sb4 Prescriptions: - dicyclomine 20 mg Oral tablet - take 1 tablet ORAL route 3 times per day; 20 tablet; Refills: 0, Product sb4 Selection Permitted Signatures: Dispatcher MedHoEdie Arredondo RN RN ap3 Tessy Berry PA-C PA-C sb4 Sonya Alanis RN RN mb9 Robyn Sparks RN ld1
[2024-04-12 14:07] VITALS: TEMP 98.1; O2SAT 100
[2024-04-12 14:10] VITALS: BP 113/64
== END 2024-04-12 14:02 | disposition home or self-care (01) ==
LOC: ER 10:42
DX: K76.0 Fatty (change of) liver, not elsewhere classified (principal); F17.210 Nicotine dependence, cigarettes, uncomplicated
CPT/HCPCS: 96361; 85025; 81001; 36415; 83690; 80053; 74177; 96375; 96374; 99284; Q9967; J2405; J7030

== ENCOUNTER 2025-04-01 09:06 | Emergency (ER) | payer OTHER ==
--- OUTSIDE RECORDS SUMMARY | 2025-04-01 09:11 | XMS REPORT | Continuity of Care Document ---
Author Name Unknown Address [address] [facility] [address] [place] [address] [facility] [place] Address [address] [facility] [address] [place] [address] Care Team Providers Care Payroll Administrative Assistant Name Role Phone Emanuel Nash Attending Clinician Unavailable Inessa Stern Attending Clinician Unavailable WYATT ABDALLA Attending Clinician Unavailable Payers Payer Name Policy Type Policy Number Effective Date Expirati on Date Source [id number] [facility] Advantage 1 [id number] 2023 00:00:00 [facility] [employer] MEDICARE C1 [id number] Comm on [facility] [id number] [facility] [employer] MEDICARE C1 [id number] Comm on [facility] [id number] [facility] MEDICARE PART A \T\ B [id number] 2006 00:00:00 [place] [id number] 2017 00:00:00 Problems Condition Name Condition Details Condition Category Status Onset Date Resolution Date Last Treatment Date Treating Clinician Comments Source Borderline personalit y disorder Borderline personalit y disorder Problem [facility] Irritable bowel syndrome Irritable bowel syndrome without diarrhea Problem [facility] Chronic pain syndrome Chronic pain syndrome Problem [facility] Nicotine dependence Nicotine dependence Problem [facility] Knee pain Knee pain Problem [facility] Hyperlipid aemia Hyperlipem ia Problem [facility] [id number] 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 Problem [facility] [id number] Right sided sciatica Problem [facility] Screening for colon cancer Screening for colon cancer Problem [facility] [id number] Bipolar affective disorder, current episode depressed, current episode severity unspecifie d Problem [facility] Fatigue Chronic fatigue Problem [facility] [id number] Depression with anxiety Problem [facility] Posttrauma tic stress disorder Post traumatic stress disorder Problem [facility] Examinatio n of breast (procedure ) Screening breast examinatio n Problem [facility] [id number] Encounter for general adult medical examinatio n without abnormal findings Problem [facility] [id number] 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 Problem [facility] Lumbar radiculopa thy Lumbar radiculopa thy Problem [facility] Peripheral vascular disease PAD (periphera l artery disease) Problem [facility] [id number] Body mass index [BMI] 34.0-34.9, adult Problem [facility] [id number] Other obesity due to excess calories Problem [facility] Allergies, Adverse Reactions, Alerts Allergy Name Allergy Type Status Severity Reaction(s) Onset Date Inactive Date Treating Clinician Comments Source NO KNOWN ALLERGIE S Drug Class Active [facility] buspiron e buspiron e Active failed therapy [facility] sertrali ne sertrali ne Active failed therapy [facility] fluoxeti ne fluoxeti ne Active failed therapy [facility] paroxeti ne paroxeti ne Active failed therapy [facility] Social History Social Habit Start Date Stop Date Quantity Comments Source History of Tobacco Use Current Smoker [facility] Sex Assigned At [facility] Smoking Status Start Date Stop Date Source Current Smoker 2025-01-22 00:00:00 [facility] Medications Ordered Medication Name Filled Medication Name Start Date Stop Date Current Medication? Ordering Clinician Indication Dosage Frequency Signature (SIG) Comments Components Source Ketorolac 15mg Ketorolac 15mg 6- 00:00: 00 No 30mg [facility] Kenalog (Triamcinol one) Kenalog (Triamcinol one) 6 00:00: 00 No 40mg [facility] buPROPion HCl ER (XL) 150 MG buPROPion HCl ER (XL) 150 MG 2023-08 217 00:00: 00 No 1{table t_in_th e_morni ng} QD buPROPion HCl ER (XL) 150 MG Naltrexone- buPROPion HCl ER 8-90 MG Naltrexone- buPROPion HCl ER 8-90 MG - 00:00: 00 No 1{table t_inth e_morni ng} QD Naltrexone -buPROPion HCl ER 8-90 MG Atorvastati n Calcium 20 MG Atorvastati n Calcium 20 MG 8 00:00: 00 No 1{table t} QD Atorvastat in Calcium 20 MG Bupivicaine [place] Bupivicaine [place] 2 00:00: 00 No 2.5mg [facility] Depo Medrol (40mg) Depo Medrol (40mg) 2 00:00: 00 No 40mg [facility] Cyclobenzap rine HCl 5 MG Cyclobenzap rine HCl 5 MG No 1{table t_at_be dtime_a s_neede d} QD Cyclobenza elena HCl 5 MG methylPREDN ISolone 4 MG methylPREDN ISolone 4 MG No QD methylPRED NISolone 4 MG Vital Signs Vital Name Observation Time Observation Value Comments S ource height 2025-01-22 13:00:00 64.5 [in_i] [facility] temperature 2025-01-22 13:00:00 97.2 [degF] Com [facility] oximetry 2025-01-22 13:00:00 98 % [facility] blood pressure systolic 2025-01-22 13:00:00 128 mm[Hg] [facility] blood pressure diastolic 2025-01-22 13:00:00 82 mm[Hg] [facility] height 2024-12-15 13:45:00 64.5 [in_i] Comm on [facility] weight 2024-12-15 13:45:00 209.0 [lb_av] Co mmon [facility] temperature 2024-12-15 13:45:00 97.0 [degF] Com mon [facility] bmi 2024-12-15 13:45:00 35.32 kg/m2 Comm on [facility] oximetry 2024-12-15 13:45:00 98 % [facility] respiratory rate 2024-12-15 13:45:00 18 /min [facility] blood pressure systolic 2024-12-15 13:45:00 129 mm[Hg] [facility] blood pressure diastolic 2024-12-15 13:45:00 74 mm[Hg] Common [facility] height 2024-07-28 09:45:00 64.5 [in_i] Comm on [facility] weight 2024-07-28 09:45:00 208.4 [lb_av] Co mmon [facility] temperature 2024-07-28 09:45:00 97.3 [degF] Com [facility] bmi 2024-07-28 09:45:00 35.22 kg/m2 Comm on [facility] oximetry 2024-07-28 09:45:00 98 % [facility] respiratory rate 2024-07-28 09:45:00 16 /min [facility] blood pressure systolic 2024-07-28 09:45:00 110 mm[Hg] [facility] blood pressure diastolic 2024-07-28 09:45:00 68 mm[Hg] Common [facility] height 2024-03-24 09:40:00 64.5 [in_i] Comm on [facility] weight 2024-03-24 09:40:00 206.0 [lb_av] Co mmon [facility] temperature 2024-03-24 09:40:00 97.3 [degF] Com mon [facility] bmi 2024-03-24 09:40:00 34.81 kg/m2 Comm on [facility] oximetry 2024-03-24 09:40:00 98 % [facility]mo [facility] respiratory rate 2024-03-24 09:40:00 16 /min [facility] blood pressure systolic 2024-03-24 09:40:00 124 mm[Hg] Common [facility] blood pressure diastolic 2024-03-24 09:40:00 72 mm[Hg] Common [facility] height 2024-03-24 09:40:00 64.5 [in_i] Comm on [facility] weight 2024-03-24 09:40:00 206.0 [lb_av] Co mmon [facility] temperature 2024-03-24 09:40:00 97.3 [degF] Com mon [facility] bmi 2024-03-24 09:40:00 34.81 kg/m2 Comm on [facility] oximetry 2024-03-24 09:40:00 98 % [facility] respiratory rate 2024-03-24 09:40:00 16 /min [facility] blood pressure systolic 2024-03-24 09:40:00 124 mm[Hg] [facility] blood pressure diastolic 2024-03-24 09:40:00 72 mm[Hg] Common [facility] height 2024-03-24 09:40:00 64.5 [in_i] Comm on [facility] weight 2024-03-24 09:40:00 206.0 [lb_av] Co mmon [facility] temperature 2024-03-24 09:40:00 97.3 [degF] Com [facility] bmi 2024-03-24 09:40:00 34.81 kg/m2 Comm on [facility] oximetry 2024-03-24 09:40:00 98 % Commo [facility] respiratory rate 2024-03-24 09:40:00 16 /min [facility] blood pressure systolic 2024-03-24 09:40:00 124 mm[Hg] [facility] blood pressure diastolic 2024-03-24 09:40:00 72 mm[Hg] [facility] height 2023 11:20:00 64.5 [in_i] Comm on [facility] weight 2023 11:20:00 203.8 [lb_av] Co mmon [facility] temperature 2023 11:20:00 97.3 [degF] Com [facility] bmi 2023 11:20:00 34.44 kg/m2 Comm on [facility] oximetry 2023 11:20:00 97 % Commo n [facility] respiratory rate 2023 11:20:00 18 /min [facility] blood pressure systolic 2023 11:20:00 104 mm[Hg] [facility] blood pressure diastolic 2023 11:20:00 59 mm[Hg] [facility] height 2023-11-21 14:10:00 64.5 [in_i] Comm on [facility] weight 2023-11-21 14:10:00 196.4 [lb_av] Co mmon [facility] temperature 2023-11-21 14:10:00 97.2 [degF] Com [facility] bmi 2023-11-21 14:10:00 33.19 kg/m2 Comm on [facility] oximetry 2023-11-21 14:10:00 97 % Commo n [facility] blood pressure systolic 2023-11-21 14:10:00 100 mm[Hg] [facility] blood pressure diastolic 2023-11-21 14:10:00 60 mm[Hg] Common [facility] height 2023-07-22 13:20:00 64.5 [in_i] Comm on [facility] weight 2023-07-22 13:20:00 195 [lb_av] Comm on [facility] temperature 2023-07-22 13:20:00 98.2 [degF] Com [facility] bmi 2023-07-22 13:20:00 32.95 kg/m2 Comm on [facility] oximetry 2023-07-22 13:20:00 97 % Commo [facility] blood pressure systolic 2023-07-22 13:20:00 102 mm[Hg] [facility] blood pressure diastolic 2023-07-22 13:20:00 62 mm[Hg] Common [facility] height 2023-03-12 09:50:00 64.5 [in_i] Comm on [facility] weight 2023-03-12 09:50:00 195.7 [lb_av] Co mmon [facility] temperature 2023-03-12 09:50:00 96.2 [degF] Com [facility] bmi 2023-03-12 09:50:00 33.07 kg/m2 Comm on [facility] oximetry 2023-03-12 09:50:00 97 % Commo [facility] respiratory rate 2023-03-12 09:50:00 18 /min [facility] blood pressure systolic 2023-03-12 09:50:00 124 mm[Hg] [facility] blood pressure diastolic 2023-03-12 09:50:00 68 mm[Hg] [facility] height 2023-03-12 09:50:00 64.5 [in_i] Comm on [facility] weight 2023-03-12 09:50:00 195.7 [lb_av] Co mmon [facility] temperature 2023-03-12 09:50:00 96.2 [degF] Com mon [facility] bmi 2023-03-12 09:50:00 33.07 kg/m2 Comm on [facility] oximetry 2023-03-12 09:50:00 97 % Commo n [facility] respiratory rate 2023-03-12 09:50:00 18 /min [facility] blood pressure systolic 2023-03-12 09:50:00 124 mm[Hg] [facility] blood pressure diastolic 2023-03-12 09:50:00 68 mm[Hg] [facility] height 2022-12-06 10:20:00 64.5 [in_i] Comm on [facility] weight 2022-12-06 10:20:00 195.0 [lb_av] Co mmon [facility] temperature 2022-12-06 10:20:00 96.8 [degF] Com mon [facility] bmi 2022-12-06 10:20:00 32.95 kg/m2 Comm on [facility] oximetry 2022-12-06 10:20:00 98 % Commo n [facility] respiratory rate 2022-12-06 10:20:00 16 /min [facility] blood pressure systolic 2022-12-06 10:20:00 102 mm[Hg] Common [facility] blood pressure diastolic 2022-12-06 10:20:00 56 mm[Hg] [facility] height 2022-09-05 10:50:00 64.5 [in_i] Comm on [facility] weight 2022-09-05 10:50:00 187.9 [lb_av] Co mmon [facility] temperature 2022-09-05 10:50:00 97.3 [degF] Com mon [facility] bmi 2022-09-05 10:50:00 31.75 kg/m2 Comm on [facility] oximetry 2022-09-05 10:50:00 98 % Commo n [facility] respiratory rate 2022-09-05 10:50:00 18 /min [facility] blood pressure systolic 2022-09-05 10:50:00 123 mm[Hg] [facility] blood pressure diastolic 2022-09-05 10:50:00 71 mm[Hg] Common [facility] height 2022-04-09 09:40:00 64.5 [in_i] Comm on [facility] weight 2022-04-09 09:40:00 188.4 [lb_av] Co mmon [facility] temperature 2022-04-09 09:40:00 97.6 [degF] Com mon [facility] bmi 2022-04-09 09:40:00 31.84 kg/m2 Comm on [facility] oximetry 2022-04-09 09:40:00 97 % Commo n [facility] respiratory rate 2022-04-09 09:40:00 17 /min [facility] blood pressure systolic 2022-04-09 09:40:00 121 mm[Hg] [facility] blood pressure diastolic 2022-04-09 09:40:00 79 mm[Hg] [facility] blood pressure systolic 2022-03-12 09:00:00 109 mm[Hg] [facility] blood pressure diastolic 2022-03-12 09:00:00 59 mm[Hg] Common [facility] height 2022-03-12 09:00:00 64.5 [in_i] Comm on [facility] weight 2022-03-12 09:00:00 186 [lb_av] Comm on [facility] temperature 2022-03-12 09:00:00 97.6 [degF] Com [facility] bmi 2022-03-12 09:00:00 31.43 kg/m2 Comm on [facility] oximetry 2022-03-12 09:00:00 96 % Commo n [facility] respiratory rate 2022-03-12 09:00:00 16 /min [facility] height 2022-03-12 09:20:00 64.5 [in_i] Comm on [facility] weight 2022-03-12 09:20:00 186 [lb_av] Comm on [facility] temperature 2022-03-12 09:20:00 97.6 [degF] Com [facility] bmi 2022-03-12 09:20:00 31.43 kg/m2 Comm on [facility] oximetry 2022-03-12 09:20:00 96 % Commo n [facility] respiratory rate 2022-03-12 09:20:00 16 /min [facility] blood pressure systolic 2022-03-12 09:20:00 109 mm[Hg] [facility] blood pressure diastolic 2022-03-12 09:20:00 59 mm[Hg] [facility] height 2021-04-11 13:00:00 64.5 [in_i] Comm on [facility] weight 2021-04-11 13:00:00 198 [lb_av] Comm on [facility] temperature 2021-04-11 13:00:00 98 [degF] Comm on [facility] bmi 2021-04-11 13:00:00 33.46 kg/m2 Comm on [facility] blood pressure systolic 2021-04-11 13:00:00 121 mm[Hg] [facility] blood pressure diastolic 2021-04-11 13:00:00 76 mm[Hg] [facility] height 2021-02-06 10:40:00 64.5 [in_i] Comm on [facility] weight 2021-02-06 10:40:00 214.7 [lb_av] Co mmon [facility] temperature 2021-02-06 10:40:00 97.4 [degF] Com mon [facility] bmi 2021-02-06 10:40:00 36.28 kg/m2 Comm on [facility] oximetry 2021-02-06 10:40:00 95 % Commo n [facility] respiratory rate 2021-02-06 10:40:00 18 /min [facility] blood pressure systolic 2021-02-06 10:40:00 105 mm[Hg] [facility] blood pressure diastolic 2021-02-06 10:40:00 59 mm[Hg] [facility] Encounters Start Date/Time End Date/Time Encounter Type Admission Type Attending Clinicians Care Facility Care Department Encounter ID Source 2024-04-07 09:[id number] 2024-03-20 15:22:00 Outpatient To [facility] [id number] [facility] 2024-01-10 11:16[facility] [id number] [facility] 2023-12-23 16:06:00 Outpatient Nash, Emanuel [facility] [id number] [facility] 2023-07-16 15:17:00 Outpatient Nash, Emanuel [facility] [id number] [facility] 2023-07-12 10:08:00 Outpatient Nash, Emanuel [facility] [id number] [facility] 2022-12-04 08:25:00 Outpatient Nash, Emanuel [facility] [id number] [facility] 2021-09-06 14:16:46 Outpatient Nash, Emanuel [facility] [id number] [facility] 2021-09-06 13:44:28 Outpatient Nash, Emanuel [facility] [id number] [facility] 2021-09-06 13:27:59 Outpatient Nash, Emanuel [facility] [id number] [facility] 2021-09-06 13:19:36 Outpatient Nash, Emanuel [facility] [id number] [facility] 2021-09-06 13:19:19 Outpatient [facility] [id number] [facility] 2021-09-06 13:17:47 Outpatient [facility] [id number] [facility] 2021-09-06 13:14:04 [place] [facility] [id number] [facility] 2025-01-22 00:00:00 2025-01-22 00:00:00 OFFICE VISIT ESTAB PT LEVEL 4 [facility] [id number] [facility] 2025-01-18 00:00:00 2025-01-18 00:00:00 (TEL) [facility] [id number] [facility] 2024-12-15 00:00:00 2024-12-15 00:00:00 OFFICE VISIT ESTAB PT LEVEL 4 [facility] [id number] [facility] 2024-07-28 00:00:00 2024-07-28 00:00:00 OFFICE VISIT ESTAB PT LEVEL 4 [facility] [id number] [facility] 2024-05-21 00:00:00 2024-05-21 00:00:00 (TEL) [facility]C [facility] [id number] [facility] 2024-04-09 00:00:00 2024-04-09 00:00:00 (TEL) [facility]C [facility] [id number] [facility] 2024-04-08 00:00:00 2024-04-08 00:00:00 (TEL) [facility]C [facility] [id number] [facility] 2024-04-07 00:00:00 2024-04-07 00:00:00 (TEL) [facility] [id number] [facility] 2024-03-25 00:00:00 2024-03-25 00:00:00 (TEL) [facility]C [facility] [id number] [facility] 2024-03-24 00:00:00 2024-03-24 00:00:00 OFFICE VISIT ESTAB PT LEVEL 4 [facility] [id number] [facility] 2024-03-24 00:00:00 2024-03-24 00:00:00 (TEL) [facility]C [facility] [id number] [facility] 2024-03-24 00:00:00 2024-03-24 00:00:00 SUB ANNUAL [facility]NESS VISIT [facility] [id number] [facility] 2024-03-24 00:00:00 2024-03-24 00:00:00 (TEL) [facility]C [facility] [id number] [facility] 2024-02-18 00:00:00 2024-02-18 00:00:00 (TEL) [facility]C [facility] [id number] [facility] 2023 00:00:00 2023 00:00:00 OFFICE VISIT ESTAB PT LEVEL 4 [facility] [id number] [facility] 2023 00:00:00 2023 00:00:00 (TEL) [facility] [id number] [facility] 2023-12-20 00:00:00 2023-12-20 00:00:00 (TEL) [facility] [id number] [facility] 2023-11-21 00:00:00 2023-11-21 00:00:00 OFFICE VISIT ESTAB PT LEVEL 4 [facility] [id number] [facility] 2023-07-22 00:00:00 2023-07-22 00:00:00 OFFICE VISIT ESTAB PT LEVEL 4 [facility] [id number] [facility] 2023-05-22 00:00:00 2023-05-22 00:00:00 (TEL) [facility]C [facility] [id number] [facility] 2023-05-17 00:00:00 2023-05-17 00:00:00 (TEL) [facility]C [facility] [id number] [facility] 2023-04-08 00:00:00 2023-04-08 00:00:00 (TEL) [facility]C [facility] [id number] [facility] 2023-03-12 00:00:00 2023-03-12 00:00:00 OFFICE VISIT ESTAB PT LEVEL 4 [facility] [id number] [facility] 2023-03-12 00:00:00 2023-03-12 00:00:00 SUB ANNUAL [facility] V[facility] [id number] [facility] 2022-12-06 00:00:00 2022-12-06 00:00:00 OFFICE VISIT ESTAB PT LEVEL 4 [facility] [id number] [facility] 2022-10-09 00:00:00 2022-10-09 00:00:00 (TEL) ST[facility]C [facility] [id number] [facility] 2022-09-05 00:00:00 2022-09-05 00:00:00 OFFICE VISIT EST PT LEVEL 3 [facility] [id number] [facility] 2022-04-09 00:00:00 2022-04-09 00:00:00 OFFICE VISIT ESTAB PT LEVEL 4 [facility] [id number] [facility] 2022-03-12 00:00:00 2022-03-12 00:00:00 OFFICE VISIT ESTAB PT LEVEL 4 [facility] [id number] [facility] 2022-03-12 00:00:00 2022-03-12 00:00:00 SUB ANNUAL [facility] VIS[facility] [id number] [facility] 2022-03-12 00:00:00 2022-03-12 00:00:00 (TEL) [facility]C [facility] [id number] [facility] 2021-06-30 00:00:00 2021-06-30 00:00:00 (TEL) [facility]C [facility] [id number] [facility] 2021-04-11 00:00:00 2021-04-11 00:00:00 OFFICE VISIT ESTAB PT LEVEL 4 [facility] [id number] [facility] 2021-03-08 00:00:00 2021-03-08 00:00:00 Outpatient [facility] [id number] [facility] 2021-02-06 00:00:00 2021-02-06 00:00:00 OFFICE VISIT ESTAB PT LEVEL 4 [facility] [id number] [facility] 2020-11-26 10:05:00 2020-11-26 10:05:00 Outpatient WYATT [facility] [id number] [facility] 2020-02-03 13:45:00 2020-02-03 13:45:00 [facility] [id number] [facility] 2019-05-07 16:52:00 2019-05-07 16:52:00 [facility] [id number] [facility] 2019-05-07 13:20:00 2019-05-07 13:20:00 [facility] [id number] [facility] 2018-10-27 14:00:00 2018-10-27 14:00:00 [facility] [id number] [facility] 2018-09-24 08:30:00 2018-09-24 08:30:00 [facility] [id number] [facility] 2018-09-08 09:32:00 2018-09-08 09:32:00 [facility] [id number] [facility] 2018-05-05 09:45:00 2018-05-05 09:45:00 [facility] [id number] [facility] Results Test Description Test Time Test Comments Results Result Co mments Source CBC W/AUTO [id number] 00:00:00* Test Item Value Reference Range Interpretation Comme nts NUCLEATED RBCS (test code = 70019-0) 0.0 /100 WBC'S See_Comment [Automated [employer]] The system which generated this result transmitted reference range: 0.0 /100 WBC'S. The reference range was not used to interpret this result as normal/abnormal. ABSOLUTE EOSINOPHILS (test code = 44468-1) 0.24 K/UL See_Comment [Automated [employer]] The system which generated this result transmitted reference range: 0.00-0.50 K/UL. The reference range was not used to interpret this result as normal/abnormal. ABSOLUTE LYMPHOCYTES (test code = 40593-6) 2.89 K/UL See_Comment [Automated messa ge] The system which generated this result transmitted reference range: 1.00-4.00 K/UL. The reference range was not used to interpret this result as normal/abnormal. ABSOLUTE MONOCYTES (test code = 05564-1) 0.62 K/UL See_Comment [Automated messa ge] The system which generated this result transmitted reference range: 0.20-1.00 K/UL. The reference range was not used to interpret this result as normal/abnormal. ABSOLUTE NEUTROPHILS (test code = 14069-6) 6.04 K/UL See_Comment [Automated messa ge] The system which generated this result transmitted reference range: 1.50-7.50 K/UL. The reference range was not used to interpret this result as normal/abnormal. BASOPHILS (test code = 03010-7) 0.6 % EOSINOPHILS (test code = 11787-6) 2.4 % HEMATOCRIT (test code = 32848-7) 47.7 % See_Comment H [Automated messa ge] The system which generated this result transmitted reference range: 34.0-45.0 %. The reference range was not used to interpret this result as normal/abnormal. HEMOGLOBIN (test code = 718-7) 16.0 G/DL See_Comment H [Automated messa ge] The system which generated this result transmitted reference range: 11.5-15.5 G/DL. The reference range was not used to interpret this result as normal/abnormal. LYMPHOCYTES (test code = 34133-2) 29.3 % MCH (test code = 96386-7) 32.8 PG See_Comment [Automated messa ge] The system which generated this result transmitted reference range: 25.0-33.0 PG. The reference range was not used to interpret this result as normal/abnormal. MCHC (test code = 15605-2) 33.5 G/DL See_Comment [Automated messa ge] The system which generated this result transmitted reference range: 31.0-36.0 G/DL. The reference range was not used to interpret this result as normal/abnormal. MCV (test code = 99380-7) 97.7 fL See_Comment [Automated messa ge] The system which generated this result transmitted reference range: 80.0-99.0 fL. The reference range was not used to interpret this result as normal/abnormal. MONOCYTES (test code = 54068-8) 6.3 % NEUTROPHILS (test code = 07349-9) 61.2 % PLATELET COUNT (test code = 15000-0) 223 K/UL See_Comment [Automated messa ge] The system which generated this result transmitted reference range: 130-400 K/UL. The reference range was not used to interpret this result as normal/abnormal. RBC (test code = 55231-4) 4.88 M/UL See_Comment [Automated messa ge] The system which generated this result transmitted reference range: 3.80-5.40 M/UL. The reference range was not used to interpret this result as normal/abnormal. RDW (test code = 77281-2) 12.8 % See_Comment [Automated messa ge] The system which generated this result transmitted reference range: 11.5-15.0 %. The reference range was not used to interpret this result as normal/abnormal. WBC (test code = 00148-2) 9.9 K/UL See_Comment [Automated messa ge] The system which generated this result transmitted reference range: 3.5-11.0 K/UL. The reference range was not used to interpret this result as normal/abnormal. CBC W/AUTO [id number] 00:00:00* Test Item Value Reference Range Interpretation Comme nts NUCLEATED RBCS (test code = 56605-7) 0.0 /100 WBC'S See_Comment [Automated messa ge] The system which generated this result transmitted reference range: 0.0 /100 WBC'S. The reference range was not used to interpret this result as normal/abnormal. ABSOLUTE EOSINOPHILS (test code = 52537-3) 0.18 K/UL See_Comment [Automated messa ge] The system which generated this result transmitted reference range: 0.00-0.50 K/UL. The reference range was not used to interpret this result as normal/abnormal. ABSOLUTE LYMPHOCYTES (test code = 64702-8) 3.02 K/UL See_Comment [Automated messa ge] The system which generated this result transmitted reference range: 1.00-4.00 K/UL. The reference range was not used to interpret this result as normal/abnormal. ABSOLUTE MONOCYTES (test code = 99363-3) 0.69 K/UL See_Comment [Automated messa ge] The system which generated this result transmitted reference range: 0.20-1.00 K/UL. The reference range was not used to interpret this result as normal/abnormal. ABSOLUTE NEUTROPHILS (test code = 54109-3) 4.46 K/UL See_Comment [Automated messa ge] The system which generated this result transmitted reference range: 1.50-7.50 K/UL. The reference range was not used to interpret this result as normal/abnormal. BASOPHILS (test code = 19917-7) 1.1 % EOSINOPHILS (test code = 36794-4) 2.1 % HEMATOCRIT (test code = 19344-4) 47.5 % See_Comment H [Automated messa ge] [...] result as normal/abnormal. LYMPHOCYTES (test code = 79496-0) 35.2 % MCH (test code = 27797-4) 31.1 PG See_Comment [Automated messa ge] The system which generated this result transmitted reference range: 25.0-33.0 PG. The reference range was not used to interpret this result as normal/abnormal. MCHC (test code = 94031-7) 32.6 G/DL See_Comment [Automated messa ge] The system which generated this result transmitted reference range: 31.0-36.0 G/DL. The reference range was not used to interpret this result as normal/abnormal. MCV (test code = 75396-0) 95.4 fL See_Comment [Automated messa ge] The system which generated this result transmitted reference range: 80.0-99.0 fL. The reference range was not used to interpret this result as normal/abnormal. MONOCYTES (test code = 69859-0) 8.1 % NEUTROPHILS (test code = 93507-4) 52.0 % PLATELET COUNT (test code = 07060-3) 191 K/UL See_Comment [Automated messa ge] The system which generated this result transmitted reference range: 130-400 K/UL. The reference range was not used to interpret this result as normal/abnormal. RBC (test code = 18875-3) 4.98 M/UL See_Comment [Automated messa ge] The system which generated this result transmitted reference range: 3.80-5.40 M/UL. The reference range was not used to interpret this result as normal/abnormal. RDW (test code = 87822-9) 12.7 % See_Comment [Automated messa ge] The system which generated this result transmitted reference range: 11.5-15.0 %. The reference range was not used to interpret this result as normal/abnormal. WBC (test code = 24899-2) 8.6 K/UL See_Comment [Automated messa ge] The system which generated this result transmitted reference range: 3.5-11.0 K/UL. The reference range was not used to interpret this result as normal/abnormal. CBC W/AUTO [id number] 00:00:00* Test Item Value Reference Range Interpretation Comme nts NUCLEATED RBCS (test code = 72005-2) 0.0 /100 WBC'S See_Comment [Automated messa ge] The system which generated this result transmitted reference range: 0.0 /100 WBC'S. The reference range was not used to interpret this result as normal/abnormal. ABSOLUTE EOSINOPHILS (test code = 00073-5) 0.14 K/UL See_Comment [Automated messa ge] The system which generated this result transmitted reference range: 0.00-0.50 K/UL. The reference range was not used to interpret this result as normal/abnormal. ABSOLUTE LYMPHOCYTES (test code = 69258-8) 3.12 K/UL See_Comment [Automated messa ge] The system which generated this result transmitted reference range: 1.00-4.00 K/UL. The reference range was not used to interpret this result as normal/abnormal. ABSOLUTE MONOCYTES (test code = 05322-6) 0.60 K/UL See_Comment [Automated messa ge] The system which generated this result transmitted reference range: 0.20-1.00 K/UL. The reference range was not used to interpret this result as normal/abnormal. ABSOLUTE NEUTROPHILS (test code = 58698-2) 6.63 K/UL See_Comment [Automated messa ge] The system which generated this result transmitted reference range: 1.50-7.50 K/UL. The reference range was not used to interpret this result as normal/abnormal. BASOPHILS (test code = 06246-5) 0.6 % EOSINOPHILS (test code = 09963-8) 1.3 % HEMATOCRIT (test code = 78811-8) 48.9 % See_Comment H [Automated messa ge] [...] result as normal/abnormal. LYMPHOCYTES (test code = 21924-8) 29.5 % MCH (test code = 92734-9) 32.7 PG See_Comment [Automated messa ge] The system which generated this result transmitted reference range: 25.0-33.0 PG. The reference range was not used to interpret this result as normal/abnormal. MCHC (test code = 42007-3) 34.4 G/DL See_Comment [Automated messa ge] The system which generated this result transmitted reference range: 31.0-36.0 G/DL. The reference range was not used to interpret this result as normal/abnormal. MCV (test code = 82323-3) 95.3 fL See_Comment [Automated messa ge] The system which generated this result transmitted reference range: 80.0-99.0 fL. The reference range was not used to interpret this result as normal/abnormal. MONOCYTES (test code = 74726-9) 5.7 % NEUTROPHILS (test code = 31157-9) 62.5 % PLATELET COUNT (test code = 89430-2) 222 K/UL See_Comment [Automated messa ge] The system which generated this result transmitted reference range: 130-400 K/UL. The reference range was not used to interpret this result as normal/abnormal. RBC (test code = 43270-9) 5.13 M/UL See_Comment [Automated messa ge] The system which generated this result transmitted reference range: 3.80-5.40 M/UL. The reference range was not used to interpret this result as normal/abnormal. RDW (test code = 79591-4) 12.8 % See_Comment [Automated messa ge] The system which generated this result transmitted reference range: 11.5-15.0 %. The reference range was not used to interpret this result as normal/abnormal. WBC (test code = 50409-5) 10.6 K/UL See_Comment [Automated messa ge] The system which generated this result transmitted reference range: 3.5-11.0 K/UL. The reference range was not used to interpret this result as normal/abnormal. DEXA, BONE DENSITY AXIAL SKELEDEXA, BONE DENSITY AXIAL SKELE
--- NOTE | 2025-04-01 10:17 | RAD REPORT ---
Procedure: Chest Single View HISTORY: Chest pain COMPARISON: 2022 FINDINGS: The lungs appear clear of acute infiltrate. No significant pleural effusion noted. The heart is normal size. IMPRESSION: No acute abnormality is displayed.
[2025-04-01 10:29] LABS: Influenza A Ag Negative; Influenza B Ag Negative; SARS-CoV-2 Antigen Rapid Res Negative (Negative)
[2025-04-01] MEDS ORDERED: ASPIRIN 81 MG CHEWABLE TABLET ONE (10:32)
[2025-04-01 10:34] LABS: Absolute Lymphocytes (CBC) 2.8 K/uL (0.7-4.9); Hematocrit 47.7 % (36.0-45.0); Hemoglobin 16.3 g/dL (12.0-15.0); MCH 32.3 pg (27.0-35.0); MCHC 34.1 g/dL (32.0-36.0); MCV 94.6 fL (80-100); MPV 9.9 fL (7.6-11.3); Nucleated RBC Absolute Count 0.0 (0-0); Nucleated Red Blood Cells % 0.1 % (0-0); RBC Red Blood Cell Count 5.04 M/uL (3.86-4.86); White Blood Count 9.90 thou/uL (4.3-10.9)
[2025-04-01 10:41] LABS: PT Prothrombin Time 11.4 SECONDS (10-13.0); Protime INR 1.01
[2025-04-01 11:08] LABS: ALT/SGPT 28 U/L (13-56); Albumin 3.6 g/dL (3.4-5.0); Albumin/Globulin Ratio 0.9 (1.1-1.8); Alkaline Phosphatase 105 U/L (45-117); Anion Gap 8.9 mEq/L (5.0-15.0); BUN Blood Urea Nitrogen 9 mg/dL (7-18); Globulin 3.8 g/dL (2.3-3.5); Glucose Level 86 mg/dL (74-106); Magnesium 2.1 mg/dL (1.6-2.4); NT PRO-BNP 44 pg/mL (<125); Potassium 3.9 mEq/L (3.5-5.1)
[2025-04-01 11:09] LABS: AST/SGOT < 10 U/L (15-37); Bilirubin Indirect, Calculated 0.2 mg/dL (0.2-0.8); Troponin High Sensitivity < 3.0 pg/mL (<58.9)
--- NOTE | 2025-04-01 12:36 | EDPHYS ---
Physician Documentation [facility] Name: Juan J Velez Age: 59 yrs Sex: Female : 1965 Arrival Date: 04/01/2025 Time: 09:06 Bed 18 Private MD: ED Physician Kirill Tovar HPI: 04/01 09:28 This 59 yrs old Female presents to ER via Unassigned with complaints of Chest Pain, sb4 Shortness Of Breath, Headache. 09:28 Patient reports chest pain, shortness of breath, and headache for 2 to 3 days now. She sb4 states that she has a history that she did get chest pains somewhat frequently. What concerned her was the shortness of breath and headache. Denies any cardiac history. Does not have hypertension. Does smoke daily but denies any formal COPD diagnosis. Feels nauseated, no vomiting. Historical: - Allergies: 09:36 NKDA; ss - PMHx: 09:36 Anxiety; Bipolar disorder; Depression; PTSD; ss - PSHx: 09:36 Cholecystectomy; section; Appendectomy; ss - Immunization history:: Adult Immunizations unknown. - Infectious Disease History:: Denies. - Social history:: Smoking status: Patient reports the use of cigarette tobacco products, smokes one pack cigarettes per day. ROS: 09:28 Constitutional: Negative for fever, chills, and weight loss, sb4 09:28 Cardiovascular: Positive for chest pain, 09:28 Respiratory: Positive for cough, 09:28 Neuro: Positive for headache, 09:28 All other systems are negative, Exam: 09:28 Constitutional: This is a well developed, well nourished patient who is awake, alert, sb4 and in no acute distress. Head/Face: Normocephalic, atraumatic. Eyes: Extra-ocular motions intact. Periorbital areas with no swelling, redness, or edema. ENT: Mucous membranes moist. Cardiovascular: Regular rate and rhythm with a normal S1 and S2. Respiratory: No increased work of breathing, no retractions or nasal flaring. Abdomen/GI: Soft, non-tender, no distension. Skin: Warm, dry with normal turgor. Normal color with no rashes, no lesions, and no evidence of cellulitis. 09:29 Respiratory: Breath sounds: are clear throughout, sb4 Vital Signs: 09:33 BP 112 / 73; Pulse 73; Resp 16; Temp 98.6(TE); Pulse Ox 100% on R/A; Height 5 ft. 4 in. ss ; Pain 6/10; 10:42 BP 115 / 75; Pulse 63; Resp 17; Pulse Ox 95% on R/A; ar8 12:15 BP 107 / 64; Pulse 54; Resp 20; Pulse Ox 95% on R/A; ar8 09:33 Pain Scale: Adult ss MDM: 09:18 Medical Screening Exam initiated sb4 09:29 Differential diagnosis: bronchitis, pneumonia ACS, viral infection. sb4 11:38 Scoring Tools HEART Score: History: ECG: Age: Risk Factors: 1 or 2 risk factors (1), sb4 Troponin: Total Score = 2. 12:35 Data reviewed: vital signs, nurses notes, lab test result(s), EKG, radiologic studies, sb4 and as a result, I will discharge patient. Counseling: I had a detailed discussion with the patient and/or guardian regarding the historical points, exam findings, and any diagnostic results supporting the discharge/admit diagnosis, lab results, radiology results, the need for outpatient follow up, for definitive care, to return to the emergency department if symptoms worsen or persist or if there are any questions or concerns that arise at home. 04/01 09:28 Order name: Basic Metabolic Panel; Complete Time: 11:10 sb4 04/01 09:28 Order name: CBC with Diff; Complete Time: 10:39 sb4 04/01 09:28 Order name: LFT's; Complete Time: 11:10 sb4 04/01 09:28 Order name: Magnesium; Complete Time: 11:10 sb4 04/01 09:28 Order name: NT PRO-BNP; Complete Time: 11:10 sb4 04/01 09:28 Order name: PT-INR; Complete Time: 10:42 sb4 04/01 09:28 Order name: Troponin HS; Complete Time: 11:10 sb4 04/01 09:29 Order name: COVID-19 Ag + Flu A+B Ag; Complete Time: 10:30 sb4 04/01 11:17 Order name: Troponin High Sensitivity; Complete Time: 12:31 sb4 04/01 09:28 Order name: XRAY Chest (1 view); Complete Time: 10:18 sb4 04/01 09:28 Order name: Cardiac monitoring; Complete Time: 10:16 sb4 04/01 09:28 Order name: EKG - Nurse/Tech; Complete Time: 10:16 sb4 04/01 09:28 Order name: IV Saline Lock; Complete Time: 10:42 sb4 04/01 09:28 Order name: Labs collected and sent; Complete Time: 10:42 sb4 04/01 09:28 Order name: O2 Per Protocol; Complete Time: 10:16 sb4 04/01 09:28 Order name: O2 Sat Monitoring; Complete Time: 10:16 sb4 EC:13 Rate is 76 beats/min. Rhythm is regular, Normal Sinus Rhythm. MN interval is normal at sb4 146 msec. QRS interval is normal at 84 msec. QT interval is normal at 386 msec. No Q waves. T waves are Normal. No ST changes noted. Clinical impression: No evidence of ischemia. Interpreted by me. Reviewed by me. Administered Medications: 10:35 Drug: Aspirin PO Chewable Tablet 324 mg PO once; 81 mg tablets x 4 Route: PO; ar8 12:57 Follow up: Response: No adverse reaction me1 Disposition: 13:47 Co-signature as Attending Physician, Kirill Tovar MD I agree with the assessment and rose plan of care. Disposition Summary: 04/01/25 12:35 Discharge Ordered Notes: Location: Home sb4 Problem: an ongoing problem sb4 Symptoms: have improved sb4 Condition: Stable sb4 Diagnosis - Chest pain, unspecified sb4 - Anxiety disorder, unspecified sb4 Followup: sb4 - With: Emergency Department - When: As needed - Reason: Trouble breathing, Worsening of condition Discharge Instructions: - Discharge Summary Sheet sb4 - Nonspecific Chest Pain, Adult, [id number] sb4 - Managing Anxiety, Adult sb4 Forms: - Patient Portal Instructions sb4 - Leadership Thank You Letter sb4 Signatures: Dispatcher [employer] Kirill Bennett MD MD cha Blanchard, Shelby, JOSEFINA RN Tessy Salcedo PA-C PA-C sb4 Matt Pat RN RN ar8 Glenda Magallon RN me1 Corrections: (The following items were deleted from the chart) 09: 09:28 BASIC METABOLIC PANEL+C.LAB.BRZ ordered. [facility] 09:28 CBC+H.LAB.BRZ ordered. EDMS EDMS 09:28 HEPATIC FUNCTION+C.LAB.BRZ ordered. EDMS EDMS 09:28 MAGNESIUM+C.LAB.BRZ ordered. EDMS EDMS 09:28 PROBNP+C.LAB.BRZ ordered. EDMS EDMS 09:28 PROTIME (+INR)+COAG.LAB.BRZ ordered. EDMS EDMS 09:28 Troponin High Sensitivity+C.LAB.BRZ ordered. EDMS EDMS 09:28 Chest Single View+RAD.RAD.BRZ ordered. EDMS EDMS
--- NOTE | 2025-04-01 12:36 | ER ---
Nurse's Notes [facility] Name: Juan J Velez Age: 59 yrs Sex: Female : 1965 Arrival Date: 04/01/2025 Time: 09:06 Bed 18 Private MD: Diagnosis: Chest pain, unspecified;Anxiety disorder, unspecified Presentation: 04/01 09:33 Chief complaint: Patient states: Chest discomfort, back pain, shortness of breath and ss headaches that began 2-3 days ago. Denies fever. Coronavirus screen: Client denies travel out of the [place] in the last 14 days. Ebola Screen: Patient denies exposure to infectious person. Patient denies travel to an Ebola-affected area in the 21 days before illness onset. Initial Sepsis Screen: Does the patient meet any 2 criteria? No. Patient's initial sepsis screen is negative. Does the patient have a suspected source of infection? No. Patient's initial sepsis screen is negative. Risk Assessment: Do you want to hurt yourself or someone else? Patient reports no desire to harm self or others. Onset of symptoms was March 29, 2025. 09:33 Method Of Arrival: Ambulatory 09:33 Acuity: KORINA 3 ss Historical: - Allergies: 09:36 NKDA; ss - PMHx: 09:36 Anxiety; Bipolar disorder; Depression; PTSD; ss - PSHx: 09:36 Cholecystectomy; section; Appendectomy; ss - Immunization history:: Adult Immunizations unknown. - Infectious Disease History:: Denies. - Social history:: Smoking status: Patient reports the use of cigarette tobacco products, smokes one pack cigarettes per day. Screenin:16 [facility] ED Fall Risk Assessment (Adult) History of falling in the last 3 months, ar8 including since admission No falls in past 3 months (0 pts) Confusion or Disorientation No (0 pts) Intoxicated or Sedated No (0 pts) Impaired Gait No (0 pts) Mobility Assist Device Used No (0 pt) Altered Elimination No (0 pt) Score/Fall Risk Level 0 - 2 = Low Risk. Abuse screen: Denies threats or abuse. Nutritional screening: No deficits noted. Tuberculosis screening: No symptoms or risk factors identified. Assessment: 10:16 General: Appears in no apparent distress. Behavior is calm, cooperative. Pain: ar8 Complains of pain in back and chest Pain does not radiate. Pain currently is 7 out of 10 on a pain scale. Quality of pain is described as aching, Pain began 2-3 days ago. Neuro: No deficits noted. Level of Consciousness is awake, alert, obeys commands, Oriented to person, place, time, situation. Cardiovascular: No deficits noted. Reports chest pain, shortness of breath, Rhythm is sinus rhythm. Respiratory: No deficits noted. Reports shortness of breath at rest cough that is non-productive, Airway is patent Respiratory effort is even, unlabored, Respiratory pattern is regular, symmetrical. Vital Signs: 09:33 BP 112 / 73; Pulse 73; Resp 16; Temp 98.6(TE); Pulse Ox 100% on R/A; Height 5 ft. 4 in. ss ; Pain 6/10; 10:42 BP 115 / 75; Pulse 63; Resp 17; Pulse Ox 95% on R/A; ar8 12:15 BP 107 / 64; Pulse 54; Resp 20; Pulse Ox 95% on R/A; ar8 09:33 Pain Scale: Adult ss ED Course: 09:08 Patient arrived in ED. mr 09:14 Tessy Berry PA-C is PHCP. sb4 09:14 Kirill Tovar MD is Attending Physician. sb4 09:36 Triage completed. ss 09:36 Arm band placed on right wrist. ss 09:41 Matt Pat, RN is Primary Nurse. ar8 09:48 radiology at bedside for portable CXR. ar8 09:55 Bed in low position. Call light in reach. Side rails up X2. Provided Education on: plan ar8 of care, diagnostics and estimated wait time. 09:55 Client placed on continuous cardiac and pulse oximetry monitoring. NIBP monitoring ar8 applied. 09:55 No provider procedures requiring assistance completed. Missed attempt(s): 22 gauge in ar8 left upper arm. Bleeding controlled, band aid applied, catheter tip intact. Patient maintains SpO2 saturation greater than 95% on room air. 09:55 EKG done, by ED staff, reviewed by Tessy Berry PA-C. ar8 09:57 XRAY Chest (1 view) In Process Unspecified. EDMS 10:16 COVID-19 Ag + Flu A+B Ag Sent. ar8 10:25 Inserted saline lock: 22 gauge in left antecubital area, using aseptic technique. Blood ar8 collected. Flushed with 10 mL NS. 11:54 Troponin High Sensitivity Sent. ar8 13:01 IV discontinued, intact, bleeding controlled, No redness/swelling at site. Pressure me1 dressing applied. Administered Medications: 10:35 Drug: Aspirin PO Chewable Tablet 324 mg PO once; 81 mg tablets x 4 Route: PO; ar8 12:57 Follow up: Response: No adverse reaction me1 Medication: 10:16 VIS not applicable for this client. ar8 Outcome: 12:35 Discharge ordered by . aminata 13:01 Discharged to home ambulatory, me1 13:01 Condition: stable 13:01 Discharge instructions given to patient, Instructed on discharge instructions, follow up and referral plans. Demonstrated understanding of instructions, follow-up care, 13:04 Patient left the ED. me1 Signatures: Dispatcher [employer] EDSonya Ribeiro, Reg Reg mr Kristina London, RN RN Tessy Salcedo PAThom PAThom sb4 Glenda Magallon RN RN me1 Matt Pat RN RN ar8
[2025-04-01 13:34] VITALS: TEMP 98.6
[2025-04-01 13:36] VITALS: BP 107/64; O2SAT 95
== END 2025-04-01 13:04 | disposition home or self-care (01) ==
LOC: ER 09:06
DX: R07.9 Chest pain, unspecified (principal); F41.9 Anxiety disorder, unspecified
CPT/HCPCS: 36415; 71045; 80048; 80076; 83735; 83880; 84484; 85025; 85610; 87428; 93005; 99284